=== PATIENT | male | born 1950 | race Caucasian/White ===

== ENCOUNTER → 2016-04-24 | Outpatient (CLI) | payer BC ==
[2016-04-24 19:16] LABS: MEAN CORPUSCULAR HEMOGLOBIN 30.6 pg (27.0-33.0); MEAN CORPUSCULAR HGB CONC 33.2 g/dl (32.0-36.5); MEAN CORPUSCULAR VOLUME 92.2 fl (80.0-96.0); RED CELL DISTRIBUTION WIDTH 11.7 % (11.5-14.5); WHITE BLOOD COUNT 5.9 K/mm3 (4.0-10.0)
[2016-04-27 00:06] LABS: Lyme Disease IgG/IgM Antibodie <0.91 ISR (0.00-0.90); Lyme Disease IgM Ab Quantitati <0.80 index (0.00-0.79)
== END ==
LOC: M LAB 17:29
PROVIDERS: ATTEND Orthopaedic Surgery
DX: M25.562 Pain in left knee (principal)

== ENCOUNTER → 2016-11-28 | Outpatient (REF) | payer BC | LOC: M LAB REF 13:22 | PROVIDERS: ATTEND Internal Medicine | DX: Z01.89 Encounter for other specified special examinations (principal) ==

== ENCOUNTER → 2017-08-09 | Outpatient (REF) | payer MEDICARE ==
[2017-08-09 19:50] LABS: IRON (FE) 58 UG/DL (65-175); PERCENT SATURATION 20.9 % (19.7-50.0); TOTAL IRON BINDING CAPACITY 277 UG/DL (250-450)
== END ==
LOC: M LAB REF 17:44
DX: D50.9 Iron deficiency anemia, unspecified (principal)
CPT/HCPCS: 83550

== ENCOUNTER → 2017-12-03 | Outpatient (REF) | payer MEDICARE ==
[2017-12-03 14:08] LABS: HEPATITIS C VIRUS ABY INDEX 0.2 INDEX (<0.8)
== END ==
LOC: M LAB REF 12:06
DX: Z01.89 Encounter for other specified special examinations (principal)
CPT/HCPCS: 86803

== ENCOUNTER → 2018-02-11 | Outpatient (CLI) | payer MEDICARE | LOC: M RAD 06:12 | DX: I73.9 Peripheral vascular disease, unspecified (principal) | CPT/HCPCS: 93925 ==

== ENCOUNTER → 2018-06-05 | Outpatient (REF) | payer MEDICARE | LOC: M LAB REF 12:19 | PROVIDERS: ATTEND Internal Medicine | DX: M10.9 Gout, unspecified (principal) ==

== ENCOUNTER → 2018-07-23 | Outpatient (REF) | payer MEDICARE ==
[2018-07-23 18:48] LABS: FREE T4 1.08 NG/DL (0.76-1.46); RHEUMATOID FACTOR QUANT < 10.0 IU/ML (<15.0); THYROID STIMULATING HORMONE 0.713 uIU/ML (0.358-3.740)
[2018-07-23 18:50] LABS: FOLATE 22.5 NG/ML; VITAMIN B12 LEVEL 844 PG/ML
[2018-07-23 19:03] LABS: HEMOGLOBIN A1c 5.7 %
[2018-07-28 00:07] LABS: ANTINUCLEAR ANTIBODIES DIRECT Negative (Negative); VITAMIN B1 LEVEL WHOLE BLOOD 144.2 nmol/L (66.5-200.0); VITAMIN B6,PYRIDOXAL PHOSPHATE 35.7 ug/L (5.3-46.7); VITAMIN E(ALPHA TOCOPHEROL) 14.9 mg/L (9.0-29.0); VITAMIN E(GAMMA TOCOPHEROL) 0.4 mg/L (0.5-4.9)
[2018-07-30 13:10] LABS: DRVV SCREEN 57.2 SEC
[2018-07-30 13:59] LABS: PTT LUPUS TYPE ANTICOAG SCREEN 1.4 (0-1.2)
[2018-07-30 14:12] LABS: DRVV CONFIRM 58.2 SEC; LUPUS CONFIRM RATIO 1.5
[2018-07-30 14:31] LABS: NORMALIZED RATIO 0.93 (0.00-1.20)
== END ==
LOC: M LABNEURO 13:51
PROVIDERS: ATTEND Psychiatry & Neurology Neurology
DX: G62.9 Polyneuropathy, unspecified (principal); Z79.899 Other long term (current) drug therapy

== ENCOUNTER → 2018-08-06 | Outpatient (CLI) | payer MEDICARE ==
--- NOTE | 2018-08-06 11:56 | REP ---
PARTIAL LUMBAR SPINE, THREE VIEWS: HISTORY: Back pain. The patient is status post L4 to S1 anterior and T10 to sacroiliac posterior spinal fusion and L2 to L5 laminectomy. Metal hardware is present. There is no acute fracture or subluxation. The intervertebral discs are decreased in height consistent with disc degeneration. There is minimal scoliosis convex to the right. IMPRESSION: The patient is status post L4 to S1 anterior and T10 to sacroiliac posterior spinal fusion and L2-5 laminectomy. There is anatomic alignment. Electronically Signed by Royer Abdalla MD 08/06/2018 12:24 P
--- NOTE | 2018-08-06 12:14 | REP ---
AP AND LATERAL THORACIC SPINE, THREE VIEWS: HISTORY: Back pain. The patient is status post L4 to S1 anterior and T10 to sacroiliac posterior spinal fusion and L2 to 5 laminectomy. Metal hardware is present. There are old compression fractures of the T7 and T8 vertebral bodies with minimal height loss. There is no acute fracture or subluxation. There is loss of height of several mid and lower thoracic intervertebral discs. Anterior osteophytes are present in the lower thoracic spine. IMPRESSION: 1. The patient is status post L4 to S1 anterior and T10 to sacroiliac posterior spinal fusion and L2 to 5 laminectomy. There is anatomic alignment. 2. Degenerative change as described above. Electronically Signed by Royer Abdalla MD 08/06/2018 12:24 P
== END ==
LOC: M RAD 11:15
PROVIDERS: ATTEND Psychiatry & Neurology Neurology
DX: Z98.1 Arthrodesis status (principal); M51.34 Other intervertebral disc degeneration, thoracic region

== ENCOUNTER → 2018-12-30 | Outpatient (REF) | payer MEDICARE ==
[2019-01-01 08:19] LABS: Lyme Disease IgG/IgM Antibodie <0.91 ISR (0.00-0.90); Lyme Disease IgM Ab Quantitati <0.80 index (0.00-0.79)
== END ==
LOC: M LAB REF 13:14
PROVIDERS: ATTEND Internal Medicine
DX: M15.9 Polyosteoarthritis, unspecified (principal)

== ENCOUNTER → 2019-11-21 | Outpatient (CLI) | payer MEDICARE ==
[~2019-11-21] MED LIST: BACL10TA2 PO; CALC600C3 PO; CIDA500T2 PO; DOCU-129 PO; FISH1000 PO; GABA-843 PO; GNP650TA8 PO; METH750T2 PO; MULTCAP PO; NAPR-885 PO; OMEP-218 PO; PROBCAP17 PO; SENN8.6T58 PO; TARTCAP PO; [UNRECOGNIZED DRUG - REMARK]
== END ==
LOC: M LABSMTC 10:33
PROVIDERS: ATTEND Anesthesiology
DX: Z01.812 Encounter for preprocedural laboratory examination (principal)
CPT/HCPCS: C9803; U0003

== ENCOUNTER → 2019-11-24 | Outpatient (CLI) | payer MEDICARE ==
--- NOTE | 2019-12-04 12:25 | PFTRPT ---
Height: 68.00 Inches Weight: 163.00 Lbs BSA: 1.87 Diagnosis: R06.00 DATE OF STUDY: 11/24/2019 ORDERING PHYSICIAN: Dr. Weller Pre and post bronchodilator study of excellent technical quality. Forced vital capacity is normal. FEV1 generally proportionate with adequate exchange noted. Flow volume loop was normal. No significant bronchodilator response identified. Total lung capacity normal. Residual volume proportionate. Diffusion capacity although minimally reduced is appropriate for alveolar volume but no hemoglobin available for correction. Airway resistance and conductance are normal. IMPRESSION: Minimal reduction in the absolute diffusion capacity, requires further clinical correlation. MTDD
== END ==
LOC: M CARPUL 07:28
PROVIDERS: ATTEND Internal Medicine
DX: R06.00 Dyspnea, unspecified (principal)

== ENCOUNTER 2019-11-26 07:57 | Day surgery (SDC) | payer MEDICARE ==
[~2019-11-26] VITALS: Ht 172.7 cm; Wt 73.5 kg
[~2019-11-26 07:57] MED LIST changes: +NS 1,000 ML IV ONE
[2019-11-26] MEDS ORDERED: LIDOCAINE 2% 100MG/5ML SDV (FOR ANES.) As Ordered ONE (09:37)
[2019-11-26] MEDS ORDERED: propofoL 200 MG/20 ML VIAL As Ordered ONE ×2 (09:37→09:43)
[2019-11-26] MEDS ORDERED: ePHEDrine SULFATE 25 MG/5 ML(5MG/ML) SYRINGE As Ordered ONE (09:48)
[2019-11-26 10:22] VITALS: BP 110/64
--- NOTE | 2019-12-03 11:31 | ROOR ---
Patient Name: Aashish Barcenas Procedure Date: 11/26/2019 9:27 AM Date of : 1950 Age: 69 Room: [facility] Gender: Male Note Status: Finalized Procedure: Total Colonoscopy to Cecum Indications: Screening for colorectal malignant neoplasm Providers: Maurisio Sarmiento MD Referring MD: CALISTA PATTERSON JR, MD Requesting Provider: Medicines: Monitored Anesthesia Care Complications: No immediate complications. Procedure: Pre-Anesthesia Assessment: - The heart rate, respiratory rate, oxygen saturations, blood pressure, adequacy of pulmonary ventilation, and response to care were monitored throughout the procedure. The Colonoscope was introduced through the anus and advanced to the cecum, identified by appendiceal orifice and ileocecal valve. The colonoscopy was performed without difficulty. The patient tolerated the procedure well. The quality of the bowel preparation was good. Findings: The perianal and digital rectal examinations were normal. Non-bleeding internal hemorrhoids were found during retroflexion. The hemorrhoids were small and Grade I (internal hemorrhoids that do not prolapse). No other significant abnormalities were identified in a careful examination of the remainder of the colon. The exam was otherwise without abnormality on direct and retroflexion views. Impression: - Non-bleeding internal hemorrhoids. - The examination was otherwise normal on direct and retroflexion views. - No specimens collected. - The exam was otherwise normal to the cecum. Recommendation: - Patient has a contact number available for emergencies. The signs and symptoms of potential delayed complications were discussed with the patient. Return to normal activities tomorrow. Written discharge instructions were provided to the patient. - High fiber diet. - Discharge patient to home. - Continue present medications. - Repeat colonoscopy is not recommended due to current age (66 years or older) for screening purposes. - Return to referring physician. - The findings and recommendations were discussed with the patient. Maurisio Sarmiento MD Maurisio Sarmiento MD 11/26/2019 9:51:20 AM Electronically signed by Maurisio Sarmiento MD Number of Addenda: 0 Note Initiated On: 11/26/2019 9:27 AM Estimated Blood Loss: Estimated blood loss: none.
== END 2019-11-26 10:24 | disposition home or self-care (01) ==
LOC: M OPP 07:57
PROVIDERS: ATTEND Internal Medicine Gastroenterology
DX: Z12.11 Encounter for screening for malignant neoplasm of colon (principal); Z86.010 Personal history of colon polyps; K64.0 First degree hemorrhoids; Z79.891 Long term (current) use of opiate analgesic; Z79.899 Other long term (current) drug therapy

== ENCOUNTER → 2019-12-15 | Outpatient (CLI) | payer MEDICARE ==
[~2019-12-15] MED LIST changes: +METHACHOLINE KIT (J7674) INH ONE; -NS 1,000 ML IV ONE
--- NOTE | 2019-12-15 08:39 | PFTRPT ---
Visit Date: 12/15/2019 Second ID: [id number] Referring Doctor: MD Weller Collins Height: 68.00 Inches Weight: 163.00 Lbs BSA: 1.87 Diagnosis: R06.00 QUALITY: Study of excellent technical quality. PROCEDURE: Under protocol, methacholine was administered. At a dose of 10 mg or 63.75 CDUs, a 32% decline of the FEV1 was noted. PC of 3.96 is significant. Flow rates did return to baseline post-bronchodilator administration. IMPRESSION: Positive methacholine challenge study. MTDD
== END ==
LOC: M CARPUL 12-10 08:00
PROVIDERS: ATTEND Internal Medicine
DX: R06.00 Dyspnea, unspecified (principal)
CPT/HCPCS: 94070; 95070; J7674

== ENCOUNTER → 2020-04-12 | Outpatient (REF) | payer MEDICARE ==
[~2020-04-12] MED LIST changes: +GABA-282 PO; -GABA-843 PO; +METH-1165 PO; -METH750T2 PO; -METHACHOLINE KIT (J7674) INH ONE
[2020-04-12 18:30] LABS: PROTHROMBIN TIME 13.4 SECONDS (12.5-14.3)
[2020-04-12 18:31] LABS: PARTIAL THROMBOPLASTIN TIME 34.9 SECONDS (24.2-38.5)
[2020-04-12 18:42] LABS: APPEARANCE, URINE CLEAR (CLEAR); BACTERIA, URINE AUTO NEGATIVE (NEGATIVE); BILIRUBIN, URINE AUTO NEGATIVE (NEGATIVE); BLOOD, URINE BLOOD NEGATIVE (NEGATIVE); COLOR, URINE YELLOW (YELLOW); GLUCOSE, URINE (UA) AUTO NEGATIVE (NEGATIVE); KETONE, URINE AUTO NEGATIVE (NEGATIVE); LEUKOCYTE ESTERASE, URINE AUTO NEGATIVE (NEGATIVE); NITRITE, URINE AUTO NEGATIVE (NEGATIVE); PROTEIN, URINE AUTO NEGATIVE (NEGATIVE); RBC, URINE AUTO 0 /HPF (0-3); SPECIFIC GRAVITY URINE AUTO 1.009 (1.002-1.035); SQUAMOUS EPITHELIAL CELL UR AU 0 /HPF (0-6); UROBILINOGEN, URINE AUTO 0.2 mg/dL (0.0-2.0); WBC, URINE AUTO 0 /HPF (0-3)
== END ==
LOC: M LAB REF 16:43
PROVIDERS: ATTEND Internal Medicine
DX: Z01.818 Encounter for other preprocedural examination (principal); M17.12 Unilateral primary osteoarthritis, left knee; Z79.01 Long term (current) use of anticoagulants

== ENCOUNTER → 2021-01-18 | Outpatient (REF) | payer MEDICARE ==
[~2021-01-18] MED LIST changes: -DOCU-129 PO; +DOCU-153 PO
[2021-01-18 13:50] LABS: FERRITIN 113 NG/ML (26-388); IRON (FE) 115 UG/DL (65-175); PERCENT SATURATION 39.8 % (19.7-50.0); TOTAL IRON BINDING CAPACITY 289 UG/DL (250-450); TOTAL PROTEIN 7.5 GM/DL (6.4-8.2)
[2021-01-18 13:57] LABS: VITAMIN B12 LEVEL 692 PG/ML
[2021-01-18 13:58] LABS: FOLATE 18.5 NG/ML
[2021-01-19 10:33] LABS: ALBUMIN 4.54 GM/DL (3.29-5.55); ALBUMIN % 60.5 % (55.8-66.1); ALPHA-1-GLOBULIN % 3.5 % (2.9-4.9); ALPHA-1-GLOBULINS 0.26 GM/DL (0.17-0.41); ALPHA-2-GLOBULINS 0.65 GM/DL (0.42-0.99)
[2021-01-19 10:34] LABS: ALPHA-2-GLOBULINS % 8.7 % (7.1-11.8); BETA-1-GLOBULINS 0.37 GM/DL (0.28-0.60); BETA-1-GLOBULINS % 4.9 % (4.7-7.2); BETA-2-GLOBULINS 0.33 GM/DL (0.19-0.55); BETA-2-GLOBULINS % 4.4 % (3.2-6.5); GAMMA GLOBULINS 1.35 GM/DL (0.65-1.58)
== END ==
LOC: M LAB REF 12:20
PROVIDERS: ATTEND Internal Medicine
DX: Z01.818 Encounter for other preprocedural examination (principal); G60.9 Hereditary and idiopathic neuropathy, unspecified; M17.12 Unilateral primary osteoarthritis, left knee; M25.562 Pain in left knee

== ENCOUNTER → 2021-02-24 | Outpatient (REF) | payer MEDICARE, BC ==
[2021-02-24 13:15] LABS: APPEARANCE, URINE HAZY (CLEAR); BACTERIA, URINE AUTO NEGATIVE (NEGATIVE); BILIRUBIN, URINE AUTO NEGATIVE (NEGATIVE); BLOOD, URINE BLOOD NEGATIVE (NEGATIVE); COLOR, URINE AMBER (YELLOW); GLUCOSE, URINE (UA) AUTO NEGATIVE (NEGATIVE); KETONE, URINE AUTO NEGATIVE (NEGATIVE); LEUKOCYTE ESTERASE, URINE AUTO NEGATIVE (NEGATIVE); NITRITE, URINE AUTO NEGATIVE (NEGATIVE); PROTEIN, URINE AUTO NEGATIVE (NEGATIVE); RBC, URINE AUTO 0 /HPF (0-3); SPECIFIC GRAVITY URINE AUTO 1.018 (1.002-1.035); SQUAMOUS EPITHELIAL CELL UR AU 0 /HPF (0-6); UROBILINOGEN, URINE AUTO 0.2 mg/dL (0.0-2.0); WBC, URINE AUTO 0 /HPF (0-3)
[2021-02-24 13:32] LABS: INR 0.98; PROTHROMBIN TIME 13.4 SECONDS (12.7-14.5)
== END ==
LOC: M LAB REF 12:28
PROVIDERS: ATTEND Internal Medicine
DX: Z01.810 Encounter for preprocedural cardiovascular examination (principal); M17.12 Unilateral primary osteoarthritis, left knee

== ENCOUNTER 2021-03-06 17:05 | Inpatient (IN) | payer MEDICARE, BC ==
[~2021-03-06] VITALS: Ht 175.3 cm; Wt 75.6 kg
[2021-03-06 18:10] LABS: BASO % 0.4 % (0.0-1.0); EOS # 0.2 10^3/uL (0.0-0.5); EOS % 2.4 % (0.0-3.0); HEMATOCRIT 30.6 % (42.0-52.0); HEMOGLOBIN 10.3 g/dl (13.5-17.5); LYMPH # 0.8 10^3/uL (1.5-5.0); LYMPH % 10.7 % (24.0-44.0); MEAN CORPUSCULAR HEMOGLOBIN 31.2 pg (27.0-33.0); MEAN CORPUSCULAR HGB CONC 33.7 g/dl (32.0-36.5); MEAN CORPUSCULAR VOLUME 92.7 fl (80.0-96.0); MONO # 0.5 10^3/uL (0.0-0.8); MONO % 6.4 % (2.0-8.0); NEUTROPHILS # 5.6 10^3/uL (1.5-8.5); NEUTROPHILS % 79.5 % (36.0-66.0); PLATELET COUNT, AUTOMATED 166 10^3/uL (150-450)
[2021-03-06 18:20] LABS: INR 1.17; PROTHROMBIN TIME 15.3 SECONDS (12.7-14.5)
[2021-03-06 18:21] LABS: PARTIAL THROMBOPLASTIN TIME 33.6 SECONDS (25.9-37.0)
[2021-03-06 18:25] LABS: RSV AMPLIFICATION NEGATIVE (NEGATIVE)
--- NOTE | 2021-03-06 18:42 | REPVR ---
PROCEDURE INFORMATION: Exam: CT Head Without Contrast Exam date and time: 03/06/2021 5:58 PM Age: 70 years old Clinical indication: Syncope and collapse; Additional info: Syncope, no head injury TECHNIQUE: Imaging protocol: Computed tomography of the head without contrast. Radiation optimization: All CT scans at this facility use at least one of these dose optimization techniques: automated exposure control; mA and/or kV adjustment per patient size (includes targeted exams where dose is matched to clinical indication); or iterative reconstruction. COMPARISON: No relevant prior studies available. FINDINGS: Brain: No intracranial mass, mass effect or midline shift. No acute intracranial hemorrhage. No CT evidence of acute cortical infarct. Ventricles, cisterns, and sulci are normal in size for age. Paranasal sinuses: Frontal and ethmoid sinus mucosal thickening is present. Mastoid air cells: Mastoid air cells and middle ear structures are normally aerated. Orbital cavity: Imaged orbits are unremarkable. Bones/joints: No calvarial fracture or destructive process. Soft tissues: No focal extracranial soft tissue swelling. IMPRESSION: No acute or concerning focal intracranial abnormality. Electronically signed by: Kristopher Pierce On 03/06/2021 18:41:25 PM
[2021-03-06 18:43] LABS: BLOOD UREA NITROGEN 13 MG/DL (7-18); CARBON DIOXIDE LEVEL 28 MEQ/L (21-32); CHLORIDE LEVEL 99 MEQ/L (98-107); CREATININE FOR GFR 0.92 MG/DL (0.70-1.30); ETHYL ALCOHOL (ETHANOL) < 0.003 % (0.000-0.010); GLOMERULAR FILTRATION RATE > 60.0 (>42); GLUCOSE, FASTING 128 MG/DL (70-100); POTASSIUM SERUM 4.2 MEQ/L (3.5-5.1); SODIUM LEVEL 133 MEQ/L (136-145); THYROID STIMULATING HORMONE 0.572 uIU/ML (0.358-3.740)
--- NOTE | 2021-03-06 18:48 | REP ---
INDICATION: Syncope/near-syncope/constipation. COMPARISON: None. TECHNIQUE: KUB. Two views. FINDINGS: Patient is status post thoracolumbar spine fusion with dorsally position fusion rods and transpedicle screws. Laminectomy defects are visible at L5-L4 and L3. There are surgical clips in the right lower quadrant. Air and stool are seen in a nondistended colon. No small bowel dilation is observed. No evidence to suggest fecal impaction or obstipation. IMPRESSION: Fusion hardware throughout the thoracolumbar spine. Unremarkable bowel gas pattern. No evidence of obstipation. <Electronically signed by Cole Marcial > 03/06/21 [id number]
--- NOTE | 2021-03-06 18:49 | REP ---
INDICATION: Syncope/near-syncope. COMPARISON: December 15, 2007. TECHNIQUE: Portable upright AP chest radiograph. FINDINGS: The lungs are well inflated and clear. Pleural angles are sharp. Heart is mildly enlarged. Pulmonary vasculature is slightly cephalized. There is no evidence of pulmonary edema. There is a faint linear opacity in the left base consistent with platelike atelectasis or scarring. IMPRESSION: Mildly enlarged heart platelike atelectasis versus linear scarring left base.. Cephalization of the pulmonary vasculature. Fusion hardware in the lower thoracic spine. <Electronically signed by Cole Marcial > 03/06/21 [id number]
[2021-03-06] MEDS ORDERED: NS 500 ML IV ONE (18:50)
[2021-03-06 19:08] LABS: ALBUMIN 3.2 GM/DL (3.2-5.2); ALT/SGPT 36 U/L (12-78); BILIRUBIN,DIRECT 0.3 MG/DL (0.0-0.2); BILIRUBIN,TOTAL 0.8 MG/DL (0.2-1.0); TOTAL PROTEIN 6.3 GM/DL (6.4-8.2)
[2021-03-06] MEDS ORDERED: HYDR-3713 PO (19:40)
[2021-03-06] MEDS ORDERED: FLOM0.4C39 PO (19:40)
[2021-03-06] MEDS ORDERED: KETO10TAB PO (19:40)
[2021-03-06] MEDS ORDERED: ISOVUE-370 76% 100ML VIAL As Ordered ONE (19:43)
--- OUTSIDE RECORDS SUMMARY | 2021-03-06 19:43 | CCD | Continuity of Care Document ---
Author Author Aashish Weller MD Organization Unknown Address [facility] [address] [place] [address] Phone [phone] Care Team Providers Care Head Char Filter Tank Tender Name Role Phone Jaime Weller JR, MD AUTM Unavailable Darrell Peters MD AUTM Unavailable Giorgio Plunkett MD AUTM [phone] Aurelio Adams MD AUTM [phone] Jeyson Cornell AUTM [phone] Lyla Ruano MD AUTM [phone] Problems Active Problems Provider Date Osteoarthritis Jaime Weller MD Onset: 11/12/2010 Hemorrhoids without complication Jaime Weller MD Onset : 11/12/2010 Pure hypercholesterolemia Jaime Weller MD Onset: 11/12 Social History Type Date Description Comments Sex Unknown ETOH Use Currently consumes alcohol 2-4 a lcoholic beverages on an average week Tobacco Use Start: Unknown Patient has never smoked Allergies and adverse reactions Description No Known Drug Allergies Medications Active Medications SIG Qnty Indications Ordering Provide r Date QC Tumeric Complex 500mg Capsules 2 daiky Jaime Weller MD 02/24/2021 Anusol-HC 2.5% Cream apply to rectal 4 times daily as needed for pain 60gm Jaime coyne MD 01/18/2021 Neurontin 300mg Capsules 1 tab by mouth bid 60caps Will Acevedo M.D. 11/26/2020 Methocarbamol 750mg Tablets one tablet b.i.d prn 60tabs Jaime Weller MD 11/10/2020 Calcium 600 + D [id number] Tab lets 1 by mouth every day Jaime Weller MD 021 Ketoconazole 2% Cream twice a day to rash for 14 days 60gm Jaime Weller MD 07/06/2020 Naproxen 500mg Tablets take one tablet by mouth twice a day with food 180tabs Will Acevedo M.D. 11/08/2017 Vitamin C 500mg Tablets 1 by mouth every day Jaime Weller MD 07/27/2017 Senna Plus 8.6-50mg Tablets 2 by mouth at bedtime 60tabs Jaime Weller MD 07/27/[address] take one capsule by mouth every day 90caps Will Acevedo M.D. 07/13/2016 Multivitamins Tablets 1 po q d Jaime Weller MD 06/16/2010 Tylenol 325mg Tablets 2 tabs q4h prn pain or fever Jaime Weller MD 06/16/2010 Glucosamine Chondroitin &MSM [id number] Tablets 1 po bid Jaime Weller MD 2010 Baclofen 20mg Tablets take one tablet by mouth twice a day 60tabs Jaime Weller MD 00 Docusate Sodium 100mg Capsules take one capsule by mouth twice a day as needed hold for diarrhea Unknown Medications Administered in Office Medication SIG Qnty Indications Ordering Provider Date Administration Of Flu Vaccine Inj jon Weller MD 12/31/2019 Administration Of Flu Vaccine Inj yohannesion Jaime Weller MD 01/11/2016 Administration Of Flu Vaccine Inj ection [place]IN[place] 12/31/2014 Immunizations CPT Code Status Date Vaccine Lot # U-Flu Given 02/21/2021 Influenza,Unspecified [id number] Given 12/31/2019 Adacel- Tetanus Diphtheria P ertussis [id number] Given 12/31/2019 Influenza Vaccin e Quadrivalent Preser/Antibiotic Free Im Use [id number] 83983 Given 02/28/2018 Shingrix Zoster Vaccine (HZV), Recombinant, Subunit, Adjuvanted 97206 Given 12/06/2017 Shingrix Zoster Vaccine (HZV), Recombinant, Subunit, Adjuvanted 38077 Given 11/28/2016 Pneumovax 23 [id number] Given 01/11/2016 Fluvirin Virus Vaccine [id number] 01 Q2037 Given 12/31/2014 Fluvirin Virus Vaccine 90984 01 26526 Given 07/18/2011 Zoster Vaccine 02589 Given 12/21/2009 Influenza Virus Vaccine Vital Signs Date Vital Result Comment 02/24/2021 9:42am BP Systolic 110 mmHg BP Diastolic 72 mmHg Heart Rate 64 /min Height 68 inches 5'8" Weight 168.00 lb BMI (Body Mass Index) 25.5 kg/m2 01/18/2021 8:51am BP Systolic 114 mmHg BP Diastolic 76 mmHg Heart Rate 68 /min Height 68 inches 5'8" Weight 167.44 lb O2 % BldC Oximetry 96 % RM Air BMI (Body Mass Index) 25.5 kg/m2 Results Test Acquired Date Facility Test Result H/L Range Note PT & Aptt 02/24/[address] [address] [phone] Prothrombin Time 13.4 seconds Normal 12.7-14.5 Inr 0.98 Normal 1 Partial Thromboplastin Time 32.0 seconds Normal 25.9-37.0 Ua Routine 02/24/[address] [id number] [phone] Appearance, Urine HAZY Normal Clear Color, Urine RODGER Normal Yellow PH,Urine 5.0 units Normal 5.0-9.0 Specific [place] Urine Auto 1.018 Normal 1.002-1.035 Protein, Urine Auto NEGATIVE mg/dL Normal Negative Glucose, Urine (Ua) Auto NEGATIVE mg/dL Normal Negative Ketone, Urine Auto NEGATIVE mg/dL Normal Negative Urobilinogen, Urine Auto 0.2 mg/dL Normal 0.0-2.0 Bilirubin, Urine Auto NEGATIVE Normal Negative Nitrite, Urine Auto NEGATIVE Normal Negative Leukocyte Esterase, Urine Auto NEGATIVE Normal Negative Blood, Urine Blood NEGATIVE Normal Negative WBC, Urine Auto 0 /HPF Normal 0-3 RBC, Urine Auto 0 /HPF Normal 0-3 Bacteria, Urine Auto NEGATIVE Normal Negative Squamous Epithelial Cell Ur AU 0 /HPF Normal 0-6 Hyaline Cast, Urine Auto 0 /LPF Normal 0-1 Laboratory test finding 02/24/[address] [place], [place] [id number] [phone] Urine Culture FULL REPORT IN L <SEE NOTE> Normal 2 Complete Blood Count 02/24/2021 [place] [employer] Case jaron ornelas [employer] Operator: Dr Jaime Weller [place], [place] [id number] [phone] WBC 3.6 x10*3/UL Low 4.1 - 10.9 3 RBC 4.31 x10*6/UL 4.20 - 6.30 Hemoglobin 13.5 g/dL 12.0 - 18.0 Hematocrit 37.9 % 37.0 - 51.0 MCV 87.9 fL 80.0 - 97.0 MCH 31.4 pg 26.0 - 32.0 MCHC 35.7 g/dL 31.0 - 38.0 RDW 12.4 % 11.6 - 13.7 PLT 222 x10*3/UL 140 - 440 MPV 7.1 FL Low 7.8 - 11.0 Lymph % 27.4 % 10.0 - 58.5 Mid % 7.4 % 1.7 - 9.3 Neut % 65.2 % 37.0 - 92.0 Lymph # 1.0 x10*3/UL 0.6 - 4.1 Mid # 0.3 x10*3/UL 0.1 - 0.6 Neut # 2.3 x10*3/UL 2.0 - 7.8 Comprehensive Chem Profile 02/24/2021 [place] jaron Seth [employer] Operator: [place] [address] [phone] Glucose 89 mg/dL 74 - 99 4 BUN 21 mg/dL High 7 - 18 Creatinine 1.1 mg/dL 0.6 - 1.3 Sodium 140 mEq/L 136 - 145 Potassium 4.4 mEq/L 3.5 - 5.1 Chloride 102 mEq/L 98 - 107 Carbon Dioxide 34 mEq/L High 21 - 32 Calcium 8.8 mg/dL 8.5 - 10.1 Alk. Phosphatase 51 mg/dL 46 - 116 Total Bilirubin 0.6 mg/dL 0.2 - 1.0 Ast (Sgot) 21 U/L 15 - 37 Alt (SGPT) 26 U/L 12 - 78 Albumin 4.0 g/dL 3.4 - 5.0 Total Protein 7.3 g/dL 6.4 - 8.2 A/G Ratio 1.21 CALC 1.00 - 1.90 GFR >= 60 mL/min >60 GFR >= 60 mL/min >60 5 Vitamin B12 & Folate 01/18/2021 [facility] [address] [place] [address] [phone] Vitamin B12 Level 692 pg/mL Normal 6 Folate 18.5 NG/ML Normal 7 Serum Protein Elect W/RFX 01/18/2021 [facility] [address] [place] [address] [phone] Albumin % 60.5 % Normal 55.8-66.1 Bygqn-3-Kacvrxnd % 3.5 % Normal 2.9-4.9 Qojic-5-Dnehcyqfj % 8.7 % Normal 7.1-11.8 Qcmg-6-Adibpemrk % 4.9 % Normal 4.7-7.2 Davs-7-Mlgrgbdxd % 4.4 % Normal 3.2-6.5 Gamma Globulin % 18.0 % Normal 11.1-18.8 Albumin 4.54 GM/DL Normal 3.29-5.55 Vwzgn-9-Rixxhbgfl 0.26 GM/DL Normal 0.17-0.41 Xmuez-8-Umeeombel 0.65 GM/DL Normal 0.42-0.99 Fxld-4-Jwvxhvpwh 0.37 GM/DL Normal 0.28-0.60 Yqnc-8-Xygpjemit 0.33 GM/DL Normal 0.19-0.55 Gamma Globulins 1.35 GM/DL Normal 0.65-1.58 Total Protein 7.5 GM/DL Normal 6.4-8.2 Spep Interpretation For RFX SEE COMMENT Normal 8 Spep Pathologist Review REV'D BY Loli GUY <SEE NOTE> Normal 9 Total Iron Binding Capacit 01/18/2021 [facility] [address] [place] [address] [phone] Iron (Fe) 115 g/dL Normal 65-175 Total Iron Binding Capacity 289 g/dL Normal 250-450 Percent Saturation 39.8 % Normal 19.7-50.0 Laboratory test finding 01/18/2021 [facility] [address] [place] [id number] [phone] Ferritin 113 NG/ML Normal 26-388 Laboratory test finding 01/18/2021 [place] [employer] Manager jaron beckwith [employer] Operator: [place] [address] [phone] PSA 1.84 ng/mL <4.00 10 Complete Blood Count 01/18/2021 [place] [facility] s, pc [employer] Operator: [place] [address] [phone] WBC 3.8 x10*3/UL Low 4.1 - 10.9 RBC 4.60 x10*6/UL 4.20 - 6.30 Hemoglobin 14.3 g/dL 12.0 - 18.0 Hematocrit 40.7 % 37.0 - 51.0 MCV 88.5 fL 80.0 - 97.0 MCH 31.2 pg 26.0 - 32.0 MCHC 35.2 g/dL 31.0 - 38.0 RDW 12.6 % 11.6 - 13.7 PLT 211 x10*3/UL 140 - 440 MPV 7.4 FL Low 7.8 - 11.0 Lymph % 24.0 % 10.0 - 58.5 Mid % 7.0 % 1.7 - 9.3 Neut % 69.0 % 37.0 - 92.0 Lymph # 0.9 x10*3/UL 0.6 - 4.1 Mid # 0.3 x10*3/UL 0.1 - 0.6 Neut # 2.6 x10*3/UL 2.0 - 7.8 Comprehensive Chem Profile 01/18/2021 [place] jaron Seth [employer] Operator: [place] [address] [phone] Glucose 97 mg/dL 74 - 99 11 BUN 21 mg/dL High 7 - 18 Creatinine 1.1 mg/dL 0.6 - 1.3 Sodium 135 mEq/L Low 136 - 145 Potassium 4.9 mEq/L 3.5 - 5.1 Chloride 100 mEq/L 98 - 107 Carbon Dioxide 29 mEq/L 21 - 32 Calcium 9.7 mg/dL 8.5 - 10.1 Alk. Phosphatase 50 mg/dL 46 - 116 Total Bilirubin 0.9 mg/dL 0.2 - 1.0 Ast (Sgot) 27 U/L 15 - 37 Alt (SGPT) 27 U/L 12 - 78 Albumin 4.1 g/dL 3.4 - 5.0 Total Protein 7.6 g/dL 6.4 - 8.2 A/G Ratio 1.17 CALC 1.00 - 1.90 GFR >= 60 mL/min >60 GFR >= 60 mL/min >60 12 Lipid Profile 01/18/2021 [facility] [employer] Operator: [place] [address] [phone] Cholesterol 222 mg/dL High 131 - 200 Triglycerides 55 mg/dL 30 - 150 HDL Cholesterol 67 mg/dL High 35 - 60 LDL (Calculated) 144 CALC 50 - 159 Laboratory test finding 01/18/2021 [place] [employer] Manager is[facility], [facility] [employer] Operator: [place] [address] [phone] Thyroid Stimulating Hormone 0.96 uIU/mL 0.3 6 - 3.74 1 THERAPUTIC HUMAN INR VALUES INDICATIONS NORMAL RANGES PROPHYLAXIS/TREATMENT OF: VENOUS THROMBOSIS 2.0-3.0 PULMONARY EMBOLISM 2.0-3.0 PREVENTION OF SYSTEMIC EMBOLISM FROM: TISSUE HEART VALVES 2.0-3.0 ACUTE MYOCARDIAL INFARCTION 2.0-3.0 VALVULAR HEART DISEASE 2.0-3.0 ATRIAL FIBRILLATION 2.0-3.0 MECHANICAL VALVES(HIGH RISK) 2.5-3.5 RECURRENT MYOCARDIAL INFARCTION 2.5-3.5 2 FULL REPORT IN LAB NOTES (eC W and Medent). NO GROWTH 3 NOTE: RESULT VERIFIED. 4 100-125 mg/dL PRE-DIABET ES/FASTING >126 mg/dL DIABETES/FASTING 5 CHRONIC KIDNEY DISEASE STAGI NG PER NKF STAGE I & II GFR >= 60 NORMAL TO MILDLY DECREASED STAGE III GFR 30-59 MODERATELY DECREASED STAGE IV GFR 15-29 SEVERELY DECREASED STAGE V GFR <15 VERY LITTLE GFR LEFT ESRD GFR <15 ON VISUAL MERCHANDISING ASSISTANT 6 VITAMIN B12 NORMAL RANGE NORMAL 247 - 911 PG/ML INDETERMINATE 211 - 246 PG/ML DEFICIENT LESS THAN 211 PG/ML 7 FOLATE NORMAL RANGE NORMAL GREATER THAN 5.4 NG/ML INDETERMINATE 3.4-5.4 NG/ML DEFICIENT LESS THAN 3.4 NG/ML 8 NO M-SPIKE(S)NOTED. 9 REV'D BY Loli DING 10 This assay was performed on the Siemens Dimension EXL using the B- Galactosidase/CPRG methodology and should not be compared interchangeably with other methods. The PSA should not be used alone as a screening test for the presence or absence of malignant disease. 11 100-125 mg/dL PRE-DIABET ES/FASTING >126 mg/dL DIABETES/FASTING 12 CHRONIC KIDNEY DISEASE STAGI NG PER NKF STAGE I & II GFR >= 60 NORMAL TO MILDLY DECREASED STAGE III GFR 30-59 MODERATELY DECREASED STAGE IV GFR 15-29 SEVERELY DECREASED STAGE V GFR <15 VERY LITTLE GFR LEFT ESRD GFR <15 ON VISUAL MERCHANDISING ASSISTANT Procedures Date Code Description Status 01/18/2021 41185 Office/Outpatient Established Mo d MDM 30-39 Min Completed 11/26/2020 34987 Chronic Care MGMT 20 Mins Clinical Staff Time Per Calendar Month Completed 11/10/2020 72588 Complex Chronic Care MGMT Servic e Ea Addl 30 Min Completed 11/10/2020 78713 Complex Chronic Care Management SVC 1St 60 Min Completed 10/07/2020 98816 Chronic Care MGMT 20 Mins Clinical Staff Time Per Calendar Month Completed 09/03/2020 47544 Chronic Care MGMT 20 Mins Clinical Staff Time Per Calendar Month Completed 11/26/2019 26352220 Colonoscopy Completed 08/13/2018 777346081 Diabetic Retinal Eye Exam Comple nathaly 03/02/2015 328435134 Diabetic Retinal Eye Exam Comple nathaly 02/02/2015 090006236 Diabetic Retinal Eye Exam Comple nathaly 01/12/2015 028590379 Diabetic Retinal Eye Exam Comple nathaly 08/01/2010 65106684 Colonoscopy Completed 11/02/2003 69777707 Colonoscopy Completed Medical Devices Description No Information Available Encounters Type Date Location Provider Dx Diagnosis Office Visit 01/18[facility]2021 9[facility] G47.33 Obstructive sleep apnea (adult) (pediatr ic) G25.81 Restless legs syndrome E78.00 Pure hypercholesterolemia, u nspecified G60.9 Hereditary and idiopathic ne uropathy, unspecified M17.12 Unilateral primary osteoarth ritis, left knee K21.9 Gastro-esophageal reflux dis ease without esophagitis M15.9 Polyosteoarthritis, unspecif ied Z12.5 Encounter for screening for malignant neoplasm of prostate Z13.89 Encounter for screening for other disorder Assessments Date Code Description Provider 02/24/2021 Z01.810 Encounter for preprocedural card iovascular examination Jaime Weller MD 02/24/2021 M17.12 Unilateral primary osteoarthriti s, left knee Jaime Weller MD 02/24/2021 G47.33 Obstructive sleep apnea (adult) (pediatric) Jaime Weller MD 02/24/2021 G60.9 Hereditary and idiopathic neurop athy, unspecified Jaime Weller MD 02/24/2021 E78.00 Pure hypercholesterolemia, unspe cified Jaime Weller MD 02/24/2021 K21.9 Gastro-esophageal reflux disease without esophagitis Jaime Weller MD 01/18/2021 G47.33 Obstructive sleep apnea (adult) (pediatric) Jaime Weller MD 01/18/2021 G25.81 Restless legs syndrome Jaime Weller MD 01/18/2021 E78.00 Pure hypercholesterolemia, unspe cified Jaime Weller MD 01/18/2021 G60.9 Hereditary and idiopathic neurop athy, unspecified Jaime Weller MD 01/18/2021 M17.12 Unilateral primary osteoarthriti s, left knee Jaime Weller MD 01/18/2021 K21.9 Gastro-esophageal reflux disease without esophagitis Jaime Weller MD 01/18/2021 M15.9 Polyosteoarthritis, unspecified Jaime Weller MD 01/18/2021 Z12.5 Encounter for screening for hai gnant neoplasm of prostate Jaime Weller MD 01/18/2021 Z13.89 Encounter for screening for othe r disorder Jaime Weller MD 11/26/2020 K21.9 Gastro-esophageal reflux disease without esophagitis Jaime Weller MD 11/26/2020 G47.33 Obstructive sleep apnea (adult) (pediatric) Jaime Weller MD 11/26/2020 G25.81 Restless legs syndrome Jaime Weller MD 11/10/2020 K21.9 Gastro-esophageal reflux disease without esophagitis Jaime Weller MD 11/10/2020 G47.33 Obstructive sleep apnea (adult) (pediatric) Jaime Weller MD 11/10/2020 G25.81 Restless legs syndrome Jaime Weller MD 10/07/2020 K21.9 Gastro-esophageal reflux disease without esophagitis Jaime Weller MD 10/07/2020 E78.00 Pure hypercholesterolemia, unspe cified Jaime Weller MD 10/07/2020 G47.33 Obstructive sleep apnea (adult) (pediatric) Jaime Weller MD 09/03/2020 K21.9 Gastro-esophageal reflux disease without esophagitis Jaime Weller MD 09/03/2020 E78.00 Pure hypercholesterolemia, unspe cified Jaime Weller MD 09/03/2020 G47.33 Obstructive sleep apnea (adult) (pediatric) Jaime Weller MD Plan of Treatment Future Appointment(s):* 07/19/2021 11:20 am - Jaime Weller MD at [facility] 02/24/2021 - Jaime Weller MD* Z01.810 Encounter for preprocedural cardiovascular examination * M17.12 Unilateral primary osteoarthritis, left knee * G47.33 Obstructive sleep apnea (adult) (pediatric) * G60.9 Hereditary and idiopathic neuropathy, unspecified * E78.00 Pure hypercholesterolemia, unspecified * K21.9 Gastro-esophageal reflux disease without esophagitis * All * New Medication:* QC Tumeric Complex 500 mg - 2 daiky Functional Status Description No Information Available Mental Status Description No Information Available Referrals Description No Information Available
--- OUTSIDE RECORDS SUMMARY | 2021-03-06 19:43 | CCD | Continuity of Care Document ---
Author Author Aashish Weller MD Organization Unknown Address [facility] [address] [place] [address] Phone [phone] Care Team Providers Care Research Program Manager Name Role Phone Jaime Weller JR, MD AUTM Unavailable Darrell Peters MD AUTM Unavailable Giorgio Plunkett MD AUTM [phone] Aurelio Adams MD AUTM [phone] Jeyson Cornell AUTM [phone] Lyla Runao MD AUTM [phone] Problems Active Problems Provider Date Osteoarthritis Jaime [...] SIG Qnty Indications Ordering Provide r Date Neurontin 300mg Capsules 1 tab by mouth bid 60caps Will Acevedo M.D. 11/26/2020 Methocarbamol 750mg Tablets one tablet b.i.d prn 60tabs Will Acevedo M.D. 11/10/2020 Calcium 600 + D [id number] Tab lets 1 by mouth every day [...] Jaime Weller MD 06/16/2010 Glucosamine Chondroitin &MSM [phone] Tablets 1 po bid Jaime Weller MD 2010 Baclofen 20mg Tablets take one tablet by mouth twice a day 60tabs Jaime Weller MD 00 Docusate Sodium 100mg Capsules take one capsule by mouth twice a day as needed hold for diarrhea Unknown Medications Administered in Office Medication SIG Qnty Indications Ordering Provider Date Administration Of Flu Vaccine Inj ection Jaime Weller MD 12/31/2019 Administration Of Flu Vaccine Inj ection Jaime Weller MD 01/11/2016 Administration Of Flu Vaccine Inj ection [place] 12/31/2014 Immunizations CPT Code Status Date Vaccine Lot # [id number] Given 12/31/2019 Adacel- Tetanus Diphtheria P ertussis [id number] Given 12/31/2019 Influenza Vaccin e Quadrivalent Preser/Antibiotic Free Im Use [id number] 44957 Given 02/28/2018 Shingrix Zoster Vaccine (HZV), Recombinant, Subunit, Adjuvanted 64132 Given 12/06/2017 Shingrix Zoster Vaccine (HZV), Recombinant, Subunit, Adjuvanted 61610 Given 11/28/2016 Pneumovax 23 [id number] Given 01/11/2016 Fluvirin Virus Vaccine 19749 01 Q2037 Given 12/31/2014 Fluvirin Virus Vaccine 87919 01 01934 Given 07/18/2011 Zoster Vaccine 91936 Given 12/21/2009 Influenza Virus Vaccine Vital Signs Date Vital Result Comment 01/18/2021 8:51am BP Systolic 114 mmHg BP Diastolic 76 mmHg Heart Rate 68 /min Height 68 inches 5'8" Weight 167.44 lb O2 % BldC Oximetry 96 % RM Air BMI (Body Mass Index) 25.5 kg/m2 07/06/2020 8:36am BP Systolic 112 mmHg BP Diastolic 72 mmHg Heart Rate 72 /min Height 68 inches 5'8" Weight 171.00 lb BMI (Body Mass Index) 26.0 kg/m2 Results Description No Information Available Procedures Date Code Description Status 11/26/2020 76434 Chronic Care MGMT 20 Mins Clinical Staff Time Per Calendar Month Completed 11/10/2020 82601 Complex Chronic Care MGMT Servic e Ea Addl 30 Min Completed 11/10/2020 10112 Complex Chronic Care Management SVC 1St 60 Min Completed 10/07/2020 40571 Chronic Care MGMT 20 Mins Clinical Staff Time Per Calendar Month Completed 09/03/2020 89736 Chronic Care MGMT 20 Mins Clinical Staff Time Per Calendar Month Completed 08/19/2020 59598 Chronic Care MGMT 20 Mins Clinical Staff Time Per Calendar Month Completed 08/19/2020 17168 Chronic Care Management Services Ea Addl 20 Min Completed 11/26/2019 94855207 Colonoscopy Completed 08/13/2018 [id number] Diabetic Retinal Eye Exam [facility] 03/02/2015 [id number] Diabetic Retinal Eye Exam [facility] 02/02/2015 [id number] Diabetic Retinal Eye Exam [facility] 01/12/2015 332790255 Diabetic Retinal Eye Exam Comple [facility] 08/01/2010 [id number] Colonoscopy Completed 11/02/2003 75222948 Colonoscopy Completed Medical Devices Description No Information Available Encounters Description No Information Available Assessments Date Code Description Provider 11/26/2020 K21.9 Gastro-esophageal reflux disease without esophagitis [...] sleep apnea (adult) (pediatric) Jaime Weller MD 08/19/2020 K21.9 Gastro-esophageal reflux disease without esophagitis Jaime Weller MD 08/19/2020 E78.00 Pure hypercholesterolemia, unspe cified Jaime Weller MD 08/19/2020 G25.81 Restless legs syndrome Jaime Weller MD Plan of Treatment No Information Available Functional Status Description No Information Available Mental Status Description No Information Available Referrals Description No Information Available
--- OUTSIDE RECORDS SUMMARY | 2021-03-06 19:43 | CCD | Continuity of Care Document ---
Author Author Aashish Weller MD Organization Unknown Address [facility] [address] [place] [address] Phone [phone] Care Team Providers Care Biztalk Architect Name Role Phone Jaime Weller JR, MD AUTM Unavailable Darrell Peters MD AUTM Unavailable Giorgio Plunkett MD AUTM [phone] Aurelio Adams MD AUTM [phone] Jeyson Cornell AUTM [phone] Lyla Ruano MD AUTM [phone] Problems Active Problems Provider Date Osteoarthritis Jaime [...] Weller MD 11/10/2020 Calcium 600 + D [id number] Tab lets 1 by mouth every day [...] Jaime Weller MD 06/16/2010 Glucosamine Chondroitin &MSM [phone] Tablets 1 po bid Jaime Weller MD [...] Vaccine Lot # [id number] Given 02/21/2021 Influenza,Unspecified 96544 Given 12/31/2019 Adacel- Tetanus Diphtheria P ertussis [id number] 49115 Given 12/31/2019 Influenza Vaccin e Quadrivalent Preser/Antibiotic Free Im Use [id number] 35045 Given 02/28/2018 Shingrix Zoster Vaccine (HZV), Recombinant, Subunit, Adjuvanted 20539 Given 12/06/2017 Shingrix Zoster Vaccine (HZV), Recombinant, Subunit, Adjuvanted 11314 Given 11/28/2016 Pneumovax 23 [id number] Q2037 Given 01/11/2016 Fluvirin Virus Vaccine 15169 01 Q2037 Given 12/31/2014 Fluvirin Virus Vaccine 98392 01 56991 Given 07/18/2011 Zoster Vaccine 90777 Given 12/21/2009 Influenza Virus Vaccine Vital Signs [...] H/L Range Note PT & Aptt 02/24/[address] [address] [phone] Prothrombin Time 13.4 seconds Normal 12.7-14.5 Inr 0.98 Normal 1 Partial Thromboplastin Time 32.0 seconds Normal 25.9-37.0 Ua Routine 02/24/[address] [id number] [phone] Appearance, Urine HAZY Normal Clear Color, Urine RODGER Normal Yellow PH,Urine 5.0 units Normal 5.0-9.0 Specific [place]ack[place] Urine Auto 1.018 Normal 1.002-1.035 Protein, Urine [...] /LPF Normal 0-1 Laboratory test finding 02/24/[address] [place], [place] [address] [phone] Urine Culture FULL REPORT IN L <SEE NOTE> Normal 2 Complete Blood Count 02/24/2021 [place] [facility] jaron ornelas Senior Communications Specialist: Dr Jaime Weller [place], [place] [address] [phone] WBC 3.6 x10*3/UL Low 4.1 - 10.9 [...] 2.0 - 7.8 Comprehensive Chem Profile 02/24/2021 [place] jaron Seth Senior Communications Specialist: [place] [address] [phone] Glucose 89 mg/dL 74 - 99 4 [...] >60 5 Vitamin B12 & Folate 01/18/2021 [facility] [address] [place] [address] [phone] Vitamin B12 Level 692 pg/mL Normal 6 Folate 18.5 NG/ML Normal 7 Serum Protein Elect W/RFX 01/18/2021 [facility] [address] [place] [address] [phone] Albumin % 60.5 % Normal 55.8-66.1 Vuzwp-6-Jqpanujx % 3.5 % Normal 2.9-4.9 Ymftq-4-Cyijupnfj % 8.7 % Normal 7.1-11.8 Chns-9-Mkwaoplux % 4.9 % Normal 4.7-7.2 Roce-2-Cfyvgapkj % 4.4 % Normal 3.2-6.5 Gamma Globulin % 18.0 % Normal 11.1-18.8 Albumin 4.54 GM/DL Normal 3.29-5.55 Osagm-4-Srtrzblmb 0.26 GM/DL Normal 0.17-0.41 Cxola-6-Lfekvaxso 0.65 GM/DL Normal 0.42-0.99 Onzj-8-Pcdtxctcd 0.37 GM/DL Normal 0.28-0.60 Dzrs-3-Rxatswmow 0.33 GM/DL Normal 0.19-0.55 Gamma Globulins 1.35 GM/DL Normal 0.65-1.58 Total Protein 7.5 GM/DL Normal 6.4-8.2 Spep Interpretation For RFX SEE COMMENT Normal 8 Spep Pathologist Review REV'D BY Loli GUY <SEE NOTE> Normal 9 Total Iron Binding Capacit 01/18/2021 [facility] [address] [place] [address] [phone] Iron (Fe) 115 g/dL Normal 65-175 Total Iron Binding Capacity 289 g/dL Normal 250-450 Percent Saturation 39.8 % Normal 19.7-50.0 Laboratory test finding 01/18/2021 [facility] [address] [place] [id number] [phone] Ferritin 113 NG/ML Normal 26-388 Laboratory test finding 01/18/2021 [place] [facility] jaron beckwith Senior Communications Specialist: [place] [address] [phone] PSA 1.84 ng/mL <4.00 10 Complete Blood Count 01/18/2021 [facility] Senior Communications Specialist: [place] [address] [phone] WBC 3.8 x10*3/UL Low 4.1 - 10.9 [...] 2.0 - 7.8 Comprehensive Chem Profile 01/18/2021 [place] jaron Seth Senior Communications Specialist: [place] [address] [phone] Glucose 97 mg/dL 74 - 99 11 [...] 60 mL/min >60 12 Lipid Profile 01/18/2021 [facility] Senior Communications Specialist: [place] [address] [phone] Cholesterol 222 mg/dL High 131 - 200 Triglycerides 55 mg/dL 30 - 150 HDL Cholesterol 67 mg/dL High 35 - 60 LDL (Calculated) 144 CALC 50 - 159 Laboratory test finding 01/18/2021 [place] [facility] Senior Communications Specialist: [place] [address] [phone] Thyroid Stimulating Hormone 0.96 uIU/mL 0.3 6 [...] LITTLE GFR LEFT ESRD GFR <15 ON WET MACHINE CUTTER 6 VITAMIN B12 NORMAL RANGE NORMAL 247 [...] LITTLE GFR LEFT ESRD GFR <15 ON WET MACHINE CUTTER Procedures Date Code Description Status 01/18/2021 04834 Office/Outpatient Established Mo d MDM 30-39 Min Completed 11/26/2020 71696 Chronic Care MGMT 20 Mins Clinical Staff Time Per Calendar Month Completed 11/10/2020 37965 Complex Chronic Care MGMT Servic e Ea Addl 30 Min Completed 11/10/2020 44183 Complex Chronic Care Management SVC 1St 60 Min Completed 10/07/2020 77612 Chronic Care MGMT 20 Mins Clinical Staff Time Per Calendar Month Completed 09/03/2020 87511 Chronic Care MGMT 20 Mins Clinical Staff Time Per Calendar Month Completed 11/26/2019 40977520 Colonoscopy Completed 08/13/2018 [id number] Diabetic Retinal Eye Exam Comple [facility] 03/02/2015 143986775 Diabetic Retinal Eye Exam Comple [facility] 02/02/2015 453625301 Diabetic Retinal Eye Exam Comple [facility] 01/12/2015 063686772 Diabetic Retinal Eye Exam Comple [facility] 08/01/2010 38827279 Colonoscopy Completed 11/02/2003 93441778 Colonoscopy Completed Medical Devices Description No Information Available Encounters Type Date Location Provider Dx Diagnosis Office Visit 01/18/2021 [facility] G47.33 Obstructive sleep [...] 11:20 am - Jaime Weller MD at [facility] 01/18/2021 - Jaime Weller MD* G47.33 Obstructive sleep apnea (adult) (pediatric) * G25.81 Restless legs syndrome * E78.00 Pure hypercholesterolemia, unspecified * G60.9 Hereditary and idiopathic neuropathy, unspecified * M17.12 Unilateral primary osteoarthritis, left knee * K21.9 Gastro-esophageal reflux disease without esophagitis * M15.9 Polyosteoarthritis, unspecified * Z12.5 Encounter for screening for malignant neoplasm of prostate * Z13.89 Encounter for screening for other disorder * All * New Medication:* Anusol-HC 2.5 % - apply to rectal 4 times daily as needed for pain Functional Status Description No Information Available Mental Status Description No Information Available Referrals Description No Information Available
--- OUTSIDE RECORDS SUMMARY | 2021-03-06 19:43 | CCD | Continuity of Care Document ---
Author Author Aashish Weller MD Organization Unknown Address [facility] [address] [place] [address] Phone [phone] Care Team Providers Care Food Service Worker Name Role Phone Jaime Weller JR, MD AUTM Unavailable Darrell Peters MD AUTM Unavailable Giorgio Plunkett MD AUTM [phone] Aurelio Adams MD AUTM [phone] Jeyson Cornell AUTM [phone] Lyla Ruano MD AUTM [phone] Problems Active Problems Provider Date Osteoarthritis Jaime [...] SIG Qnty Indications Ordering Provide r Date Anusol-HC 2.5% Cream apply to rectal 4 times daily as needed for pain 60gm Jaime coyne MD 01/18/2021 Neurontin 300mg Capsules 1 tab by mouth bid 60caps Will Acevedo M.D. 11/26/2020 Methocarbamol 750mg Tablets one tablet b.i.d prn 60tabs Jaime Weller MD 11/10/2020 Calcium 600 + D [id number] Tab lets 1 by mouth every day Jaime Weller MD 04/13/2 021 Ketoconazole 2% Cream twice a day [...] Jaime Weller MD 06/16/2010 Glucosamine Chondroitin &MSM 330-562-769-83mg Tablets 1 po bid Jaime Weller MD [...] Vaccine Lot # [id number] Given 02/21/2021 Influenza,Unspecified 08969 Given 12/31/2019 Adacel- Tetanus Diphtheria P ertussis [id number] 41495 Given 12/31/2019 Influenza Vaccin e Quadrivalent Preser/Antibiotic Free Im Use 197223 73204 Given 02/28/2018 Shingrix Zoster Vaccine (HZV), Recombinant, Subunit, Adjuvanted 60976 Given 12/06/2017 Shingrix Zoster Vaccine (HZV), Recombinant, Subunit, Adjuvanted 41487 Given 11/28/2016 Pneumovax 23 [id number] Q2037 Given 01/11/2016 Fluvirin Virus Vaccine 70055 01 Q2037 Given 12/31/2014 Fluvirin Virus Vaccine 59189 01 45815 Given 07/18/2011 Zoster Vaccine 21348 Given 12/21/2009 Influenza Virus Vaccine Vital Signs [...] Date Facility Test Result H/L Range Note Vitamin B12 & Folate 01/18/2021 [facility] [address] [place], [place] [id number] [phone] Vitamin B12 Level 692 pg/mL Normal 1 Folate 18.5 NG/ML Normal 2 Serum Protein Elect W/RFX 01/18/2021 [facility] [address] [place], [place] [address] [phone] Albumin % 60.5 % Normal 55.8-66.1 Oeslx-2-Dneshuft % 3.5 % Normal 2.9-4.9 Pmrus-7-Nlbheouyv % 8.7 % Normal 7.1-11.8 Aomb-4-Vfmabepmp % 4.9 % Normal 4.7-7.2 Mnkz-1-Dcjkentut % 4.4 % Normal 3.2-6.5 Gamma Globulin % 18.0 % Normal 11.1-18.8 Albumin 4.54 GM/DL Normal 3.29-5.55 Rjzhy-8-Asrinycaj 0.26 GM/DL Normal 0.17-0.41 Hvzyq-6-Vhecpfubv 0.65 GM/DL Normal 0.42-0.99 Rvmh-3-Krsxaxkpt 0.37 GM/DL Normal 0.28-0.60 Kkzs-4-Zrsxmoxmv 0.33 GM/DL Normal 0.19-0.55 Gamma Globulins 1.35 GM/DL Normal 0.65-1.58 Total Protein 7.5 GM/DL Normal 6.4-8.2 Spep Interpretation For RFX SEE COMMENT Normal 3 Spep Pathologist Review REV'D BY Loli GUY <SEE NOTE> Normal 4 Total Iron Binding Capacit 01/18/2021 [facility] [address] [place], [place] [address] [phone] Iron (Fe) 115 g/dL Normal 65-175 Total Iron Binding Capacity 289 g/dL Normal 250-450 Percent Saturation 39.8 % Normal 19.7-50.0 Laboratory test finding 01/18/2021 [facility] [address] [place] [address] [phone] Ferritin 113 NG/ML Normal 26-388 Laboratory test finding 01/18/2021 [facility] jaron beckwith Community Administrator: Dr Jaime Weller [place] [address]37 [phone] PSA 1.84 ng/mL <4.00 5 Complete Blood Count 01/18/2021 [facility] Community Administrator: [place] [address] [phone] WBC 3.8 x10*3/UL Low 4.1 - 10.9 [...] 2.0 - 7.8 Comprehensive Chem Profile 01/18/2021 [facility] jaron pace Community Administrator: Dr Jaime Weller [place], [place] [id number] [phone] Glucose 97 mg/dL 74 - 99 6 BUN 21 mg/dL High 7 - 18 [...] mL/min >60 GFR >= 60 mL/min >60 7 Lipid Profile 01/18/2021 [facility] Community Administrator: Dr Jaime Weller [place], [place] [id number] [phone] Cholesterol 222 mg/dL High 131 - 200 Triglycerides 55 mg/dL 30 - 150 HDL Cholesterol 67 mg/dL High 35 - 60 LDL (Calculated) 144 CALC 50 - 159 Laboratory test finding 01/18/2021 [facility] Community Administrator: Dr Jaime Weller [place], [place] [address] [phone] Thyroid Stimulating Hormone 0.96 uIU/mL 0.3 6 - 3.74 1 VITAMIN B12 NORMAL RANGE NORMAL 247 - 911 PG/ML INDETERMINATE 211 - 246 PG/ML DEFICIENT LESS THAN 211 PG/ML 2 FOLATE NORMAL RANGE NORMAL GREATER THAN 5.4 NG/ML INDETERMINATE 3.4-5.4 NG/ML DEFICIENT LESS THAN 3.4 NG/ML 3 NO M-SPIKE(S)NOTED. 4 REV'D BY Loli DING 5 This assay was performed on the [employer] EXL using the B- Galactosidase/CPRG methodology and should not be compared interchangeably with other methods. The PSA should not be used alone as a screening test for the presence or absence of malignant disease. 6 100-125 mg/dL PRE-DIABET ES/FASTING >126 mg/dL DIABETES/FASTING 7 CHRONIC KIDNEY DISEASE STAGI NG PER NKF STAGE I & II GFR >= 60 NORMAL TO MILDLY DECREASED STAGE III GFR 30-59 MODERATELY DECREASED STAGE IV GFR 15-29 SEVERELY DECREASED STAGE V GFR <15 VERY LITTLE GFR LEFT ESRD GFR <15 ON SENIOR POLICY ASSOCIATE Procedures Date Code Description Status 01/18/2021 26424 Office/Outpatient Established Mo d MDM 30-39 Min Completed 11/26/2020 70586 Chronic Care MGMT 20 Mins Clinical Staff Time Per Calendar Month Completed 11/10/2020 59212 Complex Chronic Care MGMT Servic e Ea Addl 30 Min Completed 11/10/2020 97590 Complex Chronic Care Management SVC 1St 60 Min Completed 10/07/2020 03665 Chronic Care MGMT 20 Mins Clinical Staff Time Per Calendar Month Completed 09/03/2020 06466 Chronic Care MGMT 20 Mins Clinical Staff Time Per Calendar Month Completed 11/26/2019 65400725 Colonoscopy Completed 08/13/2018 [id number] Diabetic Retinal Eye Exam Comple [facility] 03/02/2015 540609910 Diabetic Retinal Eye Exam Comple nathaly 02/02/2015 032314063 Diabetic Retinal Eye Exam Comple nathaly 01/12/2015 580126379 Diabetic Retinal Eye Exam Comple nathaly 08/01/2010 48007773 Colonoscopy Completed 11/02/2003 47000991 Colonoscopy Completed Medical Devices Description No Information Available Encounters Type Date Location Provider Dx Diagnosis Office Visit 01/18/2021 9:00a [facility] Jaime Weller MD G47.33 Obstructive sleep apnea (adult) [...] other disorder Assessments Date Code Description Provider 01/18/2021 G47.33 Obstructive sleep apnea (adult) (pediatric) [...] 11:20 am - [facility] Functional Status Description No Information Available Mental Status Description No Information Available Referrals Description No Information Available
--- OUTSIDE RECORDS SUMMARY | 2021-03-06 19:43 | CCD ---
Author Author Alec Blackburn MD [facility] Organization Alec Blackburn MD [facility] Address [address] [address] Phone Care Team Providers Care Benefits Consultant Name Role Phone Bere DUGAN, KELLY, Alec Wilkins Unavailable [phone] Janee BYNUM MD, Jaime Borges PP [phone] Radha CERAMIC TILE INSTALLER, Magalie Unavailable [phone] Reason for Referral No Reason for Referral Recorded Problems Includes: Active, inactive, and resolved Problems All Visits Onset Date - Time Resolved Date - Time Provider Co ndition Status Cataract Senile Nuclear 08/24/2016 - 12:00AM Alec Blackburn MD, FACS Active Squamous blepharitis left lower eyelid 08/24/2016 - 12:00AM Alec Joseph MD, FACS Active Blepharitis Squamous 08/24/2016 - 12:00AM Alec Parham MD, FACS Active Squamous blepharitis right lower eyelid 08/24/2016 - 12:00AM Alec Joseph MD, FACS Active Squamous blepharitis left upper eyelid 08/24/2016 - 12:00AM Alec Joseph MD, FACS Active Conjunctivitis Chronic Allergic 08/18/2015 - 12:00AM Alec Blackburn MD, FACS Active Eyelid Basal Cell Carcinoma 04/09/2015 - 12:00AM Unknown - Unkno wn Alec Blackburn MD, FACS Resolved Skin Neoplasm Eyelid Malignant 04/09/2015 - 12:00AM Alec Blackburn MD, FACS Inactive Dry Eye Syndrome 04/09/2015 - 12:00AM Alec reyes MD, FACS Active Vitreous Disorders Degeneration 04/09/2015 - 12:00AM Alec Blackburn MD, FACS Active Skin Neoplasm Eyelid Right Lower 02/02/2015 - 12:00AM Alec Blackburn MD, FACS Inactive Plan of Treatment Future Appointments Date Time Location Provider 1 Year Follow-Up 10/12/2021 7:45AM Alec Blackburn MD [facility] Alec Blackburn MD, FACS Assessments Includes: Assessments for all patient encounters Findings Encounter Date Chronic allergic conjunctivitis 1 Year Follow-Up with Alec Blackburn MD, FACS 10/12/2020 Dry eye syndrome 1 Year Follow-Up with Alec levine MD, FACS 10/12/2020 Nuclear senile cataract 1 Year Follow-Up with Alec Song MD, FACS 10/12/2020 Squamous blepharitis right upper eyelid , right lower eyelid, left upper eyelid, left lower eyelid 1 Year Follow-Up with Alec Blackburn MD, FACS Vitreous degeneration 1 Year Follow-Up with Alec reyes MD, FACS 10/12/2020 Chronic allergic conjunctivitis 1 Year Follow-Up with Alec Blackburn MD, FACS 10/16/2019 Dry eye syndrome 1 Year Follow-Up with Alec levine MD, FACS 10/16/2019 Nuclear senile cataract 1 Year Follow-Up with Alec Song MD, FACS 10/16/2019 Squamous blepharitis right upper eyelid , right lower eyelid, left upper eyelid, left lower eyelid 1 Year Follow-Up with Alec Blackburn MD, FACS Vitreous degeneration 1 Year Follow-Up with Alec reyes MD, FACS 10/16/2019 Dry eye syndrome 1 Year Follow-Up with Alec levine MD, FACS 09/05/2018 Nuclear senile cataract 1 Year Follow-Up with Alec Song MD, FACS 09/05/2018 Squamous blepharitis 1 Year Follow-Up with Alec tariq MD, FACS 09/05/2018 Vitreous degeneration 1 Year Follow-Up with Alec reyes MD, FACS 09/05/2018 Chronic allergic conjunctivitis 1 Year Follow-Up with Alec Blackburn MD, FACS 08/31/2017 Dry eye syndrome of both eyes 1 Year Follow-Up with Daniel Blackburn MD, FACS 08/31/2017 Nuclear senile cataract 1 Year Follow-Up with Alec Song MD, FACS 08/31/2017 Vitreous degeneration 1 Year Follow-Up with Alec reyes MD, FACS 08/31/2017 Chronic allergic conjunctivitis 1 Year Follow-Up with Alec Blackburn MD, FACS 08/24/2016 Dry eye syndrome of both eyes 1 Year Follow-Up with Daniel Blackbrun MD, FACS 08/24/2016 Nuclear senile cataract 1 Year Follow-Up with Alec Song MD, FACS 08/24/2016 Squamous blepharitis right upper eyelid , right lower eyelid, left upper eyelid, left lower eyelid 1 Year Follow-Up with Alec Blackburn MD, FACS 03/2016 Vitreous degeneration 1 Year Follow-Up with Alec reyes MD, FACS 08/24/2016 Dry eye syndrome of both eyes 4 Month Follow-Up with Alia Blackburn MD, FACS 08/18/2015 Other chronic allergic conjunctivitis of both eyes 4 Month Follow-Up with Alec Blackburn MD, FACS 08/18/2015 Basal cell carcinoma of the eyelid 1 WK PREOP FOR SURG BENNIE with Alec Joseph MD, FACS 04/06/2015 Basal cell carcinoma of the eyelid EXCISION OF LESION IN OFFICE with Alec Blackburn MD, FACS 02/23/2015 Dry eye syndrome NEW PATIENT WITH REFERRAL with Alec Blackburn MD, FACS 02/02/2015 Malignant neoplasm of skin of eyelid NEW PATIENT WITH REFERRAL with Alec Blackburn MD, FACS 02/02/2015 Vitreous degeneration NEW PATIENT WITH REFERRAL [facility] Alec Blackburn MD, FACS 02/02/2015 Instructions Instructions not supported for this document typeNo Instructions Recorded Medical Equipment - Implanted Devices Includes: Current and historical DevicesNo Medical Equipment Recorded Medications Includes: Current and historical Medications Current Medications (continue as prescribed) Baclofen 10 MG Oral Tablet 10/12/2020 Provider: Diagnosis: Gabapentin 300 MG Oral Capsule 10/12/2020 Provider: Diagnosis: Omeprazole 20 MG Oral Tablet Delayed Release Disintegrating 10/12/2020 Provider: Diagnosis: Methocarbamol 750 MG Oral Tablet 10/17/2019 Provide r: Diagnosis: Naproxen 500 MG Tablet 02/02/2015 Provider: Diagnosis: Fluticasone Propionate 50 MCG/ACT Suspension 02/02/2015 Provider: Diagnosis: Tylenol 650 MG Tablet 02/02/2015 Provider: Diagnosis: Past Medications on file Gabapentin 300 MG Oral Capsule 10/17/2019 - 10/12/2020 Provi allison: Diagnosis: Baclofen 10 MG Oral Tablet 10/17/2019 - 10/12/2020 Provider: Diagnosis: Ciloxan 0.3 % Ointment 04/06/2015 - 11/04/2015 Provider: Alec Blackburn MD, [facility] Diagnosis: Basal cell carcinoma skin/ right eyelid, including canthus apply to incision and sutures four times a day for 1 week Omeprazole 40 MG Capsule, delayed-release 02/02/2015 - 10/12 Provider: Diagnosis: Medications Administered Includes: Administered Medications in patient's chartNo Administered Medications Recorded Vital Signs Includes: Vital Signs from 01/23/2020 through 01/22/2021No Vital Signs Recorded For Specified Dates Results Includes: Results from 01/23/2020 through 01/22/2021No Results Recorded For Specified Dates History of Present Illness History of Present Illness not supported for this document typeNo History of Present Illness Recorded Social History Description Last Updated Tobacco non-user 10/12/2020 Never smoked 10/16/2019 No tobacco use 10/16/2019 Not using drugs 10/16/2019 Smoking status : Never smoker 10/16/2019 Alcohol use 2 or 3 drinks on weekend 11/04/2015 Not a current smoker 08/18/2015 A social drinker 04/06/2015 Procedures and Surgical History Surgical History Last Updated Surgical / procedural history : Tonsille ctomy, Hemorrhoidectomy, Appendectomy, Bowel obstruction, Left Shoulder Rotator Cuff, Excision of Basal Cell Carcinoma of the lateral canthus of the right eye by DEC, Left Ring Trigger Finger released 03/202010/12/2020 Medical History Includes: Medical History in patient's chart Description Last Updated Reported medical history : GERD, Actinic Keratosis, Bl ood Infection 03/202010/12/2020 No recent change in medical history 10/16/2019 Currently wearing eyeglasses 04/06/2015 History of arthritis 04/06/2015 Family History Includes: Family History in patient's chart Description Last Updated Fraternal history of arthritis 10/16/2019 Paternal history of heart disease 10/16/2019 Fraternal history of cataract 04/06/2015 Maternal history of family history of cancer 6 Son's history of diabetes mellitus 04/06/2015 Sororal history of family history of cancer 04/06/2015 Review of Systems Review of Systems not supported for this document typeNo Review of Systems Recorded Mental Status Mental Status not supported for this document type Description Oriented to time, place, and person Functional Status Functional Status not supported for this document typeNo Functional Status Recorded Physical Exam Physical Exam not supported for this document typeNo Physical Exam Recorded Immunizations Includes: Immunizations in patient's chartNo Immunizations Recorded Allergies Includes: Active, inactive, and resolved AllergiesNo Known Allergies Encounters Includes: Encounters from 01/23/2020 through 01/22/2021 Encounter Provider Location Date Check-In Time Check-Out Time D iagnosis 1 Year Follow-Up Alec Blackburn MD, FACS Alec Rojo [facility] 10/12/2020 8:32AM 9:59AM Cataract Senile Nucl ear, Conjunctivitis Chronic Allergic, Blepharitis Squamous, Dry Eye Syndrome, Vitreous Disorders Degeneration Insurance Includes: Active Insurance Policies Plan Name Member ID Group # Subscriber Relationship Effective Da ita 1 - Medicare Part B [facility] ([facility]) [id number] Aashish [facility] Self 2 - MEDICARE BLUE [id number] Aashish Barcenas Self Advance Directives Includes: Current Advance DirectivesNo Advance Directives Recorded Health Concerns Includes: Active Health ConcernsNo Active Health Concerns Recorded Goals Includes: Active GoalsNo Active Goals Recorded Interventions Includes: Interventions for active GoalsNo Interventions Recorded Evaluations & Outcomes Includes: Evaluations & Outcomes for active GoalsNo Outcomes Recorded
--- OUTSIDE RECORDS SUMMARY | 2021-03-06 19:43 | CCD | Continuity of Care Document ---
Author Author Aashish Weller MD Organization Unknown Address [facility] [address] [place] [address] Phone [phone] Care Team Providers Care Drill Operator Pneumatic Name Role Phone Jaime Weller JR, MD [facility] Unavailable Darrell Peters MD [facility] Unavailable Giorgio Plunkett MD [facility] [phone] Aurelio Adams MD [facility] [phone] Jeyson Cornell [facility] [phone] Lyla Ruano MD [facility] [phone] Problems Active Problems Provider Date Osteoarthritis Jaime [...] Weller MD 11/10/2020 Calcium 600 + D [id number] Tab lets 1 by mouth every day [...] Jaime Weller MD 06/16/2010 Glucosamine Chondroitin &MSM [phone] Tablets 1 po bid Jaime Weller MD [...] Vaccine Lot # [id number] Given 02/21/2021 Influenza,Unspecified 48970 Given 12/31/2019 Adacel- Tetanus Diphtheria P ertussis [id number] Given 12/31/2019 Influenza Vaccin e Quadrivalent Preser/Antibiotic Free Im Use [id number] 53268 Given 02/28/2018 Shingrix Zoster Vaccine (HZV), Recombinant, Subunit, Adjuvanted 34217 Given 12/06/2017 Shingrix Zoster Vaccine (HZV), Recombinant, Subunit, Adjuvanted 01730 Given 11/28/2016 Pneumovax 23 [id number] Given 01/11/2016 Fluvirin Virus Vaccine 11599 01 Q2037 Given 12/31/2014 Fluvirin Virus Vaccine [id number] 01 99873 Given 07/18/2011 Zoster Vaccine 60778 Given 12/21/2009 Influenza Virus Vaccine Vital Signs [...] Range Note Vitamin B12 & Folate 01/18/2021 [facility] [address] [place], [place] [id number] [phone] Vitamin B12 Level 692 pg/mL Normal 1 Folate 18.5 NG/ML Normal 2 Serum Protein Elect W/RFX 01/18/2021 [facility] [address] [place], [place] [id number] [phone] Albumin % 60.5 % Normal 55.8-66.1 Nanol-2-Wafheugn % 3.5 % Normal 2.9-4.9 Ggzfw-0-Tzgvcczqx % 8.7 % Normal 7.1-11.8 Cpes-9-Ootpvjqbr % 4.9 % Normal 4.7-7.2 Nfzq-2-Gzypubavj % 4.4 % Normal 3.2-6.5 Gamma Globulin % 18.0 % Normal 11.1-18.8 Albumin 4.54 GM/DL Normal 3.29-5.55 Ozfal-8-Mnemerrmz 0.26 GM/DL Normal 0.17-0.41 Brvnr-9-Nnilesgmh 0.65 GM/DL Normal 0.42-0.99 Fktr-8-Ffhdpswxs 0.37 GM/DL Normal 0.28-0.60 Bren-2-Czfivisrs 0.33 GM/DL Normal 0.19-0.55 Gamma Globulins 1.35 GM/DL Normal 0.65-1.58 Total Protein 7.5 GM/DL Normal 6.4-8.2 Spep Interpretation For RFX SEE COMMENT Normal 3 Spep Pathologist Review REV'D BY Loli GUY <SEE NOTE> Normal 4 Total Iron Binding Capacit 01/18/2021 [facility] [address] [place], [place] [id number] [phone] Iron (Fe) 115 g/dL Normal 65-175 Total Iron Binding Capacity 289 g/dL Normal 250-450 Percent Saturation 39.8 % Normal 19.7-50.0 Laboratory test finding 01/18/2021 [facility] [address] [place] [address] [phone] Ferritin 113 NG/ML Normal 26-388 Laboratory test finding 01/18/2021 [facility] Bias Machine Operator: Dr Jaime Weller [place] [id number] [phone] PSA 1.84 ng/mL <4.00 5 Complete Blood Count 01/18/2021 [facility] Bias Machine Operator: [place] [address] [phone] WBC 3.8 x10*3/UL Low 4.1 - 10.9 [...] 2.0 - 7.8 Comprehensive Chem Profile 01/18/2021 [facility] Bias Machine Operator: Dr Jaime Weller [place], [place] [id number] [phone] Glucose 97 mg/dL 74 - 99 6 [...] 60 mL/min >60 7 Lipid Profile 01/18/2021 [facility] , Bias Machine Operator: Dr Jaime Weller [place], [place] [id number] [phone] Cholesterol 222 mg/dL High 131 - 200 Triglycerides 55 mg/dL 30 - 150 HDL Cholesterol 67 mg/dL High 35 - 60 LDL (Calculated) 144 CALC 50 - 159 Laboratory test finding 01/18/2021 [facility] Bias Machine Operator: Dr Jaime Weller [place], [place] [id number] [phone] Thyroid Stimulating Hormone 0.96 uIU/mL 0.3 6 - 3.74 1 VITAMIN B12 NORMAL RANGE NORMAL 247 - 911 PG/ML INDETERMINATE 211 - 246 PG/ML DEFICIENT LESS THAN 211 PG/ML 2 FOLATE NORMAL RANGE NORMAL GREATER THAN 5.4 NG/ML INDETERMINATE 3.4-5.4 NG/ML DEFICIENT LESS THAN 3.4 NG/ML 3 NO M-SPIKE(S)NOTED. 4 REV'D BY Loli DING 5 This assay was performed on the [employer] EXL using the B- Galactosidase/CPRG methodology and [...] LITTLE GFR LEFT ESRD GFR <15 ON LENS INSERTER Procedures Date Code Description Status 01/18/2021 98898 Office/Outpatient Established Mo d MDM 30-39 Min Completed 11/26/2020 19489 Chronic Care MGMT 20 Mins Clinical Staff Time Per Calendar Month Completed 11/10/2020 94032 Complex Chronic Care MGMT Servic e Ea Addl 30 Min Completed 11/10/2020 77933 Complex Chronic Care Management SVC 1St 60 Min Completed 10/07/2020 74525 Chronic Care MGMT 20 Mins Clinical Staff Time Per Calendar Month Completed 09/03/2020 61965 Chronic Care MGMT 20 Mins Clinical Staff Time Per Calendar Month Completed 11/26/2019 49016149 Colonoscopy Completed 08/13/2018 549344231 Diabetic Retinal Eye Exam Comple nathaly 03/02/2015 292427874 Diabetic Retinal Eye Exam Comple nathaly 02/02/2015 866500562 Diabetic Retinal Eye Exam Comple nathaly 01/12/2015 838535434 Diabetic Retinal Eye Exam Comple nathaly 08/01/2010 13782031 Colonoscopy Completed 11/02/2003 45974842 Colonoscopy Completed Medical Devices Description No Information Available Encounters Type Date Location Provider Dx Diagnosis Office Visit 01/18/2021 9:00a [facility] Jaime Weller MD G47.33 Obstructive [...] 01/18/2021 K21.9 Gastro-esophageal reflux disease without esophagitis Jamie Weller MD 01/18/2021 M15.9 Polyosteoarthritis, unspecified Jaime [...] 11:20 am - [facility] Functional Status Description No Information Available Mental Status Description No Information Available Referrals Description No Information Available
--- OUTSIDE RECORDS SUMMARY | 2021-03-06 19:45 | CCD ---
Author Author [facility] Organization [facility] Address Unknown Phone Unavailable Care Team Providers Care Ic Design Engineer Name Role Phone Katerina Weller MD Unavailable Unavailable Katerina Weller MD Unavailable Unavailable Katerina Weller MD Unavailable Unavailable Katerina Weller MD Unavailable Unavailable Katerina Weller MD Unavailable Unavailable Katerina Weller MD Unavailable Unavailable Katerina Weller MD Unavailable Unavailable Katerina Weller MD Unavailable Unavailable Katerina Weller MD Unavailable Unavailable Katerina Weller MD Unavailable Unavailable Katerina Weller MD Unavailable Unavailable JaneeKaterina coyne MD Unavailable Unavailable Katerina Weller MD Unavailable Unavailable Katerina Weller MD Unavailable Unavailable Katerina Weller MD Unavailable Unavailable Katerina Weller MD Unavailable Unavailable Katerina Weller MD Unavailable Unavailable Katerina Weller MD Unavailable Unavailable Katerina Weller MD Unavailable Unavailable Katerina Weller MD Unavailable Unavailable Katerina Weller MD Unavailable Unavailable Katernia Weller MD Unavailable Unavailable Katerina Weller MD Unavailable Unavailable Katerina Weller MD Unavailable Unavailable JaneeKaterina coyne MD Unavailable Unavailable Katerina Weller MD Unavailable Unavailable Katerina Weller MD Unavailable Unavailable DoverKaterina coyne MD Unavailable Unavailable DoverKaterina MD Unavailable Unavailable JaneeKaterina MD Unavailable Unavailable DoverKaterina MD Unavailable Unavailable DoverKaterina MD Unavailable Unavailable JaneeKaterina MD Unavailable Unavailable JaneeKaterina MD Unavailable Unavailable DoverKaterina MD Unavailable Unavailable JaneeKaterina MD Unavailable Unavailable JaneeKaterina MD Unavailable Unavailable DoverKaterina MD Unavailable Unavailable DoverKaterina MD Unavailable Unavailable DoverKaterina MD Unavailable Unavailable JaneeKaterina MD Unavailable Unavailable DoverKaterina MD Unavailable Unavailable DoverKaterina MD Unavailable Unavailable DoverKaterina MD Unavailable Unavailable DoverKaterina MD Unavailable Unavailable DoverKaterina MD Unavailable Unavailable JaneeKaterina MD Unavailable Unavailable JaneeKaterina MD Unavailable Unavailable DoverKaterina MD Unavailable Unavailable DoverKaterina MD Unavailable Unavailable DoverKaterina MD Unavailable Unavailable DoverKaterina MD Unavailable Unavailable JaneeKaterina MD Unavailable Unavailable JaneeKaterina MD Unavailable Unavailable DoverKaterina MD Unavailable Unavailable DoverKaterina MD Unavailable Unavailable DoverKaterina coyne MD Unavailable Unavailable DoverKaterina MD Unavailable Unavailable DoverKaterina MD Unavailable Unavailable DoverKaterina MD Unavailable Unavailable JaneeKaterina MD Unavailable Unavailable JaneeKaterina MD Unavailable Unavailable DoverKaterina coyne MD Unavailable Unavailable DoverKaterina coyne MD Unavailable Unavailable DoverKaterina coyne MD Unavailable Unavailable JaneeKaterina MD Unavailable Unavailable JaneeKaterina coyne MD Unavailable Unavailable DoverKaterina MD Unavailable Unavailable JaneeKaterina MD Unavailable Unavailable JaneeKaterina coyne MD Unavailable Unavailable DoverKaterina coyne MD Unavailable Unavailable JaneeKaterina coyne MD Unavailable Unavailable DoverKaterina MD Unavailable Unavailable DoverKaterina MD Unavailable Unavailable JaneeKaterina MD Unavailable Unavailable DoverKaterina MD Unavailable Unavailable DoverKaterina MD Unavailable Unavailable JaneeKaterina MD Unavailable Unavailable DoverKaterina MD Unavailable Unavailable JaneeKaterina MD Unavailable Unavailable DoverKaterina MD Unavailable Unavailable DoverKaterina MD Unavailable Unavailable DoverKaterina MD Unavailable Unavailable JaneeKaterina MD Unavailable Unavailable JaneeKaterina MD Unavailable Unavailable DoverKaterina MD Unavailable Unavailable DoverKaterina MD Unavailable Unavailable Fan, Yandel Waller MD Unavailable Unavailable Fan, Yandel Waller MD Unavailable Unavailable Fan, Yandel Waller MD Unavailable Unavailable Fan, Yandel Waller MD Unavailable Unavailable Fan, Yandel Waller MD Unavailable Unavailable Afn, Yandel Waller MD Unavailable Unavailable Fan, Yandel Waller MD Unavailable Unavailable Fan, Yandel Waller MD Unavailable Unavailable Fan, Yandel Waller MD Unavailable Unavailable Fan, L Sridhar DUGAN Unavailable Unavailable Fan, L Sridhar DUGAN Unavailable Unavailable Fan, L Sridhar DUGAN Unavailable Unavailable Fan, L Sridhar DUGAN Unavailable Unavailable Fan, L Sridhar DUGAN Unavailable Unavailable Fan, L Sridhar DUGAN Unavailable Unavailable Fan, L Sridhar DUGAN Unavailable Unavailable Fan, L Sridhar DUGAN Unavailable Unavailable Fan, L Sridhar DUGAN Unavailable Unavailable Fan, Yandel Waller MD Unavailable Unavailable Fan, Yandel Waller MD Unavailable Unavailable Fan, Yandel Waller MD Unavailable Unavailable Fan, Yandel Waller MD Unavailable Unavailable Fan, Yandel Waller MD Unavailable Unavailable Fan, Yandel Waller MD Unavailable Unavailable Fan, Yandel Waller MD Unavailable Unavailable Fan, Yandel Waller MD Unavailable Unavailable Fan, Yandel Waller MD Unavailable Unavailable Fan, Yandel Waller MD Unavailable Unavailable Fan, Yandel Waller MD Unavailable Unavailable Fan, Yandel Waller MD Unavailable Unavailable Fan, Yandel Waller MD Unavailable Unavailable Fan, Yandel Waller MD Unavailable Unavailable Fan, L Sridhar DUGAN Unavailable Unavailable Fan, Yandel Waller MD Unavailable Unavailable Fan, Yandel Waller MD Unavailable Unavailable Fan, Yandel Waller MD Unavailable Unavailable Fan, Yandel Waller MD Unavailable Unavailable Fan, Yandel Waller MD Unavailable Unavailable Fan, Yandel Waller MD Unavailable Unavailable Fan, Yandel Waller MD Unavailable Unavailable Fan, L Sridhar DUGAN Unavailable Unavailable Fan, Yandel Waller MD Unavailable Unavailable Fan, Yandel Waller MD Unavailable Unavailable Fan, Yandel Waller MD Unavailable Unavailable Fan, Yandel Waller MD Unavailable Unavailable Fan, Yandel Waller MD Unavailable Unavailable Fan, Yandel Waller MD Unavailable Unavailable Fan, Yandel Waller MD Unavailable Unavailable Fan, Yandel Waller MD Unavailable Unavailable Fan, L Sridhar DUGAN Unavailable Unavailable Fan, Yandel Waller MD Unavailable Unavailable Flor, D Davian SUBSTATION SUPERINTENDENT Unavailable Unavailable Flor, D Davian SUBSTATION SUPERINTENDENT Unavailable Unavailable Flor, D Davian SUBSTATION SUPERINTENDENT Unavailable Unavailable Flor, D Davian SUBSTATION SUPERINTENDENT Unavailable Unavailable Flor, D Davian SUBSTATION SUPERINTENDENT Unavailable Unavailable Flor, D Davian SUBSTATION SUPERINTENDENT Unavailable Unavailable Flor, D Davian SUBSTATION SUPERINTENDENT Unavailable Unavailable Flor, D Davian SUBSTATION SUPERINTENDENT Unavailable Unavailable Flor, D Davian SUBSTATION SUPERINTENDENT Unavailable Unavailable Flor, D Davian SUBSTATION SUPERINTENDENT Unavailable Unavailable Flor, D Davian SUBSTATION SUPERINTENDENT Unavailable Unavailable Flor, D Davian SUBSTATION SUPERINTENDENT Unavailable Unavailable Flor, D Davian SUBSTATION SUPERINTENDENT Unavailable Unavailable Flor, D Davian SUBSTATION SUPERINTENDENT Unavailable Unavailable Flor, D Davian SUBSTATION SUPERINTENDENT Unavailable Unavailable Flor, D Davian SUBSTATION SUPERINTENDENT Unavailable Unavailable Flor, D Davian SUBSTATION SUPERINTENDENT Unavailable Unavailable Flor, D Davian SUBSTATION SUPERINTENDENT Unavailable Unavailable Flor, D Davian SUBSTATION SUPERINTENDENT Unavailable Unavailable Flor, D Davian SUBSTATION SUPERINTENDENT Unavailable Unavailable Flor, D Davian SUBSTATION SUPERINTENDENT Unavailable Unavailable Flor, D Davian SUBSTATION SUPERINTENDENT Unavailable Unavailable Flor, D Davian SUBSTATION SUPERINTENDENT Unavailable Unavailable Flor, D Davian SUBSTATION SUPERINTENDENT Unavailable Unavailable Flor, D Davian SUBSTATION SUPERINTENDENT Unavailable Unavailable Flor, D Davian SUBSTATION SUPERINTENDENT Unavailable Unavailable Flor, D Davian SUBSTATION SUPERINTENDENT Unavailable Unavailable Flor, D Davian SUBSTATION SUPERINTENDENT Unavailable Unavailable Flor, D Davian SUBSTATION SUPERINTENDENT Unavailable Unavailable Flor, D Davian SUBSTATION SUPERINTENDENT Unavailable Unavailable Flor, D Davian SUBSTATION SUPERINTENDENT Unavailable Unavailable Flor, D Davian SUBSTATION SUPERINTENDENT Unavailable Unavailable Flor, D Davian SUBSTATION SUPERINTENDENT Unavailable Unavailable Flor, D Davian SUBSTATION SUPERINTENDENT Unavailable Unavailable Flor, D Davian SUBSTATION SUPERINTENDENT Unavailable Unavailable Flor, D Davian SUBSTATION SUPERINTENDENT Unavailable Unavailable Corado Joseph, Karan Michael MD, FACS Unavailable Unavailable Corado Joseph, Karan Michael MD, FACS Unavailable Unavailable Corado Joseph, Karan Michael MD, FACS Unavailable Unavailable Corado Joseph, Karan Michael MD, FACS Unavailable Unavailable Corado Joseph, Karan Michael MD, FACS Unavailable Unavailable Corado Joseph, Karan Michael MD, FACS Unavailable Unavailable Corado Joseph, Karan Michael MD, FACS Unavailable Unavailable Corado Joseph, Karan Michael MD, FACS Unavailable Unavailable Corado Joseph, Karan Michael MD, FACS Unavailable Unavailable Corado Joseph, Karan Michael MD, FACS Unavailable Unavailable Corado Joseph, Karan Michael MD, FACS Unavailable Unavailable Corado Joseph, Karan Michael MD, FACS Unavailable Unavailable Corado Joseph, Karan Michael MD, FACS Unavailable Unavailable Corado Joseph, Karan Michael MD, FACS Unavailable Unavailable Corado Joseph, Karan Michael MD, FACS Unavailable Unavailable Corado Joseph, Karan Michael MD, FACS Unavailable Unavailable Corado Joseph, Karan Michael MD, FACS Unavailable Unavailable Corado Joseph, Karan Michael MD, FACS Unavailable Unavailable Corado Joseph, Karan Michael MD, FACS Unavailable Unavailable Corado Joseph, Karan Michael MD, FACS Unavailable Unavailable Corado Joseph, Karan Michael MD, FACS Unavailable Unavailable Corado Joseph, Karan Michael MD, FACS Unavailable Unavailable Corado Joseph, Karan Michael MD, FACS Unavailable Unavailable Corado Joseph, Karan Michael MD, FACS Unavailable Unavailable Corado Joseph, Karan Michael MD, FACS Unavailable Unavailable Corado Joseph, Karan Michael MD, FACS Unavailable Unavailable Corado Joseph, Karan Michael MD, FACS Unavailable Unavailable Corado Joseph, Karan Michael MD, FACS Unavailable Unavailable Corado Joseph, Karan Michael MD, FACS Unavailable Unavailable Corado Joseph, Karan Michael MD, FACS Unavailable Unavailable Corado Joseph, Karan Michael MD, FACS Unavailable Unavailable Ocrado Joseph, Karan Michael MD, FACS Unavailable Unavailable Corado Joseph, Karan Michael MD, FACS Unavailable Unavailable Corado Joseph, Karan Michael MD, FACS Unavailable Unavailable Corado Joseph, Karan Michael MD, FACS Unavailable Unavailable Corado Joseph, Karan Michael MD, FACS Unavailable Unavailable Corado Joseph, Karan Michael MD, FACS Unavailable Unavailable Corado Joseph, Karan Michael MD, FACS Unavailable Unavailable Corado Joseph, Karan Michael MD, FACS Unavailable Unavailable Flor, D Davian SUBSTATION SUPERINTENDENT Unavailable Unavailable Flor, D Davian SUBSTATION SUPERINTENDENT Unavailable Unavailable Flor, D Davian SUBSTATION SUPERINTENDENT Unavailable Unavailable Flor, D Davian SUBSTATION SUPERINTENDENT Unavailable Unavailable Flor, D Davian SUBSTATION SUPERINTENDENT Unavailable Unavailable Flor, D Davian SUBSTATION SUPERINTENDENT Unavailable Unavailable Folr, D Davian SUBSTATION SUPERINTENDENT Unavailable Unavailable Flor, D Davian SUBSTATION SUPERINTENDENT Unavailable Unavailable Flor, D Davian SUBSTATION SUPERINTENDENT Unavailable Unavailable Flor, D Davian SUBSTATION SUPERINTENDENT Unavailable Unavailable Flor, D Davian SUBSTATION SUPERINTENDENT Unavailable Unavailable Flor, D Davian SUBSTATION SUPERINTENDENT Unavailable Unavailable Flor, D Davian SUBSTATION SUPERINTENDENT Unavailable Unavailable Flor, D Davian SUBSTATION SUPERINTENDENT Unavailable Unavailable Flor, D Davian SUBSTATION SUPERINTENDENT Unavailable Unavailable Flor, D Davian SUBSTATION SUPERINTENDENT Unavailable Unavailable Flor, D Davian SUBSTATION SUPERINTENDENT Unavailable Unavailable Flor, D Davian SUBSTATION SUPERINTENDENT Unavailable Unavailable Flor, D Davian SUBSTATION SUPERINTENDENT Unavailable Unavailable Flor, D Davian SUBSTATION SUPERINTENDENT Unavailable Unavailable Flor, D Davian SUBSTATION SUPERINTENDENT Unavailable Unavailable Flor, D Davian SUBSTATION SUPERINTENDENT Unavailable Unavailable Flor, D Davian SUBSTATION SUPERINTENDENT Unavailable Unavailable Flor, D Davian SUBSTATION SUPERINTENDENT Unavailable Unavailable Flor, D Davian SUBSTATION SUPERINTENDENT Unavailable Unavailable Flor, D Davian SUBSTATION SUPERINTENDENT Unavailable Unavailable Flor, D Davian SUBSTATION SUPERINTENDENT Unavailable Unavailable Flor, D Davian SUBSTATION SUPERINTENDENT Unavailable Unavailable Flor, D Davian SUBSTATION SUPERINTENDENT Unavailable Unavailable Flor, D Davian SUBSTATION SUPERINTENDENT Unavailable Unavailable Flor, D Davian SUBSTATION SUPERINTENDENT Unavailable Unavailable Flor, D Davian SUBSTATION SUPERINTENDENT Unavailable Unavailable Flor, D Davian SUBSTATION SUPERINTENDENT Unavailable Unavailable Flor, D Davian SUBSTATION SUPERINTENDENT Unavailable Unavailable Flor, D Davian SUBSTATION SUPERINTENDENT Unavailable Unavailable Flor, D Davian SUBSTATION SUPERINTENDENT Unavailable Unavailable Katerina Weller MD Unavailable Unavailable Katerina Weller MD Unavailable Unavailable JaneeKaterina coyne MD Unavailable Unavailable JaneeKaterina coyne MD Unavailable Unavailable DoverKaterina coyne MD Unavailable Unavailable JaneeKaterina coyne MD Unavailable Unavailable DoverKaterina coyne MD Unavailable Unavailable JaneeKaterina coyne MD Unavailable Unavailable JaneeKaterina coyne MD Unavailable Unavailable JaneeKaterina coyne MD Unavailable Unavailable DoverKaterina conye MD Unavailable Unavailable JaneeKaterina MD Unavailable Unavailable DoverKaterina MD Unavailable Unavailable JaneeKaterina MD Unavailable Unavailable JaneeKaterina MD Unavailable Unavailable DoverKaterina MD Unavailable Unavailable JaneeKaterina MD Unavailable Unavailable JaneeKaterina MD Unavailable Unavailable JaneeKaterina MD Unavailable Unavailable JaneeKaterina MD Unavailable Unavailable DoverKaterina MD Unavailable Unavailable DoverKaterina MD Unavailable Unavailable JaneeKaterina MD Unavailable Unavailable DoverKaterina MD Unavailable Unavailable JaneeKaterina MD Unavailable Unavailable JaneeKaterina MD Unavailable Unavailable JaneeKaterina MD Unavailable Unavailable JaneeKaterina MD Unavailable Unavailable JaneeKaterina MD Unavailable Unavailable JaneeKaterina MD Unavailable Unavailable JaneeKaterina MD Unavailable Unavailable DoverKaterina MD Unavailable Unavailable JaneeKaterina MD Unavailable Unavailable JaneeKaterina MD Unavailable Unavailable DoverKaterina MD Unavailable Unavailable DoverKaterina MD Unavailable Unavailable JaneeKaterina MD Unavailable Unavailable JaneeKaterina MD Unavailable Unavailable DoverKaterina MD Unavailable Unavailable JaneeKaterina MD Unavailable Unavailable JaneeKaterina MD Unavailable Unavailable JaneeKaterina MD Unavailable Unavailable DoverKaterina MD Unavailable Unavailable DoverKaterina MD Unavailable Unavailable DoverKaterina MD Unavailable Unavailable DoverKaterina MD Unavailable Unavailable JaneeKaterina coyne MD Unavailable Unavailable DoverKaterina MD Unavailable Unavailable JaneeKaterina MD Unavailable Unavailable DoverKaterina MD Unavailable Unavailable JaneeKaterina MD Unavailable Unavailable JaneeKaterina MD Unavailable Unavailable JaneeKaterina MD Unavailable Unavailable DoverKaterina coyne MD Unavailable Unavailable DoverKaterina MD Unavailable Unavailable DoverKaterina MD Unavailable Unavailable DoverKaterina MD Unavailable Unavailable JaneeKaterina MD Unavailable Unavailable DoverKaterina MD Unavailable Unavailable DoverKaterina MD Unavailable Unavailable JaneeKaterina MD Unavailable Unavailable JaneeKaterina MD Unavailable Unavailable JaneeKaterina MD Unavailable Unavailable JaneeKaterina MD Unavailable Unavailable DoverKaterina MD Unavailable Unavailable JaneeKaterina MD Unavailable Unavailable DoverKaterina coyne MD Unavailable Unavailable Katerina Weller MD Unavailable Unavailable JaneeKaterina coyne MD Unavailable Unavailable DoverKaterina coyne MD Unavailable Unavailable DoverKaterina coyne MD Unavailable Unavailable DoverKaterina coyne MD Unavailable Unavailable DoverKaterina coyne MD Unavailable Unavailable DoverKaterina coyne MD Unavailable Unavailable DoverKaterina coyne MD Unavailable Unavailable DoverKaterina coyne MD Unavailable Unavailable JaneeKaterina coyne MD Unavailable Unavailable JaneeKaterina coyne MD Unavailable Unavailable DoverKaterina coyne MD Unavailable Unavailable JaneeKaterina coyne MD Unavailable Unavailable DoverKaterina coyne MD Unavailable Unavailable DoverKaterina coyne MD Unavailable Unavailable DoverKaterina coyne MD Unavailable Unavailable DoverKaterina coyne MD Unavailable Unavailable DoverKaterina coyne MD Unavailable Unavailable Katerina Weller MD Unavailable Unavailable Katerina Weller MD Unavailable Unavailable Yandel KOWALSKI MD Unavailable Unavailable Yandel KOWALSKI MD Unavailable Unavailable Yandel KOWALSKI MD Unavailable Unavailable Yandel KOWASLKI MD Unavailable Unavailable Yandel KOWALSKI MD Unavailable Unavailable Yandel KOWALSKI MD Unavailable Unavailable Yandel KOWALSKI MD Unavailable Unavailable Yandel KOWALSKI MD Unavailable Unavailable Yandel KOWALSKI MD Unavailable Unavailable Yandel KOWALSKI MD Unavailable Unavailable Yandel KOWALSKI MD Unavailable Unavailable Yandel KOWALSKI MD Unavailable Unavailable Yandel KOWALSKI MD Unavailable Unavailable Yandel KOWALSKI MD Unavailable Unavailable Yandel KOWALSKI MD Unavailable Unavailable Yandel KOWALSKI MD Unavailable Unavailable Yandel KOWALSKI MD Unavailable Unavailable Yandel KOWALSKI MD Unavailable Unavailable Yandel KOWALSKI MD Unavailable Unavailable Yandel KOWALSKI MD Unavailable Unavailable Everton, Quiana PA Unavailable Unavailable Dave, Quiana PA Unavailable Unavailable Dave, Quiana PA Unavailable Unavailable Everton, Quiana PA Unavailable Unavailable Everton, Quiana PA Unavailable Unavailable Everton, Quiana PA Unavailable Unavailable Everton, Quiana PA Unavailable Unavailable Everton, Quiana PA Unavailable Unavailable Everton, Quiana PA Unavailable Unavailable Dave, Quiana PA Unavailable Unavailable Everton, Quiana PA Unavailable Unavailable Dave, Quiana PA Unavailable Unavailable Dave, Quiana PA Unavailable Unavailable [facility] Unavailable Unavailable Feola, T Elma PA Unavailable Unavailable Feola, T Elma PA Unavailable Unavailable Feola, T Elma PA Unavailable Unavailable Feola, T Elma PA Unavailable Unavailable Feola, T Elma PA Unavailable Unavailable Feola, T Elma PA Unavailable Unavailable Feola, T Elma PA Unavailable Unavailable Feola, T Elma PA Unavailable Unavailable Feola, T Elma PA Unavailable Unavailable Feola, T Elma PA Unavailable Unavailable Feola, T Elma PA Unavailable Unavailable Feola, T Elma PA Unavailable Unavailable Feola, T Elma PA Unavailable Unavailable Feola, T Elma PA Unavailable Unavailable Feola, T Elma PA Unavailable Unavailable Feola, T Elma PA Unavailable Unavailable Feola, T Elma PA Unavailable Unavailable Feola, T Elma PA Unavailable Unavailable Feola, T Elma PA Unavailable Unavailable Feola, T Elma PA Unavailable Unavailable Feola, T Elma PA Unavailable Unavailable Feola, T Elma PA Unavailable Unavailable Feola, T Elma PA Unavailable Unavailable Feola, T Elma PA Unavailable Unavailable Feola, T Elma PA Unavailable Unavailable Feola, T Elma PA Unavailable Unavailable Feola, T Elma PA Unavailable Unavailable Feola, T Elma PA Unavailable Unavailable Feola, T Elma PA Unavailable Unavailable Feola, T Elma PA Unavailable Unavailable Feola, T Elma PA Unavailable Unavailable Feola, T Elma PA Unavailable Unavailable Feola, T Elma PA Unavailable Unavailable Feola, T Elma PA Unavailable Unavailable Feola, T Elma PA Unavailable Unavailable Feola, T Elma PA Unavailable Unavailable Feola, T Elma PA Unavailable Unavailable Feola, T Elma PA Unavailable Unavailable Feola, T Elma PA Unavailable Unavailable Feola, T Elma PA Unavailable Unavailable Feola, T Elma PA Unavailable Unavailable Raffi ADAMS MD Unavailable Unavailable Raffi ADAMS MD Unavailable Unavailable Raffi ADAMS MD Unavailable Unavailable Raffi ADAMS MD Unavailable Unavailable Raffi ADAMS MD Unavailable Unavailable Raffi ADAMS MD Unavailable Unavailable Raffi ADAMS MD Unavailable Unavailable Raffi ADAMS MD Unavailable Unavailable Raffi ADAMS MD Unavailable Unavailable Raffi ADAMS MD Unavailable Unavailable Raffi ADAMS MD Unavailable Unavailable Raffi ADAMS MD Unavailable Unavailable Raffi ADAMS MD Unavailable Unavailable GREENKY, B ABEL MD Unavailable Unavailable GREENKY, B ABEL MD Unavailable Unavailable GREENKY, B ABEL MD Unavailable Unavailable GREENKY, B ABEL MD Unavailable Unavailable GREENKY, B ABEL MD Unavailable Unavailable GREENKY, B ABEL MD Unavailable Unavailable GREENKY, B ABEL MD Unavailable Unavailable GREENKY, B ABEL MD Unavailable Unavailable GREENKY, B ABEL MD Unavailable Unavailable GREENKY, B ABEL MD Unavailable Unavailable GREENKY, B ABEL MD Unavailable Unavailable GREENKY, B ABEL MD Unavailable Unavailable GREENKY, B ABEL MD Unavailable Unavailable GREENKY, B ABEL MD Unavailable Unavailable GREENKY, B ABEL MD Unavailable Unavailable GREENKY, B ABEL MD Unavailable Unavailable GREENKY, B ABEL MD Unavailable Unavailable GREENKY, B ABEL MD Unavailable Unavailable GREENKY, B ABEL MD Unavailable Unavailable GREENKY, B ABEL MD Unavailable Unavailable GREENKY, B ABEL MD Unavailable Unavailable GREENKY, B BAEL MD Unavailable Unavailable GREENKY, B ABEL MD Unavailable Unavailable GREENKY, B ABEL MD Unavailable Unavailable GREENKY, B ABEL MD Unavailable Unavailable GREENKY, B ABEL MD Unavailable Unavailable GREENKY, B ABEL MD Unavailable Unavailable GREENKY, B ABEL MD Unavailable Unavailable GREENKY, B ABEL MD Unavailable Unavailable GREENKY, B ABEL MD Unavailable Unavailable GREENKY, B ABEL MD Unavailable Unavailable GREENKY, B ABEL MD Unavailable Unavailable GREENKY, B ABEL MD Unavailable Unavailable GREENKY, B ABEL MD Unavailable Unavailable GREENKY, B ABEL MD Unavailable Unavailable GREENKY, B ABEL MD Unavailable Unavailable GREENKY, B ABEL MD Unavailable Unavailable GREENKY, B ABEL MD Unavailable Unavailable GREENKY, B ABEL MD Unavailable Unavailable GREENKY, B ABEL MD Unavailable Unavailable GREENKY, B ABEL MD Unavailable Unavailable GREENKY, B ABEL MD Unavailable Unavailable GREENKY, B ABEL MD Unavailable Unavailable GREENKY, B ABEL MD Unavailable Unavailable GREENKY, B ABEL MD Unavailable Unavailable GREENKY, B ABEL MD Unavailable Unavailable GREENKY, B ABEL MD Unavailable Unavailable GREENKY, B ABEL MD Unavailable Unavailable GREENKY, B ABEL MD Unavailable Unavailable GREENKY, B ABEL MD Unavailable Unavailable GREENKY, B ABEL MD Unavailable Unavailable GREENKY, B ABEL MD Unavailable Unavailable GREENKY, B ABEL MD Unavailable Unavailable GREENKY, B ABEL MD Unavailable Unavailable GREENKY, B ABEL MD Unavailable Unavailable GREENKY, B ABEL MD Unavailable Unavailable GREENKY, B ABEL MD Unavailable Unavailable GREENKY, B ABEL MD Unavailable Unavailable GREENKY, B ABEL MD Unavailable Unavailable GREENKY, B ABEL MD Unavailable Unavailable GREENKY, B ABEL MD Unavailable Unavailable GREENKY, B ABEL MD Unavailable Unavailable GREENKY, B ABEL MD Unavailable Unavailable GREENKY, B ABEL MD Unavailable Unavailable GREENKY, B ABEL MD Unavailable Unavailable GREENKY, B ABEL MD Unavailable Unavailable GREENKY, B ABEL MD Unavailable Unavailable GREENKY, B ABEL MD Unavailable Unavailable GREENKY, B ABEL MD Unavailable Unavailable GREENKY, B ABEL MD Unavailable Unavailable GREENKY, B ABEL MD Unavailable Unavailable GREENKY, B ABEL MD Unavailable Unavailable GREENKY, B ABEL MD Unavailable Unavailable GREENKY, B ABEL MD Unavailable Unavailable GREENKY, B ABEL MD Unavailable Unavailable GREENKY, B ABEL MD Unavailable Unavailable GREENKY, B ABEL MD Unavailable Unavailable GREENKY, B ABEL MD Unavailable Unavailable GREENKY, B ABEL MD Unavailable Unavailable PARNES, Z SHERLEY MD Unavailable Unavailable PARNES, Z SHERLEY MD Unavailable Unavailable PARNES, Z SHERLEY MD Unavailable Unavailable PARNES, Z SHERLEY MD Unavailable Unavailable PARNES, Z SHERLEY MD Unavailable Unavailable PARNES, Z SHERLEY MD Unavailable Unavailable PARNES, Z SHERLEY MD Unavailable Unavailable PARNES, Z SHERLEY MD Unavailable Unavailable PARNES, Z SHERLEY MD Unavailable Unavailable PARNES, Z SHERLEY MD Unavailable Unavailable PARNES, Z SHERLEY MD Unavailable Unavailable PARNES, Z SHERLEY MD Unavailable Unavailable PARNES, Z SHERLEY MD Unavailable Unavailable PARNES, Z SHERLEY MD Unavailable Unavailable PARNES, Z SHERLEY MD Unavailable Unavailable PARNES, Z SHERLEY MD Unavailable Unavailable PARNES, Z SHERLEY MD Unavailable Unavailable PARNES, Z SHERLEY MD Unavailable Unavailable PARNES, Z SHERLEY MD Unavailable Unavailable PARNES, Z SHERLEY MD Unavailable Unavailable PARNES, Z SHERLEY MD Unavailable Unavailable PARNES, Z SHERLEY MD Unavailable Unavailable PARNES, Z SHERLEY MD Unavailable Unavailable PARNES, Z SHERLEY MD Unavailable Unavailable PARNES, Z SHERLEY MD Unavailable Unavailable PARNES, Z SHERLEY MD Unavailable Unavailable PARNES, Z SHERLEY MD Unavailable Unavailable PARNES, Z SHERLEY MD Unavailable Unavailable PARNES, Z SHERLEY MD Unavailable Unavailable PARNES, Z SHERLEY MD Unavailable Unavailable PARNES, Z SHERLEY MD Unavailable Unavailable PARNES, Z SHERLEY MD Unavailable Unavailable PARNES, Chapo LEPE MD Unavailable Unavailable Chapo WILKINS MD Unavailable Unavailable Chapo WILKINS MD Unavailable Unavailable Chapo WILKINS MD Unavailable Unavailable Chapo WILKINS MD Unavailable Unavailable Chapo WILKINS MD Unavailable Unavailable Chapo WILKINS MD Unavailable Unavailable Chapo WILKINS MD Unavailable Unavailable Chapo WILKINS MD Unavailable Unavailable Chapo WILKINS MD Unavailable Unavailable JaneeKaterina MD Unavailable Unavailable JaneeKaterina MD Unavailable Unavailable DoverKaterina MD Unavailable Unavailable DoverKaterina MD Unavailable Unavailable DoverKaterina MD Unavailable Unavailable DoverKaterina MD Unavailable Unavailable DoverKaterina MD Unavailable Unavailable DoverKaterina MD Unavailable Unavailable DoverKaterina MD Unavailable Unavailable DoverKaterina MD Unavailable Unavailable JaneeKaterina MD Unavailable Unavailable JaneeKaterina MD Unavailable Unavailable DoverKaterina coyne MD Unavailable Unavailable JaneeKaterina MD Unavailable Unavailable JaneeKaterina MD Unavailable Unavailable JaneeKaterina coyne MD Unavailable Unavailable JaneeKaterina MD Unavailable Unavailable JaneeKaterina coyne MD Unavailable Unavailable JaneeKaterina coyne MD Unavailable Unavailable DoverKaterina coyne MD Unavailable Unavailable JaneeKaterina MD Unavailable Unavailable DoverKaterina coyne MD Unavailable Unavailable DoverKaterina coyne MD Unavailable Unavailable DoverKaterina coyne MD Unavailable Unavailable DoverKaterina coyne MD Unavailable Unavailable DoverKaterina coyne MD Unavailable Unavailable DoverKaterina coyne MD Unavailable Unavailable DoverKaterina coyne MD Unavailable Unavailable DoverKaterina coyne MD Unavailable Unavailable DoverKaterina coyne MD Unavailable Unavailable JaneeKaterina coyne MD Unavailable Unavailable JaneeKaterina coyne MD Unavailable Unavailable DoverKaterina coyne MD Unavailable Unavailable DoverKaterina coyne MD Unavailable Unavailable JaneeKaterina coyne MD Unavailable Unavailable JaneeKaterina MD Unavailable Unavailable JaneeKaterina MD Unavailable Unavailable JaneeKaterina MD Unavailable Unavailable DoverKaterina MD Unavailable Unavailable DoverKaterina MD Unavailable Unavailable DoverKaterina MD Unavailable Unavailable DoverKaterina coyne MD Unavailable Unavailable DoverKaterina MD Unavailable Unavailable JaneeKaterina MD Unavailable Unavailable JaneeKaterina MD Unavailable Unavailable JaneeKaterina MD Unavailable Unavailable JaneeKaterina MD Unavailable Unavailable Dover, Katerina Jaime DUGAN Unavailable Unavailable Janee, Katerina Sandoval MD Unavailable Unavailable Dover, F Sandoval MD Unavailable Unavailable Dover, F Sandoval MD Unavailable Unavailable Janee, F Sandoval MD Unavailable Unavailable Janee, F Sandoval MD Unavailable Unavailable Dover, F Sandoval MD Unavailable Unavailable Dover, F Sandoval MD Unavailable Unavailable Dover, F Sandoval MD Unavailable Unavailable Janee, F Sandoval MD Unavailable Unavailable Janee, F Sandoval MD Unavailable Unavailable Dover, F Sandoval MD Unavailable Unavailable Janee, Katerina Sandoval MD Unavailable Unavailable Janee, F Sandoval MD Unavailable Unavailable Janee, F Sandoval MD Unavailable Unavailable Janee, F Sandoval MD Unavailable Unavailable Janee, F Sandoval MD Unavailable Unavailable Dover, F Sandoval MD Unavailable Unavailable Janee, F Sandoval MD Unavailable Unavailable Janee, F Sandoval MD Unavailable Unavailable Janee, F Sandoval MD Unavailable Unavailable Janee, Katerina Sandoval MD Unavailable Unavailable Dover, F Sandoval MD Unavailable Unavailable Dover, Katerina Jaime MD Unavailable Unavailable Dover, Katerina Jaime MD Unavailable Unavailable Janee, Katerina Sandoval MD Unavailable Unavailable Janee, Katerina Sandoval MD Unavailable Unavailable Janee, Katerina Sandoval MD Unavailable Unavailable Dover, Katerina Sandoval MD Unavailable Unavailable Dover, F Sandoval MD Unavailable Unavailable Dover, Katerina Sandoval MD Unavailable Unavailable Janee, F Sandoval MD Unavailable Unavailable Janee, Katerina Sandoval MD Unavailable Unavailable Janee, F Sandoval MD Unavailable Unavailable Dover, Katerina Sandoval MD Unavailable Unavailable Janee, Katerina Sandoval MD Unavailable Unavailable Dover, Katerina Sandoval MD Unavailable Unavailable Dover, Katerina Jaime MD Unavailable Unavailable Janee, Katerina Jaime MD Unavailable Unavailable Dover, Katerina Jaime DUGAN Unavailable Unavailable Re-disclosure Warning The records that you are about to access may contain information from federally-assisted alcohol or drug abuse programs. If such information is present, then the following federally mandated warning applies: This information has been disclosed to you from records protected by federal confidentiality rules (42 CFR part 2). The federal rules prohibit you from making any further disclosure of this information unless further disclosure is expressly permitted by the written consent of the person to whom it pertains or as otherwise permitted by 42 CFR part 2. A general authorization for the release of medical or other information is NOT sufficient for this purpose. The Federal rules restrict any use of the information to criminally investigate or prosecute any alcohol or drug abuse patient.The records that you are about to access may contain highly sensitive health information, the redisclosure of which is protected by Article 27-F of the [facility] Public Health law. If you continue you may have access to information: Regarding HIV / AIDS; Provided by facilities licensed or operated by the [facility] Office of Mental Health; or Provided by the [facility] Office for People With Developmental Disabilities. If such information is present, then the following [facility] mandated warning applies: This information has been disclosed to you from confidential records which are protected by state law. State law prohibits you from making any further disclosure of this information without the specific written consent of the person to whom it pertains, or as otherwise permitted by law. Any unauthorized further disclosure in violation of state law may result in a fine or nursing home sentence or both. A general authorization for the release of medical or other information is NOT sufficient authorization for further disc losure. Allergies and Adverse Reactions Type Description Substance Reaction Status Data Source(s ) Allergy to substance No Known Allergies No known allergies (situation ) REDBY (Alec Joseph MD [facility]) Allergy to substance No Known Allergies No known allergies (situation ) REDBY (Alec Joseph MD [facility]) No Known Drug Allergies No Known Drug Allergies [facility] No Known Environmental Allergies No Known Environmental Al lergies [facility] No Known Food Allergies No Known Food Allergies [facility] Family History Family Member Name Family Member Gender Family Member Status Date o f Status Description Data Source(s) Unknown Unknown Problem MEDENT ([facility]) Unknown Female Problem MEDENT ([facility]) Encounters Encounter Providers Location Date Indications Data Source(s ) Outpatient Attender: ABEL Covarrubiaserrer: Jaime centeno MD 02/23/2021 03:20:08 PM EST [facility] Outpatient Attender: ABEL Farmer: Jaime centeno MD 01/19/2021 09:33:35 AM EDT [facility] Outpatient Attender: Jaime Klein 09:00:00 AM EDT MEDENT ([facility] ) Recurring Patient Attender: ABEL Farmer: Jaime modi MD 01/13/2021 01:23:47 PM EDT [facility] Recurring Patient Attender: ABEL RODRIGUEZeferrer: Jaime modi MD 01/12/2021 01:20:59 PM EDT [facility] <td ID="encounterTypeDescriptionID0">1 Y ear Follow-Up</td><td>Alec Joseph MD, FACS</td><td>Alec Blackburn MD [facility]</td><td>10/12/2020</td><td>8:32AM</td><td>9:59AM</td><td><content ID="encounterDiagnosisID0-0">Cataract Senile Nuclear</content>, <content ID="encounterDiagnosisID0-1">Conjunctivitis Chronic Allergic</content>, <content ID="encounterDiagnosisID0-2">Blepharitis Squamous</content>, <content ID="encounterDiagnosisID0-3">Dry Eye Syndrome</content>, <content ID="encounterDiagnosisID0-4">Vitreous Disorders Degeneration</content></td>Outpatient Attender: Alec Joseph MD, FACS Alec Blackburn MD [facility] 10/12/2020 08:32:00 AM EDT - 10/12/2020 09:59:00 AM ED T Blepharitis SquamousCataract Senile NuclearBlepharitis SquamousCataract Senile NuclearConjunctivitis Chronic AllergicConjunctivitis Chronic AllergicVitreous Disorders DegenerationDry Eye SyndromeVitreous Disorders DegenerationDry Eye Syndrome REDBY (Alec Joseph MD [facility]) 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 Conjunctivitis Chronic Allergic Conjunctivitis Chronic Allergic Vitreous Disorders Degeneration Dry Eye Syndrome Vitreous Disorders Degeneration Dry Eye Syndrome Outpatient Attender: Elma WAITE 021 10:37:13 AM EDT - 09/09/2020 10:53:55 AM EDT [facility] ([facility] ) OFFICE OUTPATIENT VISIT 15 MINUTES Attender: Sridhar Fan MD Phys ical Therapy 09/01/2020 09:00:00 AM EDT MEDENT ([facility]) Outpatient Attender: SHERLEY WILKINS MDConsultant: Jaime centeno MD 08/27/2020 08:18:00 AM EDT - 08/27/2020 08:18:00 AM EDT [facility] Recurring Patient Attender: ABEL ADAMS MDReferrer: Jaime modi MD 07/21/2020 01:18:35 PM EDT [facility] Recurring Patient Attender: ABEL DEMARCO MDReferrer: Jaime modi MD 07/21/2020 01:18:15 PM EDT [facility] Outpatient Attender: SHERLEY WILKINS MDConsultant: Jaime centeno MD 07/12/2020 11:15:00 AM EDT - 07/12/2020 11:15:00 AM EDT [facility] Outpatient Attender: SHERLEY WILKINS MDConsultant: Jaime centeno MD 06/28/2020 10:14:00 AM EDT - 06/28/2020 10:14:00 AM EDT [facility] Outpatient Attender: SHERLEY WILKINS MDConsultant: Jaime centeno MD 06/25/2020 10:09:00 AM EDT - 06/25/2020 11:09:00 AM EDT [facility] Outpatient Attender: SHERLEY WILKINS MDConsultant: Jaime centeno MD 06/16/2020 10:35:00 AM EDT - 06/16/2020 10:35:00 AM EDT [facility] Outpatient Attender: Davian Ray NPConsultant: Jaime kelly MD 06/15/2020 09:14:00 AM EDT - 06/15/2020 10:14:00 AM EDT [facility] Outpatient Attender: SHERLEY WILKINS MDConsultant: Jaime centeno MD 06/09/2020 09:34:00 AM EDT - 06/09/2020 09:34:00 AM EDT [facility] [place] [address] [facility] [address] 06/09/2020 12:00:00 AM EDT eCW1 ([facility]) Outpatient Attender: SHERLEY WILKINS MDConsultant: Jaime centeno MD 06/08/2020 09:35:00 AM EDT - 06/08/2020 10:35:00 AM EDT [facility] Unknown [address] [facility] [address] 06/08/2020 12:00:00 AM EDT eCW1 ([facility]) Outpatient Attender: SHERLEY WILKINS MDConsultant: Jaime centeno MD 06/02/2020 09:33:00 AM EST - 06/02/2020 09:33:00 AM [facility] Outpatient Attender: Davian Ray NPConsultant: Jaime kelly MD 06/01/2020 10:33:00 AM EST - 06/01/2020 11:33:00 AM [facility] Outpatient Attender: SHERLEY WILKINS MDConsultant: Jaime centeno MD 05/26/2020 09:39:00 AM EST - 05/26/2020 09:39:00 AM [facility] Outpatient Attender: Davian Ray NPConsultant: Jaime kelly MD 05/25/2020 11:32:00 AM EST - 05/25/2020 12:32:00 PM [facility] [place] [address] [facility] [address] 05/24/2020 12:00:00 AM EST eCW1 ([facility]) [place] [address] [facility] [facility] [facility] [address] 05/18/2020 12:00:00 AM EST eCW1 ([facility]) Inpatient Attender: SHERLEY Fritze nder: REGINE KOWALSKI MDConsultant: Jaime Weller MD 05/17/2020 02:33:00 PM EST - 05/20/2020 02:45:00 PM [facility] Patient discharged. Outpatient Attender: [facility] 05/15/2020 09:5 0:00 AM [facility] Outpatient Attender: SHERLEY WILKINS MD 02/20/2 021 09:00:00 AM EST - 05/17/2020 02:59:00 PM EST [facility] ([id number]) For Template [place] [address] [place] [address] 05/14/2020 12:00:00 AM EST eCW1 ([facility]) Outpatient Attender: SHERLEY WILKINS MDConsultant: Jaime centeno MD 05/12/2020 10:02:00 AM EST - 05/12/2020 10:02:00 AM [facility] Office Visit Attender: Davian Ray NP Family Practice 2020 09:20:00 AM EST MEDENT ([facility]) Outpatient Attender: Quiana Acosta PAConsultant: Tevin Weller MD 05/12/2020 08:33:00 AM EST - 05/12/2020 09:33:00 AM [facility] Outpatient Attender: [facility] 05/12/2020 07:2 5:00 AM EST [facility] Outpatient Attender: Davian Ray NPConsultant: Jaime kelly MD 05/12/2020 07:16:00 AM EST - 05/12/2020 08:16:00 AM [facility] (WND [id number]) New Patient 120 Min [address] [place] [address] 05/07/2020 12:00:00 AM EST eCW1 ([facility]) Outpatient Attender: SHERLEY WILKINS MDConsultant: Jaime centeno MD 05/03/2020 10:38:00 AM EST - 05/03/2020 10:38:00 AM [facility] Office Visit Attender: Davian Ray NP Family Practice 2020 09:40:00 AM EST [facility] ([facility]) Outpatient Attender: SHERLEY WILKINS MDConsultant: Jaime centeno MD 04/30/2020 09:57:00 AM EST - 04/30/2020 09:57:00 AM [facility] Inpatient Attender: SHERLEY WILKINS MDConsultant: Jaime centeno MD 04/23/2020 12:40:00 PM EST - 04/28/2020 02:35:00 PM [facility] Patient discharged. Outpatient Attender: SHERLEY WILKINS MDConsultant: Jaime centeno MD 04/23/2020 09:34:58 AM EST - 06/01/2020 03:49:00 PM [facility] Patient discharged. Outpatient Attender: SHERLEY WILKINS MD 021 02:46:00 PM [facility] - 04/23/2020 12:39:00 PM [facility] Outpatient Attender: [facility] 04/21/2020 12:2 3:00 PM [facility] Outpatient Attender: SHERLEY WILKINS MDConsultant: Jaime centeno MD 04/21/2020 10:37:00 AM [facility] 04/21/2020 10:37:00 AM [facility] Outpatient Attender: SHERLEY WILKINS MDConsultant: Jaime centeno MD 04/19/2020 11:06:00 AM [facility] - 04/19/2020 11:06:00 AM [facility] Outpatient Attender: SHERLEY WILKINS MDConsultant: Jaime centeno MD 04/12/2020 02:30:00 PM [facility] - 04/12/2020 02:30:00 PM [facility] Office Visit Attender: SHERLEY WILKINS MD [facility] 021 01:40:00 PM EST [facility] ([facility]) Outpatient Attender: Jaime Regalado 04/12/2020 12:30:00 PM EST MEDENT ([facility] ) Outpatient Attender: ABEL ADAMS MDReferrer: Jaime centeno MD 04/08/2020 02:14:05 PM EST [facility] Outpatient Attender: SHERLEY WILKINS MDConsultant: Jaime centeno MD 04/07/2020 08:39:00 AM EST - 04/07/2020 08:39:00 AM [facility] Office Visit Attender: Davian Ray NP Family Practice 2020 07:40:00 AM EST [facility] ([facility]) Outpatient Attender: SHERLEY WILKINS MDConsultant: Jaime centeno MD 04/01/2020 08:30:00 AM EST - 04/01/2020 12:51:00 PM [facility] Patient discharged. Outpatient Attender: SHERLEY Brown nder: Davian Flor NPConsultant: Jaime Weller MD 03/27/2020 08:22:00 AM EST - 03/27/2020 09:22:00 AM EST [facility] Patient discharged. Outpatient Attender: SHERLEY WILKINS MDConsultant: Jaime centeno MD 03/11/2020 08:31:08 AM EST - 03/12/2020 02:00:00 PM [facility] Patient discharged. Outpatient Attender: Jaime Regalado 05/12/2019 08:20:00 AM EST MEDENT ([facility] ) Outpatient Attender: SHERLEY WILKINS MDConsultant: Jaime centeno MD 03/05/2020 08:20:00 AM EST - 03/05/2020 08:20:00 AM [facility] Outpatient Attender: SHERLEY WILKINS MD Family Practice 03/05/2020 07 :20:00 AM EST MEDENT ([facility]) Outpatient Attender: SHERLEY WILKINS MDConsultant: Jaime centeno MD 02/27/2020 09:10:00 AM EST - 02/27/2020 09:10:00 AM [facility] Immunizations Vaccine Date Status Description Data Source(s) This CVX code allows reporting of a vacc ination when formulation is unknown (for example, when recording a Influenza vaccination when noted on a vaccination card) 02/21/2021 10:20:00 AM EST completed MEDEN T ([facility]) Medications Medication Brand Name Start Date Product Form Dose Route Admi nistrative Instructions Pharmacy Instructions Status Indications Reaction Description Data Source(s) 0.4 mg 03/01/2021 12:00:00 AM EST capsule 14 TAKE ONE CAPSULE BY MOUTH ONCE DAILY FOR 7 DAYS PRIOR TO SURGERY AND 7 DAYS POST SURGERY TAKE ONE CAPSULE BY MOUTH ONCE DAILY FOR 7 DAYS PRIOR TO SURGERY AND 7 DAYS POST SURGERY SOLD: 03/02/2021 [facility] 500 mg 03/01/2021 12:00:00 AM EST tablet 4 TAKE FOUR TABLETS 1 HOUR BEFORE DENTAL APPOINTMENT TAKE FOUR TABLETS 1 HOUR BEFORE DENTAL APPOINTMENT GHISLAINE [facility] Acetaminophen 325 MG / Hydrocodone Bitartrate 5 MG Ora l Tablet 5-325 mg HYDROCODONE/ACETAMINOPHEN 03/01/2021 12:00:00 AM EST tablet 40 TAKE 1-2 TABLETS BY MOUTH EVERY 4-6 HOURS NEEDED FOR PAIN MAXIMUM DAILY DOSE = 6 TABLETS TAKE 1-2 TABLETS BY MOUTH EVERY 4-6 HOUR S NEEDED FOR PAIN MAXIMUM DAILY DOSE = 6 TABLETS SOLD: 03/02/2021 [facility] 200 mg 03/01/2021 12:00:00 AM EST capsule 28 TAKE ONE CAPSULE BY MOUTH TWICE A DAY TO BEGIN MORNING OF POD #4 FOR 2 WEEKS, TAKE WITH FOOD TAKE ONE CAPSULE BY MOUTH TWICE A DAY TO BEGIN MORNING OF POD #4 FOR 2 WEEKS, TAKE WITH FOOD SOLD: 03/02/2021 [facility] 10 mg 03/01/2021 12:00:00 AM EST tablet 10 TAKE ONE TABLET BY MOUTH THREE TIMES A DAY TO BEGIN EVENING OF SURGERY DAY AND DISCONTINUE AFTER LAST DOSE TAKE ONE TABLET BY MOUTH THREE TIMES A DAY TO BEGIN EVENING OF SURGERY DAY AND DISCONTINUE AFTER LAST DOSE SOLD: 03/02/2021 [facility] QC Tumeric Complex 02/24/2021 12:00:00 AM EST active MEDENT ([facility]) 20 mg 02/23/2021 12:00:00 AM EST tablet 60 TAKE ONE TABLET BY MOUTH TWO TIMES A DAY TAKE ONE TABLET BY MOUTH TWO TIMES A DAY SOLD: 02/26/2021 [facility] 750 mg 02/23/2021 12:00:00 AM EST tablet 60 TAKE ONE TABLET BY MOUTH TWICE A DAY NEEDED TAKE ONE TABLET BY MOUTH TWICE A DAY NEEDED SOLD: 02/26/2021 [facility] 240 mcg/0.7 mL 02/21/2021 12:00:00 AM EST syringe 0 INJECT DIRECTED INJECT DIRECTED SOLD: 02/21/2021 [facility] 20 mg 01/25/2021 12:00:00 AM EDT tablet 60 TAKE ONE TABLET BY MOUTH TWICE A DAY TAKE ONE TABLET BY MOUTH TWICE A DAY SOLD: 01/26/2021 [facility] 2.5 % 01/18/2021 12:00:00 AM EDT cream with perineal jerel licator 56 APPLY TO RECTAL AREA FOUR TIMES A DAY NEEDED FOR PAIN APPLY TO RECTAL AREA FOUR TIMES A DAY NEEDED FOR PAIN SOLD: 01/19/2021 [facility] Hydrocortisone 25 MG/ML Topical Cream [Anusol HC] Anusol-HC 01/18/2021 12:00:00 AM EDT active MEDENT ([facility]) 20 mg 12/28/2020 12:00:00 AM EDT tablet 60 TAKE ONE TABLET BY MOUTH TWICE A DAY TAKE ONE TABLET BY MOUTH TWICE A DAY SOLD: 12/29/2020 [facility] 750 mg 12/02/2020 12:00:00 AM EDT tablet 60 TAKE ONE TABLET BY MOUTH TWICE A DAY NEEDED TAKE ONE TABLET BY MOUTH TWICE A DAY NEEDED SOLD: 01/27/2021 [facility] 750 mg 12/02/2020 12:00:00 AM EDT tablet 60 TAKE ONE TABLET BY MOUTH TWICE A DAY NEEDED TAKE ONE TABLET BY MOUTH TWICE A DAY NEEDED SOLD: 12/04/2020 [facility] 300 mg 11/27/2020 12:00:00 AM EDT capsule 60 TAKE ONE CAPSULE BY MOUTH TWICE A DAY TAKE ONE CAPSULE BY MOUTH TWICE A DAY SOLD: 11/28/2020 [facility] 300 mg 11/27/2020 12:00:00 AM EDT capsule 60 TAKE ONE CAPSULE BY MOUTH TWICE A DAY TAKE ONE CAPSULE BY MOUTH TWICE A DAY SOLD: 12/27/2020 [facility] 300 mg 11/27/2020 12:00:00 AM EDT capsule 60 TAKE ONE CAPSULE BY MOUTH TWICE A DAY TAKE ONE CAPSULE BY MOUTH TWICE A DAY SOLD: 02/26/2021 [facility] 500 mg 11/27/2020 12:00:00 AM EDT tablet 180 TAKE ONE TABLET BY MOUTH TWICE A DAY WITH FOOD TAKE ONE TABLET BY MOUTH TWICE A DAY WITH FOOD SOLD: [facility] 300 mg 11/27/2020 12:00:00 AM EDT capsule 60 TAKE ONE CAPSULE BY MOUTH TWICE A DAY TAKE ONE CAPSULE BY MOUTH TWICE A DAY SOLD: 01/27/2021 [facility] 20 mg 11/27/2020 12:00:00 AM EDT capsule,delayed release (DR/EC) 90 TAKE ONE CAPSULE BY MOUTH EVERY DAY TAKE ONE CAPSULE BY MOUTH EVERY DAY SOLD: 11/28/2020 [facility] 500 mg 11/27/2020 12:00:00 AM EDT tablet 180 TAKE ONE TABLET BY MOUTH TWICE A DAY WITH FOOD TAKE ONE TABLET BY MOUTH TWICE A DAY WITH FOOD SOLD: [facility] 20 mg 11/27/2020 12:00:00 AM EDT tablet 60 TAKE ONE TABLET BY MOUTH TWICE A DAY TAKE ONE TABLET BY MOUTH TWICE A DAY SOLD: 11/28/2020 [facility] gabapentin 300 MG Oral Capsule [Neurontin] Neurontin 11/26 12:00:00 AM EDT ORAL active MEDENT ( [facility]) 750 mg 11/10/2020 12:00:00 AM EDT tablet 60 TAKE ONE TABLET BY MOUTH TWICE A DAY NEEDED TAKE ONE TABLET BY MOUTH TWICE A DAY NEEDED SOLD: [facility] Methocarbamol 750 MG Oral Tablet Methocarbamol 11/10/2020 12:00:00 AM EDT active MEDENT ([facility]) 30 mg 11/10/2020 12:00:00 AM EDT capsule,delayed release (DR/EC) 30 TAKE ONE CAPSULE BY MOUTH ONCE DAILY TAKE ONE CAPSULE BY MOUTH ONCE DAILY SOLD: 11/11/2020 [facility] 20 mg 10/14/2020 12:00:00 AM EDT tablet 60 TAKE ONE TABLET BY MOUTH TWICE A DAY TAKE ONE TABLET BY MOUTH TWICE A DAY SOLD: 10/18/2020 [facility] Baclofen 10 MG Oral Tablet Baclofen 10 MG Oral Tablet 2020 12:00:00 AM EDT 1 active baclofen 10 MG Or al Tablet GISEL (Alec Joseph MD [facility]) gabapentin 300 MG Oral Capsule Gabapentin 300 MG Oral Capsule Gabapentin 300 MG Oral Capsule 10/12/2020 12:00:00 AM EDT 1 activ e gabapentin 300 MG Oral Capsule [facility] Omeprazole 20 MG Oral Tablet Delayed Release Disintegr ating Omeprazole 20 MG Oral Tablet Delayed Release Disintegrating 10/12/2020 12:00:00 AM EDT 1 active omeprazole 20 MG Disintegrating Oral Tablet GISEL (Alec [facility]) 20 mg 09/06/2020 12:00:00 AM EDT capsule,delayed release (DR/EC) 90 TAKE ONE CAPSULE BY MOUTH EVERY DAY TAKE ONE CAPSULE BY MOUTH EVERY DAY SOLD: 09/06/2020 [facility] 20 mg 09/02/2020 12:00:00 AM EDT tablet 60 TAKE ONE TABLET BY MOUTH TWICE A DAY TAKE ONE TABLET BY MOUTH TWICE A DAY SOLD: 09/06/2020 [facility] 2 % 07/06/2020 12:00:00 AM EDT cream 60 APPLY TWO TIMES A DAY TO RASH FOR 14 DAYS APPLY TWO TIMES A DAY TO RASH FOR 14 DAYS SOLD: 07/07/2020 [facility] 20 mg 07/06/2020 12:00:00 AM EDT tablet 60 TAKE ONE TABLET BY MOUTH TWICE A DAY TAKE ONE TABLET BY MOUTH TWICE A DAY SOLD: 07/07/2020 [facility] 30 mg 07/06/2020 12:00:00 AM EDT capsule,delayed release (DR/EC) 30 TAKE ONE CAPSULE BY MOUTH EVERY DAY TAKE ONE CAPSULE BY MOUTH EVERY DAY SOLD: 07/07/2020 [facility] 30 mg 07/06/2020 12:00:00 AM EDT capsule,delayed release (DR/EC) 30 TAKE ONE CAPSULE BY MOUTH EVERY DAY TAKE ONE CAPSULE BY MOUTH EVERY DAY SOLD: 09/06/2020 [facility] Ketoconazole 20 MG/ML Topical Cream Ketoconazole 07/06/2020 12:00:00 AM EDT active [facility] ([facility]) Calcium Carbonate 1500 MG / Cholecalciferol 200 UNT Oral Tab let Calcium 600 + D 07/06/2020 12:00:00 AM EDT ORAL active [facility] ([facility]) 30 mg 07/06/2020 12:00:00 AM EDT capsule,delayed release (DR/EC) 30 TAKE ONE CAPSULE BY MOUTH EVERY DAY TAKE ONE CAPSULE BY MOUTH EVERY DAY SOLD: 08/06/2020 [facility] 600 mg 06/02/2020 12:00:00 AM EST tablet 14 TAKE ONE TABLET BY MOUTH TWICE A DAY TAKE ONE TABLET BY MOUTH TWICE A DAY SOLD: 06/04/2020 [facility] 600 mg 05/20/2020 12:00:00 AM EST tablet 28 TAKE ONE TABLET BY MOUTH TWICE A DAY TAKE ONE TABLET BY MOUTH TWICE A DAY SOLD: 05/20/2020 [facility] 10 mg 04/09/2020 12:00:00 AM EST tablet 10 TAKE ONE TABLET BY MOUTH THREE TIMES A DAY BEGIN WITH 1 DOSE EVENING OF SURGERY DAY TAKE ONE TABLET BY MOUTH THREE TIMES A DAY BEGIN WITH 1 DOSE EVENING OF SURGERY DAY SOLD: 04/12/2020 [facility] 0.4 mg 04/09/2020 12:00:00 AM EST capsule 14 TAKE ONE CAPSULE BY MOUTH ONCE DAILY FOR 1 WEEK PRIOR TO SURGERY AND 1 WEEK POST OPERATIVE TAKE ONE CAPSULE BY MOUTH ONCE DAILY FOR 1 WEEK PRIOR TO SURGERY AND 1 WEEK POST OPERATIVE SOLD: 04/12/2020 [facility] 200 mg 04/09/2020 12:00:00 AM EST capsule 28 TAKE ONE CAPSULE BY MOUTH TWO TIMES A DAY BEGINNING IN IN THE MORNING POST OP DAY 4 TAKE ONE CAPSULE BY MOUTH TWO TIMES A DAY BEGINNING IN IN THE MORNING POST OP DAY 4 SOLD: 04/12/2020 [facility] 5-325 mg 04/09/2020 12:00:00 AM EST tablet 40 TAKE ONE TABLET BY MOUTH EVERY 4-6 HOURS NEEDED MAXIMUM DAILY DOSE = 6 TABLETS TAKE ONE TABLET BY MOUTH EVERY 4-6 HOURS NEEDED MAXIMUM DAILY DOSE = 6 TABLETS SOLD: 04/12/2020 [facility] 5-325 mg 04/01/2020 12:00:00 AM EST tablet 3 TAKE ONE TABLET BY MOUTH EVERY 8 HOURS NEEDED FOR PAIN , MAXIMUM DAILY DOSE = 3 TABLETS TAKE ONE TABLET BY MOUTH EVERY 8 HOURS NEEDED FOR PAIN , MAXIMUM DAILY DOSE = 3 TABLETS SOLD: 04/01/2020 [facility] 500 mg 02/25/2020 12:00:00 AM EST tablet 180 TAKE ONE TABLET BY MOUTH TWICE A DAY WITH FOOD TAKE ONE TABLET BY MOUTH TWICE A DAY WITH FOOD SOLD: 021 [facility] 500 mg 02/25/2020 12:00:00 AM EST tablet 180 TAKE ONE TABLET BY MOUTH TWICE A DAY WITH FOOD TAKE ONE TABLET BY MOUTH TWICE A DAY WITH FOOD SOLD: 021 [facility] 500 mg 02/25/2020 12:00:00 AM EST tablet 180 TAKE ONE TABLET BY MOUTH TWICE A DAY WITH FOOD TAKE ONE TABLET BY MOUTH TWICE A DAY WITH FOOD SOLD: 020 [facility] 300 mg 12/16/2019 12:00:00 AM EDT capsule 90 TAKE ONE CAPSULE BY MOUTH THREE TIMES A DAY TAKE ONE CAPSULE BY MOUTH THREE TIMES A DAY SOLD: 03/18/2020 [facility] 300 mg 12/16/2019 12:00:00 AM EDT capsule 90 TAKE ONE CAPSULE BY MOUTH THREE TIMES A DAY TAKE ONE CAPSULE BY MOUTH THREE TIMES A DAY SOLD: 01/17/2020 [facility] 300 mg 12/16/2019 12:00:00 AM EDT capsule 90 TAKE ONE CAPSULE BY MOUTH THREE TIMES A DAY TAKE ONE CAPSULE BY MOUTH THREE TIMES A DAY SOLD: 09/06/2020 [facility] 300 mg 12/16/2019 12:00:00 AM EDT capsule 90 TAKE ONE CAPSULE BY MOUTH THREE TIMES A DAY TAKE ONE CAPSULE BY MOUTH THREE TIMES A DAY SOLD: 05/10/2020 [facility] 300 mg 12/16/2019 12:00:00 AM EDT capsule 90 TAKE ONE CAPSULE BY MOUTH THREE TIMES A DAY TAKE ONE CAPSULE BY MOUTH THREE TIMES A DAY SOLD: 07/26/2020 [facility] 500 mg 10/24/2019 12:00:00 AM EDT tablet 60 TAKE ONE TABLET BY MOUTH TWICE A DAY WITH FOOD TAKE ONE TABLET BY MOUTH TWICE A DAY WITH FOOD SOLD: [facility] gabapentin 300 MG Oral Capsule Gabapentin 300 MG Oral Capsule Gabapentin 300 MG Oral Capsule 10/17/2019 12:00:00 AM EDT 1 abort ed gabapentin 300 MG Oral Capsule GISEL (Alec Joseph MD [facility]) Baclofen 10 MG Oral Tablet Baclofen 10 MG Oral Tablet 2019 12:00:00 AM EDT 1 aborted baclofen 10 MG O ral Tablet GISEL (Alec Joseph MD [facility]) 750 mg 09/11/2019 12:00:00 AM EDT tablet 60 TAKE ONE TABLET BY MOUTH TWICE A DAY NEEDED TAKE ONE TABLET BY MOUTH TWICE A DAY NEEDED SOLD: [facility] 10 mg 09/11/2019 12:00:00 AM EDT tablet 90 TAKE ONE TABLET BY MOUTH THREE TIMES A DAY TAKE ONE TABLET BY MOUTH THREE TIMES A DAY SOLD: 06/13/2020 [facility] 750 mg 09/11/2019 12:00:00 AM EDT tablet 60 TAKE ONE TABLET BY MOUTH TWICE A DAY NEEDED TAKE ONE TABLET BY MOUTH TWICE A DAY NEEDED SOLD: [facility] 10 mg 09/11/2019 12:00:00 AM EDT tablet 90 TAKE ONE TABLET BY MOUTH THREE TIMES A DAY TAKE ONE TABLET BY MOUTH THREE TIMES A DAY SOLD: 05/10/2020 [facility] 10 mg 09/11/2019 12:00:00 AM EDT tablet 90 TAKE ONE TABLET BY MOUTH THREE TIMES A DAY TAKE ONE TABLET BY MOUTH THREE TIMES A DAY SOLD: 03/18/2020 [facility] 10 mg 09/11/2019 12:00:00 AM EDT tablet 90 TAKE ONE TABLET BY MOUTH THREE TIMES A DAY TAKE ONE TABLET BY MOUTH THREE TIMES A DAY SOLD: 01/17/2020 [facility] 20 mg 06/25/2019 12:00:00 AM EDT capsule,delayed release (DR/EC) 90 TAKE ONE CAPSULE BY MOUTH EVERY DAY TAKE ONE CAPSULE BY MOUTH EVERY DAY SOLD: 05/10/2020 [facility] 20 mg 06/25/2019 12:00:00 AM EDT capsule,delayed release (DR/EC) 90 TAKE ONE CAPSULE BY MOUTH EVERY DAY TAKE ONE CAPSULE BY MOUTH EVERY DAY SOLD: 02/17/2020 [facility] Omeprazole 40 MG Delayed Release Oral Ca psule Omeprazole 40 MG Capsule, delayed-release Omeprazole 40 MG Capsule, delayed-release 02/02/2015 1 2:00:00 AM EST 1 aborted omeprazole 40 MG Delayed Release Oral Capsule GISEL (Alec Joseph MD [facility]) Insurance Providers Payer name Policy type / Coverage type Policy ID Covered republican ID Covered republican's relationship to patton Policy [place] Plan Information [place] P[place] 302/307 [id number] SP [id number] [place] P[place] 302/307 [id number] SP [id number] [place] PPO 302/307 [id number] SP [id number] [place] PPO 302/307 [id number] SP [id number] [employer] o Health Maintenance Organization ([facility] [id number] 2.16.840.1.484211.3.227.99.4595.6470.0 Self D [id number] [employer] Ppo Health Maintenance Organization (O) [id number] Self [id number] BS [place] Medigap Part B [id number] .16.840.1.799737.3.227.99.991.47414.0 Self D [id number] BS [place] Medigap Part B [id number] 2.16.840.1.913729.3.227.99.991.80967.0 Self D [id number] BS [place] Medigap Part B [id number] Self BS [place] Medigap Part B [id number] 2.16.840.1.977578.3.227.99.991.52052.0 Self D [id number] [facility] [place] [facility] [id number] 2.16840.1.040042.3.227.99.991.33693.0 Self D [id number] BS [place] [facility] [id number] 2.16840.1.603937.3.227.99.991.35768.0 Self D [id number] [facility] [place] [facility] [id number] 2.16840.1.897486.3.227.99.991.06683.0 Self D [id number] BS [place] Medigap Part B [id number] 2.16840.1.484647.3.227.99.991.75829.0 Self D [id number] BS [place] Medigap Part B [id number] 2.16840.1.482801.3.227.99.991.34858.0 Self D [id number] BS [place] Medigap Part B [id number] 2.16840.1.509159.3.227.99.991.33720.0 Self D [id number] BS [place] Medigap Part B [id number] 2.16840.1.270316.3.227.99.991.45153.0 Self D [id number] BS [place] Medigap Part B [id number] 2.16840.1.461977.3.227.99.991.49756.0 Self D [id number] BS [place] Medigap Part B [id number] 2.160.1.637630.3.227.99.991.50907.0 Self A [id number] BS [place] Medigap Part B [id number] 2.160.1.233153.3.227.99.991.54839.0 Self A [id number] BS [place] Medigap Part B [id number] 2.0.1.312075.3.227.99.991.84410.0 Self A [id number] BS [place] Trad/MX Commercial [id number] Self [id number] BS [place] Medigap Part B [id number] 2.0.1.572963.3.227.99.991.47073.0 Self A [id number] BCBS Ppo Commercial [id number] 2.160.1.428136.3.227.99.177.21138 .0 Self [id number] BS [place] Medigap Part B [id number] 2.0.1.752822.3.227.99.991.70301.0 Self A [id number] BS [place] Medigap Part B [id number] 2.160.1.120778.3.227.99.991.36873.0 Self A [id number] BS [place] Medigap Part B [id number] 2.160.1.223219.3.227.99.991.15725.0 Self A [id number] BS [place] Medigap Part B [id number] 2.16.840.1.999250.3.227.99.991.36092.0 Self A [id number] BS [place] Medigap Part B [id number] 2.0.1.260575.3.227.99.991.64759.0 Self A [id number] BS [place] Medigap Part B 302/802 172312 Self 302/802 BCBS Ppo Commercial [id number] 2.0.1.598076.3.227.99.177.48207 .0 Self [id number] BS [place] Medigap Part B [id number] 2.0.1.816598.3.227.99.991.42757.0 Self A [id number] BS [place] Trad/MX Medigap Part B [id number] 2.0.1.551640.3.227.99.4595.6470.0 Self A [id number] BS [place] Medigap Part B [id number] 2.0.1.991751.3.227.99.991.06280.0 Self A [id number] Medicare Natl Govt Servic Medicare Primary [id number] 2.0.1.727400.3.227.99.4595.6470.0 Self 0 [id number] MEDICARE [id number] Karen [id number] Medicare Natl Govt Servic Medicare Primary [id number] 2.0.1.056857.3.227.99.4595.6470.0 Self 7 [id number] Medicare Blue Ppo Commercial [id number] 2.160.1.113 883.3.227.99.4595.6470.0 Self [id number] Medicare Natl Govt Servic Medicare Primary [id number] 2.0.1.666251.3.227.99.4595.6470.0 Self 7 [id number] Medicare Natl Govt Servic Medicare Primary [id number] 2.16.840.1.637311.3.227.99.4595.6470.0 Self 7 [id number] [facility] Jurisdiction A [facility] C [id number] SELF [id number] Medicare Natl Govt Servic Medicare Primary [id number] 2.16.840.1.109304.3.227.99.4595.6470.0 Self 7 [id number] Medicare Natl Govt Servic Medicare Primary [id number] 2.16.840.1.093866.3.227.99.4595.6470.0 Self 0 [id number] Medicare C [id number] SELF [id number] A Medicare Natl Govt Servic Medicare Primary [id number] 2.16.840.1.399688.3.227.99.4595.6470.0 Self 0 [id number] MEDICARE [id number] Karen [id number] A Medicare Natl Govt Servic Medicare Primary [id number] 2.16.840.1.377801.3.227.99.4595.6470.0 Self 0 [id number] Medicare Natl Govt Servic Medicare Primary [id number] 2.16.840.1.182149.3.227.99.4595.6470.0 Self 0 [id number] Medicare Natl Govt Servic Medicare Primary [id number] 2.16.840.1.439024.3.227.99.4595.6470.0 Self 0 [id number] Medicare Blue Ppo Commercial [id number] 2.16.840.1.113 883.3.227.99.4595.6470.0 Self [id number] Medicare Blue Ppo Commercial [id number] Self 8 02 Blue Shield MCR Advantage Commercial 302/802 [id number] Self 302/802 Blue Shield MCR Advantage Commercial [id number] 2.16.840.1.644210.3.227.99.991.94870.0 Self V [id number] [facility] MEDICARE BLUE PPO G [id number] Self [id number] MEDICARE BLUE PPO 306 [id number] SP [id number] EXCELLUS BCBS MEDICARE [id number] Karen [id number] AARP HE[facility] CARE OPTIONS [id number] SP [id number] [facility] Medigap Part B [id number] 2.16.840.1.628408.3.227.99.4595.6470.0 Self 3 [id number] [facility] Medigap Part B [id number] 11 2.16.840.1.542538.3.227.99.4595.6470.0 Self 3 [id number] [facility] Medigap Part B [id number] 11 2.16.840.1.581160.3.227.99.4595.6470.0 Self 3 [id number] [facility] Medigap Part B [id number] 11 2.16.840.1.331686.3.227.99.4595.6470.0 Self 3 [id number] [facility] Medigap Part B [id number] 11 2.16.840.1.489103.3.227.99.4595.6470.0 Self 3 [id number] [facility] [id number] Karen [id number] [facility] Medigap Part B [id number] 11 2.16.840.1.064305.3.227.99.4595.6470.0 Self 3 [id number] [facility] Medigap Part B [id number] 11 2.16.840.1.294637.3.227.99.4595.6470.0 Self 3 [id number] [facility] AARP Supplemental F [id number] SELF [id number] [facility] Medigap Part B [id number] 11 2.16.840.1.805994.3.227.99.4595.6470.0 Self 3 [id number] [facility] OPTIONS [id number] SP [id number] [facility] Medigap Part B [id number] 11 2.16.840.1.169750.3.227.99.4595.6470.0 Self 3 [id number] [facility] Medigap Part B [id number] 11 ..840.1.602259.3.227.99.4595.6470.0 Self 3 [id number] Medicare C [id number] SELF [id number] N64 DME Jurisdiction A NHIC C [id number] SELF [id number] Blue Shield Medicare P [id number] SELF [id number] [facility] [employer] and Blue Shield [place] Blue Cross/B e Shield [id number] Self [id number] [employer] Blue Cross and Blue Shield - [facility] Blue Cross/ Blue Shield [id number] Self [id number] Blue Cross Blue Shield P [id number] SELF [id number] Medicare C [id number] SELF [id number] N64 DME A [place] C [id number] SELF [id number] BCBS [place] PPO 302/307 [id number] SP [id number] AARP HEALTH CARE OPTIONS -[place] [id number] 18 [id number] MEDICARE -[place] [id number] 18 [id number] [facility] Medigap Part B [id number] 2840.1.977682.3.227.99.510.30828.0 Self 3 [id number] Medicare Part A [place] Medicare Primary [id number] 2840.1.090200.3.227.99.510.71176.0 Self 0 [id number] [facility] Medigap Part B [id number] 2840.1.802161.3.227.99.510.62113.0 Self 3 [id number] Medicare Part A [place] Medicare Primary [id number] 2840.1.094370.3.227.99.510.54703.0 Self 0 [id number] AARP HEALTH CARE OPTIONS -PHYSICIAN [id number] 18 [id number] MEDICARE -[facility] BED [id number] 18 [id number] AARP O [id number] S [id number] MEDICARE C [id number] S [id number] A MEDICARE [id number] SP [id number] A MEDICARE BLUE PPO 306 [id number] SP [id number] AARP HEALTH CARE OPTIONS -O [id number] 18 [id number] Medicare Part B of [place] Other 0 [id number] Self 0 BCBS of [place] [facility] Other 0 [id number] Se lf 0 MEDICARE PI PI UHC PI PI MEDICARE [id number] SP [id number] UNAVAILABLE UNAVAILA BLE AARP HEA [id number] S [id number] MEDICARE MCA [id number] S [id number] 2A MEDICARE MCA [id number] S [id number] Medicare Blue Ppo Commercial [id number] 2.16.840.1.113 883.3.227.99.177.14837.0 Self [id number] Medicare - [place] Medicare Primary [id number] 2.16.840.1.803756.3.227.99.177.40667.0 Self 7 [id number] [facility] Medigap Part B [id number] 2.16840.1.482474.3.227.99.177.60401.0 Self 3 [id number] EXCELLUS BCBS MEDICARE Medicare [facility] EXCELLUS BCBS B [id number] S [id number] MEDICARE PART A -O/P [id number] 18 [id number] MEDICARE PART A [facility] [id number] 18 [id number] [place] MED[place] [id number] 18 [id number] MEDICARE BLUE PPO 306 [id number] SP [id number] BLUE CROSS BLUE SHIELD MCR -OP [id number] 18 [id number] AARP HEALTH CARE OPTIONS -O/P [id number] 18 [id number] BLUE CROSS BLUE SHIELD MCR -IP [id number] 18 [id number] BLUE CROSS BLUE SHIELD MCR - PROFEE [id number] 1 8 [id number] Medicare Blue Ppo Commercial [id number] 2.0.1.113 883.3.227.99.177.48745.0 Self [id number] BLUE CROSS BLUE SHIELD MCR - [place] [id number] [id number] DAIRY [id number] SP [id number] BLUE CROSS BLUE SHIELD MCR -OP [id number] 18 [id number] EXCELL[place] MEDICARE [id number] 18 [id number] Medicare Part B of [place] Other 0 [id number] Self 0 BCBS [place] Other 0 [id number] Se lf 0 BCBS OF [place] 306/8 B [id number] S [id number] AARP HEALTH CARE OPTIONS [id number] 18 [id number] [facility] Medigap Part B [id number] 2..1.610610.3.227.99.510.85704.0 Self 3 [id number] Medicare Part A [place] Medicare Primary [id number] 2..1.763858.3.227.99.510.54442.0 Self 0 [id number] [facility] Medigap Part B [id number] 2.1.409906.3.227.99.991.19382.0 Self 3 [id number] [place] Primary [id number] 2..1.869308.3.227.99.991.07232.0 Self 7 [id number] [facility] [id number] 2..1.187095.3.227.99.991.74458.0 Self 3 [id number] [place] Medicare Primary [id number] 2.0.1.879235.3.227.99.991.18183.0 Self 7 [id number] [place] Medicare Primary [id number] 2.16.840.1.158578.3.227.99.991.58895.0 Self 7 [id number] [facility] Medigap Part B [id number] 2.16840.1.163541.3.227.99.991.43845.0 Self 3 [id number] [facility] Medigap Part B [id number] 2.16840.1.432166.3.227.99.991.01819.0 Self 3 [id number] [place] Medicare Primary [id number] 2.16840.1.208856.3.227.99.991.99773.0 Self 7 [id number] [facility]ARP [facility] CARE OPTIONS [id number] [facility] Medigap Part B [id number] 2.840.1.567408.3.227.99.510.65485.0 Self 3 [id number] Medicare Part A [place] Medicare Primary [id number] 2.840.1.308064.3.227.99.510.42915.0 Self 0 [id number] 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 O [id number] S [id number] [facility] Medigap Part B [id number] 2.840.1.991495.3.227.99.510.36696.0 Self 3 [id number] Medicare Part A [place] Medicare Primary [id number] 2.16840.1.714512.3.227.99.510.31854.0 Self 0 [id number] [facility] Medigap Part B [id number] 2.16840.1.633931.3.227.99.510.62948.0 Self 3 [id number] Medicare Part [place] Medicare Primary [id number] 2.840.1.192494.3.227.99.510.22943.0 Self 0 [id number] [facility] Medigap Part B [id number] 2.16.840.1.929291.3.227.99.510.53178.0 Self 3 [id number] Medicare Part [place] Medicare Primary [id number] 2.16.840.1.228509.3.227.99.510.30905.0 Self 0 [id number] [facility] Medigap Part B [id number] 2.16.840.1.023650.3.227.99.510.98361.0 Self 3 [id number] Medicare Part [place] Medicare Primary [id number] 2.16.840.1.918875.3.227.99.510.75460.0 Self 0 [id number] [facility] Medigap Part B [id number] 2.16.840.1.060163.3.227.99.510.56064.0 Self 3 [id number] Medicare Part [place] Medicare Primary [id number] 2.16.840.1.695436.3.227.99.510.71821.0 Self 0 [id number] [facility] Medigap Part B [id number] 2.16.840.1.690693.3.227.99.510.59740.0 Self 3 [id number] Medicare Part [place] Medicare Primary [id number] 2.16.840.1.630983.3.227.99.510.53238.0 Self 0 [id number] [facility] Medigap Part B [id number] 2.16.840.1.855858.3.227.99.510.57148.0 Self 3 [id number] Medicare Part [place] Medicare Primary [id number] 2.16.840.1.185601.3.227.99.510.82432.0 Self 0 [id number] [facility] Medigap Part B [id number] 2.16.840.1.658102.3.227.99.510.28132.0 Self 3 [id number] Medicare Part A [place] Medicare Primary [id number] 2.16.840.1.536602.3.227.99.510.42476.0 Self 0 [id number] [facility] Care Options [facility] Part B [id number] 2.16.840.1.431114.3.227.99.510.64383.0 Self 3 [id number] Medicare Part A [place] Medicare Primary [id number] 2.16.840.1.512632.3.227.99.510.86400.0 Self 0 [id number] [facility] Care [facility] Part B [id number] 2.16.840.1.591321.3.227.99.510.42199.0 Self 3 [id number] Medicare Part A [place] Medicare Primary [id number] 2.16.840.1.712479.3.227.99.510.86337.0 Self 0 [id number] Problems, Conditions, and Diagnoses Code Display Name Description Problem Type Effective Dates Data Source(s) B51824 Cutaneous abscess of left hand Cutaneous abscess of le ft hand Diagnosis 06/28/2020 10:14:00 AM [facility] [id number] Trigger finger, left ring finger Trigger finger, left ring finger Diagnosis 06/16/2020 10:35:00 AM [facility] [id number] Infection following a procedure, other s urgical site, initial encounter Infection following a procedure, other surgical site, initial encounter Diagnosis 06/02/2020 09:33:00 AM [facility] Z1152 ENCOUNTER FOR SCREENING FOR COVID-19 ENCOUNTER F OR SCREENING FOR COVID-19 Diagnosis 05/15/2020 09:00:00 AM [facility] [id number] Disruption of external opera tion (surgical) wound, not elsewhere classified, initial encounter Disruption of external operation (surgic al) wound, not elsewhere classified, initial encounter Diagnosis 08:33:00 AM [facility] Z4802 Encounter for removal of sutures Encounter for r emoval of sutures Diagnosis 05/03/2020 10:38:00 AM [facility] Z4789 Encounter for other orthopedic aftercare Encounter for other orthopedic aftercare Diagnosis 04/30/2020 08:50:00 AM [facility] Y838 Other surgical procedures as the cause of abnormal reaction of the patient, or of later complication, without mention of misadventure at the time of the procedure Other surgical procedures as the cause o f abnormal reaction of the patient, or of later complication, without mention of misadventure at the time of the procedure Diagnosis 04/23/2020 12:40:00 PM [facility] [id number] Pain in left hand Pain in left hand Diagnosis 04/21/2020 10:37:00 AM [facility] [id number] Encounter for screening for other viral diseases Encounter for screening for other viral diseases Diagnosis 03/27/2020 08:22:00 AM 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) wound, not elsewhere classified, subsequent encounter Problem 05/13/2020 12:00: 00 AM EST [facility] [id number] Pure hypercholesterolemia Pure hypercholesterolemia Pr oblem 02/27/2020 12:00:00 AM EST [facility] ([facility]) [id number] Acquired trigger finger Acquired trigger finger Proble m 02/27/2020 12:00:00 AM EST [facility] ([facility]) Surgeries/Procedures Procedure Description Date Indications Data Source(s) OFFICE OUTPATIENT VISIT 25 MINUTES 01/18/2021 12:00:00 AM EDT [facility] ([facility]) Chronic Care MGMT 20 Mins Clinical Staff Time Per Calendar M [facility] 11/26/2020 12:00:00 AM EDT [facility] ([facility] ) Complex Chronic Care Management SVC 1St 60 Min 021 12:00:00 AM EDT [facility] ([facility]) Complex Chronic Care MGMT Service Ea Addl 30 Min 11/10 12:00:00 AM EDT [facility] ([facility]) Surgical / procedural history : Tonsille ctomy, Hemorrhoidectomy, Appendectomy, Bowel obstruction, Left Shoulder Rotator Cuff, Excision of Basal Cell Carcinoma of the lateral canthus of the right eye by DEC, Left Ring Trigger Finger released 03/2020 Surgical / procedural history : Tonsille ctomy, Hemorrhoidectomy, Appendectomy, Bowel obstruction, Left Shoulder Rotator Cuff, Excision of Basal Cell Carcinoma of the lateral canthus of the right eye by DEC, Left Ring Trigger Finger released 03/202010/12/2020 12:00:00 AM EDT [facility] (Alec Joseph MD [facility]) Chronic Care MGMT 20 Mins Clinical Staff Time Per Calendar M [facility] 10/07/2020 12:00:00 AM EDT [facility] ([facility] ) Chronic Care MGMT 20 Mins Clinical Staff Time Per Calendar M [facility] 09/03/2020 12:00:00 AM EDT [facility] ([facility] ) ARTHROCENTESIS ASPIR&/INJECTION MAJOR JT/BURSA 021 12:00:00 AM EDT [facility] ([facility] ) OFFICE OUTPATIENT VISIT 15 MINUTES 09/01/2020 12:00:00 [facility] ([facility] ) Chronic Care Management Services Ea Addl 20 Min 2020 12:00:00 AM EDT [facility] ([facility]) Chronic Care MGMT 20 Mins Clinical Staff Time Per Calendar M [facility] 08/19/2020 12:00:00 AM EDT [facility] ([facility] ) Introduction of Electrolytic and Water B alance Substance into Peripheral Vein, Percutaneous Approach Introduction of Electrolytic and Water B alance Substance into Peripheral Vein, Percutaneous Approach 05/17/2020 12:00:00 AM [facility] Introduction of Other Anti-infective int o Peripheral Vein, Percutaneous Approach Introduction of Other Anti-infective int o Peripheral Vein, Percutaneous Approach 05/17/2020 12:00:00 AM [facility] FINE NEEDLE ASPIRATION W/O IMAGING GUIDANCE 05/14/2020 12:00:00 AM EST [facility] ECG ROUTINE ECG W/LEAST 12 LDS W/I&R 03/11/2020 12:00: 00 AM EST [facility] ([facility]) Results ID Date Data Source [id number] 02/28/2021 10:45:00 AM EST [facility] Name Value Range Interpretation Code Description Data Candace rce(s) Supporting Document(s) SARS-CoV-2 RNA Resp Ql JESSICA+probe Negative [facility] This lab was ordered by [facility] and reported by [facility]. ID Date Data Source [id number] 02/24/2021 10:12:00 AM EST [facility] ([facility]) Name Value Range Interpretation Code Description Data Candace rce(s) Supporting Document(s) Bacteria identified in Urine by Culture Laboratory test result [facility] ([facility]) FULL REPORT IN LAB NOTES ([facility] and [facility] ). NO GROWTH ID Date Data Source [id number] 02/24/2021 10:12:00 AM EST [facility] ([facility]) Name Value Range Interpretation Code Description Data Candace rce(s) Supporting Document(s) Color, Urine Laboratory test result [facility] NT ([facility]) Appearance, Urine Laboratory test result [facility] ([facility]) PH,Urine 5.0 units 5.0-9.0 [facility]) Specific Cherry Log Urine Auto 1.018 1.002-1.035 [facility] ([facility]) Protein, Urine Auto Laboratory test result [facility] ([facility]) Ketone, Urine Auto Laboratory test result [facility] ([facility]) Glucose, Urine (Ua) Auto Laboratory test result [facility] ([facility]) Urobilinogen, Urine Auto 0.2 mg/dL 0.0-2.0 [facility] ([facility]) Bilirubin, Urine Auto Laboratory test result [facility] ([facility]) Leukocyte Esterase, Urine Auto Laboratory test result [facility] ([facility]) Nitrite, Urine Auto Laboratory test result [facility] ([facility]) WBC, Urine Auto 0 /HPF 0-3 [facility] ([facility]) Blood, Urine Blood Laboratory test result [facility] ([facility]) RBC, Urine Auto 0 /HPF 0-3 [facility] ([facility]) Squamous Epithelial Cell Ur AU 0 /HPF 0-6 [facility] ([facility]) Bacteria, Urine Auto Laboratory test result [facility] ([facility]) Hyaline Cast, Urine Auto 0 /LPF 0-1 [facility] ([facility]) ID Date Data Source [id number] 02/24/2021 10:12:00 AM EST [facility] ([facility]) Name Value Range Interpretation Code Description Data Candace rce(s) Supporting Document(s) Prothrombin Time 13.4 s 12.7-14.5 [facility] ([facility]) Inr 0.98 [facility] ([facility]) THERAPUTIC HUMAN INR VALUES INDICATIONS NORMAL RANGES PROPHYLAXIS/TREATMENT OF: VENOUS THROMBOSIS 2.0-3.0 PULMONARY EMBOLISM 2.0-3.0 PREVENTION OF SYSTEMIC EMBOLISM FROM: TISSUE HEART VALVES 2.0-3.0 ACUTE MYOCARDIAL INFARCTION 2.0-3.0 VALVULAR HEART DISEASE 2.0-3.0 ATRIAL FIBRILLATION 2.0-3.0 MECHANICAL VALVES(HIGH RISK) 2.5-3.5 RECURRENT MYOCARDIAL INFARCTION 2.5-3.5 Partial Thromboplastin Time 32.0 s 25.9-37.0 [facility] ([facility]) ID Date Data Source [id number] 02/24/2021 10:11:00 AM EST [facility] ([facility]) Name Value Range Interpretation Code Description Data Candace rce(s) Supporting Document(s) Glucose [Mass/volume] in Serum or Plasma 89 mg/dL 74-99 [facility] ([facility]) 100-125 mg/dL PRE-DIABETES/FASTING >126 mg/dL DIABETES/FASTING Urea nitrogen [Mass/volume] in Serum or Plasma 21 mg/dL 7-18 [facility] ([facility]) Creatinine 1.1 mg/dL 0.6-1.3 [facility] Potassium [Moles/volume] in Serum or Plasma 4.4 meq/L 3.5-5.1 [facility] ([facility]) Sodium [Moles/volume] in Serum or Plasma 140 meq/L 136-145 [facility] ([facility]) Calcium [Mass/volume] in Serum or Plasma 8.8 mg/dL 8.5-10.1 [facility] ([facility]) Chloride [Moles/volume] in Serum or Plasma 102 meq/L 98-107 [facility] ([facility]) Carbon dioxide, total [Moles/volume] in Serum or Plasma 34 meq/L 21 -32 [facility] ([facility]) Alkaline phosphatase isoenzyme [Units/volume] in Serum or Pl asma 51 mg/dL 46-116 [facility] ([facility]) Total Bilirubin 0.6 mg/dL 0.2-1.0 [facility] ([facility]) Aspartate aminotransferase [Enzymatic activity/volume] in Serum or Plasma 21 U/L 15-37 [facility] ([facility] ) Alanine aminotransferase [Enzymatic activity/volume] in Seru m or Plasma 26 U/L 12-78 [facility] ([facility]) Albumin [Mass/volume] in Serum or Plasma 4.0 g/dL 3.4-5.0 [facility] ([facility]) Proteinase 3 Ab [Units/volume] in Serum 7.3 g/dL 6.4-8.2 [facility] ([facility]) A/G Ratio 1.21 CALC 1.00-1.90 [facility]) Glomerular filtration rate/1.73 sq M pre dicted among non-blacks [Volume Rate/Area] in Serum or Plasma by Creatinine-based formula (MDRD) Laboratory test result [facility] ([facility] ) Glomerular filtration rate/1.73 sq M pre dicted among blacks [Volume Rate/Area] in Serum or Plasma by Creatinine-based formula (MDRD) Laboratory test result [facility] ([facility]) <content>CHRONIC KIDNEY DISEASE STAGING PER NKF</content>
<content></content>
<content>STAGE I & II GFR >= 60 NORMAL TO MILDLY DECREASED</content>
<content>STAGE III GFR 30-59 MODERATELY DECREASED</content>
<content>STAGE IV GFR 15-29 SEVERELY DECREASED</content>
<content>STAGE V GFR <15 VERY LITTLE GFR LEFT</content>
<content>ESRD GFR <15 ON UNDERWRITING TECHNICIAN</content>
<content></content> ID Date Data Source [id number] 02/24/2021 10:11:00 AM EST [facility] ([facility]) Name Value Range Interpretation Code Description Data Candace rce(s) Supporting Document(s) Leukocytes [#/volume] in Blood by Automated count 3.6 x10*3/UL 4.1-10 .9 [facility] ([facility]) NOTE: RESULT VERIFIED. Hemoglobin [Mass/volume] in Blood 13.5 g/dL 12.0-18.0 [facility] ([facility]) Erythrocytes [#/volume] in Blood by Automated count 4.31 x10*6/UL 4.2 0-6.30 [facility] ([facility]) Hematocrit [Volume Fraction] of Blood by Automated count 37.9 % 3 7.0-51.0 [facility] ([facility]) MCV 87.9 fL 80.0-97.0 [facility] MCH 31.4 pg 26.0-32.0 [facility]) Erythrocyte distribution width [Ratio] by Automated count 12.4 % 11.6-13.7 [facility] ([facility]) MCHC 35.7 g/dL 31.0-38.0 [facility] ([facility] [place] [facility]) Platelets [#/volume] in Blood by Automated count 222 x10*3/UL 140-440 [facility] ([facility]) MPV 7.1 FL 7.8-11.0 [facility] ([facility] [place] [facility]) Lymph % 27.4 % 10.0-58.5 [facility] ([facility] [place] [facility]) Mid % 7.4 % 1.7-9.3 [facility] ([facility] [place] [facility]) Neut % 65.2 % 37.0-92.0 [facility] [place] [facility]) Mid # 0.3 x10*3/UL 0.1-0.6 [facility] ([facility]) Lymph # 1.0 x10*3/UL 0.6-4.1 [facility] ([facility]) Neut # 2.3 x10*3/UL 2.0-7.8 [facility] ([facility]) ID Date Data Source [id number] 02/23/2021 03:20:08 PM EST [facility]: Joshua ArndtB: 1950Provider: Celi Adams: 02/23/2021 Assessment Osteoarthrosis, localized, primary, knee (715.16) (M17.10) The patient has chronic knee pain associated with increasing malalignment of the affected knee. Bony crepitation is present with ambulation. Patient has developed a flexion contracture and deformity of the knee. Activities of daily living are no longer possible without severe discomfort. Patient is unable to walk any significant distance, get dressed, get shoes and socks on. Stair climbing is quite painful. Conservative management such as anti-inflammatories, injections in the knee, and activity modification and I will no longer effective.PE: the upper extremities show no abnormalities. There is normal strength sensation reflexes muscle tone and coordination in both upper extremities.The patient is awake alert and oriented x3. The patient has appropriate mood and affect. Patient ambulates with antalgia and Trendelenburg g ait on the affected side. The lower extremities both show normal strength, sensation, reflexes, muscle tone and coordination. There are no skin lesions in either lower extremity. Good pulses are present in both feet. There are no skin lesions present. The affected extremity is 1 cm short compared to the unaffected side.The affected knee shows 5 of varus/ valgus deformity. There is a 5-8 flexion contracture. There is crepitation with range of motion of the knee and pain at the extremes of motion. Motion goes from 5 to about 115 of flexion. Is a 2+ effusion of the affected knee. No varus valgus or Tigre instability is noted. There are no skin lesions and a good pulse in the foot is present.Xrays: Standing AP lateral and merchants view of the affected left knee show tricompartmental osteoarthritis.Dx: end stage primary osteoarthritis of the affected left kneeRx: The patient wishes to go ahead with left total knee replacement. We discussed the operation, its risks and complications and expected outcomes. The patient was not guaranteed a perfect result. The possibility of complications was discussed in detail not limited to infection contracture continued pain long-term component loosening or wear. Non-orthopedic complications such as bleeding deep vein thrombosis or pulmonary embolism and infection were discussed. The patient wishes to go ahead with knee replacement surgery.I asked the patient, after reviewing the preoperative total joint replacement video, about any further questions or concerns. The patient verbalized full understanding of the potential risks, benefits, and alternatives to the proposed procedure. This includes doing nothing. The patient's additional questions were answered.We completed informed consent as a result.We discussed that typically I use two alternating operating room's to perform joint replacement surgery. Occasionally there may even be 3 operating rooms. In each operating room I have a team of Managed Services Consultant surgeons which helped me with the surgery. I do the entire operation including the skin incision and all the way through implantation of the implants and closure of the deep tissues. After this portion of the operation is completed, the credit control assistant surgeons will close the subcutaneous tissue and the skin. During this time, I will be completing a dictation and documentation or possibly even beginning another operation. I am always available to return to the operative room if the need arises. Plan X- Ray I Knee - 3 views (XRays were ordered, obtained and interpreted today in theoffice. Indication: pain/dysfunction.); Status:Complete; Done: [id number] P erform:SOS29; Due:[id number]; Last Updated By:Lesley Phipps; 02/23/2021 2:55:57 PM;Ordered; For:Left knee pain; Ordered By:Abel Adams;Weight Bearing Status : Weight bearingLaterality: : Left Physical Therapy (SOS) - General Treatment Treatment Status: Complete Done:23Feb2021 Ordered;For: Left knee pain; Ordered By: Abel Adams Performed: Due: [id number]; Last Updated By: Perla Calvin; 02/23/2021 2:08:05 PMPT Protocol : Evaluate and treat as indicated, per protocol or as previously written.Duration: : Four WeeksPT Frequency : Two or three times a weekLaterality and Body Part: : Left knee Signatures Electronically signed by : Abel Adams M.D.; Feb 23 2021 3:20PM EST (Author) Name Value Range Interpretation Code Description Data Candace rce(s) Supporting Document(s) ID Date Data Source [id number] 01/18/2021 10:04:00 AM EDT [facility] ([facility]) Name Value Range Interpretation Code Description Data Candace rce(s) Supporting Document(s) Ferritin [Mass/volume] in Serum or Plasma 113 ng/mL 26-388 [facility] ([facility]) ID Date Data Source [id number] 01/18/2021 10:04:00 AM EDT [facility] ([facility]) Name Value Range Interpretation Code Description Data Candace rce(s) Supporting Document(s) Total Iron Binding Capacity 289 ug/dL 250-450 [facility] ([facility]) Iron (Fe) 115 ug/dL 65-175 [facility] [facility] Percent Saturation 39.8 % 19.7-50.0 [facility] ([facility]) ID Date Data Source [id number] 01/18/2021 10:04:00 AM EDT [facility] ([facility]) Name Value Range Interpretation Code Description Data Candcae rce(s) Supporting Document(s) Albumin % 60.5 % 55.8-66.1 [facility] ([place] [facility]) Jlgua-1-Eqtptndy % 3.5 % 2.9-4.9 [facility] ([facility]) Ddvgf-7-Sbmpqycgu % 8.7 % 7.1-11.8 [facility] ([facility]) Zdct-4-Xwapbtkzq % 4.9 % 4.7-7.2 [facility] ([facility]) Gamma Globulin % 18.0 % 11.1-18.8 [facility] ([facility]) Twnz-6-Oudolhyhl % 4.4 % 3.2-6.5 [facility] ([facility]) Spthf-5-Wifpcbpri 0.26 GM/DL 0.17-0.41 [facility] ([facility]) Albumin 4.54 GM/DL 3.29-5.55 [facility] ([facility]) Pkrj-2-Exrssqvku 0.33 GM/DL 0.19-0.55 [facility] ([facility]) Kclvp-9-Cjmxtoomi 0.65 GM/DL 0.42-0.99 [facility] ([facility]) Qina-1-Mqdprxffp 0.37 GM/DL 0.28-0.60 [facility] ([facility]) Gamma Globulins 1.35 GM/DL 0.65-1.58 [facility] ([facility]) Total Protein 7.5 GM/DL 6.4-8.2 [facility] ([facility]) Laboratory test finding (navigational concept) Laboratory test result [facility] ([facility]) REV'D BY Loli Griffith Interpretation For RFX Laboratory test result [facility] ([facility]) NO M-SPIKE(S)NOTED. ID Date Data Source [id number] 01/18/2021 10:04:00 AM EDT [facility] ([facility]) Name Value Range Interpretation Code Description Data Candace rce(s) Supporting Document(s) Vitamin B12 Level 692 pg/mL [facility] ([facility]) VITAMIN B12 NORMAL RANGE NORMAL 247 - 911 PG/ML INDETERMINATE 211 - 246 PG/ML DEFICIENT LESS THAN 211 PG/ML Folate 18.5 ng/mL [facility] ([facility]) FOLATE NORMAL RANGE NORMAL GREATER THAN 5.4 NG/ML INDETERMINATE 3.4-5.4 NG/ML DEFICIENT LESS THAN 3.4 NG/ML ID Date Data Source [id number] 01/18/2021 10:01:00 AM EDT [facility] ([facility] Name Value Range Interpretation Code Description Data Candace rce(s) Supporting Document(s) Prostate specific Ag [Mass/volume] in Serum or Plasma 1.84 ng/mL [facility] ([facility]) This assay was performed on the Siemens Dimension EXL using the B- Galactosidase/CPRG methodology and should not be compared interchangeably with other methods. The PSA should not be used alone as a screening test for the presence or absence of malignant disease. ID Date Data Source [id number] 01/18/2021 10:00:00 AM EDT [facility]) Name Value Range Interpretation Code Description Data Candace rce(s) Supporting Document(s) Erythrocytes [#/volume] in Blood by Automated count 4.60 x10*6/UL 4.2 0-6.30 [facility] ([facility]) Leukocytes [#/volume] in Blood by Automated count 3.8 x10*3/UL 4.1-10 .9 [facility] ([facility]) Hemoglobin [Mass/volume] in Blood 14.3 g/dL 12.0-18.0 [facility] ([facility]) Hematocrit [Volume Fraction] of Blood by Automated count 40.7 % 3 7.0-51.0 [facility] ([facility]) MCH 31.2 pg 26.0-32.0 [facility] ([place] [facility]) MCV 88.5 fL 80.0-97.0 [facility] ([facility]) Erythrocyte distribution width [Ratio] by Automated count 12.6 % 11.6-13.7 [facility] ([facility]) MCHC 35.2 g/dL 31.0-38.0 [facility] ([facility]) Platelets [#/volume] in Blood by Automated count 211 x10*3/UL 140-440 [facility] ([facility]) MPV 7.4 FL 7.8-11.0 [facility] ([place] [facility]) Lymph % 24.0 % 10.0-58.5 [facility] ([place] [facility]) Mid % 7.0 % 1.7-9.3 [facility] ([place] [facility]) Neut % 69.0 % 37.0-92.0 [facility] ([facility]) Neut # 2.6 x10*3/UL 2.0-7.8 [facility] ([facility]) Mid # 0.3 x10*3/UL 0.1-0.6 [facility] ([facility]) Lymph # 0.9 x10*3/UL 0.6-4.1 [facility] ([facility]) ID Date Data Source [id number] 01/18/2021 10:00:00 AM EDT [facility] ([facility]) Name Value Range Interpretation Code Description Data Candace rce(s) Supporting Document(s) Thyrotropin [Units/volume] in Serum or Plasma by Detec tion limit <= 0.05 mIU/L 0.96 uIU/mL 0.36-3.74 [facility] ([facility] ) ID Date Data Source [id number] 01/18/2021 10:00:00 AM EDT [facility] ([facility]) Name Value Range Interpretation Code Description Data Candace rce(s) Supporting Document(s) Triglyceride [Mass/volume] in Serum or Plasma 55 mg/dL 30-150 [facility] ([facility]) Cholesterol [Mass/volume] in Serum or Plasma 222 mg/dL 131-200 [facility] ([facility]) Cholesterol in LDL [Mass/volume] in Serum or Plasma by calcu lation 144 CALC 50-159 [facility] ([facility]) Cholesterol in HDL [Mass/volume] in Serum or Plasma 67 mg/dL 35-60 [facility] ([facility]) ID Date Data Source [id number] 01/18/2021 10:00:00 AM EDT [facility] ([facility]) Name Value Range Interpretation Code Description Data Candace rce(s) Supporting Document(s) Glucose [Mass/volume] in Serum or Plasma 97 mg/dL 74-99 [facility] ([facility]) 100-125 mg/dL PRE-DIABETES/FASTING >126 mg/dL DIABETES/FASTING Urea nitrogen [Mass/volume] in Serum or Plasma 21 mg/dL 7-18 [facility] ([facility]) Sodium [Moles/volume] in Serum or Plasma 135 meq/L 136-145 [facility] ([facility]) Creatinine 1.1 mg/dL 0.6-1.3 [facility] ([facility]) Potassium [Moles/volume] in Serum or Plasma 4.9 meq/L 3.5-5.1 [facility] ([facility]) Chloride [Moles/volume] in Serum or Plasma 100 meq/L 98-107 [facility] ([facility]) Carbon dioxide, total [Moles/volume] in Serum or Plasma 29 meq/L 21 -32 [facility] ([facility]) Calcium [Mass/volume] in Serum or Plasma 9.7 mg/dL 8.5-10.1 [facility] ([facility]) Aspartate aminotransferase [Enzymatic activity/volume] in Serum or Plasma 27 U/L 15-37 [facility] ([facility] ) Total Bilirubin 0.9 mg/dL 0.2-1.0 [facility] ([facility]) Alkaline phosphatase isoenzyme [Units/volume] in Serum or Pl asma 50 mg/dL 46-116 [facility] ([facility]) Albumin [Mass/volume] in Serum or Plasma 4.1 g/dL 3.4-5.0 [facility] ([facility]) Alanine aminotransferase [Enzymatic activity/volume] in Seru m or Plasma 27 U/L 12-78 [facility] ([facility]) Proteinase 3 Ab [Units/volume] in Serum 7.6 g/dL 6.4-8.2 [facility] ([facility]) Glomerular filtration rate/1.73 sq M pre dicted among non-blacks [Volume Rate/Area] in Serum or Plasma by Creatinine-based formula (MDRD) Laboratory test result [facility] ([facility] A/G Ratio 1.17 CALC 1.00-1.90 [facility]) Glomerular filtration rate/1.73 sq M pre dicted among blacks [Volume Rate/Area] in Serum or Plasma by Creatinine-based formula (MDRD) Laboratory test result [facility] ([facility]) <content>CHRONIC KIDNEY DISEASE STAGING PER NKF</content>
<content></content>
<content>STAGE I & II GFR >= 60 NORMAL TO MILDLY DECREASED</content>
<content>STAGE III GFR 30-59 MODERATELY DECREASED</content>
<content>STAGE IV GFR 15-29 SEVERELY DECREASED</content>
<content>STAGE V GFR <15 VERY LITTLE GFR LEFT</content>
<content>ESRD GFR <15 ON UNDERWRITING TECHNICIAN</content>
<content></content> ID Date Data Source [id number] 01/19/2021 09:33:35 AM EDT [facility] PC[facility]: Joshua NarinderDOB: 1950Provider: Celi Adams: 01/13/2021 Reason For VisitJoshua Barcenas is here today for Fup Left Knee. Joshua has not had the Covid vaccine. Joshua Barcenas is an established patient here for follow up. C/o pain swelling and the inability to bear weight at times, no assistive devices, no use of heat/ice, brace use with specific activities, pain scale ofd 0 out of 10 when seated stationary and a 4 when active, no tenderness, uses Tylenol PRN. Patient is retired. AssessmentHPI: Joshua Barcenas is a 70-year-old gentleman who is in today for a followup check. He is status post right knee replacement by me in the past. He is doing wonderfully in that regard. He has no pain and no soreness. He walks beautifully, but he is having increasing pain and soreness in the contralateral left knee. It has been almost a year since his right knee replacement surgery, and his left knee is hurting him, restricting his activities, and keeping him awake at night. He has tried anti-inflammatories and an exercise program. He wears soft sole inserts in his shoes. None of that has really helped. He wants to go ahead with left knee replacement. He is otherwise a pretty healthy angela. [facility] without any issues whatsoever, and he wants to repeat the same venue. Pain level in the right knee is a 0 out of 10, and in the left knee, it is a 7 to an 8 out of 10, depending on his activities. He noticed increase of varus malalignment. PHYSICAL EXAMINATION:The patient is awake, alert and oriented x 3. The patient has appropriate mood and affect. The upper extremities have normal strength, sensation, reflexes, muscle tone and coordination. There are no skin lesions in either upper extremity. There are normal pulses in both wrists. These characteristics are important in the event that the patient may need crutches for ambulation in the future. Examination of the right knee shows a well-healed surgical incision, full extension, 130 of flexion, and no instability. The patella is midline. Gait is smooth on the right. Examination of the left knee: The patient ambulates with antalgia. There is a varus thrust on the left side with ambulation.The left knee has 5 of varus malalignment. Range of motion is from 5-115 of flexion. There is subtle laxity of the lateral collateral ligament. No gross instability is noted. Crepitation is noted with range of motion, most notably in the medial and patellofemoral compartments. There is a 1+ effusion. Tenderness is most marked medially, but subtle tenderness is also present in the lateral and patellofemoral compartments.The left lower extremity shows normal strength, sensation, reflex and coordination. There are normal pulses in the foot. There are no skin lesions. IMAGING: I have reviewed his previous x-rays. He has a well-positioned Press-Fit Sung right knee replacement and tricompartmental osteoarthritis of the left knee with [id number] medially and patellofemoral joint. DIAGNOSIS:1. Excellent progress a year after right knee replacement. 2. Primary osteoarthritis, left knee, failure of conservative management. TREATMENT: He wants to go ahead with left knee replacement at [facility], Sung Press-Fit components. Plan Albumin; Status:Active; Requested for:13Jan2021; Perform:Outside Facility; Order Comments:Please fax results to blood conservation: [phone] Abel Adams.; Due:23Jan2021; Last Updated By:Perla Calvin; 01/13/2021 2:17:04 PM;Ordered; For:Left knee pain, Osteoarthritis of left knee, Preoperative testing; Ordered By:Abel Adams; Ferritin; Status:Active; Requested for:13Jan2021; Perform:Outside Facility; Due:23Jan2021; Last Updated By:Perla Calvin; 01/13/2021 2:17:04 PM;Ordered; For:Left knee pain, Osteoarthritis of left knee, Preoperative testing; Ordered By:Abel Adams; HGB ( Hemoglobin ); Status:Active; Requested for:13Jan2021; Perform:Outside Facility; Due:23Jan2021; Last Updated By:Perla Calvin; 01/13/2021 2:17:04 PM;Ordered; For:Left knee pain, Osteoarthritis of left knee, Preoperative testing; Ordered By:Abel Adams; Iron Panel (IRON TOTAL, % SATURATION, TIBC, UIBC); Status:Active; Reques tedfor:13Jan2021; Perform:Outside Facility; Due:23Jan2021; Last Updated By:Perla Calvin; 01/13/2021 2:17:04 PM;Ordered; For:Left knee pain, Osteoarthritis of left knee, Preoperative testing; Ordered By:Abel Adams; Physical Therapy (SOS) - Total Joint Pre-Op and Initial Post-Op Physical Therapy Treatment Status: Active Requested for: 13Jan2021 Ordered;For: Left knee pain; Ordered By: Abel Adams Performed: Due: 27Jan2021; Last Updated By: Perla Calvin; 01/13/2021 2:17:28 PMScheduling of Initial Post-Op PT: : Knee: Please start initial post-op PT no later than 3-5 days post-op.Surgical Procedure and Date : TBD - left total kneePT Protocol - TJ : Evaluate and treat as indicated, per protocol or as previously written.Pre-Op PT - TJ : 1-2 visits per Total Joint Replacement protocol. Teach HEP.Laterality and Body Part: : Left knee Signatures Electronically signed by : Radha Evans, ; Jan 14 2021 1:17PM EST Electronically signed by : Abel Adams M.D.; Jan 19 2021 9:33AM EST Name Value Range Interpretation Code Description Data Candace rce(s) Supporting Document(s) ID Date Data Source [id number] 09/09/2020 09:45:00 AM EDT [facility] Name Value Range Interpretation Code Description Data Candace rce(s) Supporting Document(s) SARS-CoV-2 RNA Resp Ql JESSICA+probe NOT DETECTED [facility] This lab was ordered by [place] and re ported by [facility]. ID Date Data Source [id number] 06/25/2020 11:24:00 AM EDT [facility] Name Value Range Interpretation Code Description Data Candace rce(s) Supporting Document(s) Erythrocyte sedimentation rate by Westergren method 4 mm/hr 0 - 20 [facility] SED RATE REENTER 4 [facility] ID Date Data Source [id number] 06/25/2020 11:10:00 AM EDT [facility] Name Value Range Interpretation Code Description Data Candace rce(s) Supporting Document(s) C reactive protein [Mass/volume] in Serum or Plasma by High sensitivity method 1.16 MG/L 1.00 - 3.00 [facility] CDC/S HS-CRP CUT-OFF: RELATIVE RISK: <1.0 mg/L Low 1.0 - 3.0 mg/L Average >3.0 mg/L High Optimally, the average of HS-CRP results repeated two weeks apart should be used for risk assessment. ID Date Data Source [id number] 06/25/2020 10:58:00 AM EDT [facility] Name Value Range Interpretation Code Description Data Candace rce(s) Supporting Document(s) CBC W/AUTOMATED DIFF [facility] COMPLETE BLOOD COUNT Leukocytes [#/volume] in Blood by Automated count 3.9 10^3/uL 4.2 - 1 1.0 L [facility] Erythrocytes [#/volume] in Blood by Automated count 4.11 10^6/uL 4. 50 - 6.30 L [facility] Hemoglobin [Mass/volume] in Blood 13.2 g/dL 14.0 - 16.0 L [facility] Hematocrit [Volume Fraction] of Blood by Automated count 38.7 % 4 1.0 - 51.0 L [facility] Erythrocyte mean corpuscular volume [Entitic volume] by Auto mated count 94.2 fL 80.0 - 94.0 H [facility] Erythrocyte mean corpuscular hemoglobin [Entitic mass] by Automated count 32.1 pg 27.0 - 34.0 [facility] Erythrocyte mean corpuscular hemoglobin concentration [Mass/volume] by Automated count 34.1 g/dL 31.0 - 36.0 [facility] Erythrocyte distribution width [Ratio] by Automated count 14.2 % 11.5 - 14.8 [facility] Platelets [#/volume] in Blood by Automated count 234 10^3/uL 150 - 45 0 [facility] Platelet mean volume [Entitic volume] in Blood by Automated count 8.8 fL 7.4 - 10.4 [facility] Neutrophils/100 leukocytes in Blood by Automated count 56.1 % 37. 0 - 80.0 [facility] Lymphocytes/100 leukocytes in Blood by Manual count 25.6 % 25.0 - 40.0 [facility] Monocytes/100 leukocytes in Blood by Automated count 9.0 % 3.0 - 8.0 H [facility] Eosinophils/100 leukocytes in Blood by Automated count 7.7 % 0.0 - 7.0 H [facility] Basophils/100 leukocytes in Blood by Automated count 1.3 % 0.0 - 2.0 [facility] %IG 0.3 % 0.0 - 0.[address] [facility] al %NRBC 0.0 % 0.0 - 0.0 [facility] al Neutrophils [#/volume] in Blood by Automated count 2.19 10^3/uL 2.00 - 6.90 [facility] Lymphocytes [#/volume] in Blood by Automated count 1.00 10^3/uL 0.60 - 3.40 [facility] Monocytes [#/volume] in Blood by Automated count 0.35 10^3/uL 0.00 - 0.90 [facility] Eosinophils [#/volume] in Blood by Automated count 0.30 10^3/uL 0.00 - 0.70 [facility] Basophils [#/volume] in Blood by Automated count 0.05 10^3/uL 0.00 - 0.20 [facility] #IG 0.01 10^3/uL 0.00 - 0.10 [facility] #NRBC 0.00 10^3/uL 0.00 - 0.00 [facility] MANUAL DIFF NOT INDICATED [facility] RBC MORPH NOT INDICATED [facility] ID Date Data Source [id number] 06/15/2020 10:27:00 AM EDT [facility] Name Value Range Interpretation Code Description Data Candace rce(s) Supporting Document(s) C reactive protein [Mass/volume] in Serum or Plasma by High sensitivity method 0.96 MG/L 1.00 - 3.00 L [facility] CDC/S HS-CRP CUT-OFF: RELATIVE RISK: <1.0 mg/L Low 1.0 - 3.0 mg/L Average >3.0 mg/L High Optimally, the average of HS-CRP results repeated two weeks apart should be used for risk assessment. ID Date Data Source [id number] 06/15/2020 10:04:00 AM EDT [facility] Name Value Range Interpretation Code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 [Ratio] by Automated count 12.4 % 11.5 - 14.8 [facility] Platelets [#/volume] in Blood by Automated count 147 10^3/uL 150 - 45 0 L [facility] Platelet mean volume [Entitic volume] in Blood by Automated count 8.9 fL 7.4 - 10.4 [facility] Neutrophils/100 leukocytes in Blood by Automated count 50.1 % 37. 0 - 80.0 [facility] Lymphocytes/100 leukocytes in Blood by Manual count 22.3 % 25.0 - 40.0 L [facility] Monocytes/100 leukocytes in Blood by Automated count 12.1 % 3.0 - 8.0 H [facility] Eosinophils/100 leukocytes in Blood by Automated count 14.2 % 0.0 - 7.0 H [facility] Basophils/100 leukocytes in Blood by Automated count 1.3 % 0.0 - 2.0 [facility] %IG 0.0 % 0.0 - 0.0 [facility] %NRBC 0.0 % 0.0 - 0.0 [facility] al Neutrophils [#/volume] in Blood by Automated count 1.87 10^3/uL 2.00 - 6.90 L [facility] Lymphocytes [#/volume] in Blood by Automated count 0.83 10^3/uL 0.60 - 3.40 [facility] Monocytes [#/volume] in Blood by Automated count 0.45 10^3/uL 0.00 - 0.90 [facility] Eosinophils [#/volume] in Blood by Automated count 0.53 10^3/uL 0.00 - 0.70 [facility] Basophils [#/volume] in Blood by Automated count 0.05 10^3/uL 0.00 - 0.20 [facility] #IG 0.00 10^3/uL 0.00 - 0.10 [facility] o[facility] #NRBC 0.00 10^3/uL 0.00 - 0.00 [facility] MANUAL DIFF NOT INDICATED [facility] RBC MORPH NOT INDICATED [facility] ID Date Data Source [id number] 05/16/2020 01:38:00 [place] [address] PROGRESS NOTENAME: NARINDER Gee ROOM#: 101-1DATE OF : 1950 MR#: [id number] DATE: 05/15/20 OF SERVICE: 05/16/20SUBJECTIVE: The patient is a 70-year-old male who was admitted yesterday to the floor for IV antibiotics 3weeks status post incision and drainage of left hand ring finger wound infection 3 weeks status post triggerfinger release and early stage of flexor tenosynovitis. The patient was doing very well. He stopped taking hisp.o. antibiotics 4 days ago and since 2 days ago, he started having mild swelling and aggravation of pain in thefinger. Due to that, we did local irrigation of the wound and admitted him for IV antibiotics. Today, the patientstates that he is feeling better. Most of the time, he does not have any pain in the finger, including during rangeof motion. On deep palpation of the middle phalanx, he has mild pain which he states is less than 3 on a 0-10pain scale and better than what it was yesterday. He also states that he noticed that the finger is less swollenthan it was yesterday. He denies any numbness or tingling in his hand and states that in general, he is feelingvery well.OBJECTIVE: On his physical e xamination, the patient is comfortable without any acute distress. The patientis stable hemodynamically and his body temperature is less than 97.2. On his left hand examination, thewound for the trigger finger is mostly closed. There is still about a 1 cm opening. The wound looks clean andhas a low amount of discharge. There is no redness, no swelling. The finger itself, is not red and not swollen.He has full range of motion of the finger without pain. The distal surgical scar is well-healed. On deeppalpation, the finger seems to be less swollen than yesterday. It is almost not swollen. On deep palpation, hehas no tenderness on the proximal phalanx or the distal phalanx. There is mild tenderness over the middlephalanx. Patient has normal sensation on both sides of the finger. Capillary filling is less than 2 seconds. Onblood test from today, ESR is 7. CRP is 5.47, mildly elevated. White blood cell is 4.2. To be noted the patientmentioned that since he was admitted, he has stopped taking Naproxen, which he used to take daily beforethat.ASSESSMENT/PLAN: Patient seems to be clinically better than he was prior to the beginning of antibiotics.Due to that at this point, we will continue IV antibiotics and close follow up, including daily wound treatmentand CRP, ESR and white blood cell daily. I also added Gabapentin, which the patient used to take prior tobeing in the hospital due to complaint about leg numbness and pain when he does not take his Gabapentin. Ifthere will be any deterioration in the patient's condition, he is going to contact me on my cell phone.Otherwise, we will see him tomorrow for another wound treatment and follow up. The patient also is doinghand therapy with Frankie Velez, our hand therapist today and will keep doing it daily while he is in the hospital.It was a pleasure to see the patient on the floor today. I also spoke with Frankie Velez, who was round on thepatient at the same time that I was rounding on him and we coordinated our care plan.DD: Sherley Wilkins MD 05/16/20 12:26DT: ALVINO 05/16/20 13:24DS: Sherley Wilkins MD 05/17/20 14:56 1 [place] [address] PROGRESS NOTENAME: NARINDER Gee ROOM#: [id number] OF : 1950 MR#: [id number] DATE: 05/15/20 2 Name Value Range Interpretation Code Description Data Candace rce(s) Supporting Document(s) ID Date Data Source [id number] 05/15/2020 01:44:00 [place] [address] CONSULTATIONNAME: NARINDER Gee ROOM#: [id number] OF : 1950 MR#: [id number] PHYS: Sherley Wilkins MD DATE: 05/15/20CHIEF COMPLAINT: 70-year-old male complaining of left hand ring finger mild swelling anddischarge from surgical wound, which is mildly aggravated for the last 24 hours 3 weeks status postleft hand ring finger irrigation and debridement of surgical wound and finish of antibiotic treatment 3days ago.PLAN:Patient is admitted for IV Ceftaroline 600 mg twice a day. Patient will have wound treatment daily.Patient will have CRP, ESR and CBC daily. If there is any deterioration in his condition, they aregoing to contact me on my cell phone.HISTORY OF PRESENT ILLNESS:The patient is a 70-year-old male who is 3 weeks status post left hand ring finger irrigation anddebridement, including flexor tendon sheath, 6 weeks status post left hand ring trigger finger release.Patient was doing very well until yesterday. He finished antibiotic treatment 3 days ago. This morning,the patient came to the emergency room due to mild swelling of the finger and mild aggravation ofdischarge from the surgical wound at his palm at the area of the trigger finger release scar. Patientstates that his level of pain is less than 2 on a 0- 10 pain scale and he does have full range of motion ofthe finger. He denies any numbness or tingling in both sides of the finger.REVIEW OF SYSTEMS:Sleep apnea, hypercholesteremia, gastroesophageal reflux disease, gout, history of basal carcinomastatus post removal.PHYSICAL EXAMINATION:On his physical examination, the patient is comfortable without any acute distress. On his left handexamination, the surgical incision is still open on the volar aspect of his palm about 2 cm length x afew millimeter wide. There is mild discharge from the wound, but the discharge seems to be clean andlooking into the wound, it seemed to be clean. The distal incision, which is centered over his DIP iscompletely closed and clean. The finger is mildly swollen, but it is not red, it is not tender to deeppalpation or range of motion. He does have full range of motion of the MCP and DIP. Flexioncontracture of about 10 degrees at the PIP. Kanavel sign is negative. Patient has normal sensation onboth sides of the finger. Capillary filling is less than 2 seconds.LABORATORY STUDIES:Blood tests from this morning are all in the normal zones. Sedimentation is 7. White blood cell is 3.9with mildly low lymphocyte at 19.9%. CRP is 2.13, which is in the normal zone, but mildly higherthan what he has on Sunday, which was at that time 1.58. 1 [place] [address] CONSULTATIONNAME: NARINDER Gee ROOM#: 101-1DATE OF : 1950 MR#: [id number] PHYS: Sherley Wilkins MD DATE: 05/15/20ASSESSMENT/PLAN:I explained to the patient the above noted diagnosis. Due to the fact that he still has an open wound inhis palm and he feels that the finger is mildly more swollen and there is mildly more discharge, at thispoint, I recommend him to be admitted and start having again IV Ceftaroline 600 mg twice a day,wound treatment daily and blood tests, including CBC, ESR and CRP daily. If there will be anydeterioration, we will consider to wash the wound in the ER. To be noted, I did wash the wound in theemergency room today with 2 liters of saline. I also consulted Dr. Nadiya Herrera, a hand surgeon,who agreed to the above noted plan. Patient states he well understands and agrees with this plan. Alsodue to that, I admitted him to the floor. I will see him tomorrow for a follow up. All of the patient'sconcerns have been addressed. It was a pleasure to see him in the emergency room today.DD: Sherley Wilkins MD 05/15/20 12:30DT: AVLINO 05/15/20 13:24DS: Sherley Wilkins MD 05/17/20 14:53 2 Name Value Range Interpretation Code Description Data Candace rce(s) Supporting Document(s) ID Date Data Source [id number] 05/17/2020 01:47:00 [place] [address] PHONE: [phone] FAX: [phone] Name .................. : NARINDER Gee Acct Number.................. : [id number] ROOM. ................. : 101-1 MR Number ................... : [id number] Stay type ............. : O/P Discharge Date......... ... : Admit Date ......... : 05/15/20 Admit Phys .................... : FRANKY BENAVIDES Date of ....... : 1950 Family Phys ................... : JANEE BARRERA Phone .................. : [phone] Age ................................ : 70 Film# .................. .:[id number] Sex ................................. : M Unsigned transcriptions are preliminary reports and do not represent a medical or legal document HAND 2 [address]IEWS LT [id number] COMPLETE:05/15/20 09:36 W 4741 Reason(s): Pain LEFT HAND X-RAY: INDICATION: Pain. FINDINGS/IMPRESSION: There is no fracture or dislocation. No significant degenerative changes. No acute soft tissue abnormality. Electronically Reviewed and Signed By Forrest Lee M.D. , 05/17/20 13:47, [facility] Transcribe Initials: PATO , Transcribe Date: 05/15/20 12:53, Dictation Date: Copy for: JANEE SANDOVAL via fax Copy for: EMERGENCY DEPT via [facility] Copy for: 710 MED REC Page 1 of 1 Name Value Range Interpretation Code Description Data Candace rce(s) Supporting Document(s) ID Date Data Source [id number] 05/17/2020 08:14:00 AM [facility] Name Value Range Interpretation Code Description Data Candace rce(s) Supporting Document(s) Erythrocyte sedimentation rate by Westergren method 10 mm/hr 0 - 20 [facility] SED RATE REENTER 10 [facility] ID Date Data Source [id number] 05/17/2020 07:59:00 AM [facility] Name Value Range Interpretation Code Description Data Candace rce(s) Supporting Document(s) C reactive protein [Mass/volume] in Serum or Plasma by High sensitivity method 12.52 MG/L 1.00 - 3.00 H [facility] CDC/S HS-CRP CUT-OFF: RELATIVE RISK: <1.0 mg/L Low 1.0 - 3.0 mg/L Average >3.0 mg/L High Optimally, the average of HS-CRP results repeated two weeks apart should be used for risk assessment. ID Date Data Source [id number] 05/17/2020 07:43:00 AM [facility] Name Value Range Interpretation Code Description Data Candace e(s) Supporting Document(s) CBC W/AUTOMATED DIFF [facility] COMPLETE BLOOD COUNT Leukocytes [#/volume] in Blood by Automated count 4.7 10^3/uL 4.2 - 1 1.0 [facility] Erythrocytes [#/volume] in Blood by Automated count 4.03 10^6/uL 4. 50 - 6.30 L [facility] Hemoglobin [Mass/volume] in Blood 12.6 g/dL 14.0 - 16.0 L [facility] Hematocrit [Volume Fraction] of Blood by Automated count 36.5 % 4 1.0 - 51.0 L [facility] Erythrocyte mean corpuscular volume [Entitic volume] by Auto mated count 90.6 fL 80.0 - 94.0 [facility] Erythrocyte mean corpuscular hemoglobin [Entitic mass] by Automated count 31.3 pg 27.0 - 34.0 [facility] Erythrocyte mean corpuscular hemoglobin concentration [Mass/volume] by Automated count 34.5 g/dL 31.0 - 36.0 [facility] Erythrocyte distribution width [Ratio] by Automated count 12.4 % 11.5 - 14.8 [facility] Platelets [#/volume] in Blood by Automated count 148 10^3/uL 150 - 45 0 L [facility] Platelet mean volume [Entitic volume] in Blood by Automated count 8.9 fL 7.4 - 10.4 [facility] Neutrophils/100 leukocytes in Blood by Automated count 60.1 % 37. 0 - 80.0 [facility] Lymphocytes/100 leukocytes in Blood by Manual count 16.9 % 25.0 - 40.0 L [facility] Monocytes/100 leukocytes in Blood by Automated count 11.0 % 3.0 - 8.0 H [facility] Eosinophils/100 leukocytes in Blood by Automated count 11.0 % 0.0 - 7.0 H [facility] Basophils/100 leukocytes in Blood by Automated count 0.8 % 0.0 - 2.0 [facility] %IG 0.2 % 0.0 - 0.0 [facility] %NRBC 0.0 % 0.0 - 0.0 [facility] al Neutrophils [#/volume] in Blood by Automated count 2.84 10^3/uL 2.00 - 6.90 [facility] Lymphocytes [#/volume] in Blood by Automated count 0.80 10^3/uL 0.60 - 3.40 [facility] Monocytes [#/volume] in Blood by Automated count 0.52 10^3/uL 0.00 - 0.90 [facility] Eosinophils [#/volume] in Blood by Automated count 0.52 10^3/uL 0.00 - 0.70 [facility] Basophils [#/volume] in Blood by Automated count 0.04 10^3/uL 0.00 - 0.20 [facility] #IG 0.01 10^3/uL 0.00 - 0.10 [facility] ospital #NRBC 0.00 10^3/uL 0.00 - 0.00 [facility] ospital MANUAL DIFF NOT INDICATED [facility] RBC MORPH NOT INDICATED [facility] spital ID Date Data Source [id number] 05/16/2020 08:19:00 AM EST [facility] Name Value Range Interpretation Code Description Data Candace rce(s) Supporting Document(s) Erythrocyte sedimentation rate by Westergren method 7 mm/hr 0 - 20 [facility] SED RATE REENTER 7 [facility] ID Date Data Source [id number] 05/16/2020 08:18:00 AM [facility] Name Value Range Interpretation Code Description Data Candace rce(s) Supporting Document(s) CBC W/AUTOMATED DIFF [facility] COMPLETE BLOOD COUNT Leukocytes [#/volume] in Blood by Automated count 4.2 10^3/uL 4.2 - 1 1.0 [facility] Erythrocytes [#/volume] in Blood by Automated count 4.07 10^6/uL 4. 50 - 6.30 L [facility] Hemoglobin [Mass/volume] in Blood 13.0 g/dL 14.0 - 16.0 L [facility] Hematocrit [Volume Fraction] of Blood by Automated count 36.7 % 4 1.0 - 51.0 L [facility] Erythrocyte mean corpuscular volume [Entitic volume] by Auto mated count 90.2 fL 80.0 - 94.0 [facility] Erythrocyte mean corpuscular hemoglobin [Entitic mass] by Automated count 31.9 pg 27.0 - 34.0 [facility] Erythrocyte mean corpuscular hemoglobin concentration [Mass/volume] by Automated count 35.4 g/dL 31.0 - 36.0 [facility] Erythrocyte distribution width [Ratio] by Automated count 12.3 % 11.5 - 14.8 [facility] Platelets [#/volume] in Blood by Automated count 145 10^3/uL 150 - 45 0 L [facility] Platelet mean volume [Entitic volume] in Blood by Automated count 8.8 fL 7.4 - 10.4 [facility] Neutrophils/100 leukocytes in Blood by Automated count 65.1 % 37. 0 - 80.0 [facility] Lymphocytes/100 leukocytes in Blood by Manual count 12.3 % 25.0 - 40.0 L [facility] Monocytes/100 leukocytes in Blood by Automated count 12.0 % 3.0 - 8.0 H [facility] Eosinophils/100 leukocytes in Blood by Automated count 9.4 % 0.0 - 7.0 H [facility] Basophils/100 leukocytes in Blood by Automated count 1.0 % 0.0 - 2.0 [facility] %IG 0.2 % 0.0 - 0.[address] [facility] al %NRBC 0.0 % 0.0 - 0.0 [facility] al Neutrophils [#/volume] in Blood by Automated count 2.70 10^3/uL 2.00 - 6.90 [facility] Lymphocytes [#/volume] in Blood by Automated count 0.51 10^3/uL 0.60 - 3.40 L [facility] Monocytes [#/volume] in Blood by Automated count 0.50 10^3/uL 0.00 - 0.90 [facility] Eosinophils [#/volume] in Blood by Automated count 0.39 10^3/uL 0.00 - 0.70 [facility] Basophils [#/volume] in Blood by Automated count 0.04 10^3/uL 0.00 - 0.20 [facility] #IG 0.01 10^3/uL 0.00 - 0.10 [facility] H ospital #NRBC 0.00 10^3/uL 0.00 - 0.00 [facility] ospital MANUAL DIFF NOT INDICATED [facility] RBC MORPH NOT INDICATED [facility] sp[facility] ID Date Data Source [id number] 05/16/2020 08:15:00 AM [facility] Name Value Range Interpretation Code Description Data Candace rce(s) Supporting Document(s) C reactive protein [Mass/volume] in Serum or Plasma by High sensitivity method 5.47 MG/L 1.00 - 3.00 H [facility] CDC/AHS HS-CRP CUT-OFF: RELATIVE RISK: <1.0 mg/L Low 1.0 - 3.0 mg/L Average >3.0 mg/L High Optimally, the average of HS-CRP results repeated two weeks apart should be used for risk assessment. ID Date Data Source [id number] 05/15/2020 09:00:00 AM [facility] 1 OrderSheet [facility] Emergency Department [address] [place] [address] Phone #: ext- [phone] 05/15/2020 08:54 Patient: JOSHUA BARCENAS Sex: M : 1950 Age: 70yWEIGHT:77.1 kg (S) HEIGHT:68 inches (S) BMI:25.9ALLERGIES: NoneCHIEF COMPLAINT: pain, swellingDIAGNOSIS: Cellulitis of skinLAB ORDERSOrder Description Priority Entered Acknowledged InitialedCBC w Diff STAT 09:19 05/15/2020 09:22 Regine Hassan MD; Sienna RNCMP STAT 09:19 05/15/2020 09:22 Regine Hassan MD; Sienna RNSed. Rate STAT 09:19 05/15/2020 09:22 Regine Hassan MD; Sienna RNCRP STAT 09:19 05/15/2020 09:22 Regine Hassan MD; Seinna WARDBlood Culture STAT 09:30 05/15/2020 09:43 [id number] X2 (Regine Parry MD; Sienna RN09:30 05/15/2020)Blood Culture STAT 09:30 05/15/2020 09:43 [id number] X2 (Regine Parry MD; Sienna RN09:40 05/15/2020)COVID-19 CAH (Not STAT 11:31 05/15/2020 11:40 TerrySymptomatic as Regine Kowalski MD; Sienna RNDefined by [facility])(05/16/20) (First Test)(Hospitalized) (Not) (NotResident inCongregate CareSetting) (NotEmployed inHealthcare Setting)DIAGNOSTIC STUDY ORDERSOrder Description Priority Entered Acknowledged InitialedHand AP And LAT STAT 09:19 05/15/2020 09:22 TerryLeft (Oxygen?(No)) Regine Kowalski MD; El RN Reason for Study: Pain 2 OrderSheet [facility] Emergency Department [address] [place] [address] Phone #: ext- [phone] 05/15/2020 08:54 ------ Patient: JOSHUA BARCENAS Sex: M : 1950 Age: 70yMEDICATION/IV/DRIP/FLUID ORDERSOrder Description Priority Entered Acknowledged Initialed- (Ceftaroline 10:20 05/15/2020 10:39 [id number] IV BID until Regine Kowalski MD; Sienna [facility] notice)GENERAL ORDERSOrder Description Priority Entered Acknowledged Initialed[Electronically signed by Milton El RN (14:11 05/15/2020)][Electronically signed by Regine Kowalski MD (05:39 05/16/2020)][Electronically locked by Milton El RN (14:11 05/15/2020)] Name Value Range Interpretation Code Description Data Candace rce(s) Supporting Document(s) ID Date Data Source [id number] 05/15/2020 09:00:00 AM EST [facility] 1 Medication Reconciliation Report [facility] Emergency Department [address] [place] [address] Phone #: ext- [phone] 05/15/2020 08:54 Patient: JOSHUA BARCENAS Sex: M : 1950 Age: 70yWeight: 77.1 kgHeight/Length: 68 in.BMI: 25.9ALLERGIES: NoneThe patient's Home Medications are listed below:THE FOLLOWING MEDICATIONS NEED TO BE RECONCILED: Baclofen 10 mg bid Gabapentin Oral 300 mg, 2x a day Medication for neuropathy Naproxen Oral 500 mg, 2x a day Omeprazole Oral 20 mg, dailyThe source(s) of the original Home Medication information:Not obtained.The following Medications were given to the patient in the Emergency Department:ceftaroline IV Fluids bolus 0, then 600 mg, administered: 10:39 05/15/2020The following Medications were prescribed to the patient:None. Name Value Range Interpretation Code Description Data [facility](s) Supporting Document(s) ID Date Data Source [id number] 05/15/2020 09:00:00 AM [facility] 1 Medication Administration Record [facility] Emergency Department [address] [place] [address] Phone #: ext- [phone] 05/15/2020 08:54 Patient: JOSHUA BARCENAS Sex: M : 1950 Age: 70yWeight: 77.1 kgHeight/Length: 68 inBMI: 25.9ALLERGIES: None Date/Time Medication Administered Medication OrderedStart ceftaroline * - (Ceftaroline 600mg IV BID until10:39 05/15/2020 Dose: 600 mg * IV Fluids further notice)Milton El RN----Stop11:02 05/15/2020Milton El RN Name Value Range Interpretation Code Description Data [facility] rce(s) Supporting Document(s) ID Date Data Source [id number] 05/15/2020 09:00:00 AM [facility] 1 General Instructions [facility] Emergency Department [address] [place] [address] Phone #: ext- [phone] 05/15/2020 08:54 Patient: JOSHUA BARCENAS Sex: M : 1950 Age: 70yCellulitis of the left ring finger.Dehisced surgical wound to left hand.(Electronically signed by Regine Kowalski MD 05/16/2020 05:39) Name Value Range Interpretation Code Description Data Candace rce(s) Supporting Document(s) ID Date Data Source [id number] 05/15/2020 09:00:00 AM EST [facility] 1 Clinical Report - Nurses [facility] Emergency Department [address] [place] [address] Phone #: [phone] jag- [phone] 05/15/2020 08:54 Patient: JOSHUA BARCENAS Sex: M : 1950 Age: 70yTRIAGEArrived by private vehicle. Historian: patient. ( 04/02/20 pt had surgery on left ring finger to release triggerfinger by Dr Mart, end of March area became infection and was admitted for IV antibiotic, area stilldraining).Triage time: 09:00 05/15/2020. Acuity: LEVEL 5.Chief Complaint: Location of symptoms- left ring finger (infection).09:05 05/15/20.Location of injuries: left hand. He has had swelling.SEPSIS SCREEN: SIRS SCREEN NEGATIVE. SEPSIS SCREEN NEGATIVE. No suspected or confirmedsigns of infection present. (09:04 05/15/2020). --09:05 05/15/20 Milton El RN09:00 05/15/20. BP: 154/84. MAP: 107. HR: 67. RR: 18. O2 saturation: 98% on room air. Temp: 98.3 F(oral). Pain level now: 0/10. --09:05 05/15/20 Milton El RN.Weight: 77.1 kg stated. Height/Length: 68 inches Per Patient. BMI: 25.9. --09:00 05/15/20 Milton El RN.MedicationsNaproxen Oral 500 mg, 2x a day. --09:05/15/20 Milton El RN Omeprazole Oral 20 mg, daily. --09:05/15/20 Milton El RN Gabapentin Oral 300 mg, 2x a day. --:05/15/20 Milton El RN Baclofen 10 mg bid. 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 --:05/15/20 Milton El RN.AllergiesNone. --:05/15/20 Milton El RN.PROBLEMS:Neuropathy.Gastroesophageal Reflux Disease. --09:05/15/20 Milton El RN.ADDITIONAL SURGERIES:Adenoidectomy.Both hands.Right knee.Tonsillectomy. --:05/15/20 Milton El RN. 2 Clinical Report - Nurses [facility] Emergency Department [address] [place] [address] Phone #: [phone] ose- [phone] 05/15/2020 08:54 [id number]: [facility] : 1950 Age: 70y History 09:05 05/15/20. SOCIAL HX: Never smoker. Occasional alcohol use. No drug use. He was offered HIV testing but declined and hepatitis C testing but declined. He has not traveled outside the [place] Infectious disease exposure: No infectious disease exposure. SELF HARM ASSESSMENT: Self harm assessment was performed. The patient answered "no" to the question(s) "Have you recently felt down, depressed, or hopeless?", "Do you have thoughts of harming or killing yourself?", "Do you have a plan for harming or killing yourself?", "Have you recently had thoughts about harming or killing others?", "Do you have any dangerous items in your possession?", "Have you noticed less interest or pleasure in doing things?", "Are you here because you tried to hurt yourself?" and "Have you ever tried to hurt yourself before today?". ABUSE ASSESSMENT: Abuse history: reports abuse. (no). Abuse assessment. No suspicion of abuse. NUTRITIONAL RISK ASSESSMENT: The nutritional risk assessment revealed no deficiencies. FUNCTIONAL ASSESSMENT: Functional assessment: no impairments noted. LEARNING NEEDS ASSESSMENT: The learning needs assessment revealed no barriers. FALL RISK ASSESSMENT: Fall risk assessment completed. No risk factors identified. SKIN INTEGRITY ASSESSMENT: Skin integrity risk assessment completed. No skin integrity risk identified. --09:05/15/20 Milton El RN. Interventions 09:05/15/20. Identification band on patient. To room. --09:05 05/15/20 Milton El RN.PHYSICAL OOARRISCBI23:05/15/20. Ambulatory to room.GENERAL / NEURO / PSYCH: Disoriented. Alert. Appears in no acute distress.EXTREMITIES: Left ring finger: (dressing in place).SKIN: Skin is warm and dry. --09:05/15/20 Milton El RN.NURSING PROGRESS NOTES09:05/15/20. Two patient identifiers checked. Call light placed in reach. Bed placed in lowestposition. Brakes of bed on. Patient ready for evaluation- ED physician notified. --09:11 05/15/20 ED Pulido Checked patient name and birthdate: patient confirmed. Blood samples drawn by tech. ([id number]). Patient walked to radiology with mask and mechanical system technician. ([id number]). Patient walked back from radiology with mask and mechanical system technician. ([id number]).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 changes. He was visited byoccupational therapy and worked on hand therapy three times daily. He had no complications during hisadmission.FINAL DIAGNOSIS:LEFT HAND ABSCESS THREE WEEKS POST-OPERATIVELY FOR LEFT HAND RING TRIGGERFINGER.DISCHARGE INSTRUCTIONS:He does have a prescription for Zyvox 600 mg po twice daily for the next two weeks. He will follow up twoweeks from discharge on 05/12/20 at 10:20 a.m. He will have a CBC, sedimentation, and CRP repeated at thattime. He should continue his hand exercises, and he will contact Dr. Wilkins on his cell phone [facility] if he should have any complications.DD: EDWIGE Villegas 04/28/20 11:55DT: SSR 04/28/20 12:31DS: EDWIGE Villegas 04/29/20 12:19 2 Name Value Range Interpretation Code Description Data Candace rce(s) Supporting Document(s) ID Date Data Source [id number] 04/27/2020 12:27:00 [place] [address] PROGRESS NOTENAME: NARINDER Gee ROOM#: [id number] OF : 1950 MR#: [id number] DATE: 04/23/20 OF SERVICE: 04/26/2020UBJECTIVE:The patient is a 69-year-old male who was admitted on 04/21/20 for suspected left hand infection post-operatively after a left hand ring trigger finger release. After irrigation and debridement performed in theoperating room, he was admitted for occupational therapy as well as IV antibiotics. He has been improving asfar as his pain and range of motion. He continues to await final cultures.OBJECTIVE:On physical examination, the patient is comfortable without any acute distress. On left hand examination, thesurgical incision shows no sign of infection or deformity. His sutures remain loosely intact. He continues dailydressing changes, and there is no localized heat or drainage at the incision site.LABORATORY DATA:As of today, 04/26/20, show WBC count of 4.3, CRP now down to 8.79, and sed rate of 11. His wound culturehas shown no growth after 36-48 hours. Gram stain is final with no organisms seen.ASSESSMENT/PLAN:The patient is continuing occupational therapy three times daily as well as IV ceftaroline 600 mg twice daily.He no longer requires hydrocodone, and pain is being controlled on Tylenol alone. Today his incision wasirrigated with 10 mL of normal saline and the site was re-dressed with 4 x 4 and rolled gauze. He continuesregular diet, activity as tolerated. All of his concerns were addressed. It was a pleasure to see him in thehospital today.DD: EDWIGE Villegas 04/26/20 14:34DT: SSR 04/27/20 12:22DS: EDWIGE Villegas 04/28/20 11:36 1 Name Value Range Interpretation Code Description Data Candace rce(s) Supporting Document(s) ID Date Data Source [id number] 04/27/2020 12:16:00 [place] [address] PROGRESS NOTENAME: NARINDER Gee ROOM#: [id number] OF : 1950 MR#: [id number] DATE: 04/23/20 OF SERVICE: 04/27/2020UBJECTIVE:The patient is a 69-year-old male who was admitted on 04/21/20 for suspected left hand infection post-operatively after left hand ring trigger finger release. He underwent irrigation and debridement in the OR on04/21, and was admitted for occupational therapy as well as IV antibiotics, which he continues today. Thepatient is reporting minimal pain at this time. He continues to await final wound culture results. He continuesoccupational therapy three times a day.OBJECTIVE:On physical examination, the patient is comfortable without any acute distress. On left hand examination, thesurgical incision shows no sign of infection or def ormity. His sutures are loosely intact. He does have fullrange of motion of all fingers, and continues stretching of the PIP joint of the affected finger, which did have a10 degree contraction.LABORATORY DATA:As of 04/27/20 show white blood cell count of 4.2, CRP of 8, and sed rate 6.72. Blood cultures returned finalresult today of negative.ASSESSMENT/PLAN:The patient will continue three times daily occupational therapy as well as 600 mg of IV ceftaroline twicedaily. He is using only Tylenol for pain control at this time, and continues daily dressing changes and re-evaluation by Dr. Wilkins. Diet is regular, and activity as tolerated. All of his concerns were addressed today. Itwas a pleasure to see him in the hospital.DD: DI VillegasP 04/27/20 12:03DT: SSR 04/27/20 12:11DS: Davian FlorezEDWIGE bell 04/28/20 11:36 1 Name Value Range Interpretation Code Description Data Candace rce(s) Supporting Document(s) ID Date Data Source [id number] 04/28/2020 05:45:00 AM EST [facility] ([facility]) Name Value Range Interpretation Code Description Data Candace rce(s) Supporting Document(s) WBC 5.7 10^3/uL 4.2-11.0 [facility] ([facility]) CBC W/Automated Diff Laboratory test result [facility] ([facility]) COMPLETE BLOOD COUNT RBC 4.22 10^6/uL 4.50-6.30 Below low normal [facility] ([facility]) Hemoglobin 13.1 g/dL 14.0-16.0 Below low normal [facility] ( [facility]) Hematocrit 37.2 % 41.0-51.0 Below low normal [facility] ( [facility]) MCV 88.2 fL 80.0-94.0 [facility] ([facility]) MCH 31.0 pg 27.0-34.0 [facility] ([facility]) MCHC 35.2 g/dL 31.0-36.0 [facility] ([facility]) Platelets 205 10^3/uL 150-450 [facility] ([facility]) RDW 11.1 % 11.5-14.8 Below low normal [facility] ([facility]) MPV 8.8 fL 7.4-10.4 [facility] ([facility]) Finney 7.3 % 3.0-8.0 [facility] ([facility]) Neut 68.2 % 37.0-80.0 [facility] ([facility]) Lymph 16.6 % 25.0-40.0 Below low normal [facility] ( [facility]) Eos 6.8 % 0.0-7.0 [facility] ([facility]) %Ig 0.2 % 0.0-0.0 Above high normal [facility] ([facility]) Baso 0.9 % 0.0-2.0 [facility] ([facility]) %NRBC 0.0 % 0.0-0.0 [facility] ([facility]) #Neut 3.92 10^3/uL 2.00-6.90 [facility] ([facility]) #Finney 0.42 10^3/uL 0.00-0.90 [facility] ([facility]) #Lymph 0.95 10^3/uL 0.60-3.40 [facility] ([facility]) #Baso 0.05 10^3/uL 0.00-0.20 [facility] ([facility]) #Ig 0.01 10^3/uL 0.00-0.10 [facility] ([facility]) #Eos 0.39 10^3/uL 0.00-0.70 [facility] ([facility]) #NRBC 0.00 10^3/uL 0.00-0.00 [facility] ([facility]) RBC Morph Laboratory test result [facility] ([facility]) Manual Diff Laboratory test result M [facility] ([facility]) ID Date Data Source [id number] 04/28/2020 05:45:00 AM EST [facility] ([facility]) Name Value Range Interpretation Code Description Data Candace rce(s) Supporting Document(s) C reactive protein [Mass/volume] in Serum or Plasma by High sensitivity method 4.80 mg/L 1.00-3.00 Above high normal [facility] ([facility]) <content>CDC/AHS HS-CRP CUT-OFF: RELATIVE RISK:</content>
<content><1.0 mg/L Low</content>
<content>1.0 - 3.0 mg/L Average</michelle nt>
<content>>3.0 mg/L High</content>
<content>Optimally, the average of HS-CRP results repeated</content>
<content>two weeks apart should be used for risk assessment.</content>
<content></content> ID Date Data Source [id number] 04/28/2020 05:45:00 AM EST [facility] ([facility]) Name Value Range Interpretation Code Description Data Candace rce(s) Supporting Document(s) Sed Rate 9 mm/hr 0-20 [facility] ([facility]) Sed Rate Reenter 9 [facility] ([facility]) ID Date Data Source [id number] 04/28/2020 07:14:00 AM [facility] Name Value Range Interpretation Code Description Data Candace rce(s) Supporting Document(s) CBC W/AUTOMATED DIFF [facility] COMPLETE BLOOD COUNT Leukocytes [#/volume] in Blood by Automated count 5.7 10^3/uL 4.2 - 1 1.0 [facility] Erythrocytes [#/volume] in Blood by Automated count 4.22 10^6/uL 4. 50 - 6.30 L [facility] Hemoglobin [Mass/volume] in Blood 13.1 g/dL 14.0 - 16.0 L [facility] Hematocrit [Volume Fraction] of Blood by Automated count 37.2 % 4 1.0 - 51.0 L [facility] Erythrocyte mean corpuscular volume [Entitic volume] by Auto mated count 88.2 fL 80.0 - 94.0 [facility] Erythrocyte mean corpuscular hemoglobin [Entitic mass] by Automated count 31.0 pg 27.0 - 34.0 [facility] Erythrocyte mean corpuscular hemoglobin concentration [Mass/volume] by Automated count 35.2 g/dL 31.0 - 36.0 [facility] Erythrocyte distribution width [Ratio] by Automated count 11.1 % 11.5 - 14.8 L [facility] Platelets [#/volume] in Blood by Automated count 205 10^3/uL 150 - 45 0 [facility] Platelet mean volume [Entitic volume] in Blood by Automated count 8.8 fL 7.4 - 10.4 [facility] Neutrophils/100 leukocytes in Blood by Automated count 68.2 % 37. 0 - 80.0 [facility] Lymphocytes/100 leukocytes in Blood by Manual count 16.6 % 25.0 - 40.0 L [facility] Monocytes/100 leukocytes in Blood by Automated count 7.3 % 3.0 - 8.0 [facility] Eosinophils/100 leukocytes in Blood by Automated count 6.8 % 0.0 - 7.0 [facility] Basophils/100 leukocytes in Blood by Automated count 0.9 % 0.0 - 2.0 [facility] %IG 0.2 % 0.0 - 0.[address] [facility] al %NRBC 0.0 % 0.0 - 0.0 [facility] al Neutrophils [#/volume] in Blood by Automated count 3.92 10^3/uL 2.00 - 6.90 [facility] Lymphocytes [#/volume] in Blood by Automated count 0.95 10^3/uL 0.60 - 3.40 [facility] Monocytes [#/volume] in Blood by Automated count 0.42 10^3/uL 0.00 - 0.90 [facility] Eosinophils [#/volume] in Blood by Automated count 0.39 10^3/uL 0.00 - 0.70 [facility] Basophils [#/volume] in Blood by Automated count 0.05 10^3/uL 0.00 - 0.20 [facility] #IG 0.01 10^3/uL 0.00 - 0.10 [facility] #NRBC 0.00 10^3/uL 0.00 - 0.00 [facility] MANUAL DIFF NOT INDICATED [facility] RBC MORPH NOT INDICATED [facility] ID Date Data Source [id number] 04/28/2020 07:04:00 AM EST [facility] Name Value Range Interpretation Code Description Data Candace rce(s) Supporting Document(s) C reactive protein [Mass/volume] in Serum or Plasma by High sensitivity method 4.80 MG/L 1.00 - 3.00 H [facility]/S HS-CRP CUT-OFF: RELATIVE RISK: <1.0 mg/L Low 1.0 - 3.0 mg/L Average >3.0 mg/L High Optimally, the average of HS-CRP results repeated two weeks apart should be used for risk assessment. ID Date Data Source [id number] 04/28/2020 07:03:00 AM [facility] Name Value Range Interpretation Code Description Data Candace rce(s) Supporting Document(s) Erythrocyte sedimentation rate by Westergren method 9 mm/hr 0 - 20 [facility] SED RATE REENTER 9 [facility] ID Date Data Source [id number] 04/26/2020 07:45:00 AM [facility] [address] [place] [address] PROGRESS NOTENAME: NARINDER Gee ROOM#: [id number] OF : 1950 MR#: [id number] DATE: 04/23/20 OF SERVICE: 04/23/2020UBJECTIVE:The patient is a 69-year-old male who was admitted for suspected left hand infection. He did undergoirrigation and debridement in the operating room on 04/21/20, and was admitted for IV antibiotics andoccupational therapy. He has been having daily dressing changes and wound irrigation by Dr. Wilkins, and hasimproved significantly. Today he reports almost no pain. He continues awaiting culture results, and continuesoccupational therapy three times a day.OBJECTIVE:On physical examination, the patient is comfortable without any acute distress. On left hand examination,there is no sign of infection or deformity at this time. His sutures are intact, however the wound is looselyclosed. He currently has full range of motion of all fingers. Motor and sensory functions are normal in theradial, median, and ulnar nerve distributions, and pulses are palpated at 2+.LABORATORY DATA:Updated labs as of 04/23/20 show WBC count of 4.1, CRP 28.81, sedimentation rate 16.ASSESSMENT/PLAN:The patient continues IV ceftaroline 600 mg twice daily while he awaits final culture results. He does have anorder for hydrocodone 5/325 for pain control, however is reporting very little pain at this time. He willcontinue occupational therapy three times a day. Today he was re-admitted to inpatient rather than observationstatus. Diet is continued regular, and activity is as tolerated. All of his concerns were addressed today. It was apleasure to see him.DD: Davian Ray, PLANT SCIENCE PROFESSOR 04/23/20 12:51DT: SSR 04/26/20 07:40DS: Davian Ray PLANT SCIENCE PROFESSOR 04/27/20 12:05 1 Name Value Range Interpretation Code Description Data Candace rce(s) Supporting Document(s) ID Date Data Source [id number] 04/27/2020 06:05:00 AM EST [facility] ([facility]) Name Value Range Interpretation Code Description Data [facility] rce(s) Supporting Document(s) Sed Rate Reenter 8 [facility] ([facility]) Sed Rate 8 mm/hr 0-20 [facility] ([facility]) ID Date Data Source [id number] 04/27/2020 06:05:00 AM EST [facility] ([facility]) Name Value Range Interpretation Code Description Data [facility] rce(s) Supporting Document(s) RBC 4.16 10^6/uL 4.50-6.30 Below low normal [facility] ([facility]) CBC W/Automated Diff Laboratory test result [facility] ([facility]) COMPLETE BLOOD COUNT WBC 4.2 10^3/uL 4.2-11.0 [facility] ([facility]) Hematocrit 37.0 % 41.0-51.0 Below low normal [facility] ( [facility]) MCV 88.9 fL 80.0-94.0 [facility] ([facility]) Hemoglobin 13.1 g/dL 14.0-16.0 Below low normal [facility] ( [facility]) MCHC 35.4 g/dL 31.0-36.0 [facility] ([facility]) RDW 11.2 % 11.5-14.8 Below low normal [facility] ([facility]) MCH 31.5 pg 27.0-34.0 [facility] ([facility]) Platelets 202 10^3/uL 150-450 [facility] ([facility]) MPV 8.7 fL 7.4-10.4 [facility] ([facility]) Lymph 23.6 % 25.0-40.0 Below low normal [facility] ( [facility]) Finney 9.1 % 3.0-8.0 Above high normal [facility] ([facility]) Neut 54.4 % 37.0-80.0 [facility] ([facility]) Eos 11.5 % 0.0-7.0 Above high normal [facility] ([facility]) %Ig 0.0 % 0.0-0.0 [facility] ([facility]) Baso 1.4 % 0.0-2.0 [facility] ([facility]) #Neut 2.28 10^3/uL 2.00-6.90 [facility] ([facility]) #Lymph 0.99 10^3/uL 0.60-3.40 [facility] ([facility]) %NRBC 0.0 % 0.0-0.0 [facility] ([facility]) #Eos 0.48 10^3/uL 0.00-0.70 [facility] ([facility]) #Baso 0.06 10^3/uL 0.00-0.20 [facility] ([facility]) #Finney 0.38 10^3/uL 0.00-0.90 [facility] ([facility]) #Ig 0.00 10^3/uL 0.00-0.10 [facility] ([facility]) #NRBC 0.00 10^3/uL 0.00-0.00 [facility] ([facility]) Manual Diff Laboratory test result [facility] ([facility]) RBC Morph Laboratory test result [facility] ([facility]) ID Date Data Source [id number] 04/27/2020 06:05:00 AM EST [facility] ([facility]) Name Value Range Interpretation Code Description Data Candace rce(s) Supporting Document(s) C reactive protein [Mass/volume] in Serum or Plasma by High sensitivity method 6.72 mg/L 1.00-3.00 Above high normal [facility] <content>CDC/S HS-CRP CUT-OFF: RELATIVE RISK:</content>
<content><1.0 mg/L Low</content>
<content>1.0 - 3.0 mg/L Average</michelle nt>
<content>>3.0 mg/L High</content>
<content>Optimally, the average of HS-CRP results repeated</content>
<content>two weeks apart should be used for risk assessment.</content>
<content></content> ID Date Data Source [id number] 04/27/2020 07:41:00 AM [facility] Name Value Range Interpretation Code Description Data Candaec rce(s) Supporting Document(s) Erythrocyte sedimentation rate by Westergren method 8 mm/hr 0 - 20 [facility] SED RATE REENTER 8 [facility] ID Date Data Source [id number] 04/27/2020 07:15:00 AM [facility] Name Value Range Interpretation Code Description Data Candace rce(s) Supporting Document(s) CBC W/AUTOMATED DIFF [facility] COMPLETE BLOOD COUNT Leukocytes [#/volume] in Blood by Automated count 4.2 10^3/uL 4.2 - 1 1.0 [facility] Erythrocytes [#/volume] in Blood by Automated count 4.16 10^6/uL 4. 50 - 6.30 L [facility] Hemoglobin [Mass/volume] in Blood 13.1 g/dL 14.0 - 16.0 L [facility] Hematocrit [Volume Fraction] of Blood by Automated count 37.0 % 4 1.0 - 51.0 L [facility] Erythrocyte mean corpuscular volume [Entitic volume] by Auto mated count 88.9 fL 80.0 - 94.0 [facility] Erythrocyte mean corpuscular hemoglobin [Entitic mass] by Automated count 31.5 pg 27.0 - 34.0 [facility] Erythrocyte mean corpuscular hemoglobin concentration [Mass/volume] by Automated count 35.4 g/dL 31.0 - 36.0 [facility] Erythrocyte distribution width [Ratio] by Automated count 11.2 % 11.5 - 14.8 L [facility] Platelets [#/volume] in Blood by Automated count 202 10^3/uL 150 - 45 0 [facility] Platelet mean volume [Entitic volume] in Blood by Automated count 8.7 fL 7.4 - 10.4 [facility] Neutrophils/100 leukocytes in Blood by Automated count 54.4 % 37. 0 - 80.0 [facility] Lymphocytes/100 leukocytes in Blood by Manual count 23.6 % 25.0 - 40.0 L [facility] Monocytes/100 leukocytes in Blood by Automated count 9.1 % 3.0 - 8.0 H [facility] Eosinophils/100 leukocytes in Blood by Automated count 11.5 % 0.0 - 7.0 H [facility] Basophils/100 leukocytes in Blood by Automated count 1.4 % 0.0 - 2.0 [facility] %IG 0.0 % 0.0 - 0.0 [facility] al %NRBC 0.0 % 0.0 - 0.0 [facility] al Neutrophils [#/volume] in Blood by Automated count 2.28 10^3/uL 2.00 - 6.90 [facility] Lymphocytes [#/volume] in Blood by Automated count 0.99 10^3/uL 0.60 - 3.40 [facility] Monocytes [#/volume] in Blood by Automated count 0.38 10^3/uL 0.00 - 0.90 [facility] Eosinophils [#/volume] in Blood by Automated count 0.48 10^3/uL 0.00 - 0.70 [facility] Basophils [#/volume] in Blood by Automated count 0.06 10^3/uL 0.00 - 0.20 [facility] #IG 0.00 10^3/uL 0.00 - 0.10 [facility] #NRBC 0.00 10^3/uL 0.00 - 0.00 [facility] MANUAL DIFF NOT INDICATED [facility] RBC MORPH NOT INDICATED [facility] spital ID Date Data Source [id number] 04/27/2020 07:11:00 AM [facility] Name Value Range Interpretation Code Description Data Candace rce(s) Supporting Document(s) C reactive protein [Mass/volume] in Serum or Plasma by High sensitivity method 6.72 MG/L 1.00 - 3.00 H [facility] CDC/S HS-CRP CUT-OFF: RELATIVE RISK: <1.0 mg/L Low 1.0 - 3.0 mg/L Average >3.0 mg/L High Optimally, the average of HS-CRP results repeated two weeks apart should be used for risk assessment. ID Date Data Source [id number] 04/25/2020 11:38:00 [place] [address] OPERATIVE SUMMARYNAME: NARINDER Gee DATE OF : 1950ATTENDING PHYS: Sherley Wilkins MD DATE: 04/23/20 MR#: [id number] OF PROCEDURE: 04/21/20PREOPERATIVE DIAGNOSIS: Left hand ring finger infection 3 weeks status post left handring trigger finger release.POSTOPERATIVE DIAGNOSIS: Left hand ring finger abscess and flexor tenosynovitis.SURGEON: Sherley Wilkins MD.FILLER ROOM ATTENDANT: NANCY Vela FOR [employer] MIXER OPERATOR: Filemon Santo MD provided essential assistance during thiscase including careful retraction of vital structures, safe manipulation of anatomic structures,suctioning of body fluid for clear visualization, wound closure and dressing.ANESTHESIA: GeneralANESTHESIOLOGIST: Kashif Fuchs MDOPERATION PERFORMED: Left hand ring finger irrigation and debridement including flexortendon sheath.ESTIMATED BLOOD LOSS: Less than 20 cc.DRAINS: None.SPECIMENS: Aerobic and anaerobic culture x3, gram stain x2.TOURNIQUET TIME: 50 minutes.SURGICAL TIME: 44 minutes.SPONGE COUNT: Correct.NEEDLE COUNT: Correct.INDICATION FOR PROCEDURE: [address] [place] [address] OPERATIVE SUMMARYNAME: NARINDER Gee DATE OF : 1950ATTENDING PHYS: Sherley Wilkins MD DATE: 04/23/20 MR#: [id number] patient is a 69-year-old male who is 3 weeks status post left hand ring trigger finger release.Since 2 days, he started having pain at the surgical incision. Today, he came to the clinic withswelling around the surgical incision and positive kanavel signs, including exquisite tendernessover the course of the flexor sheath. The finger sits in mild resting flexed position of about 15degrees and he also had pain while we were passively extending the finger. The finger was mildlyswollen, not in a fusiform way at this point. At this point, it was elected to undergo the above notedsurgery. We performed an informed consent with the patient and explained to him the above noteddiagnosis, alterative treatment option and strongly recommended surgical irrigation anddebridement and positive surgical rehabilitation. The patient signed the informed consent.DESCRIPTION OF PROCEDURE:The patient was brought to the operating room and placed on the operating table in supine position.The left arm was then elevated, prepped and draped in the usual sterile fashion below a steriletourniquet, which was inflated to 250 mmHg. We did not use an Esmarch, but just gravity. Theprevious incision for the trigger finger release was opened and we identified and protected thedigital nerves. After opening the incision, there was a yellowish fluid at this area, which we took 3cultures for aerobic and anaerobic and 2 specimens for gram stain. After that, the patient receivedIV Ceftaroline 600 mg. We irrigated this surgical wound with 3 liters of normal saline until clearfluid came out of the wound and we could identify the flexor tendon clean and the digital nervesand vessels. Then we performed a Nicolás incision centered over the DIP and in blunt dissection, weraised the skin flap and exposed the distal end of the flexor tendon sheath. We performed a smallwindow at the flexor tendon sheath and inserted an baby cannula through this window of theflexor sheath and irrigated the flexor sheath from distal to proximal with 2 liters of normal saline,verifying that fluid is coming from the proximal wound until the fluid was completely clear. Thenboth wounds were closed with loose 4-0 nylon sutures. The patient was placed in a soft handdressing and taken to the recovery room in satisfactory condition.POSTOPERATIVE REHABILITATION PROTOCOL:The patient will start doing finger and wrist range of motion immediately. The patient will starthand therapy immediately. We will perform daily wound treatment. The patient will continuetreatment with IV Ceftaroline 600 mg twice a day until we receive the wound culture results.Patient will have daily CBC, ESR and CRP. To be noted prior to surgery, ESR was 15, white bloodcell was 5.7 and CRP was 46.71. ISherley, personally performed all elements of this surgery.DD: Sherley Wilkins MD 04/25/20 09:04DT: ALVINO 04/25/20 23:20DS: Sherley Wilkins MD 04/26/20 11:33 2 Name Value Range Interpretation Code Description Data Candace rce(s) Supporting Document(s) ID Date Data Source [id number] 04/25/2020 10:19:00 [place] [address] PROGRESS NOTENAME: NARINDER Gee ROOM#: [id number] OF : 1950 MR#: [id number] DATE: 04/23/20 OF SERVICE: 04/25/20SUBJECTIVE: The patient is a 69-year-old male who is 4 days status post irrigation and debridement of lefthand ring finger infection including early flexor tenosynovitis. The patient states that he has almost no pain atall during the day, 0 on a 0-10 pain scale. He weaned already from his narcotic pain medication, using onlyTylenol for pain. He is practicing hourly his range of motion exercise of the finger and feels that it isimproving significantly. He denies any numbness or tingling on both sides of the ring finger. I verified that heis receiving his IV antibiotics.OBJECTIVE: On his physical examination, the patient is comfortable without any acute distress. His bodytemperature is normal. He is stable hemodynamically. On his left hand examination, the distal surgical scar iswell- healed. No sign of infection or discharge. The proximal surgical scar is healing. There is only a minoramount of discharge from the wound without any evidence of pus. There is no swelling, no redness and nolocal tenderness over the flexor tendon sheath or around the palmar incision. Active range of motion of thefinger: He has full flexion in his MCP, PIP and DIP and full extension of his MCP, DIP and lack of 5 degreesof PIP extension. He has no pain during range of motion of the finger. He has normal sensation on both sidesof the finger. Capillary filling is less than 2 seconds.LABORATORY STUDIES: On his lab tests from today, white blood cells are 4.3. CRP is 11.41. Bloodculture: No growth so far after 24 hours. Gram stain: No evidence of white blood cells or bacteria. Bloodculture suspected to be contaminated.ASSESSMENT/PLAN: I explained to the patient the above noted diagnosis of clinical and lab improvementsince his surgery. The patient will keep doing finger exercise and have physical therapy today for range ofmotion of the finger. I changed his bandage. We will return tomorrow for wound inspection and treatment. Romy keep receiving IV antibiotics until we receive the final culture result. If there is any deterioration, [facility] will [facility] me on my cell phone. Patient states he well understands and agrees with thisrecommendation. All of the patient's concerns have been addressed. It was a pleasure to see him on the floortoday.DD: Sherley Wilkins MD 04/25/20 09:32DT: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 PHYS: Sherley Wilkins MD ADMISSION DATE: 04/21/20DD: EDWIGE Villegas 04/22/20 13:28DT: SSR 04/22/20 13:49DS: EDWIGE Villegas 04/23/20 11:34 2 Name Value Range Interpretation Code Description Data Candace rce(s) Supporting Document(s) ID Date Data Source [id number] 04/23/2020 05:23:00 AM EST [facility] ([facility]) Name Value Range Interpretation Code Description Data Candace rce(s) Supporting Document(s) C reactive protein [Mass/volume] in Serum or Plasma by High sensitivity method 28.81 mg/L 1.00-3.00 Above high normal [facility] ([facility]) <content>CDC/S HS-CRP CUT-OFF: RELATIVE RISK:</content>
<content><1.0 mg/L Low</content>
<content>1.0 - 3.0 mg/L Average</michelle nt>
<content>>3.0 mg/L High</content>
<content>Optimally, the average of HS-CRP results repeated</content>
<content>two weeks apart should be used for risk assessment.</content>
<content></content> ID Date Data Source [id number] 04/23/2020 05:23:00 AM EST [facility] ([facility]) Name Value Range Interpretation Code Description Data Candace rce(s) Supporting Document(s) CBC W/Automated Diff Laboratory test result [facility] ([facility]) COMPLETE BLOOD COUNT WBC 4.1 10^3/uL 4.2-11.0 Below low normal [facility] ([facility]) RBC 4.11 10^6/uL 4.50-6.30 Below low normal [facility] ([facility]) Hemoglobin 13.0 g/dL 14.0-16.0 Below low normal [facility] ( [facility]) Hematocrit 37.5 % 41.0-51.0 Below low normal [facility] ( [facility]) MCV 91.2 fL 80.0-94.0 [facility] ([facility]) RDW 11.7 % 11.5-14.8 [facility] ([facility]) MCH 31.6 pg 27.0-34.0 [facility] ([facility]) MCHC 34.7 g/dL 31.0-36.0 [facility] ([facility]) MPV 9.2 fL 7.4-10.4 [facility] ([facility]) Neut 50.0 % 37.0-80.0 [facility] ([facility]) Platelets 185 10^3/uL 150-450 [facility] ([facility]) Lymph 24.3 % 25.0-40.0 Below low normal [facility] ( [facility]) Finney 11.9 % 3.0-8.0 Above high normal [facility] ([facility]) Baso 0.7 % 0.0-2.0 [facility] ([facility]) Eos 13.1 % 0.0-7.0 Above high normal [facility] ([facility]) %Ig 0.0 % 0.0-0.0 [facility] ([facility]) #Neut 2.05 10^3/uL 2.00-6.90 [facility] ([facility]) %NRBC 0.0 % 0.0-0.0 [facility] ([facility]) #Lymph 1.00 10^3/uL 0.60-3.40 [facility] ([facility]) #Finney 0.49 10^3/uL 0.00-0.90 [facility] ([facility]) #Baso 0.03 10^3/uL 0.00-0.20 [facility] ([facility]) #Eos 0.54 10^3/uL 0.00-0.70 [facility] ([facility]) #NRBC 0.00 10^3/uL 0.00-0.00 [facility] ([facility]) #Ig 0.00 10^3/uL 0.00-0.10 [facility] Manual Diff Laboratory test result [facility] ([facility]) RBC Morph Laboratory test result [facility] ([facility]) ID Date Data Source [id number] 04/23/2020 05:23:00 AM EST [facility] ([facility]) Name Value Range Interpretation Code Description Data Candace rce(s) Supporting Document(s) Sed Rate 16 mm/hr 0-20 [facility] ([facility]) Sed Rate Reenter 16 [facility] ([facility]) ID Date Data Source [id number] 04/23/2020 08:55:00 AM [facility] Name Value Range Interpretation Code Description Data Candace rce(s) Supporting Document(s) Erythrocyte sedimentation rate by Westergren method 16 mm/hr 0 - 20 [facility] SED RATE REENTER 16 [facility] ID Date Data Source [id number] 04/23/2020 07:45:00 AM [facility] Name Value Range Interpretation Code Description Data Candace rce(s) Supporting Document(s) CBC W/AUTOMATED DIFF [facility] COMPLETE BLOOD COUNT Leukocytes [#/volume] in Blood by Automated count 4.1 10^3/uL 4.2 - 1 1.0 L [facility] Erythrocytes [#/volume] in Blood by Automated count 4.11 10^6/uL 4. 50 - 6.30 L [facility] Hemoglobin [Mass/volume] in Blood 13.0 g/dL 14.0 - 16.0 L [facility] Hematocrit [Volume Fraction] of Blood by Automated count 37.5 % 4 1.0 - 51.0 L [facility] Erythrocyte mean corpuscular volume [Entitic volume] by Auto mated count 91.2 fL 80.0 - 94.0 [facility] Erythrocyte mean corpuscular hemoglobin [Entitic mass] by Automated count 31.6 pg 27.0 - 34.0 [facility] Erythrocyte mean corpuscular hemoglobin concentration [Mass/volume] by Automated count 34.7 g/dL 31.0 - 36.0 [facility] Erythrocyte distribution width [Ratio] by Automated count 11.7 % 11.5 - 14.8 [facility] Platelets [#/volume] in Blood by Automated count 185 10^3/uL 150 - 45 0 [facility] Platelet mean volume [Entitic volume] in Blood by Automated count 9.2 fL 7.4 - 10.4 [facility] Neutrophils/100 leukocytes in Blood by Automated count 50.0 % 37. 0 - 80.0 [facility] Lymphocytes/100 leukocytes in Blood by Manual count 24.3 % 25.0 - 40.0 L [facility] Monocytes/100 leukocytes in Blood by Automated count 11.9 % 3.0 - 8.0 H [facility] Eosinophils/100 leukocytes in Blood by Automated count 13.1 % 0.0 - 7.0 H [facility] Basophils/100 leukocytes in Blood by Automated count 0.7 % 0.0 - 2.0 [facility] %IG 0.0 % 0.0 - 0.0 [facility] al %NRBC 0.0 % 0.0 - 0.0 [facility] al Neutrophils [#/volume] in Blood by Automated count 2.05 10^3/uL 2.00 - 6.90 [facility] Lymphocytes [#/volume] in Blood by Automated count 1.00 10^3/uL 0.60 - 3.40 [facility] Monocytes [#/volume] in Blood by Automated count 0.49 10^3/uL 0.00 - 0.90 [facility] Eosinophils [#/volume] in Blood by Automated count 0.54 10^3/uL 0.00 - 0.70 [facility] Basophils [#/volume] in Blood by Automated count 0.03 10^3/uL 0.00 - 0.20 [facility] #IG 0.00 10^3/uL 0.00 - 0.10 [facility] #NRBC 0.00 10^3/uL 0.00 - 0.00 [facility] MANUAL DIFF NOT INDICATED [facility] RBC MORPH NOT INDICATED [facility] spital ID Date Data Source [id number] 04/23/2020 07:27:00 AM [facility] Name Value Range Interpretation Code Description Data Candace rce(s) Supporting Document(s) C reactive protein [Mass/volume] in Serum or Plasma by High sensitivity method 28.81 MG/L 1.00 - 3.00 H [facility] CDC/S HS-CRP CUT-OFF: RELATIVE RISK: <1.0 mg/L Low 1.0 - 3.0 mg/L Average >3.0 mg/L High Optimally, the average of HS-CRP results repeated two weeks apart should be used for risk assessment. ID Date Data Source [id number] 04/22/2020 05:12:00 AM EST [facility] ([facility]) Name Value Range Interpretation Code Description Data Candace rce(s) Supporting Document(s) Sed Rate 11 mm/hr 0-20 [facility] ([facility]) Sed Rate Reenter 11 [facility] ([facility]) ID Date Data Source [id number] 04/22/2020 05:12:00 AM EST [facility] ([facility]) Name Value Range Interpretation Code Description Data Candace rce(s) Supporting Document(s) C reactive protein [Mass/volume] in Serum or Plasma by High sensitivity method 42.59 mg/L 1.00-3.00 Above high normal [facility] ([facility]) <content>CDC/AHS HS-CRP CUT-OFF: RELATIVE RISK:</content>
<content><1.0 mg/L Low</content>
<content>1.0 - 3.0 mg/L Average</michelle nt>
<content>>3.0 mg/L High</content>
<content>Optimally, the average of HS-CRP results repeated</content>
<content>two weeks apart should be used for risk assessment.</content>
<content></content> ID Date Data Source [id number] 04/22/2020 05:12:00 AM EST [facility] ([facility]) Name Value Range Interpretation Code Description Data Candace rce(s) Supporting Document(s) Comprehensive [employer]abo Laboratory test result [facility] ([facility]) COMPREHENSIVE METABOLIC PANEL Chloride 103 meq/L 98-107 [facility] ([facility]) Potassium 4.5 meq/L 3.6-5.0 [facility] ([facility]) Sodium 136 meq/L 134-153 [facility] ([facility]) BUN 15 mg/dL 7-21 [facility] ([facility]) Co2 26 meq/L 22-30 [facility] ([facility]) Glucose 98 mg/dL 70-99 [facility] ([facility]) Creatinine 1.0 mg/dL 0.7-1.5 [facility] ([facility]) Total Protein 5.6 g/dL 6.3-8.2 Below low normal [facility] ([facility]) BUN/Creat 15 8-27 [facility] ([facility]) Globulin 2.0 GM/DL 2.4-3.2 Below low normal [facility] ( [facility]) A/G Ratio 1.8 0.8-2.0 [facility] ([facility]) Albumin 3.6 g/dL 3.9-5.0 Below low normal [facility] ( [facility]) Calcium 8.3 mg/dL 8.4-10.2 Below low normal [facility] ( [facility]) Total Bili Laboratory test result 0.2-1.3 [facility] ([facility]) SGPT/Alt 13 U/L 7-56 [facility] ([facility]) Sgot/Ast 18 U/L 5-40 [facility] ([facility]) Alkaline Phos 42 U/L 38-126 [facility] ([facility]) Anion Gap 7.0 mmol/L 8.0-16.0 Below low normal [facility] ( [facility]) Age 69 yrs [facility] ([facility]) Afr Amer GFR Laboratory test result [facility] ([facility]) Male GFR Interprentation 20-49 yrs >60 mL/min Normal 50-59 yrs >56 mL/min Normal 60-69 yrs >49 mL/min Normal 70-79yrs >42 mL/min Normal 80 and above >35 mL/min Normal Female GFR Interpretation 20-39 yrs >60 mL/min Normal 40-49 yrs >58 mL/min Normal 50-59 yrs >51 mL/min Normal 60-69 yrs >45 mL/min Normal 70-79 yrs >39 mL/min Normal 80 and above >32 mL/min Normal Non-Aa GFR Laboratory test result [facility] ([facility]) ID Date Data Source [id number] 04/22/2020 05:12:00 AM EST [facility] ([facility]) Name Value Range Interpretation Code Description Data Candace rce(s) Supporting Document(s) CBC W/Automated Diff Laboratory test result [facility] ([facility]) COMPLETE BLOOD COUNT RBC 3.97 10^6/uL 4.50-6.30 Below low normal [facility] ([facility]) WBC 4.6 10^3/uL 4.2-11.0 [facility] ([facility]) Hematocrit 35.9 % 41.0-51.0 Below low normal [facility] ( [facility]) MCV 90.4 fL 80.0-94.0 [facility] ([facility]) Hemoglobin 12.5 g/dL 14.0-16.0 Below low normal [facility] ( [facility]) RDW 11.7 % 11.5-14.8 [facility] ([facility]) MCH 31.5 pg 27.0-34.0 [facility] ([facility]) MCHC 34.8 g/dL 31.0-36.0 [facility] ([facility]) Platelets 172 10^3/uL 150-450 [facility] ([facility]) Neut 53.1 % 37.0-80.0 [facility] ([facility]) MPV 9.1 fL 7.4-10.4 [facility] ([facility]) Eos 9.6 % 0.0-7.0 Above high normal [facility] ([facility]) Finney 12.7 % 3.0-8.0 Above high normal [facility] ([facility]) Lymph 23.1 % 25.0-40.0 Below low normal [facility] ( [facility]) %NRBC 0.0 % 0.0-0.0 [facility] ([facility]) %Ig 0.2 % 0.0-0.0 Above high normal [facility] ([facility]) Baso 1.3 % 0.0-2.0 [facility] ([facility]) #Neut 2.43 10^3/uL 2.00-6.90 [facility] ([facility]) #Lymph 1.06 10^3/uL 0.60-3.40 [facility] ([facility]) #Eos 0.44 10^3/uL 0.00-0.70 [facility] ([facility]) #Finney 0.58 10^3/uL 0.00-0.90 [facility] ([facility]) #Baso 0.06 10^3/uL 0.00-0.20 [facility] ([facility]) Manual Diff Laboratory test result [facility] ([facility]) #NRBC 0.00 10^3/uL 0.00-0.00 [facility] ([facility]) #Ig 0.01 10^3/uL 0.00-0.10 [facility] ([facility]) RBC Morph Laboratory test result [facility] ([facility]) ID Date Data Source [id number] 04/22/2020 08:27:[address] [facility] Name Value Range Interpretation Code Description Data Candace rce(s) Supporting Document(s) Erythrocyte sedimentation rate by Westergren method 11 mm/hr 0 - 20 [facility] SED RATE REENTER 11 [facility] ID Date Data Source [id number] 04/22/2020 07:25:[address] [facility] Name Value Range Interpretation Code Description Data Candace rce(s) Supporting Document(s) C reactive protein [Mass/volume] in Serum or Plasma by High sensitivity method 42.59 MG/L 1.00 - 3.00 H [facility]/S HS-CRP CUT-OFF: RELATIVE RISK: <1.0 mg/L Low 1.0 - 3.0 mg/L Average >3.0 mg/L High Optimally, the average of HS-CRP results repeated two weeks apart should be used for risk assessment. ID Date Data Source [id number] 04/22/2020 06:55:00 AM EST [facility] Name Value Range Interpretation Code Description Data [facility](s) Supporting Document(s) COMPREHENSIVE METABOLIC PANEL [facility] COMPREHENSIVE METABOLIC PANEL Sodium [Moles/volume] in Serum or Plasma 136 mEq/L 134 - 153 [facility] Potassium [Moles/volume] in Serum or Plasma 4.5 mEq/L 3.6 - 5.0 [facility] Chloride [Moles/volume] in Serum or Plasma 103 mEq/L 98 - 107 [facility] Carbon dioxide, total [Moles/volume] in Serum or Plasma 26 MEQ/L 22 - 30 [facility] Glucose [Mass/volume] in Serum or Plasma 98 MG/DL 70 - 99 [facility] BUN 15 MG/DL 7 - 21 [facility] al Creatinine [Mass/volume] in Serum or Plasma 1.0 MG/DL 0.7 - 1.5 [facility] BUN/CREAT 15 8 - 27 [facility] al Protein [Mass/volume] in Serum or Plasma 5.6 G/DL 6.3 - 8.2 L [facility] Albumin [Mass/volume] in Serum or Plasma 3.6 G/DL 3.9 - 5.0 L [facility] Globulin [Mass/volume] in Serum by calculation 2.0 GM/DL 2.4 - 3.2 L [facility] A/G RATIO 1.8 0.8 - 2.0 [facility] Calcium [Mass/volume] in Serum or Plasma 8.3 MG/DL 8.4 - 10.2 L [facility] Bilirubin.total [Mass/volume] in Serum or Plasma <0.7 MG/DL 0.2 - 1.3 [facility] Alkaline phosphatase [Enzymatic activity/volume] in Serum or Plasma 42 U/L 38 - 126 [facility] Aspartate aminotransferase [Enzymatic activity/volume] in Serum or Plasma 18 U/L 5 - 40 [facility] Alanine aminotransferase [Enzymatic activity/volume] in Seru m or Plasma 13 U/L 7 - 56 [facility] Anion gap 3 in Serum or Plasma 7.0 mmol/L 8.0 - 16.0 L [facility] AGE [address] [facility] NON-AA GFR >60 mL/min [facility] AFR AMER GFR >60 mL/min [facility] Male GFR In terprentation 20-49 yrs >60 mL/min Normal 50-59 yrs >56 mL/min Normal 60-69 yrs >49 mL/min Normal 70-79yrs >42 mL/min Normal 80 and above >35 mL/min Normal Female GFR Interpretation 20-39 yrs >60 mL/min Normal 40-49 yrs >58 mL/min Normal 50-59 yrs >51 mL/min Normal 60-69 yrs >45 mL/min Normal 70-79 yrs >39 mL/min Normal 80 and above >32 mL/min Normal ID Date Data Source [id number] 04/22/2020 06:50:00 AM EST [facility] Name Value Range Interpretation Code Description Data Candace rce(s) Supporting Document(s) CBC W/AUTOMATED DIFF [facility] COMPLETE BLOOD COUNT Leukocytes [#/volume] in Blood by Automated count 4.6 10^3/uL 4.2 - 1 1.0 [facility] Erythrocytes [#/volume] in Blood by Automated count 3.97 10^6/uL 4. 50 - 6.30 L [facility] Hemoglobin [Mass/volume] in Blood 12.5 g/dL 14.0 - 16.0 L [facility] Hematocrit [Volume Fraction] of Blood by Automated count 35.9 % 4 1.0 - 51.0 L [facility] Erythrocyte mean corpuscular volume [Entitic volume] by Auto mated count 90.4 fL 80.0 - 94.0 [facility] Erythrocyte mean corpuscular hemoglobin [Entitic mass] by Automated count 31.5 pg 27.0 - 34.0 [facility] Erythrocyte mean corpuscular hemoglobin concentration [Mass/volume] by Automated count 34.8 g/dL 31.0 - 36.0 [facility] Erythrocyte distribution width [Ratio] by Automated count 11.7 % 11.5 - 14.8 [facility] Platelets [#/volume] in Blood by Automated count 172 10^3/uL 150 - 45 0 [facility] Platelet mean volume [Entitic volume] in Blood by Automated count 9.1 fL 7.4 - 10.4 [facility] Neutrophils/100 leukocytes in Blood by Automated count 53.1 % 37. 0 - 80.0 [facility] Lymphocytes/100 leukocytes in Blood by Manual count 23.1 % 25.0 - 40.0 L [facility] Monocytes/100 leukocytes in Blood by Automated count 12.7 % 3.0 - 8.0 H [facility] Eosinophils/100 leukocytes in Blood by Automated count 9.6 % 0.0 - 7.0 H [facility] Basophils/100 leukocytes in Blood by Automated count 1.3 % 0.0 - 2.0 [facility] %IG 0.2 % 0.0 - 0.[address] [facility] %NRBC 0.0 % 0.0 - 0.0 [facility] al Neutrophils [#/volume] in Blood by Automated count 2.43 10^3/uL 2.00 - 6.90 [facility] Lymphocytes [#/volume] in Blood by Automated count 1.06 10^3/uL 0.60 - 3.40 [facility] Monocytes [#/volume] in Blood by Automated count 0.58 10^3/uL 0.00 - 0.90 [facility] Eosinophils [#/volume] in Blood by Automated count 0.44 10^3/uL 0.00 - 0.70 [facility] Basophils [#/volume] in Blood by Automated count 0.06 10^3/uL 0.00 - 0.20 [facility] #IG 0.01 10^3/uL 0.00 - 0.10 [facility] #NRBC 0.00 10^3/uL 0.00 - 0.00 [facility] MANUAL DIFF NOT INDICATED [facility] RBC MORPH NOT INDICATED [facility] ID Date Data Source [id number] 04/21/2020 01:29:00 PM EST [facility]) Name Value Range Interpretation Code Description Data Candace rce(s) Supporting Document(s) Laboratory test finding (navigational concept) Laboratory test result [facility] ([facility]) Left ring trigger finger, suspected infe ction {SPECIMEN SOURCE : Left ring finger {SPECIMEN SOURCE : Left ring finger ID Date Data Source [id number] 04/21/2020 01:29:00 PM EST [facility] ([facility]) Name Value Range Interpretation Code Description Data Candace rce(s) Supporting Document(s) Microscopic observation [Identifier] in Body fluid by Gram stain Laboratory test result [facility] ([facility]) Left ring trigger finger, suspected infe ction {SPECIMEN SOURCE : Left ring finger {SPECIMEN SOURCE : Left ring finger Culture Wound Laboratory test result [facility] Left ring trigger finger, suspected infe ction {SPECIMEN SOURCE : Left ring finger {SPECIMEN SOURCE : Left ring finger ID Date Data Source [id number] 04/28/2020 10:10:00 AM EST [facility] Name Value Range Interpretation Code Description Data Candace rce(s) Supporting Document(s) CULTURE AEROBIC/ANAEROBIC [facility] _CULTURE AEROBIC/ANAEROBIC_$$[id number]$$[id number] 92$$[id number]$$[id number]$$[id number]$$[id number] DATE/TIME: 04/28/2020 10:06Culture: CULTURE AEROBIC/ANAEROBIC Status: FinalAnaerobic Culture: P1No anaerobic growth in 72 hours.Aerobic Culture: P1No growth in 36 - 48 hours. Previous result entered on 04/24/2020 16:29 ET No growth after 18-24 hours. Previous result entered on 04/24/2020 14:50 ET No growth after 18-24 hours. -- Continued on next page --Patient: NARINDER Gee Order: [id number] Page 2Culture: CULTURE AEROBIC/ANAEROBIC Status: Final ====P1 Test performed by: [facility] #: [id number] [address] [place] [address] Avenue [phone] [facility] [address]Cjjvmnc Director : Juwan Nugent MD NPI #:Telesales Representative : 04/24/20.1607.XMT.SENT REF 04/26/20.0630.XMT.SENT REF 04/28/20.1010.XMT.SENT REF 04/28/20.1010. .to [facility] via fax ID Date Data Source [id number] 04/28/2020 10:10:00 AM EST [facility] Name Value Range Interpretation Code Description Data Candace rce(s) Supporting Document(s) CULTURE AEROBIC/ANAEROBIC [facility] _CULTURE AEROBIC/ANAEROBIC_$$[id number]$$818322$$549793$$484200$$486241$$293578$$576331$$0802 92$$030452$$[id number]$$[id number]$$[id number] DATE/TIME: 04/28/2020 10:06Culture: CULTURE AEROBIC/ANAEROBIC Status: FinalAnaerobic Culture: P1No anaerobic growth in 72 hours.Aerobic Culture: P1No growth in 36 - 48 hours. Previous result entered on 04/24/2020 16:29 ET No growth after 18-24 hours. Previous result entered on 04/24/2020 14:50 ET No growth after 18-24 hours. -- Continued on next page --Patient: NARINDER Gee Order: [id number] Page 2Culture: CULTURE AEROBIC/ANAEROBIC Status: Final ====P1 Test performed by: [facility] #: [id number] [address] [phone] [facility] [address]Pwkdwzf Director : Juwan Nugent MD NPI #:Telesales Representative : 04/24/20.1607.XMT.SENT REF 04/24/20.1850.XMT.SENT REF 04/26/20.0630.XMT.SENT REF 04/28/20.1010.XMT.SENT REF 04/28/20.1010. .to [facility] via fax ID Date Data Source [id number] 04/28/2020 10:09:00 AM EST [facility] Name Value Range Interpretation Code Description Data Candace rce(s) Supporting Document(s) CULTURE AEROBIC/ANAEROBIC [facility] _CULTURE AEROBIC/ANAEROBIC_$$[id number]$$729843$$017420$$995392$$383157$$384241$$243664$$0802 92$$857266$$164163$$[id number]$$[id number] DATE/TIME: 04/28/2020 10:06Culture: CULTURE AEROBIC/ANAEROBIC Status: FinalAnaerobic Culture: P1No anaerobic growth in 72 hours.Aerobic Culture: P1No growth in 36 - 48 hours. Previous result entered on 04/24/2020 16:29 ET No growth after 18-24 hours. Previous result entered on 04/24/2020 14:50 ET No growth after 18-24 hours. -- Continued on next page --Patient: NARINDER Gee Order: [id number] Page 2Culture: CULTURE AEROBIC/ANAEROBIC Status: Final ====P1 Test performed by: [facility]W #: [id number] [address] [facility] [phone] [facility] [address]Okgxmrq Director : Juwan Nugent MD NPI #:Telesales Representative : 04/23/20.0941.XMT.SENT REF 04/24/20.1607.XMT.SENT REF 04/26/20.0630.XMT.SENT REF 04/28/20.1009.XMT.SENT REF 04/28/20.1010. .to [facility] via fax ID Date Data Source [id number] 04/25/2020 02:45:00 PM EST [facility] Value Range Interpretation Code Description Data Candace rce(s) Supporting Document(s) CULTURE WOUND [facility] _CULTURE WOUND_$$[id number]$$313342$$99 7878$$754630$$[id number]$$[id number] DATE/TIME: 04/25/2020 11:05Culture: CULTURE WOUND Status: FinalAerobic Bacterial Culture: P1No growth in 36 - 48 hours. Previous result entered on 04/24/2020 03:02 ET No growth after 18-24 hours.P1 Test performed by: [facility]W #: [id number] [address] [facility] [phone] [facility] [address]Hodujpp Director : Juwan Nugent MD NPI #:Telesales Representative : 04/24/20.1542.XMT.SENT REF 04/25/20.1445.XMT.SENT REF 04/25/20.1445.DW .to [facility] via fax ID Date Data Source [id number] 04/23/2020 01:13:00 PM [facility] Name Value Range Interpretation Code Description Data Candace rce(s) Supporting Document(s) GRAM STAIN [facility] _GRAM STAIN_$$152915$$068266$$16481 3$$657506$$[id number]$$[id number] DATE/TIME: 04/23/2020 10:07Culture: GRAM STAIN Status: FinalGram Stain Result: P1No white blood cells seen.No organisms seenP1 Test performed by: [facility] #: [id number] [address] [place] [address] [phone] [facility] [id number] Director : Juwan Nugent MD NPI #:Telesales Representative : 04/23/20.1313.XMT.SENT REF 04/23/20.1313.CM .to [facility] via fax ID Date Data Source [id number] 04/28/2020 06:26:00 AM [facility] [id number] STAIN = GRAM POSITIVE RICK CI IN NXFBHTWH97/01/21 07 CALLED TO LAI Hand BY BETZY, RESULTS READ BACKGROWTH IN AEROBIC SGKVBP99/03/21 06 CALLED TO SETH Rojo BY BETZY, RESULTS READBACKMICROCOCCUS & RELATED SPECIES Name Value Range Interpretation Code Description Data Candace rce(s) Supporting Document(s) Bacteria identified in Blood by Culture [facility] NO GROWTH AFTER 5 DAYS ID Date Data Source [id number] 04/26/2020 07:54:00 AM [facility] SPECIMEN REVIEWED BY BETZY 04/26/20 04420 04/26/20705 CALLED TO LAI BO, RESULTS READ BACKGROWTH IN AEROBIC BOTTLEThe FilmArray BCID Panel is a qualitative multiplexednucleic acid-based test - PCRNormal results for each test is "Not detected"The BCID panel detects KPC,mecA,Radu/Bresistance,enterococcus,L.monocytogenes,Staphlococcus,S.aureus,St reptococcus,GRP B, GRP A, S.pneumoniae,A.baumanii,Enterobacteriaceae,E.cloacae complex,E.coli,K.oxytoca,K.pneumoniae,Proteus,S.marcescens,H.influenzae,N.mening itidis,P.aeruginosa,C. albicans,C.glabrata ,C.krusei,C.parapsilosis,C.tropicalisTraditional Culture ID and Sensitivities will still beperformed on all positive blood cultures.The FilmArray BCID panel may not distinguish mixed cultureswhen two or more species of the same genus or organism groupare present in a specimen.This test is a qualitative test and does not provide aquantitative value for the organism(s)in the sample.Antimicrobial resistance can occur via multiple mechanisms.A Not detected result for the [employer]Array antimicrobialresistance gene assays does not indicate antimicrobialsusceptibility. Subculturing and standard susceptibilitytesting of isolates is requried to determine antimicrobialsusceptibility.Results from this test must be correlated with the clinicalhistory, epidemiological data,and otherdata available to theclinician evaluating the patient.SARS-CoV-2 RNA Resp Ql JESSICA+probe Name Value Range Interpretation Code Description Data Candace rce(s) Supporting Document(s) ID Date Data Source [id number] 04/21/2020 12:27:00 PM EST [facility] ([facility]) Name Value Range Interpretation Code Description Data Candace rce(s) Supporting Document(s) Culture Blood Laboratory test result [facility] ([facility]) _CULTURE BLOOD_ TEST PERFORMED AT [address] [address] CLIA# [id number] SEE SCANNED REPORT { PRELIM GROWTH OF GRAM POSITIVE COCCI IN CLUSTERS BCID:NO ORGANISMS DETECTED CALLED TO 0935 04/26/20 CM ID Date Data Source [id number] 05/03/2020 07:31:00 AM EST [facility] Name Value Range Interpretation Code Description Data Candace rce(s) Supporting Document(s) CULTURE BLOOD [facility] spital _CULTURE BLOOD_ TEST PERFORM ED AT [address] [address] CLIA# [id number] SEE SCANNED REPORT{ PRELIM GROWTH OF GRAM POSITIVE COCCI IN CLUSTERSBCID:NO ORGANISMS DETECTEDCALLED TO 0935 04/26/20 CM ID Date Data Source [id number] 04/21/2020 12:23:00 PM EST [facility] ([facility]) Name Value Range Interpretation Code Description Data Candace rce(s) Supporting Document(s) Culture Blood Laboratory test result [facility] ([facility]) _CULTURE BLOOD_ TEST PERFORMED AT [address] [address] [facility]# [id number] SEE SCANNED REPORT { PRELIM ID Date Data Source [id number] 04/21/2020 12:23:00 PM EST [facility] ([facility]) Name Value Range Interpretation Code Description Data Candace rce(s) Supporting Document(s) Sed Rate Reenter 15 [facility] ([facility]) Sed Rate 15 mm/hr 0-20 [facility] ([facility]) ID Date Data Source [id number] 04/21/2020 12:23:00 PM EST [facility] ([facility]) Name Value Range Interpretation Code Description Data Candace rce(s) Supporting Document(s) C reactive protein [Mass/volume] in Serum or Plasma by High sensitivity method 46.79 mg/L 1.00-3.00 Above high normal [facility] ([facility]) <content>CDC/S HS-CRP CUT-OFF: RELATIVE RISK:</content>
<content><1.0 mg/L Low</content>
<content>1.0 - 3.0 mg/L Average</michelle nt>
<content>>3.0 mg/L High</content>
<content>Optimally, the average of HS-CRP results repeated</content>
<content>two weeks apart should be used for risk assessment.</content>
<content></content> ID Date Data Source [id number] 04/21/2020 12:23:00 PM EST [facility] ([facility]) Name Value Range Interpretation Code Description Data Candace rce(s) Supporting Document(s) CBC W/Automated Diff Laboratory test result [facility] ([facility]) COMPLETE BLOOD COUNT WBC 5.7 10^3/uL 4.2-11.0 [facility] ([facility]) Hemoglobin 13.9 g/dL 14.0-16.0 Below low normal [facility] ( [facility]) RBC 4.36 10^6/uL 4.50-6.30 Below low normal [facility] ([facility]) Hematocrit 39.3 % 41.0-51.0 Below low normal [facility] ( [facility]) MCV 90.1 fL 80.0-94.0 [facility] ([facility]) MCH 31.9 pg 27.0-34.0 [facility] ([facility]) MCHC 35.4 g/dL 31.0-36.0 [facility] ([facility]) RDW 11.6 % 11.5-14.8 [facility] ([facility]) MPV 8.8 fL 7.4-10.4 [facility] ([facility]) Platelets 206 10^3/uL 150-450 [facility] ([facility]) Finney 8.6 % 3.0-8.0 Above high normal [facility] ([facility]) Neut 72.5 % 37.0-80.0 [facility] ([facility]) Lymph 13.9 % 25.0-40.0 Below low normal [facility] ( [facility]) Eos 3.9 % 0.0-7.0 [facility] ([facility]) Baso 0.7 % 0.0-2.0 [facility] ([facility]) %NRBC 0.0 % 0.0-0.0 [facility] ([facility]) %Ig 0.4 % 0.0-0.0 Above high normal [facility] ([facility]) #Neut 4.12 10^3/uL 2.00-6.90 [facility] ([facility]) #Lymph 0.79 10^3/uL 0.60-3.40 [facility] ([facility]) #Eos 0.22 10^3/uL 0.00-0.70 [facility] ([facility]) #Finney 0.49 10^3/uL 0.00-0.90 [facility] ([facility]) #Baso 0.04 10^3/uL 0.00-0.20 [facility] ([facility]) #Ig 0.02 10^3/uL 0.00-0.10 [facility] ([facility]) Manual Diff Laboratory test result [facility] ([facility]) RBC Morph Laboratory test result [facility] ([facility]) #NRBC 0.00 10^3/uL 0.00-0.00 [facility] ([facility]) ID Date Data Source [id number] 04/27/2020 09:35:00 AM [facility] Name Value Range Interpretation Code Description Data Candace rce(s) Supporting Document(s) CULTURE BLOOD [facility] spital _CULTURE BLOOD_ [place] [address] CLIA# [id number] SEE SCANNED REPORT{ PRELIM ID Date Data Source [id number] 04/21/2020 01:30:00 PM [facility] Name Value Range Interpretation Code Description Data Candace rce(s) Supporting Document(s) Erythrocyte sedimentation rate by Westergren method 15 mm/hr 0 - 20 [facility] SED RATE REENTER 15 [facility] ID Date Data Source [id number] 04/21/2020 01:30:00 PM [facility] Name Value Range Interpretation Code Description Data Candace rce(s) Supporting Document(s) C reactive protein [Mass/volume] in Serum or Plasma by High sensitivity method 46.79 MG/L 1.00 - 3.00 H [facility] CDC/S HS-CRP CUT-OFF: RELATIVE RISK: <1.0 mg/L Low 1.0 - 3.0 mg/L Average >3.0 mg/L High Optimally, the average of HS-CRP results repeated two weeks apart should be used for risk assessment. ID Date Data Source [id number] 04/21/2020 12:53:00 PM [facility] Name Value Range Interpretation Code Description Data Candace rce(s) Supporting Document(s) CBC W/AUTOMATED DIFF [facility] COMPLETE BLOOD COUNT Leukocytes [#/volume] in Blood by Automated count 5.7 10^3/uL 4.2 - 1 1.0 [facility] Erythrocytes [#/volume] in Blood by Automated count 4.36 10^6/uL 4. 50 - 6.30 L [facility] Hemoglobin [Mass/volume] in Blood 13.9 g/dL 14.0 - 16.0 L [facility] Hematocrit [Volume Fraction] of Blood by Automated count 39.3 % 4 1.0 - 51.0 L [facility] Erythrocyte mean corpuscular volume [Entitic volume] by Auto mated count 90.1 fL 80.0 - 94.0 [facility] Erythrocyte mean corpuscular hemoglobin [Entitic mass] by Automated count 31.9 pg 27.0 - 34.0 [facility] Erythrocyte mean corpuscular hemoglobin concentration [Mass/volume] by Automated count 35.4 g/dL 31.0 - 36.0 [facility] Erythrocyte distribution width [Ratio] by Automated count 11.6 % 11.5 - 14.8 [facility] Platelets [#/volume] in Blood by Automated count 206 10^3/uL 150 - 45 0 [facility] Platelet mean volume [Entitic volume] in Blood by Automated count 8.8 fL 7.4 - 10.4 [facility] Neutrophils/100 leukocytes in Blood by Automated count 72.5 % 37. 0 - 80.0 [facility] Lymphocytes/100 leukocytes in Blood by Manual count 13.9 % 25.0 - 40.0 L [facility] Monocytes/100 leukocytes in Blood by Automated count 8.6 % 3.0 - 8.0 H [facility] Eosinophils/100 leukocytes in Blood by Automated count 3.9 % 0.0 - 7.0 [facility] Basophils/100 leukocytes in Blood by Automated count 0.7 % 0.0 - 2.0 [facility] %IG 0.4 % 0.0 - 0.0 [facility] %NRBC 0.0 % 0.0 - 0.0 [facility] al Neutrophils [#/volume] in Blood by Automated count 4.12 10^3/uL 2.00 - 6.90 [facility] Lymphocytes [#/volume] in Blood by Automated count 0.79 10^3/uL 0.60 - 3.40 [facility] Monocytes [#/volume] in Blood by Automated count 0.49 10^3/uL 0.00 - 0.90 [facility] Eosinophils [#/volume] in Blood by Automated count 0.22 10^3/uL 0.00 - 0.70 [facility] Basophils [#/volume] in Blood by Automated count 0.04 10^3/uL 0.00 - 0.20 [facility] #IG 0.02 10^3/uL 0.00 - 0.10 [facility] #NRBC 0.00 10^3/uL 0.00 - 0.00 [facility] ospital MANUAL DIFF NOT INDICATED [facility] RBC MORPH NOT INDICATED [facility] spital ID Date Data Source [id number] 04/19/2020 09:08:00 AM EST [facility] Name Value Range Interpretation Code Description Data Candace rce(s) Supporting Document(s) SARS coronavirus 2 RNA [Presence] in Res piratory specimen by JESSICA with probe detection Negative [facility] This lab was ordered by [facility] and reported by [facility]. ID Date Data Source [id number] 04/02/2020 01:05:00 [place] [address] OPERATIVE SUMMARYNAME: NARINDER Gee DATE OF : 1950ATTENDING PHYS: Sherley Wilkins MD DATE: 04/01/20 MR#: [id number] OF PROCEDURE: 1PREOPERATIVE DIAGNOSIS: Left hand ring trigger finger.POSTOPERATIVE DIAGNOSIS: Left hand ring trigger finger.SURGEON: Sherley gomez MD.FILLER ROOM ATTENDANT: Davian Ray NP.[employer] MIXER OPERATOR: Davian Ray NP provided essential assistance during this caseincluding careful retraction of vital structures, safe manipulation of anatomic structures, suctioningof body fluid for clear visualization, wound closure, and dressing.ANESTHESIOLOGIST: Darrell Roper MD.ANESTHESIA: Local plus sedation.OPERATION PERFORMED: Left hand ring trigger finger release.ESTIMATED BLOOD LOSS: Less than 20 cc.DRAINS: None.SPECIMENS: None.TOURNIQUET TIME: 15 minutes.SURGICAL TIME: 15 minutes.SPONGE COUNT: Correct.NEEDLE COUNT: Correct.INDICATION FOR PROCEDURE:The patient is a 69-year-old male who suffers from left hand ring trigger finger and locking for thelast three months. His pre-operative evaluation supported the above noted diagnosis. The patientfailed conservative treatment. At this point, it was elected to undergo the above noted surgery. [address] [place] [address] OPERATIVE SUMMARYNAME: NARINDER Gee DATE OF : 1950ATTENDING PHYS: Sherley Wilkins MD DATE: 04/01/20 MR#: [id number] OF PROCEDURE:The patient was brought to the operating room and placed on the operating table in supine position.The left arm was then elevated, prepped, and draped in the usual sterile fashion below steriletourniquet, which was inflated to 250 mmHg. The patient received 2 grams of Ancef IV pre-operatively as prophylaxis against infection. After time-out, an incision was planned on the volaraspect of the hand with skin tension free and infiltrated with local anesthesia.RING TRIGGER FINGER RELEASE:A longitudinal incision over the base of the ring finger all the way down to the distal palmar creasewas created, a total of about 3 cm, followed by blunt soft tissue dissection down to the tendonsheath, identifying and protecting the digital nerves. The A-1 caroline was identified and release.After this, active flexion and extension were isolated. The patient did active flexion and extensionwith no locking or clicking. I was satisfied with the decompression. I pulled the tendon out of thewound and was sure that it was completely released. Then, the instruments were removed, thewound was thoroughly irrigated.The wound was closed using 4-0 nylon in a mattress fashion. The patient was placed in a soft handdressing and taken to the recovery room in satisfactory condition.POSTOPERATIVE REHABILITATION PROTOCOL:The patient will start doing finger and wrist range of motion immediately. The [facility], we will inspect the wound. Between 10-14 days, the suture will be removed.Then he will start hand therapy and scar therapy. This is Dr. Sherley Wilkins, I personally performed allof the elements of this surgery.DD: Sherley Wilkins MD 04/02/20 11:48DT: TOBI 04/02/20 12:55DS: Sherley Wilkins MD 04/14/20 08:36 [address] [place] [address] OPERATIVE SUMMARYNAME: NARINDER Gee DATE OF : 1950ATTENDING PHYS: Sherley Wilkins MD DATE: 04/01/20 MR#: [id number] Name Value Range Interpretation Code Description Data Candace rce(s) Supporting Document(s) ID Date Data Source [id number] 04/12/2020 01:15:00 PM EST [facility] ([facility]) Name Value Range Interpretation Code Description Data Candace rce(s) Supporting Document(s) Bacteria identified in Urine by Culture Laboratory test result [facility] ([facility]) FULL REPORT IN LAB NOTES ([facility] and [facility] ). NO GROWTH ID Date Data Source [id number] 04/12/2020 01:15:00 PM EST [facility] ([facility]) Name Value Range Interpretation Code Description Data Candace rce(s) Supporting Document(s) Appearance, Urine Laboratory test result [facility] ([facility]) Color, Urine Laboratory test result [facility] NT ([facility]) PH,Urine 6.0 units 5.0-9.0 [facility]) Specific Cherry Log Urine Auto 1.009 1.002-1.035 [facility] ([facility]) Protein, Urine Auto Laboratory test result [facility] ([facility]) Glucose, Urine (Ua) Auto Laboratory test result [facility] ([facility]) Bilirubin, Urine Auto Laboratory test result [facility] ([facility]) Ketone, Urine Auto Laboratory test result [facility] ([facility]) Urobilinogen, Urine Auto 0.2 mg/dL 0.0-2.0 [facility] T ([facility]) Nitrite, Urine Auto Laboratory test result [facility] ([facility]) Blood, Urine Blood Laboratory test result [facility] ([facility]) Leukocyte Esterase, Urine Auto Laboratory test result [facility] ([facility]) WBC, Urine Auto 0 /HPF 0-3 [facility] ([facility]) Bacteria, Urine Auto Laboratory test result [facility] ([facility]) RBC, Urine Auto 0 /HPF 0-3 [facility] ([facility]) Squamous Epithelial Cell Ur AU 0 /HPF 0-6 [facility] ([facility]) Hyaline Cast, Urine Auto 0 /LPF 0-1 [facility] T ([facility]) ID Date Data Source [id number] 04/12/2020 01:15:00 PM EST [facility] ([facility]) Name Value Range Interpretation Code Description Data Candace rce(s) Supporting Document(s) Prothrombin Time 13.4 s 12.5-14.3 [facility] ([facility]) Inr 1.00 [facility] ([facility]) THERAPUTIC HUMAN INR VALUES INDICATIONS NORMAL RANGES PROPHYLAXIS/TREATMENT OF: VENOUS THROMBOSIS 2.0-3.0 PULMONARY EMBOLISM 2.0-3.0 PREVENTION OF SYSTEMIC EMBOLISM FROM: TISSUE HEART VALVES 2.0-3.0 ACUTE MYOCARDIAL INFARCTION 2.0-3.0 VALVULAR HEART DISEASE 2.0-3.0 ATRIAL FIBRILLATION 2.0-3.0 MECHANICAL VALVES(HIGH RISK) 2.5-3.5 RECURRENT MYOCARDIAL INFARCTION 2.5-3.5 Partial Thromboplastin Time 34.9 s 24.2-38.5 [facility] ([facility]) ID Date Data Source [id number] 04/12/2020 01:11:00 PM EST [facility] ([facility]) Name Value Range Interpretation Code Description Data Candace rce(s) Supporting Document(s) Urea nitrogen [Mass/volume] in Serum or Plasma 18 mg/dL 7-18 [facility] ([facility]) Glucose [Mass/volume] in Serum or Plasma 63 mg/dL 74-99 [facility] ([facility]) 100-125 mg/dL PRE-DIABETES/FASTING >126 mg/dL DIABETES/FASTING Potassium [Moles/volume] in Serum or Plasma 4.7 meq/L 3.5-5.1 [facility] ([facility]) Sodium [Moles/volume] in Serum or Plasma 136 meq/L 136-145 [facility] ([facility]) Creatinine 0.9 mg/dL 0.6-1.3 [facility] ([facility]) Chloride [Moles/volume] in Serum or Plasma 99 meq/L 98-107 [facility] ([facility]) Carbon dioxide, total [Moles/volume] in Serum or Plasma 29 meq/L 21 -32 [facility] ([facility]) Calcium [Mass/volume] in Serum or Plasma 9.0 mg/dL 8.5-10.1 [facility] ([facility]) Alkaline phosphatase isoenzyme [Units/volume] in Serum or Pl asma 56 mg/dL 46-116 [facility] ([facility]) Total Bilirubin 0.7 mg/dL 0.2-1.0 [facility] ([facility]) Alanine aminotransferase [Enzymatic activity/volume] in Seru m or Plasma 23 U/L 12-78 [facility] ([facility]) Aspartate aminotransferase [Enzymatic activity/volume] in Serum or Plasma 19 U/L 15-37 [facility] ([facility] ) Proteinase 3 Ab [Units/volume] in Serum 7.4 g/dL 6.4-8.2 [facility] ([facility]) Albumin [Mass/volume] in Serum or Plasma 4.2 g/dL 3.4-5.0 [facility] ([facility]) A/G Ratio 1.31 CALC 1.00-1.90 [facility]) Glomerular filtration rate/1.73 sq M pre dicted among blacks [Volume Rate/Area] in Serum or Plasma by Creatinine-based formula (MDRD) Laboratory test result [facility] <content>CHRONIC KIDNEY DISEASE STAGING PER NKF</content>
<content></content>
<content>STAGE I & II GFR >= 60 NORMAL TO MILDLY DECREASED</content>
<content>STAGE III GFR 30-59 MODERATELY DECREASED</content>
<content>STAGE IV GFR 15-29 SEVERELY DECREASED</content>
<content>STAGE V GFR <15 VERY LITTLE GFR LEFT</content>
<content>ESRD GFR <15 ON UNDERWRITING TECHNICIAN</content>
<content></content> Glomerular filtration rate/1.73 sq M pre dicted among non-blacks [Volume Rate/Area] in Serum or Plasma by Creatinine-based formula (MDRD) Laboratory test result [facility] ([facility] ) ID Date Data Source [id number] 04/12/2020 01:11:00 PM EST [facility] ([facility]) Name Value Range Interpretation Code Description Data Candace rce(s) Supporting Document(s) Leukocytes [#/volume] in Blood by Automated count 4.5 x10*3/UL 4.1-10 .9 [facility] ([facility]) Erythrocytes [#/volume] in Blood by Automated count 4.29 x10*6/UL 4.2 0-6.30 [facility] ([facility]) Hemoglobin [Mass/volume] in Blood 13.7 g/dL 12.0-18.0 [facility] ([facility]) MCH 31.9 pg 26.0-32.0 [facility] [place] [facility] MCV 89.1 fL 80.0-97.0 [facility] [place] [facility] Hematocrit [Volume Fraction] of Blood by Automated count 38.2 % 3 7.0-51.0 [facility] ([facility]) Platelets [#/volume] in Blood by Automated count 205 x10*3/UL 140-440 [facility] ([facility]) Erythrocyte distribution width [Ratio] by Automated count 12.0 % 11.6-13.7 [facility] ([facility]) MCHC 35.8 g/dL 31.0-38.0 [facility] [facility]) Mid % 5.3 % 1.7-9.3 [facility] [facility]) MPV 7.4 FL 7.8-11.0 [facility] [place] [facility] Lymph % 24.5 % 10.0-58.5 [facility] [place] [facility] Mid # 0.3 x10*3/UL 0.1-0.6 [facility] ([facility]) Neut % 70.2 % 37.0-92.0 [facility] [place] [facility] Lymph # 1.1 x10*3/UL 0.6-4.1 [facility] ([facility]) Neut # 3.1 x10*3/UL 2.0-7.8 [facility] ([facility]) ID Date Data Source [id number] 04/08/2020 02:14:05 PM EST [facility] PCName: Joshua BarcenasDOB: 1950Provider: Celi Adams: 04/08/2020 Reason For VisitJoshua Barcenas is here today for Left Knee. Joshua Barcenas is here for a history and physical. Expected DOS: 04/19/2020. Patient is retired. Assessment Osteoarthrosis, localized, primary, knee (715.16) (M17.10) The patient has chronic knee pain associated with increasing malalignment of the affected knee. Bony crepitation is present with ambulation. Patient has developed a flexion contracture and deformity of the knee. Activities of daily living are no longer possible without severe discomfort. Patient is unable to walk any significant distance, get dressed, get shoes and socks on. Stair climbing is quite painful. Conservative management such as anti- inflammatories, injections in the knee, and activity modification and I will no longer effective.PE: the upper extremities show no abnormalities. There is normal strength sensation reflexes muscle tone and coordination in both upper e xtremities.The patient is awake alert and oriented x3. The patient has appropriate mood and affect. Patient ambulates with antalgia and Trendelenburg gait on the affected side. The lower extremities both show normal strength, sensation, reflexes, muscle tone and coordination. There are no skin lesions in either lower extremity. Good pulses are present in both feet. There are no skin lesions present. The affected extremity is 1 cm short compared to the unaffected side.The affected knee shows 5 of varus/ valgus deformity. There is a 5-8 flexion contracture. There is crepitation with range of motion of the knee and pain at the extremes of motion. Motion goes from 5 to about 115 of flexion. Is a 2+ effusion of the affected knee. No varus valgus or Tigre instability is noted. There are no skin lesions and a good pulse in the foot is present.Xrays: Standing AP lateral and merchants view of the affected left knee show tricompartmental osteoarthritis.Dx: end stage primary osteoarthritis of the affected left kneeRx: The patient wishes to go ahead with left total knee replacement. We discussed the operation, its risks and complications and expected outcomes. The patient was not guaranteed a perfect result. The possibility of complications was discussed in detail not limited to infection contracture continued pain long-term component loosening or wear. Non-orthopedic complications such as bleeding deep vein thrombosis or pulmonary embolism and infection were discussed. The patient wishes to go ahead with knee replacement surgery.We discussed that typically I use two alternating operating room's to perform joint replacement surgery. Occasionally there may even be 3 operating rooms. In each operating room I have a team of Managed Services Consultant surgeons which helped me with the surgery. I do the entire operation including the skin incision and all the way through implantation of the implants and closure of the deep tissues. After this portion of the operation is completed, the credit control assistant surgeons will close the subcutaneous tissue and the skin. During this time, I will be completing a dictation and documentation or possibly even beginning another operation. I am always available to return to the operative room if the need arises. Signatures Electronically signed by : Abel Adams M.D.; Apr 08 2020 2:14PM EST (Author) Name Value Range Interpretation Code Description Data [facility] rce(s) Supporting Document(s) ID Date Data Source [id number] 03/27/2020 08:30:00 AM EST [facility] ([facility]) Name Value Range Interpretation Code Description Data [facility] rce(s) Supporting Document(s) Coronavirus Covid-19 Laboratory test result [facility] ([facility]) This nucleic acid amplification test was developed and its performance characteristics determined by [employer]. Nucleic acid amplification tests include PCR and TMA. This test has not been FDA cleared or approved. This test has been authorized by FDA under an Emergency Use Authorization (EUA). This test is only authorized for the duration of time the declaration that circumstances exist justifying the authorization of the emergency use of in vitro diagnostic tests for detection of SARS-CoV-2 virus and/or diagnosis of COVID-19 infection under section 564(b)(1) of the Act, 21 U.S.C. 360bbb-3(b) (1), unless the authorizatio n is terminated or revoked sooner. When diagnostic testing is negative, the possibility of a false negative result should be considered in the context of a patient's recent exposures and the presence of clinical signs and symptoms consistent with COVID-19. An individual without symptoms of COVID-19 and who is not shedding SARS-CoV-2 virus would expect to have a negative (not detected) result in this assay. ID Date Data Source [id number] 03/27/2020 08:30:00 AM EST [facility] ([facility]) Name Value Range Interpretation Code Description Data [facility] rce(s) Supporting Document(s) Coronavirus Covid-19 Laboratory test result [facility] ([facility]) This nucleic acid amplification test was developed and its performance characteristics determined by [employer]. Nucleic acid amplification tests include PCR and TMA. This test has not been FDA cleared or approved. This test has been authorized by FDA under an Emergency Use Authorization (EUA). This test is only authorized for the duration of time the declaration that circumstances exist justifying the authorization of the emergency use of in vitro diagnostic tests for detection of SARS-CoV-2 virus and/or diagnosis of COVID-19 infection under section 564(b)(1) of the Act, 21 U.S.C. 360bbb-3(b) (1), unless the authorizatio n is terminated or revoked sooner. When diagnostic testing is negative, the possibility of a false negative result should be considered in the context of a patient's recent exposures and the presence of clinical signs and symptoms consistent with COVID-19. An individual without symptoms of COVID-19 and who is not shedding SARS-CoV-2 virus would expect to have a negative (not detected) result in this assay. ID Date Data Source [id number] 03/27/2020 08:30:00 AM EST [facility] Name Value Range Interpretation Code Description Data [facility](s) Supporting Document(s) SARS coronavirus 2 RNA [facility] This lab was ordered by [facility] [place] and reported by [employer] ([place]). ID Date Data Source [id number] 03/29/2020 02:10:00 PM [facility] Name Value Range Interpretation Code Description Data [facility] rc(s) Supporting Document(s) SARS-CoV-2, JESSICA Not Detected Not Detected [facility] This nucleic acid amplification test was developed and its performancecharacteristics determined by [employer]. Nucleic acidamplification tests include PCR and TMA. This test has not been FDAcleared or approved. This test has been authorized by FDA under anEmergency Use Authorization (EUA). This test is only authorized forthe duration of time the declaration that circumstances existjustifying the authorization of the emergency use of in vitrodiagnostic tests for detection of SARS-CoV-2 virus and/or diagnosisof COVID-19 infection under section 564(b)(1) of the Act, 21 U.S.C.360bbb-3(b) (1), unless the authorization is terminated or revokedsooner.When diagnostic testing is negative, the possibility of a falsenegative result should be considered in the context of a patient'srecent exposures and the presence of clinical signs and symptomsconsistent with COVID- 19. An individual without symptoms of COVID-19and who is not shedding SARS-CoV-2 virus would expect to have anegative (not detected) result in this assay. Procedure Social History Code Duration Value Status Description Data Source(s ) Smoking 01/22/2021 09:58:10 AM EDT Never smoked tobacco (findi ng) completed Never smoked tobacco (finding) GISEL (Alec Joseph MD [facility]) Smoking 10/12/2020 02:46:17 PM EDT Never smoked tobacco (findi ng) completed Never smoked tobacco (finding) GISEL (Alec Joseph MD [facility]) Smoking 05/14/2020 12:00:00 AM EST Never Smoker completed Never S moker [facility] Smoking 05/14/2020 12:00:00 AM EST Never Smoker completed Never S moker [facility] ([facility]) Smoking 05/14/2020 12:00:00 AM EST Never Smoker completed Never S moker eCW1 ([facility]) Smoking 05/14/2020 12:00:00 AM EST Never Smoker completed Never S moker eCW1 ([facility]) Smoking 05/14/2020 12:00:00 AM EST Never Smoker completed Never S moker eCW1 ([facility]) Smoking 05/07/2020 12:00:00 AM EST Never Smoker completed Never S moker eCW1 ([facility]) Vital Signs ID Date Data Source UNK Name Value Range Interpretation Code Description Data Source(s) Systolic blood pressure 110 mm[Hg] 110 mm[Hg] M [facility] ([facility]) Diastolic blood pressure 72 mm[Hg] 72 mm[Hg] [facility] ([facility]) Heart rate 64 /min 64 /min [facility] Body mass index (BMI) [Ratio] 25.5 kg/m2 25.5 k g/m2 [facility] Body height 68 [in_i] 68 [in_i] [facility] ([facility]) 5'8" Body weight 168.00 [lb_av] 168.00 [lb_av] [facility] T ([facility]) Body height 68 [in_i] 68 [in_i] [facility] ([facility]) 5'8" Body weight 167.44 [lb_av] 167.44 [lb_av] [facility] T ([facility]) Systolic blood pressure 114 mm[Hg] 114 mm[Hg] [facility] Diastolic blood pressure 76 mm[Hg] 76 mm[Hg] [facility]) Heart rate 68 /min 68 /min [facility]) Oxygen saturation in Arterial blood by Pulse oximetry 96 % 96 % [facility] ([facility]) RM Air Body mass index (BMI) [Ratio] 25.5 kg/m2 25.5 k g/m2 [facility] Body height 68 [in_i] 68 [in_i] [facility] ([facility]) 5'8" Body weight 171.00 [lb_av] 171.00 [lb_av] MED[facility] T ([facility]) Body mass index (BMI) [Ratio] 26.0 kg/m2 26.0 k g/m2 [facility] ([facility]) Systolic blood pressure 112 mm[Hg] 112 mm[Hg] [facility] Diastolic blood pressure 72 mm[Hg] 72 mm[Hg] [facility] ([facility]) Heart rate 72 /min 72 /min [facility]) Body weight 173 [lb_av] 173 [lb_av] eCW1 ([facility]) Body height [in_i] eCW1 ([facility]) Body mass index (BMI) [Ratio] 26.30 kg/m2 26.30 kg/m2 [facility] Heart rate 67 /min 67 /min eCW[facility] Respiratory rate 16 /min 16 /min eCW1 ([facility]) Body temperature 96.2 [degF] 96.2 [degF] eCW1 ( [facility]) Systolic blood pressure 127 mm[Hg] 127 mm[Hg] e CW1 ([facility]) Diastolic blood pressure 66 mm[Hg] 66 mm[Hg] eCW1 [facility]) Body temperature 97.0 [degF] 97.0 [degF] [facility] ([facility]) Systolic blood pressure 129 mm[Hg] 129 mm[Hg] e CW1 ([facility]) Diastolic blood pressure 68 mm[Hg] 68 mm[Hg] eCW1 ([facility]) Body weight 173 [lb_av] 173 [lb_av] eCW1 ([facility]) Body height [in_i] eCW1 ([facility]) Body mass index (BMI) [Ratio] 26.30 kg/m2 26.30 kg/m2 [facility]CW1 [facility]) Heart rate 64 /min 64 /min eCW1 [facility] Respiratory rate 18 /min 18 /min eCW1 ([facility]) Body temperature 97.9 [degF] 97.9 [degF] eCW1 ( [facility]) Body temperature 97.3 [degF] 97.3 [degF] [facility] ([facility]) Body temperature 97.0 [degF] 97.0 [degF] [facility] ([facility]) Body temperature 97.2 [degF] 97.2 [degF] [facility] ([facility]) Body temperature 97.2 [degF] 97.2 [degF] [facility] ([facility]) Systolic blood pressure 130 mm[Hg] 130 mm[Hg] M EDENT ([facility]) Diastolic blood pressure 72 mm[Hg] 72 mm[Hg] [facility] ([facility]) Heart rate 76 /min 76 /min [facility] ([facility]) Body height 68 [in_i] 68 [in_i] [facility] ([facility]) 5'8" Body weight 169.00 [lb_av] 169.00 [lb_av] MEDEN T ([facility]) Body mass index (BMI) [Ratio] 25.7 kg/m2 25.7 k g/m2 [facility] ([facility]) Body temperature 97.3 [degF] 97.3 [degF] [facility] ([facility]) Body weight 171.00 [lb_av] 171.00 [lb_av] [facility] T ([facility]) Systolic blood pressure 122 mm[Hg] 122 mm[Hg] M [facility] ([facility]) Diastolic blood pressure 66 mm[Hg] 66 mm[Hg] [facility] ([facility]) Heart rate 64 /min 64 /min [facility] ([facility]) Body height 68 [in_i] 68 [in_i] [facility] ([facility]) 5'8" Body mass index (BMI) [Ratio] 26.0 kg/m2 26.0 k g/m2 [facility] ([facility]) Body weight 164.00 [lb_av] 164.00 [lb_av] MED[facility] T ([facility]) Body weight 74.390 kg 74.390 kg [facility] ([facility]) Body height 68 [in_i] 68 [in_i] [facility] ([facility]) 5'8" Body mass index (BMI) [Ratio] 24.9 kg/m2 24.9 k g/m2 [facility] ([facility]) Body surface area Derived from formula 1.88 m2 1.88 m2 [facility] ([facility]) Systolic blood pressure 120 mm[Hg] 120 mm[Hg] M [facility] ([facility]) Diastolic blood pressure 70 mm[Hg] 70 mm[Hg] [facility] Heart rate 87 /min 87 /min [facility] ([facility]) Body temperature 97.0 [degF] 97.0 [degF] [facility] ([facility]) Oxygen saturation in Arterial blood by Pulse oximetry 97 % 97 % [facility] ([facility]) Body temperature 96.8 [degF] 96.8 [degF] [facility] ([facility]) ID Date Data Source [id number] 06/28/2020 10:15:13 AM EDT [facility] Name Value Range Interpretation Code Description Data Source(s) WEIGHT RECORDED 171.[address] [facility] Height 68 Inches 068 Inches [facility] WEIGHT RECORDED 170.[address] [facility] Height 68 Inches 068 Inches [facility] ID Date Data Source [id number] 06/09/2020 09:34:44 AM EDT [facility] Name Value Range Interpretation Code Description Data Source(s) WEIGHT RECORDED 172.[address] [facility] Height [address] [facility] WEIGHT RECORDED 168.[address] [facility] Height 68 Inches 068 Inches [facility] WEIGHT RECORDED 164.[address] [facility] Height 68 Inches 068 Inches [facility] ID Date Data Source [id number] 05/12/2020 10:04:12 AM EST [facility] Name Value Range Interpretation Code Description Data Source(s) WEIGHT RECORDED 168.[address] [facility] Height 68 Inches 068 Inches [facility]
--- NOTE | 2021-03-06 20:07 | REPVR ---
PROCEDURE INFORMATION: Exam: CTA Chest With Contrast Exam date and time: 03/06/2021 7:40 PM Age: 70 years old Clinical indication: Shortness of breath; Additional info: Post op syncope, R/O pe TECHNIQUE: Imaging protocol: Computed tomographic angiography of the chest with contrast. 3D rendering (Not supervised by radiologist): MIP and/or 3D reconstructed images were created by the technologist. Radiation optimization: All CT scans at this facility use at least one of these dose optimization techniques: automated exposure control; mA and/or kV adjustment per patient size (includes targeted exams where dose is matched to clinical indication); or iterative reconstruction. Contrast material: ISOVUE 370; Contrast volume: 100 ml; Contrast route: INTRAVENOUS (IV); COMPARISON: CR PORTABLE CHEST X-RAY 03/06/2021 6:07 PM FINDINGS: Pulmonary arteries: Abnormal intraluminal filling defects within the right inter lobar pulmonary artery and right lower lobe segmental pulmonary arterial branches. Aorta: Mildly ectatic thoracic aorta with ascending portion measuring 4.1 cm. Descending aorta is normal in caliber measuring 2.8 cm. No evidence of dissection or atherosclerotic calcification. Lungs: Atelectasis and patchy ground-glass densities are seen at the lung bases. I cannot exclude a right basilar pneumonia particularly. Pleural spaces: No pleural effusion or pneumothorax. Heart: No overt cardiac enlargement or abnormal volume of pericardial fluid. No evidence of right heart strain Lymph nodes: No enlarged mediastinal lymph nodes. Bones/joints: Postsurgical and degenerative changes are seen in the thoracolumbar spine. No destructive osseous process IMPRESSION: 1. Inter lobar and right lower lobe segmental pulmonary arterial emboli. No evidence of right heart strain. 2. Basilar atelectasis and question of possible but not conclusive posterior right basilar pneumonia. 3. Mildly ectatic ascending aorta with no significant atherosclerotic change and no acute complication Electronically signed by: Kristopher Pierce On 03/06/2021 20:06:54 PM
--- NOTE | 2021-03-06 20:09 | REPVR ---
PROCEDURE INFORMATION: Exam: CT Abdomen And Pelvis With Contrast Exam date and time: 03/06/2021 7:40 PM Age: 70 years old Clinical indication: Abdominal pain; Additional info: Post op syncope, abdominal pain TECHNIQUE: Imaging protocol: Computed tomography of the abdomen and pelvis with contrast. Radiation optimization: All CT scans at this facility use at least one of these dose optimization techniques: automated exposure control; mA and/or kV adjustment per patient size (includes targeted exams where dose is matched to clinical indication); or iterative reconstruction. Contrast material: ISOVUE 370; Contrast volume: 100 ml; Contrast route: INTRAVENOUS (IV); COMPARISON: CR Abdomen,Flat Plate KUB 03/06/2021 6:07 PM FINDINGS: Liver: Liver is unremarkable aside from a benign simple fluid density 5 cm right lobe cyst. Gallbladder and bile ducts: Gallbladder contains a dependent intraluminal stone. No wall thickening or duct obstruction. Pancreas: Pancreas appears normal. No focal mass or peripancreatic inflammation. Spleen: Spleen appears homogeneous without focal mass. Adrenal glands: Adrenal glands are normal in appearance. Kidneys and ureters: Kidneys appear normal, with no stone, solid mass or hydronephrosis. Stomach and bowel: Multiple fluid-filled loops of nondilated bowel with enhancing mucosa are present. Appendix: Appendix is not seen. No RLQ inflammation to suggest appendicitis. Intraperitoneal space: No organized intraperitoneal or retroperitoneal fluid collection suggestive of abscess. Small volume of pelvic free fluid is present. Vasculature: No aortic aneurysm. Main portal and splenic veins enhance normally. Lymph nodes: . No enlarged lymph nodes. Urinary bladder: Urinary bladder appears normal. Reproductive: Heterogeneous appearing prostate gland with calcifications. Bones/joints: Postsurgical changes of the SI joints and lumbar spine noted. No abnormal adjacent fluid collection. Soft tissues: Unremarkable. IMPRESSION: Appearance of small bowel and colon suggests inflammatory or infectious enteritis without mechanical bowel obstruction. Small volume of dependent pelvic free fluid with no fluid collection or pneumoperitoneum to indicate perforated bowel Electronically signed by: Kristopher Pierce On 03/06/2021 20:09:32 PM
[2021-03-06] MEDS ORDERED: PIPERACILLIN/TAZOBACTAM SOD 4.5 GM in D5W MINI-BAG PLUS 50 ML IV ONE (20:30)
[2021-03-06] MEDS ORDERED: HEPARIN DRIP 25,000 UNITS in IV 1 EA IV SCH ×2 (20:40→23:45)
[2021-03-06] MEDS ORDERED: MULT-90 PO (20:55)
[2021-03-06] MEDS ORDERED: BACL1TAB9 PO (20:55)
[2021-03-06] MEDS ORDERED: CELE1CAP9 PO (20:56)
[2021-03-06] MEDS ORDERED: HOME MED LIST COMPLETE! XX SCH (21:00)
[2021-03-06 21:20] LABS: BASO % 0.2 % (0.0-1.0); EOS % 0.2 % (0.0-3.0); HEMATOCRIT 30.9 % (42.0-52.0); HEMOGLOBIN 10.6 g/dl (13.5-17.5); LYMPH # 0.2 10^3/uL (1.5-5.0); LYMPH % 4.4 % (24.0-44.0); MEAN CORPUSCULAR HEMOGLOBIN 31.5 pg (27.0-33.0); MEAN CORPUSCULAR HGB CONC 34.3 g/dl (32.0-36.5); MONO # 0.1 10^3/uL (0.0-0.8); MONO % 2.4 % (2.0-8.0); NEUTROPHILS # 5.1 10^3/uL (1.5-8.5); NEUTROPHILS % 92.4 % (36.0-66.0); PLATELET COUNT, AUTOMATED 157 10^3/uL (150-450); RED BLOOD COUNT 3.36 10^6/uL (4.30-6.10); WHITE BLOOD COUNT 5.5 10^3/uL (4.0-10.0)
--- NOTE | 2021-03-06 21:20 | ECGEPIP ---
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
--- NOTE | 2021-03-06 21:24 | ECGEPIP ---
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
[2021-03-06 21:47] LABS: CK-MB VALUE MASS 3.8 NG/ML (<3.6); MB/CK RELATIVE INDEX 0.61 (< OR =4)
[2021-03-06] MEDS ORDERED: MAALOX 30 ML SUSP *UDC PO PRN (23:45)
[2021-03-06] MEDS ORDERED: MOM 30ML SUSPENSION UDC PO PRN (23:45)
[2021-03-06] MEDS ORDERED: HEPARIN SOD (PORCINE) 5000UNITS/ML 1ML VIAL/SYRINGE IV PRN (23:45)
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
--- OUTSIDE RECORDS SUMMARY | 2021-03-07 00:25 | CCD ---
Author Author [facility] Organization [facility] Address Unknown Phone Unavailable Care Team Providers Care Component Technician Name Role Phone Katerina Weller MD Unavailable [...] Unavailable Unavailable Katerina Weller MD Unavailable Unavailable ArgentaKaterina coyne MD Unavailable Unavailable ArgentaKaterina MD Unavailable Unavailable JaneeKaterina MD Unavailable Unavailable ArgentaKaterina MD Unavailable Unavailable ArgentaKaterina MD Unavailable Unavailable JaneeKaterina MD Unavailable Unavailable JaneeKaterina MD Unavailable Unavailable ArgentaKaterina MD Unavailable Unavailable JaneeKaterina MD Unavailable Unavailable JaneeKaterina MD Unavailable Unavailable ArgentaKaterina MD Unavailable Unavailable ArgentaKaterina MD Unavailable Unavailable ArgentaKaterina MD Unavailable Unavailable JaneeKaterina MD Unavailable Unavailable ArgentaKaterina MD Unavailable Unavailable ArgentaKaterina MD Unavailable Unavailable ArgentaaKterina MD Unavailable Unavailable ArgentaKaterina MD Unavailable Unavailable ArgentaKaterina MD Unavailable Unavailable JaneeKaterina MD Unavailable Unavailable JaneeKaterina MD Unavailable Unavailable ArgentaKaterina MD Unavailable Unavailable ArgentaKaterina MD Unavailable Unavailable ArgentaKaterina MD Unavailable Unavailable ArgentaKaterina MD Unavailable Unavailable JaneeKaterina MD Unavailable Unavailable JaneeKaterina MD Unavailable Unavailable ArgentaKaterina MD Unavailable Unavailable ArgentaKaterina MD Unavailable Unavailable ArgentaKaterina coyne MD Unavailable Unavailable ArgentaKaterina MD Unavailable Unavailable ArgentaKaterina MD Unavailable Unavailable ArgentaKaterina MD Unavailable Unavailable JaneeKaterina MD Unavailable Unavailable JaneeKaterina MD Unavailable Unavailable ArgentaKaterina coyne MD Unavailable Unavailable ArgentaKaterina coyne MD Unavailable Unavailable ArgentaKaterina coyne MD Unavailable Unavailable JaneeKaterina MD Unavailable Unavailable JaneeKaterina coyne MD Unavailable Unavailable ArgentaKaterina MD Unavailable Unavailable JaneeKaterina MD Unavailable Unavailable JaneeKaterina coyne MD Unavailable Unavailable ArgentaKaterina coyne MD Unavailable Unavailable JaneeKaterina coyne MD Unavailable Unavailable ArgentaKaterina MD Unavailable Unavailable ArgentaKaterina MD Unavailable Unavailable JaneeKaterina MD Unavailable Unavailable ArgentaKaterina MD Unavailable Unavailable ArgentaKaterina MD Unavailable Unavailable JaneeKaterina MD Unavailable Unavailable ArgentaKaterina MD Unavailable Unavailable JaneeKaterina MD Unavailable Unavailable ArgentaKaterina MD Unavailable Unavailable ArgentaKaterina MD Unavailable Unavailable ArgentaKaterina MD Unavailable Unavailable JaneeKaterina MD Unavailable Unavailable JaneeKaterina MD Unavailable Unavailable ArgentaKaterina MD Unavailable Unavailable ArgentaKaterina MD Unavailable Unavailable Fan, Yandel Waller MD [...] Waller MD Unavailable Unavailable Flor, D Davian GAGE MAKER Unavailable Unavailable Flor, D Davian GAGE MAKER Unavailable Unavailable Flor, D Davian GAGE MAKER Unavailable Unavailable Flor, D Davian GAGE MAKER Unavailable Unavailable Flor, D Davian GAGE MAKER Unavailable Unavailable Flor, D Davian GAGE MAKER Unavailable Unavailable Flor, D Davian GAGE MAKER Unavailable Unavailable Flor, D Davian GAGE MAKER Unavailable Unavailable Flor, D Davian GAGE MAKER Unavailable Unavailable Flor, D Davian GAGE MAKER Unavailable Unavailable Flor, D Davian GAGE MAKER Unavailable Unavailable Flor, D Davian GAGE MAKER Unavailable Unavailable Flor, D Davian GAGE MAKER Unavailable Unavailable Flor, D Davian GAGE MAKER Unavailable Unavailable Flor, D Davian GAGE MAKER Unavailable Unavailable Flor, D Davian GAGE MAKER Unavailable Unavailable Flor, D Davian GAGE MAKER Unavailable Unavailable Flor, D Davian GAGE MAKER Unavailable Unavailable Flor, D Davian GAGE MAKER Unavailable Unavailable Flor, D Davian GAGE MAKER Unavailable Unavailable Flor, D Davian GAGE MAKER Unavailable Unavailable Flor, D Davian GAGE MAKER Unavailable Unavailable Flor, D Davian GAGE MAKER Unavailable Unavailable Flor, D Davian GAGE MAKER Unavailable Unavailable Flor, D Davian GAGE MAKER Unavailable Unavailable Flor, D Davian GAGE MAKER Unavailable Unavailable Flor, D Davian GAGE MAKER Unavailable Unavailable Flor, D Davian GAGE MAKER Unavailable Unavailable Flor, D Davian GAGE MAKER Unavailable Unavailable Flor, D Davian GAGE MAKER Unavailable Unavailable Flor, D Davian GAGE MAKER Unavailable Unavailable Flor, D Davian GAGE MAKER Unavailable Unavailable Flor, D Davian GAGE MAKER Unavailable Unavailable Flor, D Davian GAGE MAKER Unavailable Unavailable Flor, D Davian GAGE MAKER Unavailable Unavailable Flor, D Davian GAGE MAKER Unavailable Unavailable Corado Joseph, Karan Michael MD, FACS Unavailable Unavailable Corado Joseph, Karan Michael MD, FACS Unavailable Unavailable Corado Joseph, Karan iMchael MD, FACS Unavailable Unavailable Corado Joseph, Karan [...] MD, FACS Unavailable Unavailable Flor, D Davian GAGE MAKER Unavailable Unavailable Flor, D Davian GAGE MAKER Unavailable Unavailable Flor, D Davian GAGE MAKER Unavailable Unavailable Flor, D Davian GAGE MAKER Unavailable Unavailable Flor, D Davian GAGE MAKER Unavailable Unavailable Flor, D Davian GAGE MAKER Unavailable Unavailable Flor, D Davian GAGE MAKER Unavailable Unavailable Flor, D Davian GAGE MAKER Unavailable Unavailable Flor, D Davian GAGE MAKER Unavailable Unavailable Flor, D Davian GAGE MAKER Unavailable Unavailable Flor, D Davian GAGE MAKER Unavailable Unavailable Flor, D Davian GAGE MAKER Unavailable Unavailable Flor, D Davian GAGE MAKER Unavailable Unavailable Flor, D Daivan GAGE MAKER Unavailable Unavailable Flor, D Davian GAGE MAKER Unavailable Unavailable Flor, D Davian GAGE MAKER Unavailable Unavailable Flor, D Davian GAGE MAKER Unavailable Unavailable Flor, D Davian GAGE MAKER Unavailable Unavailable Flor, D Davian GAGE MAKER Unavailable Unavailable Flor, D Davian GAGE MAKER Unavailable Unavailable Flor, D Davian GAGE MAKER Unavailable Unavailable Flor, D Davian GAGE MAKER Unavailable Unavailable Flor, D Davian GAGE MAKER Unavailable Unavailable Flor, D Davian GAGE MAKER Unavailable Unavailable Flor, D Davian GAGE MAKER Unavailable Unavailable Flor, D Davian GAGE MAKER Unavailable Unavailable Flor, D Davian GAGE MAKER Unavailable Unavailable Flor, D Davian GAGE MAKER Unavailable Unavailable Flor, D Davian GAGE MAKER Unavailable Unavailable Flor, D Davian GAGE MAKER Unavailable Unavailable Flor, D Davian GAGE MAKER Unavailable Unavailable Flor, D Davian GAGE MAKER Unavailable Unavailable Flor, D Davian GAGE MAKER Unavailable Unavailable Flor, D Davian GAGE MAKER Unavailable Unavailable Flor, D Davian GAGE MAKER Unavailable Unavailable Flor, D Davian GAGE MAKER Unavailable Unavailable Katerina Weller MD Unavailable Unavailable Katerina Weller MD Unavailable Unavailable JaneeKaterina coyne MD Unavailable Unavailable JaneeKaterina coyne MD Unavailable Unavailable ArgentaKaterina coyne MD Unavailable Unavailable JaneeKaterina coyne MD Unavailable Unavailable ArgentaKaterina coyne MD Unavailable Unavailable JaneeKaterina coyne MD Unavailable Unavailable JaneeKaterina coyne MD Unavailable Unavailable JaneeKaterina coyne MD Unavailable Unavailable ArgentaKaterina coyne MD Unavailable Unavailable JaneeKaterina MD Unavailable Unavailable ArgentaKaterina MD Unavailable Unavailable JaneeKaterina MD Unavailable Unavailable JaneeKaterina MD Unavailable Unavailable ArgentaKaterina MD Unavailable Unavailable JaneeKaterina MD Unavailable Unavailable JaneeKaterina MD Unavailable Unavailable JaneeKaterina MD Unavailable Unavailable JaneeKaterina MD Unavailable Unavailable ArgentaKaterina MD Unavailable Unavailable ArgentaKaterina MD Unavailable Unavailable JaneeKaterina MD Unavailable Unavailable ArgentaKaterina MD Unavailable Unavailable JaneeKaterina MD Unavailable Unavailable JaneeKaterina MD Unavailable Unavailable JaneeKaterina MD Unavailable Unavailable JaneeKaterina MD Unavailable Unavailable JaneeKaterina MD Unavailable Unavailable JaneeKaterina MD Unavailable Unavailable JaneeKaterina MD Unavailable Unavailable ArgentaKaterina MD Unavailable Unavailable JaneeKaterina MD Unavailable Unavailable JaneeKaterina MD Unavailable Unavailable ArgentaKaterina MD Unavailable Unavailable ArgentaKaterina MD Unavailable Unavailable JaneeKaterina MD Unavailable Unavailable JaneeKaterina MD Unavailable Unavailable ArgentaKaterina MD Unavailable Unavailable JaneeKaterina MD Unavailable Unavailable JaneeKaterina MD Unavailable Unavailable JaneeKaterina MD Unavailable Unavailable ArgentaKaterina MD Unavailable Unavailable ArgentaKaterina MD Unavailable Unavailable ArgentaKaterina MD Unavailable Unavailable ArgentaKaterina MD Unavailable Unavailable JaneeKaterina coyne MD Unavailable Unavailable ArgentaKaterina MD Unavailable Unavailable JaneeKaterina MD Unavailable Unavailable ArgentaKaterina MD Unavailable Unavailable JaneeKaterina MD Unavailable Unavailable JaneeKaterina MD Unavailable Unavailable JaneeKaterina MD Unavailable Unavailable ArgentaKaterina coyne MD Unavailable Unavailable ArgentaKaterina MD Unavailable Unavailable ArgentaKaterina MD Unavailable Unavailable ArgentaKaterina MD Unavailable Unavailable JaneeKaterina MD Unavailable Unavailable ArgentaKaterina MD Unavailable Unavailable ArgentaKaterina MD Unavailable Unavailable JaneeKaterina MD Unavailable Unavailable JaneeKaterina MD Unavailable Unavailable JaneeKaterina MD Unavailable Unavailable JaneeKaterina MD Unavailable Unavailable ArgentaKaterina MD Unavailable Unavailable JaneeKaterina MD Unavailable Unavailable ArgentaKaterina coyne MD Unavailable Unavailable Katerina Weller MD Unavailable Unavailable JaneeKaterina coyne MD Unavailable Unavailable ArgentaKaterina coyne MD Unavailable Unavailable ArgentaKaterina coyne MD Unavailable Unavailable ArgentaKaterina coyne MD Unavailable Unavailable ArgentaKaterina coyne MD Unavailable Unavailable ArgentaKaterina coyne MD Unavailable Unavailable ArgentaKaterina coyne MD Unavailable Unavailable ArgentaKaterina coyne MD Unavailable Unavailable JaneeKaterina coyne MD Unavailable Unavailable JaneeKaterina coyne MD Unavailable Unavailable ArgentaKaterina coyne MD Unavailable Unavailable JaneeKaterina coyne MD Unavailable Unavailable ArgentaKaterina coyne MD Unavailable Unavailable ArgentaKaterina coyne MD Unavailable Unavailable ArgentaKaterina coyne MD Unavailable Unavailable ArgentaKaterina coyne MD Unavailable Unavailable ArgentaKaterina coyne MD Unavailable Unavailable Katerina Weller MD Unavailable Unavailable Katerina Weller MD Unavailable Unavailable Yandel BOYD MD Unavailable Unavailable Yandel BOYD MD Unavailable Unavailable Yandel BOYD MD Unavailable Unavailable Yandel BOYD MD Unavailable Unavailable Yandel BOYD MD Unavailable Unavailable Yandel BOYD MD Unavailable Unavailable Yandel BOYD MD Unavailable Unavailable Yandel BOYD MD Unavailable Unavailable Yandel BOYD MD Unavailable Unavailable Yandel BOYD MD Unavailable Unavailable Yandel BOYD MD Unavailable Unavailable Yandel BOYD MD Unavailable Unavailable Yandel BOYD MD Unavailable Unavailable Yandel BOYD MD Unavailable Unavailable Yandel BOYD MD Unavailable Unavailable Yandel BOYD MD Unavailable Unavailable Yandel BOYD MD Unavailable Unavailable Yandel BOYD MD Unavailable Unavailable Yandel BOYD MD Unavailable Unavailable Yandel BOYD MD Unavailable Unavailable [place], Quiana PA Unavailable Unavailable Dave, Quiana PA Unavailable Unavailable Dave, Quiana PA Unavailable Unavailable [place], Quiana PA Unavailable Unavailable [place], Quiana PA Unavailable Unavailable [place], Quiana PA Unavailable Unavailable [place], Quiana PA Unavailable Unavailable [place], Quiana PA Unavailable Unavailable [place], Quiana PA Unavailable Unavailable Dave, Quiana PA Unavailable Unavailable [place], Quiana PA Unavailable Unavailable Dave, Quiana PA Unavailable Unavailable Dave, Quiana PA Unavailable Unavailable [facility] Unavailable Unavailable Feola, T Elma PA Unavailable [...] B ABEL MD Unavailable Unavailable GREENKY, B ABLE MD Unavailable Unavailable GREENKY, B ABEL MD [...] B ABEL MD Unavailable Unavailable GREENKY, B AEBL MD Unavailable Unavailable GREENKY, B ABEL MD [...] MD Unavailable Unavailable JaneeKaterina MD Unavailable Unavailable ArgentaKaterina MD Unavailable Unavailable ArgentaKaterina MD Unavailable Unavailable ArgentaKaterina MD Unavailable Unavailable ArgentaKaterina MD Unavailable Unavailable ArgentaKaterina MD Unavailable Unavailable ArgentaKaterina MD Unavailable Unavailable ArgentaKaterina MD Unavailable Unavailable ArgentaKaterina MD Unavailable Unavailable JaneeKaterina MD Unavailable Unavailable JaneeKaterina MD Unavailable Unavailable ArgentaKaterina coyne MD Unavailable Unavailable JaneeKaterina MD Unavailable Unavailable JaneeKaterina MD Unavailable Unavailable JaneeKaterina coyne MD Unavailable Unavailable JaneeKaterina MD Unavailable Unavailable JaneeKaterina coyne MD Unavailable Unavailable JaneeKaterina coyne MD Unavailable Unavailable ArgentaKaterina coyne MD Unavailable Unavailable JaneeaKterina MD Unavailable Unavailable ArgentaKaterina coyne MD Unavailable Unavailable ArgentaKaterina coyne MD Unavailable Unavailable ArgentaKaterina coyne MD Unavailable Unavailable ArgentaKaterina coyne MD Unavailable Unavailable ArgentaKaterina coyne MD Unavailable Unavailable ArgentaKaterina coyne MD Unavailable Unavailable ArgentaKaterina coyne MD Unavailable Unavailable ArgentaKaterina coyne MD Unavailable Unavailable ArgentaKaterina coyne MD Unavailable Unavailable JaneeKaterina coyne MD Unavailable Unavailable JaneeKaterina coyne MD Unavailable Unavailable ArgentaKaterina coyne MD Unavailable Unavailable ArgentaKaterina coyne MD Unavailable Unavailable JaneeKaterina coyne MD Unavailable Unavailable JaneeKaterina MD Unavailable Unavailable JaneeKaterina MD Unavailable Unavailable JaneeKaterina MD Unavailable Unavailable ArgentaKaterina MD Unavailable Unavailable ArgentaKaterina MD Unavailable Unavailable ArgentaKaterina MD Unavailable Unavailable ArgentaKaterina coyne MD Unavailable Unavailable ArgentaKaterina MD Unavailable Unavailable JaneeKaterina MD Unavailable Unavailable JaneeKaterina MD Unavailable Unavailable JaneeKaterina MD Unavailable Unavailable JaneeKaterina MD Unavailable Unavailable Argenta, Katerina Jaime DUGAN Unavailable Unavailable Janee, Katerina Sandoval MD Unavailable Unavailable Argenta, F Sandoval MD Unavailable Unavailable Argenta, F Sandoval MD Unavailable Unavailable Janee, F Sandoval MD Unavailable Unavailable Janee, F Sandoval MD Unavailable Unavailable Argenta, F Sandoval MD Unavailable Unavailable Argenta, F Sandoval MD Unavailable Unavailable Argenta, F Sandoval MD Unavailable Unavailable Janee, F Sandoval MD Unavailable Unavailable Janee, F Sandoval MD Unavailable Unavailable Argenta, F Sandoval MD Unavailable Unavailable Janee, Katerina Sandoval MD Unavailable Unavailable Janee, F Sandoval MD Unavailable Unavailable Janee, F Sandoval MD Unavailable Unavailable Janee, F Sandoval MD Unavailable Unavailable Janee, F Sandoval MD Unavailable Unavailable Argenta, F Sandoval MD Unavailable Unavailable Janee, F Sandoval MD Unavailable Unavailable Janee, F Sandoval MD Unavailable Unavailable Janee, F Sandoval MD Unavailable Unavailable Janee, Katerina Sandoval MD Unavailable Unavailable Argenta, F Sandoval MD Unavailable Unavailable Argenta, Katerina Jaime MD Unavailable Unavailable Argenta, Katerina Jaime MD Unavailable Unavailable Janee, Katerina Sandoval MD Unavailable Unavailable Janee, Katerina Sandoval MD Unavailable Unavailable Janee, Katerina Sandoval MD Unavailable Unavailable Argenta, Katerina Sandoval MD Unavailable Unavailable Argenta, F Sandoval MD Unavailable Unavailable Argenta, Katerina Sandoval MD Unavailable Unavailable Janee, F Sandoval MD Unavailable Unavailable Janee, Katerina Sandoval MD Unavailable Unavailable Janee, F Sandoval MD Unavailable Unavailable Argenta, Katerina Sandoval MD Unavailable Unavailable Janee, Katerina Sandoval MD Unavailable Unavailable Argenta, Katerina Sandoval MD Unavailable Unavailable Argenta, Katerina Jaime MD Unavailable Unavailable Janee, Katerina Jaime MD Unavailable Unavailable Argenta, Katerina Jaime DUGAN Unavailable Unavailable Re-disclosure Warning [...] is protected by Article 27-F of the [facility] Public Health law. If you continue you may have access to information: Regarding HIV / AIDS; Provided by facilities licensed or operated by the [facility] Office of Mental Health; or Provided by the [facility] Office for People With Developmental Disabilities. If such information is present, then the following [facility] mandated warning applies: This information has [...] law may result in a fine or penitentiary sentence or both. A general authorization for the release of medical or other information is NOT sufficient authorization for further disc losure. Allergies and Adverse Reactions Type Description Substance Reaction Status Data Source(s ) Allergy to substance No Known Allergies No known allergies (situation ) [place] (Alec Joseph MD [facility]) Allergy to substance No Known Allergies No known allergies (situation ) [place] (Alec Joseph MD [facility]) No Known Drug Allergies No Known Drug Allergies [facility] No Known Environmental Allergies No Known Environmental Al lergies [facility] No Known Food Allergies No Known Food Allergies [facility] Family History Family Member Name Family Member Gender Family Member Status Date o f Status Description Data Source(s) Unknown Unknown Problem [facility] ([facility]) Unknown Female Problem [facility] ([facility]) Encounters Encounter Providers Location Date Indications Data Source(s ) Outpatient Attender: ABEL Covarrubiaserrer: Jaime centeno MD 02/23/2021 03:20:08 PM EST [facility] Outpatient Attender: ABEL Farmer: Jaime centeno MD 01/19/2021 09:33:35 AM EDT [facility] Outpatient Attender: Jaime Klein 09:00:00 AM EDT [facility] ([facility] ) Recurring Patient Attender: ABEL Farmer: Jaime modi MD 01/13/2021 01:23:47 PM EDT [facility] Recurring Patient Attender: ABEL RODRIGUEZeferrer: Jaime modi MD 01/12/2021 01:20:59 PM EDT [facility] <td ID="encounterTypeDescriptionID0">1 Y ear Follow-Up</td><td>Alec Joseph MD, FACS</td><td>Alec Blackburn MD [facility]</td><td>10/12/2020</td><td>8:32AM</td><td>9:59AM</td><td><content ID="encounterDiagnosisID0-0">Cataract Senile Nuclear</content>, <content ID="encounterDiagnosisID0-1">Conjunctivitis Chronic Allergic</content>, <content ID="encounterDiagnosisID0-2">Blepharitis Squamous</content>, <content ID="encounterDiagnosisID0-3">Dry Eye Syndrome</content>, <content ID="encounterDiagnosisID0-4">Vitreous Disorders Degeneration</content></td>Outpatient Attender: Alec Joseph MD, FACS Alec Blackburn MD [facility] 10/12/2020 08:32:00 AM EDT - 10/12/2020 09:59:00 AM ED T Blepharitis SquamousCataract Senile NuclearBlepharitis SquamousCataract Senile NuclearConjunctivitis Chronic AllergicConjunctivitis Chronic AllergicVitreous Disorders DegenerationDry Eye SyndromeVitreous Disorders DegenerationDry Eye Syndrome [place] (Alec Joseph MD [facility]) 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 Conjunctivitis Chronic Allergic Conjunctivitis Chronic Allergic Vitreous Disorders Degeneration Dry Eye Syndrome Vitreous Disorders Degeneration Dry Eye Syndrome Outpatient Attender: Elma WAITE 021 10:37:13 AM EDT - 09/09/2020 10:53:55 AM EDT [facility] ([facility] ) OFFICE OUTPATIENT VISIT 15 MINUTES Attender: Sridhar Fan MD Phys ical Therapy 09/01/2020 09:00:00 AM EDT [facility] ([facility]) Outpatient Attender: SHERLEY WILKINS MDConsultant: Jaime centeno MD 08/27/2020 08:18:00 AM EDT - 08/27/2020 08:18:00 AM EDT [facility] Recurring Patient Attender: ABEL ADAMS MDReferrer: Jaime modi MD 07/21/2020 01:18:35 PM EDT [facility] Recurring Patient Attender: ABEL DEMARCO MDReferrer: Jaime modi MD 07/21/2020 01:18:15 PM EDT [facility] Outpatient Attender: SHERLEY WILKINS MDConsultant: Jaime centeno MD 07/12/2020 11:15:00 AM EDT - 07/12/2020 11:15:00 AM EDT [facility] Outpatient Attender: SHERLEY WILKINS MDConsultant: Jaime centeno MD 06/28/2020 10:14:00 AM EDT - 06/28/2020 10:14:00 AM EDT [facility] Outpatient Attender: SHERLEY WILKINS MDConsultant: Jaime centeno MD 06/25/2020 10:09:00 AM EDT - 06/25/2020 11:09:00 AM EDT [facility] Outpatient Attender: SHERLEY WILKINS MDConsultant: Jaime centeno MD 06/16/2020 10:35:00 AM EDT - 06/16/2020 10:35:00 AM EDT [facility] Outpatient Attender: Davian Ray NPConsultant: Jaime kelly MD 06/15/2020 09:14:00 AM EDT - 06/15/2020 10:14:00 AM EDT [facility] Outpatient Attender: SHERLEY WILKINS MDConsultant: Jaime centeno MD 06/09/2020 09:34:00 AM EDT - 06/09/2020 09:34:00 AM EDT [facility] Unknown [address] [address] 06/09/2020 12:00:00 AM EDT [facility]CW1 ([facility]) Outpatient Attender: SHERLEY WILKINS MDConsultant: Jaime centeno MD 06/08/2020 09:35:00 AM EDT - 06/08/2020 10:35:00 AM EDT [facility] [place] [address] [address] 06/08/2020 12:00:00 AM EDT eCW1 ([facility]) Outpatient Attender: SHERLEY WILKINS MDConsultant: Jaime centeno MD 06/02/2020 09:33:00 AM EST - 06/02/2020 09:33:00 AM [facility] Outpatient Attender: Davian Ray NPConsultant: Jaime kelly MD 06/01/2020 10:33:00 AM EST - 06/01/2020 11:33:00 AM [facility] Outpatient Attender: SHERLEY WILKINS MDConsultant: Jaime centeno MD 05/26/2020 09:39:00 AM EST - 05/26/2020 09:39:00 AM [facility] Outpatient Attender: Davian Ray NPConsultant: Jaime kelly MD 05/25/2020 11:32:00 AM EST - 05/25/2020 12:32:00 PM [facility] [place] [address] [facility] [address] 05/24/2020 12:00:00 AM EST eCW1 ([facility]) [place] [address] [address] 05/18/2020 12:00:00 AM EST eCW1 ([facility]) Inpatient Attender: SHERLEY Fritze nder: REGINE BOYD MDConsultant: Jaime Weller MD 05/17/2020 02:33:00 PM EST - 05/20/2020 02:45:00 PM [facility] Patient discharged. Outpatient Attender: [facility] 05/15/2020 09:5 0:00 AM [facility] Outpatient Attender: SHERLEY WILKINS MD 02/20/2 021 09:00:00 AM EST - 05/17/2020 02:59:00 PM EST [facility] ([id number]) For Template Jarrell [address] [place] [address] 05/14/2020 12:00:00 AM EST eCW1 ([facility]) Outpatient Attender: SHERLEY WILKINS MDConsultant: Jaime centeno MD 05/12/2020 10:02:00 AM EST - 05/12/2020 10:02:00 AM [facility] Office Visit Attender: Davian Ray NP [facility] 2020 09:20:00 AM EST [facility] ([facility]) Outpatient Attender: Quiana Acosta PAConsultant: Tevin Weller MD 05/12/2020 08:33:00 AM EST - 05/12/2020 09:33:00 AM [facility] Outpatient Attender: [facility] 05/12/2020 07:2 5:00 AM EST [facility] Outpatient Attender: Davian Ray NPConsultant: Jaime kelly MD 05/12/2020 07:16:00 AM EST - 05/12/2020 08:16:00 AM [facility] (WND NP120) New Patient 120 [address] [place] [address] 05/07/2020 12:00:00 AM EST eCW1 ([facility]) Outpatient Attender: SHERLEY WILKINS MDConsultant: Jaime centeno MD 05/03/2020 10:38:00 AM EST - 05/03/2020 10:38:00 AM [facility] Office Visit Attender: Davian Ray NP Family Practice 2020 09:40:00 AM EST [facility] ([facility]) Outpatient Attender: SHERLEY WILKINS MDConsultant: Jaime centeno MD 04/30/2020 09:57:00 AM EST - 04/30/2020 09:57:00 AM [facility] Inpatient Attender: SHERLEY WILKINS MDConsultant: Jaime centeno MD 04/23/2020 12:40:00 PM EST - 04/28/2020 02:35:00 PM [facility] Patient discharged. Outpatient Attender: SHERLEY WILKINS MDConsultant: Jaime centeno MD 04/23/2020 09:34:58 AM EST - 06/01/2020 03:49:00 PM [facility] Patient discharged. Outpatient Attender: SHERLEY WILKINS MD 021 02:46:00 PM [facility] - 04/23/2020 12:39:00 PM [facility] Outpatient Attender: [facility] 04/21/2020 12:2 3:00 PM [facility] Outpatient Attender: SHERLEY WILKINS MDConsultant: Jaime centeno MD 04/21/2020 10:37:[address] [facility] 04/21/2020 10:37:00 AM [facility] Outpatient Attender: SHERLEY WILKINS MDConsultant: Jaime centeno MD 04/19/2020 11:06:00 AM [facility] - 04/19/2020 11:06:00 AM [facility] Outpatient Attender: SHERLEY WILKINS MDConsultant: Jaime centeno MD 04/12/2020 02:30:00 PM [facility] - 04/12/2020 02:30:00 PM [facility] Office Visit Attender: SHERLEY WILKINS MD [facility] Practice 021 01:40:00 PM EST [facility] ([facility]) Outpatient Attender: Jaime Regalado 04/12/2020 12:30:00 PM EST [facility] ([facility] ) Outpatient Attender: ABEL ADAMS MDReferrer: Jaime centeno MD 04/08/2020 02:14:05 PM EST [facility] Outpatient Attender: SHERLEY WILKINS MDConsultant: Jaime centeno MD 04/07/2020 08:39:00 AM EST - 04/07/2020 08:39:00 AM [facility] Office Visit Attender: Davian Ray NP Family Practice 2020 07:40:00 AM EST [facility] ([facility]) Outpatient Attender: SHERLEY WILKINS MDConsultant: Jaime centeno MD 04/01/2020 08:30:00 AM EST - 04/01/2020 12:51:00 PM [facility] Patient discharged. Outpatient Attender: SHERLEY Brown nder: Davian Flor NPConsultant: Jaime Weller MD 03/27/2020 08:22:00 AM EST - 03/27/2020 09:22:00 AM EST [facility] Patient discharged. Outpatient Attender: SHERLEY WILKINS MDConsultant: Jaime centeno MD 03/11/2020 08:31:08 AM EST - 03/12/2020 02:00:00 PM [facility] Patient discharged. Outpatient Attender: Jaime Regalado 05/12/2019 08:20:00 AM EST [facility] ([facility] ) Outpatient Attender: SHERLEY WILKINS MDConsultant: Jaime centeno MD 03/05/2020 08:20:00 AM EST - 03/05/2020 08:20:00 AM [facility] Outpatient Attender: SHERLEY WILKINS MD Family Practice 03/05/2020 07 :20:00 AM EST [facility] ([facility]) Outpatient Attender: SHERLEY WILKINS MDConsultant: Jaime centeno MD 02/27/2020 09:10:00 AM EST - 02/27/2020 09:10:00 AM [facility] Immunizations Vaccine Date Status Description Data Source(s) This CVX code allows reporting of a vacc ination when formulation is unknown (for example, when recording a Influenza vaccination when noted on a vaccination card) 02/21/2021 10:20:00 AM EST completed MEDEN T ([facility]) Medications Medication Brand Name Start Date [...] Complex 02/24/2021 12:00:00 AM EST active [facility] ([facility]) 20 mg 02/23/2021 12:00:00 AM EST [...] Anusol-HC 01/18/2021 12:00:00 AM EDT active [facility] ([facility]) 20 mg 12/28/2020 12:00:00 [...] 12:00:00 AM EDT ORAL active [facility] ( [facility]) 750 mg 11/10/2020 12:00:00 AM EDT tablet 60 TAKE ONE TABLET BY MOUTH TWICE A DAY NEEDED TAKE ONE TABLET BY MOUTH TWICE A DAY NEEDED SOLD: [facility] Methocarbamol 750 MG Oral Tablet Methocarbamol 11/10/2020 12:00:00 AM EDT active [facility] ([facility]) 30 mg 11/10/2020 12:00:00 AM [...] Or al Tablet GISEL (Alec Joseph MD [facility]) gabapentin 300 MG Oral Capsule Gabapentin 300 MG Oral Capsule Gabapentin 300 MG Oral Capsule 10/12/2020 12:00:00 AM EDT 1 activ e gabapentin 300 MG Oral Capsule [facility] Omeprazole 20 MG Oral Tablet Delayed Release [...] Ketoconazole 07/06/2020 12:00:00 AM EDT active [facility] ([facility]) Calcium Carbonate 1500 MG / Cholecalciferol 200 UNT Oral Tab let Calcium 600 + D 07/06/2020 12:00:00 AM EDT ORAL active [facility] ([facility]) 30 mg 07/06/2020 12:00:00 AM EDT [...] MG Oral Capsule GISEL (Alec Joseph MD [facility]) Baclofen 10 MG Oral Tablet Baclofen 10 MG Oral Tablet 2019 12:00:00 AM EDT 1 aborted baclofen 10 MG O ral Tablet GISEL (Alec Joseph MD [facility]) 750 mg 09/11/2019 12:00:00 AM EDT tablet [...] Release Oral Capsule GISEL (Alec Joseph MD [facility]) Insurance Providers Payer name Policy type / Coverage type Policy ID Covered constitution party ID Covered constitution party's relationship to jarrell Policy Jarrell Plan Information [place] 302/307 [id number] SP [id number] [place] P[place] 302/307 [id number] SP [id number] [place] PPO 302/307 [id number] SP [id number] [place] PPO 302/307 [id number] SP [id number] [facility] Money Forward o Health Maintenance Organization ([facility]) [id number] 2.16.840.1.457299.3.227.99.4595.6470.0 Self D [id number] [facility] Blue Ppo Health Maintenance Organization (O) [id number] Self 802 BS [place] Medigap Part B [id number] .16.840.1.249636.3.227.99.991.94317.0 Self D [id number] BS [place] Medigap Part B [id number] 2.16.840.1.648740.3.227.99.991.98944.0 Self D [id number] BS [place] Medigap Part B [id number] 2.16840.1.722778.3.227.99.991.77706.0 Self D [id number] BS [place] Medigap Part B [id number] Self BS [place] Medigap Part B [id number] 2.16840.1.126159.3.227.99.991.10102.0 Self D [id number] BS [place] [facility] [id number] 2.16840.1.843567.3.227.99.991.04630.0 Self D [id number] BS [place] Medigap Part B [id number] 2.16840.1.332982.3.227.99.991.55642.0 Self D [id number] BS [place] Medigap Part B [id number] 2.16840.1.831923.3.227.99.991.30344.0 Self D [id number] BS [place] Medigap Part B [id number] 2.16840.1.812577.3.227.99.991.86334.0 Self D [id number] BS [place] Medigap Part B [id number] 2.16840.1.608099.3.227.99.991.09559.0 Self D [id number] BS [place] Medigap Part B [id number] 2.16840.1.018203.3.227.99.991.97909.0 Self D [id number] BS [place] Medigap Part B [id number] 2.160.1.745766.3.227.99.991.92631.0 Self D [id number] BS [place]le Trad/MX Commercial [id number] Self 802 BS [place] Medigap Part B [id number] Self 302/802 BS [place] Medigap Part B [id number] 2.160.1.643369.3.227.99.991.38285.0 Self A [id number] BS [place] Medigap Part B [id number] 2.0.1.899434.3.227.99.991.79349.0 Self A [id number] BS [place] Medigap Part B [id number] 2.0.1.889863.3.227.99.991.27853.0 Self A [id number] BCBS Ppo Commercial [id number] 2.0.1.216348.3.227.99.177.73272 .0 Self [id number] BS [place] Medigap Part B [id number] 2.0.1.831947.3.227.99.991.80322.0 Self A [id number] BS [place] Medigap Part B [id number] 2.160.1.213558.3.227.99.991.26915.0 Self A [id number] BS [place] Medigap Part B [id number] 2.160.1.132559.3.227.99.991.01287.0 Self A [id number] BS [place] Trad/MX Medigap Part B [id number] 2.0.1.184376.3.227.99.4595.6470.0 Self A [id number] BS [place] Medigap Part B [id number] 2.16.840.1.847906.3.227.99.991.55641.0 Self A [id number] BS [place] Medigap Part B [id number] 2.16840.1.590178.3.227.99.991.56855.0 Self A [id number] BCBS Ppo Commercial [id number] 2.16840.1.733698.3.227.99.177.89719 .0 Self [id number] BS [place] Medigap Part B [id number] 2.840.1.240665.3.227.99.991.75239.0 Self A [id number] BS [place] Medigap Part B [id number] 2.0.1.841218.3.227.99.991.94455.0 Self A [id number] BS [place] Medigap Part B [id number] 2.840.1.055167.3.227.99.991.56635.0 Self A [id number] Medicare C [id number] SELF [id number] A MEDICARE [id number] Karen [id number] [id number] Medicare Natl Govt Servic Medicare Primary [id number] 2.840.1.736481.3.227.99.4595.6470.0 Self 0 [id number] Medicare Natl Govt Servic Medicare Primary [id number] 2.16840.1.987942.3.227.99.4595.6470.0 Self 7 [id number] Medicare Blue Ppo Commercial [id number] 2.840.1.113 883.3.227.99.4595.6470.0 Self [id number] MEDICARE [id number] Karen [id number] A Medicare Natl Govt Servic Medicare Primary [id number] 2.16.840.1.087448.3.227.99.4595.6470.0 Self 0 [id number] Medicare Natl Govt Servic Medicare Primary [id number] 2.16.840.1.157134.3.227.99.4595.6470.0 Self 0 [id number] Medicare Natl Govt Servic Medicare Primary [id number] 2.16.840.1.558381.3.227.99.4595.6470.0 Self 0 [id number] Medicare Natl Govt Servic Medicare Primary [id number] 2.16.840.1.811656.3.227.99.4595.6470.0 Self 7 [id number] Medicare Blue Ppo Commercial [id number] Self 8 [id number] Medicare Natl Govt Servic Medicare Primary [id number] 2.16840.1.500067.3.227.99.4595.6470.0 Self 7 [id number] [facility] Jurisdiction [facility] [id number] SELF [id number] Medicare Natl Govt Servic Medicare Primary [id number] 2.16840.1.840432.3.227.99.4595.6470.0 Self 7 [id number] Medicare Natl Govt Servic Medicare Primary [id number] 2.16840.1.578950.3.227.99.4595.6470.0 Self 0 [id number] Medicare Natl Govt Servic Medicare Primary [id number] 2.16840.1.336083.3.227.99.4595.6470.0 Self 0 [id number] Medicare Blue Ppo Commercial [id number] 2.16840.1.113 883.3.227.99.4595.6470.0 Self [id number] Blue Shield MCR Advantage Commercial [id number] 2.16840.1.003943.3.227.99.991.51933.0 Self V [id number] Blue Shield MCR Advantage Commercial 302/802 [id number] Self 302/802 [facility] MEDICARE [id number] Karen [id number] EXCELLUS MEDICARE BLUE PPO G [id number] Self [id number] MEDICARE BLUE PPO 306 [id number] SP [id number] [facility] Medigap Part B [id number] 2.16.840.1.117744.3.227.99.4595.6470.0 Self 3 [id number] AARP HEALTH CARE OPTIONS [id number] SP [id number] [facility] AARP Supplemental F [id number] SELF [id number] [facility] [id number] Karen [id number] [facility] Medigap Part B [id number] 2.16.840.1.599493.3.227.99.4595.6470.0 Self 3 [id number] [facility] Medigap Part B [id number] 2.16.840.1.432712.3.227.99.4595.6470.0 Self 3 [id number] [facility] Medigap Part B [id number] 11 2.16.840.1.192405.3.227.99.4595.6470.0 Self 3 [id number] [facility] [facility] CARE OPTIONS [id number] SP [id number] [facility] Medigap Part B [id number] 11 2.16.840.1.886593.3.227.99.4595.6470.0 Self 3 [id number] [facility] Medigap Part B [id number] 11 2.16.840.1.683725.3.227.99.4595.6470.0 Self 3 [id number] [facility] Medigap Part B [id number] 11 2.16.840.1.827729.3.227.99.4595.6470.0 Self 3 [id number] [facility] Medigap Part B [id number] 11 2.16.840.1.036093.3.227.99.4595.6470.0 Self 3 [id number] 11 [facility] Medigap Part B [id number] 11 2.16.840.1.971108.3.227.99.4595.6470.0 Self 3 [id number] 11 [facility] Medigap Part B [id number] 11 05.11.830.1.364059.3.227.99.4595.6470.0 Self 3 [id number] Medicare C [id number] SELF [id number] N64 DME Jurisdiction A NHIC C [id number] SELF [id number] Blue Shield Medicare P [id number] SELF [id number] [employer] Blue Cross and Blue Shield - [facility] Blue Cross/ Blue Shield [id number] Self [id number] [employer] Blue Cross and Blue Shield [place] Blue Cross/B lue Shield [id number] Self [id number] Medicare C [id number] SELF [id number] N64 DME A [place] C [id number] SELF [id number] Blue Cross Blue Shield P [id number] SELF [id number] Medicare Part A [place] Medicare Primary [id number] 05.11.830.1.154162.3.227.99.510.04282.0 Self 0 [id number] Medicare Part A [place] Medicare Primary [id number] 05.11.830.1.770404.3.227.99.510.18912.0 Self 0 [id number] [facility] [place] Part B [id number] 05.11.830.1.557110.3.227.99.510.95913.0 Self 3 [id number] Medicare Part A [place] Medicare Primary [id number] 05.11.830.1.555063.3.227.99.510.72532.0 Self 0 [id number] [facility] Medigap Part B [id number] 05.11.830.1.846351.3.227.99.510.51031.0 Self 3 [id number] Medicare Part A [place] Medicare Primary [id number] 840.1.839599.3.227.99.510.21051.0 Self 0 [id number] [facility] Other 0 [id number] Se lf 0 [facility] Medigap Part B [id number] 2.16.840.1.558841.3.227.99.510.79960.0 Self 3 [id number] AARP HEALTH CARE OPTIONS -RECURRING [id number] 18 [id number] MEDICARE -RECURRING [id number] 18 [id number] [facility] Medigap Part B [id number] 2.16840.1.929767.3.227.99.510.89343.0 Self 3 [id number] Medicare Part A [place] Medicare Primary [id number] 2.16840.1.523270.3.227.99.510.67592.0 Self 0 [id number] [facility] Medigap Part B [id number] 2.16840.1.547693.3.227.99.510.67054.0 Self 3 [id number] Medicare Part A [place] Medicare Primary [id number] 2.16840.1.117622.3.227.99.510.53047.0 Self 0 [id number] AARP HEALTH CARE OPTIONS -PHYSICIAN [id number] 18 [id number] MEDICARE -SWING BED [id number] 18 [id number] AARP O [id number] S [id number] MEDICARE C [id number] S [id number] A MEDICARE [id number] SP [id number] A BCBS [place] PPO 302/307 [id number] SP [id number] BCBS [place] PPO 302/307 [id number] SP [id number] AARP HEALTH CARE OPTIONS -O [id number] 18 [id number] Medicare Part A [place] Medicare Primary [id number] 2.16840.1.330232.3.227.99.510.74414.0 Self 0 [id number] MEDICARE BLUE PPO 306 [id number] SP [id number] [facility] Medigap Part B [id number] 2.16840.1.066289.3.227.99.510.64911.0 Self [id number] DAIRY [id number] SP [id number] AARP HEALTH CARE OPTIONS [id number] SP [id number] MEDICARE PI PI KIM PI PI Medicare [place] Medicare Primary [id number] 2.840.1.537811.3.227.99.991.21353.0 Self 7 [id number] MEDICARE [id number] SP [id number] [facility] Medigap Part B [id number] 2.840.1.614694.3.227.99.991.58991.0 Self 3 [id number] UNAVAILABLE UNAVAILA BLE AARP HEA [id number] S [id number] MEDICARE MCA [id number] S [id number] 2A MEDICARE MCA [id number] S [id number] 2A Medicare [place] Medicare Primary [id number] 2.0.1.197790.3.227.99.991.72186.0 Self 7 [id number] [facility] Medigap Part B [id number] 2.840.1.988988.3.227.99.991.59339.0 Self 3 [id number] [place] Medicare Primary [id number] 2.840.1.158709.3.227.99.991.40137.0 Self 7 [id number] [facility] Medigap Part B [id number] 2.840.1.212379.3.227.99.991.50884.0 Self 3 [id number] [place] Medicare Primary [id number] 2.840.1.436548.3.227.99.991.04351.0 Self 7 [id number] EXCELLUS BCBS MEDICARE Medicare MC MC [facility] Medigap Part B [id number] 2.840.1.528915.3.227.99.991.69105.0 Self 3 [id number] Medicare Part A [place] Medicare Primary [id number] 2.840.1.093073.3.227.99.510.06176.0 Self 0 [id number] [facility] Medigap Part B [id number] 2.840.1.932662.3.227.99.510.65319.0 Self 3 [id number] [facility]ARP [facility] CARE OPTIONS [id number] 18 [id number] Medicare Blue Ppo Commercial [id number] 2.0.1.113 883.3.227.99.177.00406.0 Self [id number] [facility] B [id number] S [id number] Medicare - NGS Medicare Primary [id number] 2.0.1.607032.3.227.99.177.76201.0 Self 7 [id number] [facility] Medigap Part B [id number] 2..1.561882.3.227.99.177.72359.0 Self 3 [id number] MEDICARE PART A -O/P [id number] 18 [id number] MEDICARE PART A [facility] [id number] 18 [id number] [place] MEDICARE [id number] 18 [id number] MEDICARE BLUE PPO 306 [id number] SP [id number] BLUE CROSS BLUE SHIELD MCR -OP [id number] 18 [id number] Medicare Blue Ppo Commercial [id number] 2..1.113 883.3.227.99.177.13126.0 Self [id number] AARP HE[facility] CARE OPTIONS -O/P [id number] 18 [id number] BLUE CROSS BLUE SHIELD MCR -IP [id number] 18 [id number] BLUE CROSS BLUE SHIELD MCR - PROFEE [id number] 1 8 [id number] BLUE CROSS BLUE SHIELD MCR - RECURRING [id number] 18 [id number] BLUE CROSS BLUE SHIELD MCR -OP [id number] 18 [id number] [place] MEDICARE [id number] 18 [id number] Medicare Part B [facility] Other 0 [id number] Self 0 [place] Other 0 [id number] Se lf 0 BCBS [place] 306/8 B [id number] S [id number] 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 O [id number] S [id number] Medicare Part A [place] Medicare Primary [id number] 2.16.840.1.382014.3.227.99.510.07194.0 Self 0 [id number] [facility] Medigap Part B [id number] 2.16840.1.726357.3.227.99.510.19977.0 Self 3 [id number] Medicare Part A [place] Medicare Primary [id number] 2.16840.1.978942.3.227.99.510.53513.0 Self 0 [id number] [facility] Medigap Part B [id number] 2.16840.1.393755.3.227.99.510.61552.0 Self 3 [id number] Medicare Part A [place] Medicare Primary [id number] 2.16.840.1.539210.3.227.99.510.70426.0 Self 0 [id number] Medicare Part A [place] Medicare Primary [id number] 2.16840.1.528416.3.227.99.510.84227.0 Self 0 [id number] [facility] Medigap Part B [id number] 2.16.840.1.933484.3.227.99.510.35740.0 Self 3 [id number] Medicare Part B [facility] Other 0 [id number] Self 0 [facility] Medigap Part B [id number] 2.16840.1.195315.3.227.99.510.89717.0 Self 3 [id number] [facility] Medigap Part B [id number] 2.16.840.1.428664.3.227.99.510.37172.0 Self 3 [id number] Medicare Part A [place] Medicare Primary [id number] 2.16.840.1.437441.3.227.99.510.45845.0 Self 0 [id number] [facility] Health Care Options [facility] Part B [id number] 2.16.840.1.906031.3.227.99.510.45877.0 Self 3 [id number] Medicare Part A [place] Medicare Primary [id number] 2.16.840.1.101499.3.227.99.510.39489.0 Self 0 [id number] [facility] Part B [id number] 2.16.840.1.924500.3.227.99.510.90368.0 Self 3 [id number] Problems, Conditions, and Diagnoses Code Display Name Description Problem Type Effective Dates Data Source(s) T12496 Cutaneous abscess of left hand Cutaneous abscess of le ft hand Diagnosis 06/28/2020 10:14:00 AM [facility] [id number] Trigger finger, left ring finger Trigger finger, left ring finger Diagnosis 06/16/2020 10:35:00 AM [facility] [id number] Infection following a procedure, other s urgical site, initial encounter Infection following a procedure, other surgical site, initial encounter Diagnosis 06/02/2020 09:33:00 AM [facility] Z1152 ENCOUNTER FOR SCREENING FOR COVID-19 ENCOUNTER F OR SCREENING FOR COVID-19 Diagnosis 05/15/2020 09:00:00 AM [facility] [id number] Disruption of external opera tion (surgical) wound, not elsewhere classified, initial encounter Disruption of external operation (surgic al) wound, not elsewhere classified, initial encounter Diagnosis 08:33:00 AM [facility] Z4802 Encounter for removal of sutures Encounter for r emoval of sutures Diagnosis 05/03/2020 10:38:00 AM [facility] Z4789 Encounter for other orthopedic aftercare Encounter for other orthopedic aftercare Diagnosis 04/30/2020 08:50:00 AM [facility] Y838 Other surgical procedures as the cause of abnormal reaction of the patient, or of later complication, without mention of misadventure at the time of the procedure Other surgical procedures as the cause o f abnormal reaction of the patient, or of later complication, without mention of misadventure at the time of the procedure Diagnosis 04/23/2020 12:40:00 PM [facility] G15126 Pain in left hand Pain in left hand Diagnosis 04/21/2020 10:37:00 AM [facility] Z1159 Encounter for screening for other viral diseases Encounter for screening for other viral diseases Diagnosis 03/27/2020 08:22:00 AM [facility] J53329 Encounter for other preprocedural examin ation Encounter for other preprocedural examination Diagnosis 03/12/2020 01:00:[address] [facility] T81.31XD [id number] Disruption of score caller al operation (surgical) wound, not elsewhere classified, subsequent encounter Problem 05/13/2020 12:00: 00 AM EST eCW1 ([facility]) [id number] Pure hypercholesterolemia Pure hypercholesterolemia Pr oblem 02/27/2020 12:00:00 AM EST [facility] ([facility]) [id number] Acquired trigger finger Acquired trigger finger Proble m 02/27/2020 12:00:00 AM EST [facility] ([facility]) Surgeries/Procedures Procedure Description Date Indications Data Source(s) OFFICE OUTPATIENT VISIT 25 MINUTES 01/18/2021 12:00:00 AM EDT [facility] ([facility]) Chronic Care MGMT 20 Mins Clinical Staff Time Per Calendar [facility] 11/26/2020 12:00:00 AM EDT [facility] ([facility] ) Complex Chronic Care Management SVC 1St 60 Min 021 12:00:00 AM EDT [facility] ([facility]) Complex Chronic Care MGMT Service Ea Addl 30 Min 11/10 12:00:00 AM EDT [facility] ([facility]) Surgical / procedural history : Tonsille [...] 12:00:00 AM EDT GISEL (Alec Joseph MD [facility]) Chronic Care MGMT 20 Mins Clinical Staff Time Per Calendar [facility] 10/07/2020 12:00:00 AM [facility] Chronic Care MGMT 20 Mins Clinical Staff Time Per Calendar [facility] 09/03/2020 12:00:00 AM EDT [facility] ([facility] ) ARTHROCENTESIS ASPIR&/INJECTION MAJOR JT/BURSA 021 12:00:00 AM EDT [facility] ([facility] ) OFFICE OUTPATIENT VISIT 15 MINUTES 09/01/2020 12:00:00 AM EDT [facility] ([facility] ) Chronic Care Management Services Ea Addl 20 Min 2020 12:00:00 AM EDT [facility] ([facility]) Chronic Care MGMT 20 Mins Clinical Staff Time Per Calendar [facility] 08/19/2020 12:00:00 AM [facility] ) Introduction of Electrolytic and Water B alance Substance into Peripheral Vein, Percutaneous Approach Introduction of Electrolytic and Water B alance Substance into Peripheral Vein, Percutaneous Approach 05/17/2020 12:00:00 AM [facility] Introduction of Other Anti-infective int o Peripheral Vein, Percutaneous Approach Introduction of Other Anti-infective int o Peripheral Vein, Percutaneous Approach 05/17/2020 12:00:00 AM [facility] FINE NEEDLE ASPIRATION W/O IMAGING GUIDANCE 05/14/2020 12:00:00 AM EST [email or web address] ([facility]) ECG ROUTINE ECG W/LEAST 12 LDS W/I&R 03/11/2020 12:00: 00 AM EST [facility] ([facility]) Results ID Date Data Source [id number] 02/28/2021 10:45:00 AM EST [facility] Name Value Range Interpretation Code Description Data Candace rce(s) Supporting Document(s) SARS-CoV-2 RNA Resp Ql JESSICA+probe Negative NYSDOH This lab was ordered by [facility] and reported by [employer]. ID Date Data Source [id number] 02/24/2021 10:12:00 AM EST [facility] ([facility]) Name Value Range Interpretation Code Description Data Candace rce(s) Supporting Document(s) Bacteria identified in Urine by Culture Laboratory test result [facility] ([facility]) FULL REPORT IN LAB NOTES (eCW and [facility] ). NO GROWTH ID Date Data Source [id number] 02/24/2021 10:12:00 AM EST [facility] ([facility]) Name Value Range Interpretation Code Description Data [facility] rce(s) Supporting Document(s) Color, Urine Laboratory test result MEDE NT ([facility]) Appearance, Urine Laboratory test result [facility] ([facility]) PH,Urine 5.0 units 5.0-9.0 [facility] ([facility]) Specific [place] Urine Auto 1.018 1.002-1.035 [facility] ([facility]) Protein, Urine Auto Laboratory test result [facility] ([facility]) Ketone, Urine Auto Laboratory test result [facility] ([facility]) Glucose, Urine (Ua) Auto Laboratory test result [facility] ([facility]) Urobilinogen, Urine Auto 0.2 mg/dL 0.0-2.0 MEDEN T ([facility]) Bilirubin, Urine Auto Laboratory test result [facility] ([facility]) Leukocyte Esterase, Urine Auto Laboratory test result [facility] ([facility]) Nitrite, Urine Auto Laboratory test result [facility] ([facility]) WBC, Urine Auto 0 /HPF 0-3 [facility] ([facility]) Blood, Urine Blood Laboratory test result [facility] ([facility]) RBC, Urine Auto 0 /HPF 0-3 [facility] ([facility]) Squamous Epithelial Cell Ur AU 0 /HPF 0-6 [facility] ([facility]) Bacteria, Urine Auto Laboratory test result [facility] ([facility]) Hyaline Cast, Urine Auto 0 /LPF 0-1 MEDEN T ([facility]) ID Date Data Source [id number] 02/24/2021 10:12:00 AM EST [facility] ([facility]) Name Value Range Interpretation Code Description Data Candace rce(s) Supporting Document(s) Prothrombin Time 13.4 s 12.7-14.5 [facility] ([facility]) Inr 0.98 [facility] [facility] THERAPUTIC HUMAN INR VALUES INDICATIONS NORMAL RANGES PROPHYLAXIS/TREATMENT OF: VENOUS THROMBOSIS 2.0-3.0 PULMONARY EMBOLISM 2.0-3.0 PREVENTION OF SYSTEMIC EMBOLISM FROM: TISSUE HEART VALVES 2.0-3.0 ACUTE MYOCARDIAL INFARCTION 2.0-3.0 VALVULAR HEART DISEASE 2.0-3.0 ATRIAL FIBRILLATION 2.0-3.0 MECHANICAL VALVES(HIGH RISK) 2.5-3.5 RECURRENT MYOCARDIAL INFARCTION 2.5-3.5 Partial Thromboplastin Time 32.0 s 25.9-37.0 [facility] DENT ([facility]) ID Date Data Source [id number] 02/24/2021 10:11:00 AM EST [facility] ([facility]) Name Value Range Interpretation Code Description Data Candace rce(s) Supporting Document(s) Glucose [Mass/volume] in Serum or Plasma 89 mg/dL 74-99 [facility] ([facility]) 100-125 mg/dL PRE-DIABETES/FASTING >126 mg/dL DIABETES/FASTING Urea nitrogen [Mass/volume] in Serum or Plasma 21 mg/dL 7-18 [facility] ([facility]) Creatinine 1.1 mg/dL 0.6-1.3 [facility]) Potassium [Moles/volume] in Serum or Plasma 4.4 meq/L 3.5-5.1 [facility] ([facility]) Sodium [Moles/volume] in Serum or Plasma 140 meq/L 136-145 [facility] ([facility]) Calcium [Mass/volume] in Serum or Plasma 8.8 mg/dL 8.5-10.1 [facility] ([facility]) Chloride [Moles/volume] in Serum or Plasma 102 meq/L 98-107 [facility] ([facility]) Carbon dioxide, total [Moles/volume] in Serum or Plasma 34 meq/L 21 -32 [facility] ([facility]) Alkaline phosphatase isoenzyme [Units/volume] in Serum or Pl asma 51 mg/dL 46-116 [facility] ([facility]) Total Bilirubin 0.6 mg/dL 0.2-1.0 [facility] ([facility]) Aspartate aminotransferase [Enzymatic activity/volume] in Serum or Plasma 21 U/L 15-37 [facility] ([facility] ) Alanine aminotransferase [Enzymatic activity/volume] in Seru m or Plasma 26 U/L 12-78 [facility] ([facility]) Albumin [Mass/volume] in Serum or Plasma 4.0 g/dL 3.4-5.0 [facility] ([facility]) Proteinase 3 Ab [Units/volume] in Serum 7.3 g/dL 6.4-8.2 [facility] ([facility]) A/G Ratio 1.21 CALC 1.00-1.90 [facility] ([place] [facility]) Glomerular filtration rate/1.73 sq M pre dicted among non-blacks [Volume Rate/Area] in Serum or Plasma by Creatinine-based formula (MDRD) Laboratory test result [facility] ([facility] ) Glomerular filtration rate/1.73 sq M pre dicted among blacks [Volume Rate/Area] in Serum or Plasma by Creatinine-based formula (MDRD) Laboratory test result [facility] ([facility]) <content>CHRONIC KIDNEY DISEASE STAGING PER NKF</content>
<content></content>
<content>STAGE I & II GFR >= 60 NORMAL TO MILDLY DECREASED</content>
<content>STAGE III GFR 30-59 MODERATELY DECREASED</content>
<content>STAGE IV GFR 15-29 SEVERELY DECREASED</content>
<content>STAGE V GFR <15 VERY LITTLE GFR LEFT</content>
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
<content></content> ID Date Data Source [id number] 02/24/2021 10:11:00 AM EST [facility] ([facility]) Name Value Range Interpretation Code Description Data Candace rce(s) Supporting Document(s) Leukocytes [#/volume] in Blood by Automated count 3.6 x10*3/UL 4.1-10 .9 [facility] ([facility]) NOTE: RESULT VERIFIED. Hemoglobin [Mass/volume] in Blood 13.5 g/dL 12.0-18.0 [facility] ([facility]) Erythrocytes [#/volume] in Blood by Automated count 4.31 x10*6/UL 4.2 0-6.30 [facility] ([facility]) Hematocrit [Volume Fraction] of Blood by Automated count 37.9 % 3 7.0-51.0 [facility] ([facility]) MCV 87.9 fL 80.0-97.0 [facility] ([place] [facility] MCH 31.4 pg 26.0-32.0 [facility] ([place] [facility] Erythrocyte distribution width [Ratio] by Automated count 12.4 % 11.6-13.7 [facility] ([facility]) MCHC 35.7 g/dL 31.0-38.0 [facility] [facility] Platelets [#/volume] in Blood by Automated count 222 x10*3/UL 140-440 [facility] ([facility]) MPV 7.1 FL 7.8-11.0 [facility] [facility] Lymph % 27.4 % 10.0-58.5 [facility] ([place] [facility] Mid % 7.4 % 1.7-9.3 [facility] ([place] [facility] Neut % 65.2 % 37.0-92.0 [facility] ([place] [facility]) Mid # 0.3 x10*3/UL 0.1-0.6 [facility] ([facility]) Lymph # 1.0 x10*3/UL 0.6-4.1 [facility] ([facility]) Neut # 2.3 x10*3/UL 2.0-7.8 [facility] ([facility]) ID Date Data Source [id number] 02/23/2021 03:20:08 PM EST [facility] PCName: Jsohua BarcenasDOB: 1950Provider: Celi Adams: 02/23/2021 Assessment Osteoarthrosis, localized, [...] operating room I have a team of Intelligence Agent surgeons which helped me with the surgery. I do the entire operation including the skin incision and all the way through implantation of the implants and closure of the deep tissues. After this portion of the operation is completed, the campus administrative assistant surgeons will close the subcutaneous tissue and the skin. During this time, I will be completing a dictation and documentation or possibly even beginning another operation. I am always available to return to the operative room if the need arises. Plan X- Ray I Knee - 3 views (XRays were ordered, obtained and interpreted today in theoffice. Indication: pain/dysfunction.); Status:Complete; Done: 23Feb2021 P erform:SOS29; Due:[id number]; Last Updated By:Lesley Phipps; 02/23/2021 2:55:57 PM;Ordered; For:Left knee pain; Ordered By:Abel Adams;Weight Bearing Status : Weight bearingLaterality: : Left Physical Therapy (SOS) - General Treatment Treatment Status: Complete Done:23Feb2021 Ordered;For: Left knee pain; Ordered By: Abel Adams Performed: Due: [id number]; Last Updated By: Perla Calvin; 02/23/2021 2:08:05 PMPT Protocol : Evaluate and treat as indicated, per protocol or as previously written.Duration: : Four WeeksPT Frequency : Two or three times a weekLaterality and Body Part: : Left knee Signatures Electronically signed by : Abel Adams M.D.; Feb 23 2021 3:20PM EST (Author) Name Value Range Interpretation Code Description Data [facility] Supporting Document(s) ID Date Data Source [id number] 01/18/2021 10:04:00 AM EDT [facility] ([facility]) Name Value Range Interpretation Code Description Data Candace rce(s) Supporting Document(s) Ferritin [Mass/volume] in Serum or Plasma 113 ng/mL 26-388 [facility] ([facility]) ID Date Data Source [id number] 01/18/2021 10:04:00 AM EDT [facility] ([facility]) Name Value Range Interpretation Code Description Data Candace rce(s) Supporting Document(s) Total Iron Binding Capacity 289 ug/dL 250-450 [place] DENT ([facility]) Iron (Fe) 115 ug/dL 65-175 [facility] ([place] [facility] Percent Saturation 39.8 % 19.7-50.0 [facility] ([facility]) ID Date Data Source [id number] 01/18/2021 10:04:00 AM EDT [facility] ([facility]) Name Value Range Interpretation Code Description Data Candace rce(s) Supporting Document(s) Albumin % 60.5 % 55.8-66.1 [facility] ([place] [facility] Ezsmc-0-Rpfianrg % 3.5 % 2.9-4.9 [facility] ([facility] Pcqvh-4-Txjmqyjoz % 8.7 % 7.1-11.8 [facility] ([facility]) Eqyw-2-Cjoxirxll % 4.9 % 4.7-7.2 [facility] ([facility]) Gamma Globulin % 18.0 % 11.1-18.8 [facility] ([facility]) Ewpp-4-Ltvbbywaf % 4.4 % 3.2-6.5 [facility] ([facility]) Ggupy-7-Ddratfmvr 0.26 GM/DL 0.17-0.41 [facility] ([facility]) Albumin 4.54 GM/DL 3.29-5.55 [facility] Vybu-8-Layzclxpk 0.33 GM/DL 0.19-0.55 [facility] ([facility]) Gwjxa-9-Qmjofohxc 0.65 GM/DL 0.42-0.99 [facility] ([facility]) Dpne-7-Hcwkecara 0.37 GM/DL 0.28-0.60 [facility] ([facility]) Gamma Globulins 1.35 GM/DL 0.65-1.58 [facility] ([facility]) Total Protein 7.5 GM/DL 6.4-8.2 [facility] ([facility]) Laboratory test finding (navigational concept) Laboratory test result [facility] ([facility]) REV'D BY Loli Griffith Interpretation For RFX Laboratory test result [facility] ([facility]) NO M-SPIKE(S)NOTED. ID Date Data Source [id number] 01/18/2021 10:04:00 AM EDT [facility] ([facility]) Name Value Range Interpretation Code Description Data Candace rce(s) Supporting Document(s) Vitamin B12 Level 692 pg/mL [facility] ([facility]) VITAMIN B12 NORMAL RANGE NORMAL 247 - 911 PG/ML INDETERMINATE 211 - 246 PG/ML DEFICIENT LESS THAN 211 PG/ML Folate 18.5 ng/mL [facility] ([facility]) FOLATE NORMAL RANGE NORMAL GREATER THAN 5.4 NG/ML INDETERMINATE 3.4-5.4 NG/ML DEFICIENT LESS THAN 3.4 NG/ML ID Date Data Source [id number] 01/18/2021 10:01:00 AM EDT [facility] Name Value Range Interpretation Code Description Data Candace rce(s) Supporting Document(s) Prostate specific Ag [Mass/volume] in Serum or Plasma 1.84 ng/mL [facility] ([facility]) This assay was performed on the Siemens Dimension EXL using the B- Galactosidase/CPRG methodology and should not be compared interchangeably with other methods. The PSA should not be used alone as a screening test for the presence or absence of malignant disease. ID Date Data Source [id number] 01/18/2021 10:00:00 AM EDT [facility] Name Value Range Interpretation Code Description Data Candace rce(s) Supporting Document(s) Erythrocytes [#/volume] in Blood by Automated count 4.60 x10*6/UL 4.2 0-6.30 [facility] ([facility]) Leukocytes [#/volume] in Blood by Automated count 3.8 x10*3/UL 4.1-10 .9 [facility] ([facility]) Hemoglobin [Mass/volume] in Blood 14.3 g/dL 12.0-18.0 [facility] ([facility]) Hematocrit [Volume Fraction] of Blood by Automated count 40.7 % 3 7.0-51.0 [facility] ([facility]) MCH 31.2 pg 26.0-32.0 [facility] ([place] [facility]) MCV 88.5 fL 80.0-97.0 [facility] ([place] [facility]) Erythrocyte distribution width [Ratio] by Automated count 12.6 % 11.6-13.7 [facility] ([facility]) MCHC 35.2 g/dL 31.0-38.0 [facility] ([place] [facility]) Platelets [#/volume] in Blood by Automated count 211 x10*3/UL 140-440 [facility] ([facility]) MPV 7.4 FL 7.8-11.0 [facility] ([place] [facility]) Lymph % 24.0 % 10.0-58.5 [facility] ([place] [facility]) Mid % 7.0 % 1.7-9.3 [facility] ([place] [facility] Neut % 69.0 % 37.0-92.0 [facility] ([place] [facility]) Neut # 2.6 x10*3/UL 2.0-7.8 [facility] ([facility]) Mid # 0.3 x10*3/UL 0.1-0.6 [facility] ([facility]) Lymph # 0.9 x10*3/UL 0.6-4.1 [facility] ([facility]) ID Date Data Source [id number] 01/18/2021 10:00:00 AM EDT [facility] ([facility]) Name Value Range Interpretation Code Description Data Candace rce(s) Supporting Document(s) Thyrotropin [Units/volume] in Serum or Plasma by Detec tion limit <= 0.05 mIU/L 0.96 uIU/mL 0.36-3.74 [facility] ([facility] ) ID Date Data Source [id number] 01/18/2021 10:00:00 AM EDT [facility] ([facility]) Name Value Range Interpretation Code Description Data Candace rce(s) Supporting Document(s) Triglyceride [Mass/volume] in Serum or Plasma 55 mg/dL 30-150 [facility] ([facility]) Cholesterol [Mass/volume] in Serum or Plasma 222 mg/dL 131-200 [facility] ([facility]) Cholesterol in LDL [Mass/volume] in Serum or Plasma by calcu lation 144 CALC 50-159 [facility] ([facility]) Cholesterol in HDL [Mass/volume] in Serum or Plasma 67 mg/dL 35-60 [facility] ([facility]) ID Date Data Source [id number] 01/18/2021 10:00:00 AM [facility] ([facility]) Name Value Range Interpretation Code Description Data Candace rce(s) Supporting Document(s) Glucose [Mass/volume] in Serum or Plasma 97 mg/dL 74-99 [facility] ([facility]) 100-125 mg/dL PRE-DIABETES/FASTING >126 mg/dL DIABETES/FASTING Urea nitrogen [Mass/volume] in Serum or Plasma 21 mg/dL 7-18 [facility] ([facility]) Sodium [Moles/volume] in Serum or Plasma 135 meq/L 136-145 [facility] ([facility]) Creatinine 1.1 mg/dL 0.6-1.3 [facility] ([facility]) Potassium [Moles/volume] in Serum or Plasma 4.9 meq/L 3.5-5.1 [facility] ([facility]) Chloride [Moles/volume] in Serum or Plasma 100 meq/L 98-107 [facility] ([facility]) Carbon dioxide, total [Moles/volume] in Serum or Plasma 29 meq/L 21 -32 [facility] ([facility]) Calcium [Mass/volume] in Serum or Plasma 9.7 mg/dL 8.5-10.1 [facility] ([facility]) Aspartate aminotransferase [Enzymatic activity/volume] in Serum or Plasma 27 U/L 15-37 [facility] ([facility] ) Total Bilirubin 0.9 mg/dL 0.2-1.0 [facility] ([facility]) Alkaline phosphatase isoenzyme [Units/volume] in Serum or Pl asma 50 mg/dL 46-116 [facility] ([facility]) Albumin [Mass/volume] in Serum or Plasma 4.1 g/dL 3.4-5.0 [facility] ([facility]) Alanine aminotransferase [Enzymatic activity/volume] in Seru m or Plasma 27 U/L 12-78 [facility] ([facility]) Proteinase 3 Ab [Units/volume] in Serum 7.6 g/dL 6.4-8.2 [facility] ([facility]) Glomerular filtration rate/1.73 sq M pre dicted among non-blacks [Volume Rate/Area] in Serum or Plasma by Creatinine-based formula (MDRD) Laboratory test result [facility] ([facility] ) A/G Ratio 1.17 CALC 1.00-1.90 [facility] ([facility] [place] [facility]) Glomerular filtration rate/1.73 sq M pre dicted among blacks [Volume Rate/Area] in Serum or Plasma by Creatinine-based formula (MDRD) Laboratory test result [facility] ([facility]) <content>CHRONIC KIDNEY DISEASE STAGING PER NKF</content>
<content></content>
<content>STAGE I & II GFR >= 60 NORMAL TO MILDLY DECREASED</content>
<content>STAGE III GFR 30-59 MODERATELY DECREASED</content>
<content>STAGE IV GFR 15-29 SEVERELY DECREASED</content>
<content>STAGE V GFR <15 VERY LITTLE GFR LEFT</content>
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
<content></content> ID Date Data Source [id number] 01/19/2021 09:33:35 AM EDT [facility] PCName: Joshua NarinderDOB: 1950Provider: Celi [...] previous x-rays. He has a well-positioned [employer] right knee replacement and tricompartmental osteoarthritis of the left knee with caob-lq-lynr medially and patellofemoral joint. DIAGNOSIS:1. Excellent progress a year after right knee replacement. 2. Primary osteoarthritis, left knee, failure of conservative management. TREATMENT: He wants to go ahead with left knee replacement at [facility] [place]. Plan Albumin; Status:Active; Requested for:13Jan2021; Perform:Outside Facility; Order Comments:Please fax results to blood conservation: [phone] Abel Adams.; Due:23Jan2021; Last Updated [...] rce(s) Supporting Document(s) ID Date Data Source [id number] 09/09/2020 09:45:00 AM EDT [facility] Name Value Range Interpretation Code Description Data Candace rce(s) Supporting Document(s) SARS-CoV-2 RNA Resp Ql JESSICA+probe NOT DETECTED [facility] This lab was ordered by [facility] [place] and re ported by [facility]. ID Date Data Source [id number] 06/25/2020 11:24:00 AM EDT [facility] Name Value Range Interpretation Code Description Data Candace rce(s) Supporting Document(s) Erythrocyte sedimentation rate by Westergren method 4 mm/hr 0 - 20 [facility] SED RATE REENTER 4 [facility] ID Date Data Source [id number] 06/25/2020 11:10:00 AM EDT [facility] Name Value Range Interpretation Code Description Data Candace rce(s) Supporting Document(s) C reactive protein [Mass/volume] in Serum or Plasma by High sensitivity method 1.16 MG/L 1.00 - 3.00 [facility] CDC/S HS-CRP CUT-OFF: RELATIVE RISK: <1.0 mg/L Low 1.0 - 3.0 mg/L Average >3.0 mg/L High Optimally, the average of HS-CRP results repeated two weeks apart should be used for risk assessment. ID Date Data Source [id number] 06/25/2020 10:58:00 AM EDT [facility] Name Value Range Interpretation Code Description Data Candace rce(s) Supporting Document(s) CBC W/AUTOMATED DIFF [facility] COMPLETE BLOOD COUNT Leukocytes [#/volume] in Blood by Automated count 3.9 10^3/uL 4.2 - 1 1.0 L [facility] Erythrocytes [#/volume] in Blood by Automated count 4.11 10^6/uL 4. 50 - 6.30 L [facility] Hemoglobin [Mass/volume] in Blood 13.2 g/dL 14.0 - 16.0 L [facility] Hematocrit [Volume Fraction] of Blood by Automated count 38.7 % 4 1.0 - 51.0 L [facility] Erythrocyte mean corpuscular volume [Entitic volume] by Auto mated count 94.2 fL 80.0 - 94.0 H [facility] Erythrocyte mean corpuscular hemoglobin [Entitic mass] by Automated count 32.1 pg 27.0 - 34.0 [facility] Erythrocyte mean corpuscular hemoglobin concentration [Mass/volume] by Automated count 34.1 g/dL 31.0 - 36.0 [facility] Erythrocyte distribution width [Ratio] by Automated count 14.2 % 11.5 - 14.8 [facility] Platelets [#/volume] in Blood by Automated count 234 10^3/uL 150 - 45 0 [facility] Platelet mean volume [Entitic volume] in Blood by Automated count 8.8 fL 7.4 - 10.4 [facility] Neutrophils/100 leukocytes in Blood by Automated count 56.1 % 37. 0 - 80.0 [facility] Lymphocytes/100 leukocytes in Blood by Manual count 25.6 % 25.0 - 40.0 [facility] Monocytes/100 leukocytes in Blood by Automated count 9.0 % 3.0 - 8.0 H [facility] Eosinophils/100 leukocytes in Blood by Automated count 7.7 % 0.0 - 7.0 H [facility] Basophils/100 leukocytes in Blood by Automated count 1.3 % 0.0 - 2.0 [facility] %IG 0.3 % 0.0 - 0.0 [facility] 0.0 % 0.0 - 0.0 [facility] al Neutrophils [#/volume] in Blood by Automated count 2.19 10^3/uL 2.00 - 6.90 [facility] Lymphocytes [#/volume] in Blood by Automated count 1.00 10^3/uL 0.60 - 3.40 [facility] Monocytes [#/volume] in Blood by Automated count 0.35 10^3/uL 0.00 - 0.90 [facility] Eosinophils [#/volume] in Blood by Automated count 0.30 10^3/uL 0.00 - 0.70 [facility] Basophils [#/volume] in Blood by Automated count 0.05 10^3/uL 0.00 - 0.20 [facility] #IG 0.01 10^3/uL 0.00 - 0.10 [facility]ital #NRBC 0.00 10^3/uL 0.00 - 0.00 [facility] MANUAL DIFF NOT INDICATED [facility] RBC MORPH NOT INDICATED [facility] spital ID Date Data Source [id number] 06/15/2020 10:27:00 AM EDT [facility] Name Value Range Interpretation Code Description Data Candace rce(s) Supporting Document(s) C reactive protein [Mass/volume] in Serum or Plasma by High sensitivity method 0.96 MG/L 1.00 - 3.00 L [facility] CDC/S HS-CRP CUT-OFF: RELATIVE RISK: <1.0 mg/L Low 1.0 - 3.0 mg/L Average >3.0 mg/L High Optimally, the average of HS-CRP results repeated two weeks apart should be used for risk assessment. ID Date Data Source [id number] 06/15/2020 10:04:00 AM EDT [facility] Name Value Range Interpretation Code Description Data Candace rce(s) Supporting Document(s) Erythrocyte sedimentation rate by Westergren method 8 mm/hr 0 - 20 [facility] SED RATE REENTER 8 [facility] ID Date Data Source [id number] 06/15/2020 09:28:00 AM EDT [facility] Name Value Range Interpretation Code Description Data Candace rce(s) Supporting Document(s) CBC NO DIFF [facility] COMPLETE BLOOD COUNT Leukocytes [#/volume] in Blood by Automated count 4.1 10^3/uL 4.2 - 1 1.0 L [facility] [facility] Erythrocytes [#/volume] in Blood by Automated count 4.10 10^6/uL 4. 50 - 6.30 L [facility] Hemoglobin [Mass/volume] in Blood 13.3 g/dL 14.0 - 16.0 L [facility] Hematocrit [Volume Fraction] of Blood by Automated count 38.2 % 4 1.0 - 51.0 L [facility] Erythrocyte mean corpuscular volume [Entitic volume] by Auto mated count 93.2 fL 80.0 - 94.0 [facility] Erythrocyte mean corpuscular hemoglobin [Entitic mass] by Automated count 32.4 pg 27.0 - 34.0 [facility] Erythrocyte mean corpuscular hemoglobin concentration [Mass/volume] by Automated count 34.8 g/dL 31.0 - 36.0 [facility] Erythrocyte distribution width [Ratio] by Automated count 13.9 % 11.5 - 14.8 [facility] Platelets [#/volume] in Blood by Automated count 179 10^3/uL 150 - 45 0 [facility] Platelet mean volume [Entitic volume] in Blood by Automated count 8.8 fL 7.4 - 10.4 [facility] ID Date Data Source [id number] 06/08/2020 11:55:00 AM EDT [facility] Name Value Range Interpretation Code Description Data Candace rce(s) Supporting Document(s) C reactive protein [Mass/volume] in Serum or Plasma by High sensitivity method 3.82 MG/L 1.00 - 3.00 H [facility] CDC/AHS HS-CRP CUT-OFF: RELATIVE RISK: <1.0 mg/L Low 1.0 - 3.0 mg/L Average >3.0 mg/L High Optimally, the average of HS-CRP results repeated two weeks apart should be used for risk assessment. ID Date Data Source [id number] 06/08/2020 10:43:00 AM EDT [facility] Name Value Range Interpretation Code Description Data Candace rce(s) Supporting Document(s) Erythrocyte sedimentation rate by Westergren method 8 mm/hr 0 - 20 [facility] SED RATE REENTER 8 [facility] ID Date Data Source [id number] 06/08/2020 09:50:00 AM EDT [facility] Name Value Range Interpretation Code Description Data Candace rce(s) Supporting Document(s) CBC W/AUTOMATED DIFF [facility] COMPLETE BLOOD COUNT Leukocytes [#/volume] in Blood by Automated count 4.1 10^3/uL 4.2 - 1 1.0 L [facility] Erythrocytes [#/volume] in Blood by Automated count 3.90 10^6/uL 4. 50 - 6.30 L [facility] Hemoglobin [Mass/volume] in Blood 12.5 g/dL 14.0 - 16.0 L [facility] Hematocrit [Volume Fraction] of Blood by Automated count 36.2 % 4 1.0 - 51.0 L [facility] Erythrocyte mean corpuscular volume [Entitic volume] by Auto mated count 92.8 fL 80.0 - 94.0 [facility] Erythrocyte mean corpuscular hemoglobin [Entitic mass] by Automated count 32.1 pg 27.0 - 34.0 [facility] Erythrocyte mean corpuscular hemoglobin concentration [Mass/volume] by Automated count 34.5 g/dL 31.0 - 36.0 [facility] Erythrocyte distribution width [Ratio] by Automated count 12.7 % 11.5 - 14.8 [facility] Platelets [#/volume] in Blood by Automated count 136 10^3/uL 150 - 45 0 L [facility] Platelet mean volume [Entitic volume] in Blood by Automated count 9.1 fL 7.4 - 10.4 [facility] Neutrophils/100 leukocytes in Blood by Automated count 52.9 % 37. 0 - 80.0 [facility] Lymphocytes/100 leukocytes in Blood by Manual count 28.1 % 25.0 - 40.0 [facility] Monocytes/100 leukocytes in Blood by Automated count 9.4 % 3.0 - 8.0 H [facility] Eosinophils/100 leukocytes in Blood by Automated count 7.9 % 0.0 - 7.0 H [facility] Basophils/100 leukocytes in Blood by Automated count 1.5 % 0.0 - 2.0 [facility] %IG 0.2 % 0.0 - 0.0 H [facility] %NRBC 0.0 % 0.0 - 0.0 [facility] al Neutrophils [#/volume] in Blood by Automated count 2.14 10^3/uL 2.00 - 6.90 [facility] Lymphocytes [#/volume] in Blood by Automated count 1.14 10^3/uL 0.60 - 3.40 [facility] Monocytes [#/volume] in Blood by Automated count 0.38 10^3/uL 0.00 - 0.90 [facility] Eosinophils [#/volume] in Blood by Automated count 0.32 10^3/uL 0.00 - 0.70 [facility] Basophils [#/volume] in Blood by Automated count 0.06 10^3/uL 0.00 - 0.20 [facility] #IG 0.01 10^3/uL 0.00 - 0.10 [facility] #NRBC 0.00 10^3/uL 0.00 - 0.00 [facility] ospital MANUAL DIFF NOT INDICATED [facility] RBC MORPH NOT INDICATED [facility] ID Date Data Source [id number] 06/01/2020 10:53:00 AM EST [facility] Name Value Range Interpretation Code Description Data Candace rce(s) Supporting Document(s) CBC NO DIFF [facility] ital COMPLETE BLOOD COUNT Leukocytes [#/volume] in Blood by Automated count 3.3 10^3/uL 4.2 - 1 1.0 L [facility] Erythrocytes [#/volume] in Blood by Automated count 3.95 10^6/uL 4. 50 - 6.30 L [facility] Hemoglobin [Mass/volume] in Blood 12.8 g/dL 14.0 - 16.0 L [facility] Hematocrit [Volume Fraction] of Blood by Automated count 36.4 % 4 1.0 - 51.0 L [facility] Erythrocyte mean corpuscular volume [Entitic volume] by Auto mated count 92.2 fL 80.0 - 94.0 [facility] Erythrocyte mean corpuscular hemoglobin [Entitic mass] by Automated count 32.4 pg 27.0 - 34.0 [facility] Erythrocyte mean corpuscular hemoglobin concentration [Mass/volume] by Automated count 35.2 g/dL 31.0 - 36.0 [facility] Erythrocyte distribution width [Ratio] by Automated count 12.3 % 11.5 - 14.8 [facility] Platelets [#/volume] in Blood by Automated count 150 10^3/uL 150 - 45 0 [facility] Platelet mean volume [Entitic volume] in Blood by Automated count 8.6 fL 7.4 - 10.4 [facility] ID Date Data Source [id number] 05/25/2020 12:30:00 PM [facility] Name Value Range Interpretation Code Description Data Candace rce(s) Supporting Document(s) C reactive protein [Mass/volume] in Serum or Plasma by High sensitivity method 1.19 MG/L 1.00 - 3.00 [facility] CDC/[facility] HS-CRP CUT-OFF: RELATIVE RISK: <1.0 mg/L Low 1.0 - 3.0 mg/L Average >3.0 mg/L High Optimally, the average of HS-CRP results repeated two weeks apart should be used for risk assessment. ID Date Data Source [id number] 05/25/2020 12:12:00 PM [facility] Name Value Range Interpretation Code Description Data Candace rce(s) Supporting Document(s) Erythrocyte sedimentation rate by Westergren method 7 mm/hr 0 - 20 [facility] SED RATE REENTER 7 [facility] ID Date Data Source [id number] 05/25/2020 12:03:00 PM [facility] Name Value Range Interpretation Code Description Data Candace rce(s) Supporting Document(s) CBC NO DIFF [facility] ital COMPLETE BLOOD COUNT Leukocytes [#/volume] in Blood by Automated count 3.7 10^3/uL 4.2 - 1 1.0 L [facility] Erythrocytes [#/volume] in Blood by Automated count 4.15 10^6/uL 4. 50 - 6.30 L [facility] Hemoglobin [Mass/volume] in Blood 13.1 g/dL 14.0 - 16.0 L [facility] Hematocrit [Volume Fraction] of Blood by Automated count 38.3 % 4 1.0 - 51.0 L [facility] Erythrocyte mean corpuscular volume [Entitic volume] by Auto mated count 92.3 fL 80.0 - 94.0 [facility] Erythrocyte mean corpuscular hemoglobin [Entitic mass] by Automated count 31.6 pg 27.0 - 34.0 [facility] Erythrocyte mean corpuscular hemoglobin concentration [Mass/volume] by Automated count 34.2 g/dL 31.0 - 36.0 [facility] Erythrocyte distribution width [Ratio] by Automated count 12.8 % 11.5 - 14.8 [facility] Platelets [#/volume] in Blood by Automated count 206 10^3/uL 150 - 45 0 [facility] Platelet mean volume [Entitic volume] in Blood by Automated count 8.8 fL 7.4 - 10.4 [facility] ID Date Data Source [id number] 05/20/2020 12:41:00 PM EST [facility] [address] [address] DISCHARGE SUMMARYNAME: NARINDER Gee ROOM#: 101-1DATE OF : 1950 MR#: [id number] PHYS: Sherley Wilkins MD DATE: 05/17/20 DISCHARGED:ANTICIPATED [...] alone. 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 He is a lifelongnonsmoker. Reports occasional alcohol, and denies drug use.FAMILY HISTORY:Significant for heart attack father and breast cancer mother. He also has one sister with history of breastcancer.PHYSICAL EXAMINATION: [address] [place] [address] DISCHARGE SUMMARYNAME: NARINDER Gee ROOM#: 101-1DATE OF : 1950 MR#: [id number] PHYS: Sherley Wilkins MD DATE: 05/17/20 DISCHARGED:On [...] mouth twice daily. [facility] He is instructed to keep his hand dressing clean and dry,and change the dressing once daily. He will have CBC, ESR, and CRP the day prior to his follow upappointment. All of his concerns were addressed. It was a pleasure to see him today in the hospital.DD: Davian Ray ECHOCARDIOGRAPH TECH 05/20/20 12:25DT: SSR 05/20/20 12:29DS: Davian Ray EDWIGE 05/21/20 11:44 2 Name Value Range Interpretation Code Description Data Candace rce(s) Supporting Document(s) ID Date Data Source [id number] 05/20/2020 07:29:00 [place] [address] PROGRESS NOTENAME: NARINDER Gee ROOM#: 101-1DATE OF : 1950 MR#: [id number] DATE: 05/17/20 OF SERVICE: 05/19/2020UBJECTIVE:The patient is [...] was a pleasure to see him today.DD: Davian Ray, ECHOCARDIOGRAPH TECH 05/19/20 13:01DT: SSR 05/20/20 07:24DS: Davian Ray [facility] 05/20/20 11:24 1 Name Value Range Interpretation Code Description Data [facility](s) Supporting Document(s) ID Date Data Source [id number] 05/20/2020 07:11:00 AM EST [facility] Name Value Range Interpretation Code Description Data [facility](s) Supporting Document(s) CBC W/AUTOMATED DIFF [facility] COMPLETE BLOOD COUNT Leukocytes [#/volume] in Blood by Automated count 4.1 10^3/uL 4.2 - 1 1.0 L [facility] Erythrocytes [#/volume] in Blood by Automated count 4.11 10^6/uL 4. 50 - 6.30 L [facility] Hemoglobin [Mass/volume] in Blood 13.1 g/dL 14.0 - 16.0 L [facility] Hematocrit [Volume Fraction] of Blood by Automated count 37.1 % 4 1.0 - 51.0 L [facility] Erythrocyte mean corpuscular volume [Entitic volume] by Auto mated count 90.3 fL 80.0 - 94.0 [facility] Erythrocyte mean corpuscular hemoglobin [Entitic mass] by Automated count 31.9 pg 27.0 - 34.0 [facility] Erythrocyte mean corpuscular hemoglobin concentration [Mass/volume] by Automated count 35.3 g/dL 31.0 - 36.0 [facility] Erythrocyte distribution width [Ratio] by Automated count 12.4 % 11.5 - 14.8 [facility] Platelets [#/volume] in Blood by Automated count 160 10^3/uL 150 - 45 0 [facility] Platelet mean volume [Entitic volume] in Blood by Automated count 9.0 fL 7.4 - 10.4 [facility] Neutrophils/100 leukocytes in Blood by Automated count 50.0 % 37. 0 - 80.0 [facility] Lymphocytes/100 leukocytes in Blood by Manual count 25.4 % 25.0 - 40.0 [facility] Monocytes/100 leukocytes in Blood by Automated count 10.5 % 3.0 - 8.0 H [facility] Eosinophils/100 leukocytes in Blood by Automated count 12.4 % 0.0 - 7.0 H [facility] Basophils/100 leukocytes in Blood by Automated count 1.5 % 0.0 - 2.0 [facility] %IG 0.2 % 0.0 - 0.0 H [facility] %NRBC 0.0 % 0.0 - 0.0 [facility] al Neutrophils [#/volume] in Blood by Automated count 2.05 10^3/uL 2.00 - 6.90 [facility] Lymphocytes [#/volume] in Blood by Automated count 1.04 10^3/uL 0.60 - 3.40 [facility] Monocytes [#/volume] in Blood by Automated count 0.43 10^3/uL 0.00 - 0.90 [facility] Eosinophils [#/volume] in Blood by Automated count 0.51 10^3/uL 0.00 - 0.70 [facility] Basophils [#/volume] in Blood by Automated count 0.06 10^3/uL 0.00 - 0.20 [facility] #IG 0.01 10^3/uL 0.00 - 0.10 [facility] #NRBC 0.00 10^3/uL 0.00 - 0.00 [facility] MANUAL DIFF NOT INDICATED [facility] RBC MORPH NOT INDICATED [facility] ID Date Data Source [id number] 05/20/2020 07:10:00 AM [facility] Name Value Range Interpretation Code Description Data Candace rce(s) Supporting Document(s) Erythrocyte sedimentation rate by Westergren method 7 mm/hr 0 - 20 [facility] SED RATE REENTER 7 [facility] ID Date Data Source [id number] 05/20/2020 06:53:00 AM [facility] Name Value Range Interpretation Code Description Data Candace rce(s) Supporting Document(s) C reactive protein [Mass/volume] in Serum or Plasma by High sensitivity method 4.19 MG/L 1.00 - 3.00 H [facility] CDC/S HS-CRP CUT-OFF: RELATIVE RISK: <1.0 mg/L Low 1.0 - 3.0 mg/L Average >3.0 mg/L High Optimally, the average of HS-CRP results repeated two weeks apart should be used for risk assessment. ID Date Data Source [id number] 05/18/2020 02:41:00 PM [facility] [address] [place] [address] PROGRESS NOTENAME: NARINDER Gee ROOM#: 101-1DATE OF : 1950 MR#: [id number] DATE: 05/17/20 OF SERVICE: 05/18/2020UBJECTIVE:The patient is [...] rce(s) Supporting Document(s) ID Date Data Source [id number] 05/18/2020 02:35:00 PM EST [facility] [address] [place] [address] PROGRESS NOTENAME: NARINDER Gee ROOM#: [id number] OF : 1950 MR#: [id number] DATE: 05/17/20 OF SERVICE: 05/17/2020UBJECTIVE:The patient is [...] which remains open. He hasbeen following with [facility] regarding that. Today he [...] EDWIGE Villegas 05/17/20 12:19DT: SSR 05/18/20 08:22DS: DI VillegasP 05/19/20 12:55 1 Name Value Range Interpretation Code Description Data Candace rce(s) Supporting Document(s) ID Date Data Source [id number] 05/19/2020 08:51:00 AM [facility] Name Value Range Interpretation Code Description Data Candace rce(s) Supporting Document(s) C reactive protein [Mass/volume] in Serum or Plasma by High sensitivity method 6.36 MG/L 1.00 - 3.00 H [facility] CDC/S HS-CRP CUT-OFF: RELATIVE RISK: <1.0 mg/L Low 1.0 - 3.0 mg/L Average >3.0 mg/L High Optimally, the average of HS-CRP results repeated two weeks apart should be used for risk assessment. ID Date Data Source [id number] 05/19/2020 07:25:00 AM [facility] Name Value Range Interpretation Code Description Data Candace rce(s) Supporting Document(s) Erythrocyte sedimentation rate by Westergren method 8 mm/hr 0 - 20 [facility] SED RATE REENTER 8 [facility] ID Date Data Source [id number] 05/19/2020 07:05:00 AM [facility] Name Value Range Interpretation Code Description Data [facility] CBC W/AUTOMATED DIFF [facility] COMPLETE BLOOD COUNT Leukocytes [#/volume] in Blood by Automated count 4.0 10^3/uL 4.2 - 1 1.0 L [facility] Erythrocytes [#/volume] in Blood by Automated count 4.04 10^6/uL 4. 50 - 6.30 L [facility] Hemoglobin [Mass/volume] in Blood 12.9 g/dL 14.0 - 16.0 L [facility] Hematocrit [Volume Fraction] of Blood by Automated count 36.3 % 4 1.0 - 51.0 L [facility] Erythrocyte mean corpuscular volume [Entitic volume] by Auto mated count 89.9 fL 80.0 - 94.0 [facility] Erythrocyte mean corpuscular hemoglobin [Entitic mass] by Automated count 31.9 pg 27.0 - 34.0 [facility] Erythrocyte mean corpuscular hemoglobin concentration [Mass/volume] by Automated count 35.5 g/dL 31.0 - 36.0 [facility] Erythrocyte distribution width [Ratio] by Automated count 12.5 % 11.5 - 14.8 [facility] Platelets [#/volume] in Blood by Automated count 151 10^3/uL 150 - 45 0 [facility] Platelet mean volume [Entitic volume] in Blood by Automated count 9.0 fL 7.4 - 10.4 [facility] Neutrophils/100 leukocytes in Blood by Automated count 54.5 % 37. 0 - 80.0 [facility] Lymphocytes/100 leukocytes in Blood by Manual count 22.1 % 25.0 - 40.0 L [facility] Monocytes/100 leukocytes in Blood by Automated count 9.8 % 3.0 - 8.0 H [facility] Eosinophils/100 leukocytes in Blood by Automated count 12.3 % 0.0 - 7.0 H [facility] Basophils/100 leukocytes in Blood by Automated count 1.0 % 0.0 - 2.0 [facility] %IG 0.3 % 0.0 - 0.0 H [facility] %NRBC 0.0 % 0.0 - 0.0 [facility] al Neutrophils [#/volume] in Blood by Automated count 2.17 10^3/uL 2.00 - 6.90 [facility] Lymphocytes [#/volume] in Blood by Automated count 0.88 10^3/uL 0.60 - 3.40 [facility] Monocytes [#/volume] in Blood by Automated count 0.39 10^3/uL 0.00 - 0.90 [facility] Eosinophils [#/volume] in Blood by Automated count 0.49 10^3/uL 0.00 - 0.70 [facility] Basophils [#/volume] in Blood by Automated count 0.04 10^3/uL 0.00 - 0.20 [facility] #IG 0.01 10^3/uL 0.00 - 0.10 [facility] #NRBC 0.00 10^3/uL 0.00 - 0.00 [facility]spital MANUAL DIFF NOT INDICATED [facility] RBC MORPH NOT INDICATED [facility] ID Date Data Source [id number] 05/18/2020 08:45:00 AM [facility] Name Value Range Interpretation Code Description Data Candace rce(s) Supporting Document(s) C reactive protein [Mass/volume] in Serum or Plasma by High sensitivity method 10.50 MG/L 1.00 - 3.00 H [facility] CDC/S HS-CRP CUT-OFF: RELATIVE RISK: <1.0 mg/L Low 1.0 - 3.0 mg/L Average >3.0 mg/L High Optimally, the average of HS-CRP results repeated two weeks apart should be used for risk assessment. ID Date Data Source [id number] 05/18/2020 07:13:00 AM [facility] Name Value Range Interpretation Code Description Data Candace rce(s) Supporting Document(s) Erythrocyte sedimentation rate by Westergren method 11 mm/hr 0 - 20 [facility] SED RATE REENTER 11 [facility] ID Date Data Source [id number] 05/18/2020 06:59:00 AM [facility] Name Value Range Interpretation Code Description Data Candace rce(s) Supporting Document(s) CBC W/AUTOMATED DIFF [facility] COMPLETE BLOOD COUNT Leukocytes [#/volume] in Blood by Automated count 3.7 10^3/uL 4.2 - 1 1.0 L [facility] Erythrocytes [#/volume] in Blood by Automated count 3.99 10^6/uL 4. 50 - 6.30 L [facility] Hemoglobin [Mass/volume] in Blood 12.6 g/dL 14.0 - 16.0 L [facility] Hematocrit [Volume Fraction] of Blood by Automated count 35.8 % 4 1.0 - 51.0 L [facility] Erythrocyte mean corpuscular volume [Entitic volume] by Auto mated count 89.7 fL 80.0 - 94.0 [facility] Erythrocyte mean corpuscular hemoglobin [Entitic mass] by Automated count 31.6 pg 27.0 - 34.0 [facility] Erythrocyte mean corpuscular hemoglobin concentration [Mass/volume] by Automated count 35.2 g/dL 31.0 - 36.0 [facility] Erythrocyte distribution width [Ratio] by Automated count 12.4 % 11.5 - 14.8 [facility] Platelets [#/volume] in Blood by Automated count 147 10^3/uL 150 - 45 0 L [facility] Platelet mean volume [Entitic volume] in Blood by Automated count 8.9 fL 7.4 - 10.4 [facility] Neutrophils/100 leukocytes in Blood by Automated count 50.1 % 37. 0 - 80.0 [facility] Lymphocytes/100 leukocytes in Blood by Manual count 22.3 % 25.0 - 40.0 L [facility] Monocytes/100 leukocytes in Blood by Automated count 12.1 % 3.0 - 8.0 H [facility] Eosinophils/100 leukocytes in Blood by Automated count 14.2 % 0.0 - 7.0 H [facility] Basophils/100 leukocytes in Blood by Automated count 1.3 % 0.0 - 2.0 [facility] %IG 0.0 % 0.0 - 0.0 [facility] al %NRBC 0.0 % 0.0 - 0.0 [facility] al Neutrophils [#/volume] in Blood by Automated count 1.87 10^3/uL 2.00 - 6.90 L [facility] Lymphocytes [#/volume] in Blood by Automated count 0.83 10^3/uL 0.60 - 3.40 [facility] Monocytes [#/volume] in Blood by Automated count 0.45 10^3/uL 0.00 - 0.90 [facility] Eosinophils [#/volume] in Blood by Automated count 0.53 10^3/uL 0.00 - 0.70 [facility] Basophils [#/volume] in Blood by Automated count 0.05 10^3/uL 0.00 - 0.20 [facility] #IG 0.00 10^3/uL 0.00 - 0.10 [facility] #NRBC 0.00 10^3/uL 0.00 - 0.00 [facility] MANUAL DIFF NOT INDICATED [facility] RBC MORPH NOT INDICATED [facility] spital ID Date Data Source [id number] 05/16/2020 01:38:00 [place] [address] PROGRESS NOTENAME: NARINDER Gee ROOM#: 101-1DATE OF : 1950 MR#: [id number] DATE: 05/15/20 OF SERVICE: 05/16/20SUBJECTIVE: The patient [...] 13:24DS: Sherley Wilkins MD 05/17/20 14:56 [address] [place] [address] PROGRESS NOTENAME: NARINDER Gee ROOM#: 101-1DATE OF : 1950 MR#: [id number] DATE: 05/15/20 2 Name Value Range Interpretation Code Description Data Candace rce(s) Supporting Document(s) ID Date Data Source [id number] 05/15/2020 01:44:00 [place] [address] CONSULTATIONNAME: NARINDER Gee ROOM#: 101-1DATE OF : 1950 MR#: [id number] PHYS: Sherley Wilkins MD DATE: 05/15/20CHIEF COMPLAINT: [...] which was at that time 1.58. [address] [place] [address] CONSULTATIONNAME: NARINDER Gee ROOM#: 101-1DATE OF : 1950 MR#: [id number] PHYS: Sherley Wilkins MD DATE: 05/15/20ASSESSMENT/PLAN:I explained [...] room today.DD: Sherley Wilkins MD 05/15/20 12:30DT: ALVINO 05/15/20 13:24DS: Sherley Wilkins MD 05/17/20 14:53 2 Name Value Range Interpretation Code Description Data Candace rce(s) Supporting Document(s) ID Date Data Source [id number] 05/17/2020 01:47:00 [place] [address] PHONE: [phone] FAX: [phone] Name .................. : NARINDER Gee Acct Number.................. : [id number] ROOM. ................. : 101-1 MR Number ................... : [id number] Stay type ............. : O/P Discharge Date......... ... : Admit Date ......... : 05/15/20 Admit Phys .................... : FRANKY BENAVIDES Date of ....... : 1950 Family Phys ................... : JANEE BARRERA Phone .................. : [phone] Age ................................ : 70 Film# .................. .:[id number] Sex ................................. : M Unsigned transcriptions are preliminary reports and do not represent a medical or legal document HAND 2 VIEWS LT [id number] COMPLETE:05/15/20 09:36 [facility] 4748 Reason(s): Pain LEFT HAND X-RAY: INDICATION: Pain. FINDINGS/IMPRESSION: There is no fracture or dislocation. No significant degenerative changes. No acute soft tissue abnormality. Electronically Reviewed and Signed By Forrest Lee M.D. , 05/17/20 13:47, UTY Transcribe Initials: PATO , Transcribe Date: 05/15/20 12:53, Dictation Date: Copy for: JANEE SANDOVAL via fax Copy for: EMERGENCY DEPT via modem Copy for: [address] [place] [place] [address] REC Page 1 of 1 Name Value Range Interpretation Code Description Data Candace rce(s) Supporting Document(s) ID Date Data Source [id number] 05/17/2020 08:14:00 AM EST [facility] Name Value Range Interpretation Code Description Data Candace rce(s) Supporting Document(s) Erythrocyte sedimentation rate by Westergren method 10 mm/hr 0 - 20 [facility] SED RATE REENTER 10 [facility] ID Date Data Source [id number] 05/17/2020 07:59:00 AM EST [facility] Name Value Range Interpretation Code Description Data Candace rce(s) Supporting Document(s) C reactive protein [Mass/volume] in Serum or Plasma by High sensitivity method 12.52 MG/L 1.00 - 3.00 H [facility] CDC/S HS-CRP CUT-OFF: RELATIVE RISK: <1.0 mg/L Low 1.0 - 3.0 mg/L Average >3.0 mg/L High Optimally, the average of HS-CRP results repeated two weeks apart should be used for risk assessment. ID Date Data Source [id number] 05/17/2020 07:43:00 AM [facility] Name Value Range Interpretation Code Description Data Candace rce(s) Supporting Document(s) CBC W/AUTOMATED DIFF [facility] COMPLETE BLOOD COUNT Leukocytes [#/volume] in Blood by Automated count 4.7 10^3/uL 4.2 - 1 1.0 [facility] Erythrocytes [#/volume] in Blood by Automated count 4.03 10^6/uL 4. 50 - 6.30 L [facility] Hemoglobin [Mass/volume] in Blood 12.6 g/dL 14.0 - 16.0 L [facility] Hematocrit [Volume Fraction] of Blood by Automated count 36.5 % 4 1.0 - 51.0 L [facility] Erythrocyte mean corpuscular volume [Entitic volume] by Auto mated count 90.6 fL 80.0 - 94.0 [facility] Erythrocyte mean corpuscular hemoglobin [Entitic mass] by Automated count 31.3 pg 27.0 - 34.0 [facility] Erythrocyte mean corpuscular hemoglobin concentration [Mass/volume] by Automated count 34.5 g/dL 31.0 - 36.0 [facility] Erythrocyte distribution width [Ratio] by Automated count 12.4 % 11.5 - 14.8 [facility] Platelets [#/volume] in Blood by Automated count 148 10^3/uL 150 - 45 0 L [facility] Platelet mean volume [Entitic volume] in Blood by Automated count 8.9 fL 7.4 - 10.4 [facility] Neutrophils/100 leukocytes in Blood by Automated count 60.1 % 37. 0 - 80.0 [facility] Lymphocytes/100 leukocytes in Blood by Manual count 16.9 % 25.0 - 40.0 L [facility] Monocytes/100 leukocytes in Blood by Automated count 11.0 % 3.0 - 8.0 H [facility] Eosinophils/100 leukocytes in Blood by Automated count 11.0 % 0.0 - 7.0 H [facility] Basophils/100 leukocytes in Blood by Automated count 0.8 % 0.0 - 2.0 [facility] %IG 0.2 % 0.0 - 0.0 [facility] 0.0 % 0.0 - 0.0 [facility] al Neutrophils [#/volume] in Blood by Automated count 2.84 10^3/uL 2.00 - 6.90 [facility] Lymphocytes [#/volume] in Blood by Automated count 0.80 10^3/uL 0.60 - 3.40 [facility] Monocytes [#/volume] in Blood by Automated count 0.52 10^3/uL 0.00 - 0.90 [facility] Eosinophils [#/volume] in Blood by Automated count 0.52 10^3/uL 0.00 - 0.70 [facility] Basophils [#/volume] in Blood by Automated count 0.04 10^3/uL 0.00 - 0.20 [facility] #IG 0.01 10^3/uL 0.00 - 0.10 [facility] #NRBC 0.00 10^3/uL 0.00 - 0.00 [facility] MANUAL DIFF NOT INDICATED [facility] RBC MORPH NOT INDICATED [facility] spital ID Date Data Source [id number] 05/16/2020 08:19:00 AM [facility] Name Value Range Interpretation Code Description Data Candace rce(s) Supporting Document(s) Erythrocyte sedimentation rate by Westergren method 7 mm/hr 0 - 20 [facility] SED RATE REENTER 7 [facility] ID Date Data Source [id number] 05/16/2020 08:18:00 AM EST [facility] Name Value Range Interpretation Code Description Data Candace rce(s) Supporting Document(s) CBC W/AUTOMATED DIFF [facility] COMPLETE BLOOD COUNT Leukocytes [#/volume] in Blood by Automated count 4.2 10^3/uL 4.2 - 1 1.0 [facility] Erythrocytes [#/volume] in Blood by Automated count 4.07 10^6/uL 4. 50 - 6.30 L [facility] Hemoglobin [Mass/volume] in Blood 13.0 g/dL 14.0 - 16.0 L [facility] Hematocrit [Volume Fraction] of Blood by Automated count 36.7 % 4 1.0 - 51.0 L [facility] Erythrocyte mean corpuscular volume [Entitic volume] by Auto mated count 90.2 fL 80.0 - 94.0 [facility] Erythrocyte mean corpuscular hemoglobin [Entitic mass] by Automated count 31.9 pg 27.0 - 34.0 [facility] Erythrocyte mean corpuscular hemoglobin concentration [Mass/volume] by Automated count 35.4 g/dL 31.0 - 36.0 [facility] Erythrocyte distribution width [Ratio] by Automated count 12.3 % 11.5 - 14.8 [facility] Platelets [#/volume] in Blood by Automated count 145 10^3/uL 150 - 45 0 L [facility] Platelet mean volume [Entitic volume] in Blood by Automated count 8.8 fL 7.4 - 10.4 [facility] Neutrophils/100 leukocytes in Blood by Automated count 65.1 % 37. 0 - 80.0 [facility] Lymphocytes/100 leukocytes in Blood by Manual count 12.3 % 25.0 - 40.0 L [facility] Monocytes/100 leukocytes in Blood by Automated count 12.0 % 3.0 - 8.0 H [facility] Eosinophils/100 leukocytes in Blood by Automated count 9.4 % 0.0 - 7.0 H [facility] Basophils/100 leukocytes in Blood by Automated count 1.0 % 0.0 - 2.0 [facility] %IG 0.2 % 0.0 - 0.0 H [facility] %NRBC 0.0 % 0.0 - 0.0 [facility] al Neutrophils [#/volume] in Blood by Automated count 2.70 10^3/uL 2.00 - 6.90 [facility] Lymphocytes [#/volume] in Blood by Automated count 0.51 10^3/uL 0.60 - 3.40 L [facility] Monocytes [#/volume] in Blood by Automated count 0.50 10^3/uL 0.00 - 0.90 [facility] Eosinophils [#/volume] in Blood by Automated count 0.39 10^3/uL 0.00 - 0.70 [facility] Basophils [#/volume] in Blood by Automated count 0.04 10^3/uL 0.00 - 0.20 [facility] #IG 0.01 10^3/uL 0.00 - 0.10 [facility] #NRBC 0.00 10^3/uL 0.00 - 0.00 [facility] MANUAL DIFF NOT INDICATED [facility] RBC MORPH NOT INDICATED [facility] ID Date Data Source [id number] 05/16/2020 08:15:00 AM EST [facility] Name Value Range Interpretation Code Description Data Candace rce(s) Supporting Document(s) C reactive protein [Mass/volume] in Serum or Plasma by High sensitivity method 5.47 MG/L 1.00 - 3.00 H [facility] CDC/S HS-CRP CUT-OFF: RELATIVE RISK: <1.0 mg/L Low 1.0 - 3.0 mg/L Average >3.0 mg/L High Optimally, the average of HS-CRP results repeated two weeks apart should be used for risk assessment. ID Date Data Source [id number] 05/15/2020 09:00:00 AM EST [facility] 1 OrderSheet [facility] Emergency Department [address] [place] [address] Phone #: ext- [phone] 05/15/2020 08:54 Patient: [...] 09:19 05/15/2020 09:22 Regine Hassan MD; Sienna WARDBlood Culture STAT 09:30 05/15/2020 09:43 [id number] X2 (Regine Parry MD; Sienna RN09:30 05/15/2020)Blood Culture STAT 09:30 05/15/2020 09:43 [id number] X2 (Regine Parry MD; Sienna RN09:40 05/15/2020)COVID-19 CAH (Not STAT 11:31 05/15/2020 11:40 TerrySymptomatic Regine Carroll MD; Sienna RNDefined by [facility])(05/16/20) (First Test)(Hospitalized) (Not) (NotResident inCongregate CareSetting) (NotEmployed inHealthcare Setting)DIAGNOSTIC STUDY ORDERSOrder Description Priority Entered Acknowledged InitialedHand AP And LAT STAT 09:19 05/15/2020 09:22 TerryLeft (Oxygen?(No)) Regine Boyd MD; Sienna WARD Reason for Study: Pain 2 OrderSheet [facility] Emergency Department [address] [place] [address] Phone #: ext- [phone] 05/15/2020 08:54 ------ Patient: JOSHUA BARCENAS Sex: M : 1950 Age: 70yMEDICATION/IV/DRIP/FLUID ORDERSOrder Description Priority Entered Acknowledged Initialed- (Ceftaroline 10:20 05/15/2020 10:39 [id number] IV BID until Regine Boyd MD; Sienna [facility])GENERAL ORDERSOrder Description Priority Entered Acknowledged Initialed[Electronically signed by Milton El RN (14:11 05/15/2020)][Electronically signed by Regine Boyd MD (05:39 05/16/2020)][Electronically locked by Milton El RN (14:11 05/15/2020)] Name Value Range Interpretation Code Description Data Candace rce(s) Supporting Document(s) ID Date Data Source [id number] 05/15/2020 09:00:00 AM EST [facility] 1 Medication Reconciliation Report [facility] Emergency Department [address] [place] [address] Phone #: ext- [phone] 05/15/2020 08:54 Patient: [...] Code Description Data Candace e(s) Supporting Document(s) ID Date Data Source [id number] 05/15/2020 09:00:00 AM [facility] 1 Medication Administration Record [facility] Emergency Department [address] [place] [address] Phone #: ext- [phone] 05/15/2020 08:54 Patient: JOSHUA BARCENAS Sex: M : 1950 Age: 70yWeight: 77.1 kgHeight/Length: 68 inBMI: 25.9ALLERGIES: None Date/Time Medication Administered Medication OrderedStart ceftaroline * - (Ceftaroline 600mg IV BID until10:39 05/15/2020 Dose: 600 mg * IV Fluids further notice)Milton El RN----Stop11:02 05/15/2020Milton El RN Name Value Range Interpretation Code Description Data Candace rce(s) Supporting Document(s) ID Date Data Source [id number] 05/15/2020 09:00:00 AM [facility] 1 General Instructions [facility] Emergency Department [address] [place] [address] Phone #: ext- [phone] 05/15/2020 08:54 Patient: JOSHUA BARCENAS Sex: M : 1950 Age: 70yCellulitis of the left ring finger.Dehisced surgical wound to left hand.(Electronically signed by Regine Boyd MD 05/16/2020 05:39) Name Value Range Interpretation Code Description Data Candace rce(s) Supporting Document(s) ID Date Data Source [id number] 05/15/2020 09:00:00 AM EST [facility] 1 Clinical Report - Nurses [facility] Emergency Department [address] [place] [address] Phone #: [phone]- [phone] 05/15/2020 08:54 Patient: JOSHUA BARCENAS Sex: M [...] or confirmedsigns of infection present. (09:04 05/15/2020). --09:05/15/20 Miltonjalen El, RN09:00 05/15/20. BP: 154/84. MAP: 107. HR: 67. RR: 18. O2 saturation: 98% on room air. Temp: 98.3 F(oral). Pain level now: 0/10. --09:05 05/15/20 Milton El RN.Weight: 77.1 kg stated. Height/Length: 68 inches Per Patient. BMI: 25.9. --09:00 05/15/20 Milton El RN.MedicationsNaproxen Oral 500 mg, 2x a day. --09:05/15/20 Milton lE RN Omeprazole Oral 20 mg, daily. --09:05/15/20 Milton El RN Gabapentin Oral 300 mg, 2x a day. --09:05/15/20 Milton El RN Baclofen 10 mg bid. --09:05/15/20 Milton El RN Medication for neuropathy. --:05/15/20 Milton El RN.AllergiesNone. --:05/15/20 Milton El RN.PROBLEMS:Neuropathy.Gastroesophageal Reflux Disease. --09:05/15/20 Milton El RN.ADDITIONAL SURGERIES:Adenoidectomy.Both hands.Right knee.Tonsillectomy. --09:05/15/20 Milton El RN. 2 Clinical Report - Nurses [facility] Emergency Department [address] [place] [address] Phone #: [phone]- [phone] 05/15/2020 08:54 Patient: JOSHUA BARCENAS Sex: Yazan : 1950 Age: 70y History 09:05 05/15/20. [...] 09:05/15/20. Identification band on patient. To room. --09:05/15/20 Milton El RN.PHYSICAL [id number]:05/15/20. Ambulatory to room.GENERAL / NEURO / PSYCH: Disoriented. Alert. Appears in no acute distress.EXTREMITIES: Left ring finger: (dressing in place).SKIN: Skin is warm and dry. --09:05/15/20 Milton El RN.NURSING PROGRESS NOTES09:05/15/20. Two patient identifiers checked. Call light placed in reach. Bed placed in lowestposition. Brakes of bed on. Patient ready for evaluation- ED physician notified. --09:05/15/20 ED Pulido Checked patient name and birthdate: patient confirmed. Blood samples drawn by tech. ([id number]). Patient walked to radiology with mask and ct scan technician. (14). Patient walked back from radiology with mask and ct scan technician. (919). --09:49 05/15/20 Milton El RN 3 Clinical Report - Nurses [facility] Emergency Department [address] [place] [address] Phone #: ext- [phone] 05/15/2020 08:54 Patient: JOSHUA BARCENAS Sex: M : 1950 Age: 70y Wound cleansed with sterile saline ([address] Mart). --10:19 1 Milton El RN 10:34 05/15/2020 Site #1 [...] of the patient and sent to lab (4815). --11:41 05/15/20 Milton El RN.DISPOSITION / DISCHARGE [...] El RN 4 Clinical Report - Nurses [facility] Emergency Department [address] [place] [address] Phone #: ext- [phone] 05/15/2020 08:54 Patient: JOSHUA BARCENAS Sex: M : 1950 Age: 70y Name Value Range Interpretation Code Description Data Candace rce(s) Supporting Document(s) ID Date Data Source [id number] 05/15/2020 09:00:00 AM EST [facility] 1 Clinical Report - Physicians/Mid Levels [facility] Emergency Department [address] [place] [address] Phone #: ext- [phone] 05/15/2020 08:54 [id number] Sex: [facility] : 1950 Age: 70y Arrived- [...] day. 2 Clinical Report - Physicians/Mid Levels [facility] Emergency Department [address] [place] [address] Phone #: ext- [phone] 05/15/2020 08:54 [id number] Sex: M : 1950 Age: 70y Omeprazole [...] 36.0) 3 Clinical Report - Physicians/Mid Levels [facility] Emergency Department [address] [place] [address] Phone #: ext- [phone] 05/15/2020 08:54 Patient: [...] Male GFR Interprentation 20-49 yrs >60 mL/min Daisiu71-87 yrs >56 mL/min Normal 60-69 yrs >49 mL/min Normal 70-79yrs>42 mL/min Normal 80 and above >35 mL/min Normal Female GFRInterpretation 20-39 yrs >60 mL/min Normal 40-49 yrs >58 mL/minNormal 50-59 yrs >51 mL/min Normal 60-69 yrs >45 mL/min Qrvbes00-55 yrs >39 mL/min Normal 80 and above >32 mL/min NormalSed. Rate: (YOLY: 05/15/2020 09:50) ( MsgRcvd 05/15/2020 10:53) Final results Test Result Flag Units (Reference) SED RATE 7 mm/hr (0 - 20) SED RATE REENTER 7CRP: (YOLY: 05/15/2020 09:50) ( MsgRcvd 05/15/2020 10:32) Final results 4 Clinical Report - Physicians/Mid Levels [facility] Emergency Department [address] [place] [address] Phone #: ext- [phone] 05/15/2020 08:54 Patient: [...] wound to left hand.(Electronically signed by Regine Boyd MD 05/16/2020 05:39) Name Value Range Interpretation Code Description Data Candace rce(s) Supporting Document(s) ID Date Data Source [id number] 05/15/2020 11:35:00 AM EST [facility] Name Value Range Interpretation Code Description Data Candace rce(s) Supporting Document(s) COVID19 Case rprt NOT DETECTED [facility] This lab was ordered by [facility] JIMY SAMPSON and reported by [facility]. ID Date Data Source [id number] 05/15/2020 12:19:00 PM [facility] NOT DETECTEDNOT DETECTED{ PROC EDURAL CONTROL VALID KIT LOT # _[id number] 05/15/20.9.MD . KIT EXP DATE _06.11.20 05/15/20.1218. . NORMAL RANGE IS NOT DETECTEDNEGATIVE RESULTS [...] rce(s) Supporting Document(s) ID Date Data Source [id number] 05/23/2020 02:21:00 PM [facility] Name Value Range Interpretation Code Description Data Candace rce(s) Supporting Document(s) CULTURE BLOOD [facility] _CULTURE BLOOD_ TEST PERFORM ED AT [address] [address] CLIA# [id number] SEE SCANNED REPORT{ PRELIM ID Date Data Source [id number] 05/21/2020 12:27:00 PM EST [facility] [address] Name Value Range Interpretation Code Description Data Candace rce(s) Supporting Document(s) Bacteria identified in Blood by Culture [facility] NO GROWTH AFTER 5 DAYS ID Date Data Source [id number] 05/23/2020 02:21:00 PM EST [facility] Name Value Range Interpretation Code Description Data Candace rce(s) Supporting Document(s) CULTURE BLOOD [facility] spital _CULTURE BLOOD_ TEST [place] [address] CLIA# [id number] SEE SCANNED REPORT{ PRELIM ID Date Data Source [id number] 05/15/2020 10:51:00 AM [facility] Name Value Range Interpretation Code Description Data Candace rce(s) Supporting Document(s) Erythrocyte sedimentation rate by Westergren method 7 mm/hr 0 - 20 [facility] SED RATE REENTER 7 [facility] ID Date Data Source [id number] 05/15/2020 10:39:00 AM [facility] Name Value Range Interpretation Code Description Data Candace rce(s) Supporting Document(s) CBC W/AUTOMATED DIFF [facility] COMPLETE BLOOD COUNT Leukocytes [#/volume] in Blood by Automated count 3.9 10^3/uL 4.2 - 1 1.0 L [facility] Erythrocytes [#/volume] in Blood by Automated count 4.13 10^6/uL 4. 50 - 6.30 L [facility] Hemoglobin [Mass/volume] in Blood 13.2 g/dL 14.0 - 16.0 L [facility] Hematocrit [Volume Fraction] of Blood by Automated count 37.4 % 4 1.0 - 51.0 L [facility] Erythrocyte mean corpuscular volume [Entitic volume] by Auto mated count 90.6 fL 80.0 - 94.0 [facility] Erythrocyte mean corpuscular hemoglobin [Entitic mass] by Automated count 32.0 pg 27.0 - 34.0 [facility] Erythrocyte mean corpuscular hemoglobin concentration [Mass/volume] by Automated count 35.3 g/dL 31.0 - 36.0 [facility] Erythrocyte distribution width [Ratio] by Automated count 12.1 % 11.5 - 14.8 [facility] Platelets [#/volume] in Blood by Automated count 158 10^3/uL 150 - 45 0 [facility] Platelet mean volume [Entitic volume] in Blood by Automated count 8.9 fL 7.4 - 10.4 [facility] Neutrophils/100 leukocytes in Blood by Automated count 63.1 % 37. 0 - 80.0 [facility] Lymphocytes/100 leukocytes in Blood by Manual count 19.9 % 25.0 - 40.0 L [facility] Monocytes/100 leukocytes in Blood by Automated count 9.3 % 3.0 - 8.0 H [facility] Eosinophils/100 leukocytes in Blood by Automated count 6.7 % 0.0 - 7.0 [facility] Basophils/100 leukocytes in Blood by Automated count 1.0 % 0.0 - 2.0 [facility] %IG 0.0 % 0.0 - 0.0 [facility] %NRBC 0.0 % 0.0 - 0.0 [facility] al Neutrophils [#/volume] in Blood by Automated count 2.43 10^3/uL 2.00 - 6.90 [facility] Lymphocytes [#/volume] in Blood by Automated count 0.77 10^3/uL 0.60 - 3.40 [facility] Monocytes [#/volume] in Blood by Automated count 0.36 10^3/uL 0.00 - 0.90 [facility] Eosinophils [#/volume] in Blood by Automated count 0.26 10^3/uL 0.00 - 0.70 [facility] Basophils [#/volume] in Blood by Automated count 0.04 10^3/uL 0.00 - 0.20 [facility] #IG 0.00 10^3/uL 0.00 - 0.10 [facility] ospital #NRBC 0.00 10^3/uL 0.00 - 0.00 [facility] MANUAL DIFF NOT INDICATED [facility] RBC MORPH NOT INDICATED [facility] spital ID Date Data Source [id number] 05/15/2020 10:39:00 AM EST [facility] Name Value Range Interpretation Code Description Data Candace rce(s) Supporting Document(s) COMPREHENSIVE METABOLIC PANEL [facility] COMPREHENSIVE METABOLIC PANEL Sodium [Moles/volume] in Serum or Plasma 134 mEq/L 134 - 153 [facility] Potassium [Moles/volume] in Serum or Plasma 4.8 mEq/L 3.6 - 5.0 [facility] Chloride [Moles/volume] in Serum or Plasma 100 mEq/L 98 - 107 [facility] Carbon dioxide, total [Moles/volume] in Serum or Plasma 29 MEQ/L 22 - 30 [facility] Glucose [Mass/volume] in Serum or Plasma 97 MG/DL 70 - 99 [facility] BUN 19 MG/DL 7 - 21 [facility] Creatinine [Mass/volume] in Serum or Plasma 1.1 MG/DL 0.7 - 1.5 [facility] BUN/CREAT 17 8 - 27 [facility] Protein [Mass/volume] in Serum or Plasma 6.8 G/DL 6.3 - 8.2 [facility] Albumin [Mass/volume] in Serum or Plasma 4.1 G/DL 3.9 - 5.0 [facility] Globulin [Mass/volume] in Serum by calculation 2.7 GM/DL 2.4 - 3.2 [facility] A/G RATIO 1.5 0.8 - 2.0 [facility] Calcium [Mass/volume] in Serum or Plasma 9.2 MG/DL 8.4 - 10.2 [facility] Bilirubin.total [Mass/volume] in Serum or Plasma <0.7 MG/DL 0.2 - 1.3 [facility] Alkaline phosphatase [Enzymatic activity/volume] in Serum or Plasma 47 U/L 38 - 126 [facility] Aspartate aminotransferase [Enzymatic activity/volume] in Serum or Plasma 23 U/L 5 - 40 [facility] Alanine aminotransferase [Enzymatic activity/volume] in Seru m or Plasma 16 U/L 7 - 56 [facility] Anion gap 3 in Serum or Plasma 5.0 mmol/L 8.0 - 16.0 L [facility] AGE 70 yrs [facility] al NON-AA GFR >60 mL/min [facility] ital AFR AMER GFR >60 mL/min [facility] Male GFR In terprentation 20-49 [...] >32 mL/min Normal ID Date Data Source [id number] 05/15/2020 10:32:00 AM [facility] Name Value Range Interpretation Code Description Data Candace rce(s) Supporting Document(s) C reactive protein [Mass/volume] in Serum or Plasma by High sensitivity method 2.13 MG/L 1.00 - 3.00 [facility] HS-CRP CUT-OFF: RELATIVE RISK: <1.0 mg/L Low 1.0 - 3.0 mg/L Average >3.0 mg/L High Optimally, the average of HS-CRP results repeated two weeks apart should be used for risk assessment. ID Date Data Source [id number] 05/17/2020 06:03:00 PM [facility] [address] Name Value Range Interpretation Code Description Data Candace rce(s) Supporting Document(s) Bacteria identified in Blood by Culture [facility] NO GROWTH AFTER 5 DAYS ID Date Data Source [id number] 05/18/2020 12:54:00 PM [facility] Name Value Range Interpretation Code Description Data Candace rce(s) Supporting Document(s) [facility] BLOOD CULTURE [facility] _CULTURE BLOOD_{ PRELIM TEST PERFORMED AT [facility] [address] [place] [address] CLIA# [id number] SEE SCANNED REPORT ID Date Data Source [id number] 05/12/2020 11:16:00 AM [facility] Name Value Range Interpretation Code Description Data Candace rce(s) Supporting Document(s) BASIC METABOLIC PANEL [facility] BASIC METABOLIC PANEL Sodium [Moles/volume] in Serum or Plasma 134 mEq/L 134 - 153 [facility] Potassium [Moles/volume] in Serum or Plasma 4.7 mEq/L 3.6 - 5.0 [facility] Chloride [Moles/volume] in Serum or Plasma 99 mEq/L 98 - 107 [facility] Carbon dioxide, total [Moles/volume] in Serum or Plasma 26 MEQ/L 22 - 30 [facility] Glucose [Mass/volume] in Serum or Plasma 106 MG/DL 70 - 99 H [facility] BUN 18 MG/DL 7 - 21 [facility] al Creatinine [Mass/volume] in Serum or Plasma 1.1 MG/DL 0.7 - 1.5 [facility] BUN/CREAT 16 8 - 27 [facility] Calcium [Mass/volume] in Serum or Plasma 9.1 MG/DL 8.4 - 10.2 [facility] Anion gap 3 in Serum or Plasma 9.0 mmol/L 8.0 - 16.0 [facility] AGE 70 yrs [facility] al AFR AMER GFR >60 mL/min [facility] NON-AA GFR >60 mL/min [facility] ital Male GFR Inter prentation 20-49 [...] >32 mL/min Normal ID Date Data Source [id number] 05/12/2020 09:39:00 AM EST [facility] Name Value Range Interpretation Code Description Data Candace rce(s) Supporting Document(s) C reactive protein [Mass/volume] in Serum or Plasma by High sensitivity method 1.58 MG/L 1.00 - 3.00 [facility] CDC/S HS-CRP CUT-OFF: RELATIVE RISK: <1.0 mg/L Low 1.0 - 3.0 mg/L Average >3.0 mg/L High Optimally, the average of HS-CRP results repeated two weeks apart should be used for risk assessment. ID Date Data Source [id number] 05/12/2020 09:34:00 AM EST [facility] Name Value Range Interpretation Code Description Data Candace rce(s) Supporting Document(s) Erythrocyte sedimentation rate by Westergren method 7 mm/hr 0 - 20 [facility] SED RATE REENTER 7 [facility] ID Date Data Source [id number] 05/12/2020 08:05:00 AM EST [facility] Name Value Range Interpretation Code Description Data Candace rce(s) Supporting Document(s) Erythrocyte sedimentation rate by Westergren method 8 mm/hr 0 - 20 [facility] SED RATE REENTER 8 [facility] ID Date Data Source [id number] 05/12/2020 07:49:00 AM EST [facility] Name Value Range Interpretation Code Description Data Candace rce(s) Supporting Document(s) CBC W/AUTOMATED DIFF [facility] COMPLETE BLOOD COUNT Leukocytes [#/volume] in Blood by Automated count 4.0 10^3/uL 4.2 - 1 1.0 L [facility] Erythrocytes [#/volume] in Blood by Automated count 4.18 10^6/uL 4. 50 - 6.30 L [facility] Hemoglobin [Mass/volume] in Blood 13.1 g/dL 14.0 - 16.0 L [facility] Hematocrit [Volume Fraction] of Blood by Automated count 38.4 % 4 1.0 - 51.0 L [facility] Erythrocyte mean corpuscular volume [Entitic volume] by Auto mated count 91.9 fL 80.0 - 94.0 [facility] Erythrocyte mean corpuscular hemoglobin [Entitic mass] by Automated count 31.3 pg 27.0 - 34.0 [facility] Erythrocyte mean corpuscular hemoglobin concentration [Mass/volume] by Automated count 34.1 g/dL 31.0 - 36.0 [facility] Erythrocyte distribution width [Ratio] by Automated count 11.9 % 11.5 - 14.8 [facility] Platelets [#/volume] in Blood by Automated count 175 10^3/uL 150 - 45 0 [facility] Platelet mean volume [Entitic volume] in Blood by Automated count 8.6 fL 7.4 - 10.4 [facility] Neutrophils/100 leukocytes in Blood by Automated count 47.9 % 37. 0 - 80.0 [facility] Lymphocytes/100 leukocytes in Blood by Manual count 27.5 % 25.0 - 40.0 [facility] Monocytes/100 leukocytes in Blood by Automated count 10.8 % 3.0 - 8.0 H [facility] Eosinophils/100 leukocytes in Blood by Automated count 12.0 % 0.0 - 7.0 H [facility] Basophils/100 leukocytes in Blood by Automated count 1.5 % 0.0 - 2.0 [facility] %IG 0.3 % 0.0 - 0.0 H [facility] %NRBC 0.0 % 0.0 - 0.0 [facility] Neutrophils [#/volume] in Blood by Automated count 1.92 10^3/uL 2.00 - 6.90 L [facility] Lymphocytes [#/volume] in Blood by Automated count 1.10 10^3/uL 0.60 - 3.40 [facility] Monocytes [#/volume] in Blood by Automated count 0.43 10^3/uL 0.00 - 0.90 [facility] Eosinophils [#/volume] in Blood by Automated count 0.48 10^3/uL 0.00 - 0.70 [facility] Basophils [#/volume] in Blood by Automated count 0.06 10^3/uL 0.00 - 0.20 [facility] #IG 0.01 10^3/uL 0.00 - 0.10 [facility] #NRBC 0.00 10^3/uL 0.00 - 0.00 [facility] MANUAL DIFF NOT INDICATED [facility] RBC MORPH NOT INDICATED [facility] ID Date Data Source [id number] 04/28/2020 12:43:00 PM EST [facility] [address] [place] [address] DISCHARGE SUMMARYNAME: NARINDER Gee ROOM#: 101-1DATE OF : 1950 MR#: [id number] PHYS: Sherley Wilkins MD DATE: 04/23/20 DISCHARGED:HISTORY [...] in 2008, basal cell carcinoma excision in 2016,bilateral carpal [...] lives alone. 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 He denies drug use and denies any caffeine use.REVIEW OF SYSTEMS:Significant for sleep apnea, hypercholesterolemia, GERD, gout, and history of basal cell carcinoma.FAMILY HISTORY:Significant for heart attack in his father, and mother with breast cancer as well as one sister also with breastcancer. [address] [id number] DISCHARGE SUMMARYNAME: NARINDER Gee ROOM#: 101-1DATE OF : 1950 MR#: [id number] PHYS: Sherley Wilkins MD DATE: 04/23/20 DISCHARGED:JIMY VALENTINE COURSE:His course in the hospital was uneventful. [...] on his cell phone [facility] he should have any complications.DD: EDWIGE Villegas 04/28/20 11:55DT: SSR 04/28/20 12:31DS: EDWIGE Villegas 04/29/20 12:19 2 Name Value Range Interpretation Code Description Data Candace rce(s) Supporting Document(s) ID Date Data Source [id number] 04/27/2020 12:27:00 [place] [address] PROGRESS NOTENAME: NARINDER Gee ROOM#: 101-1DATE OF : 1950 MR#: [id number] DATE: 04/23/20 OF SERVICE: 04/26/2020UBJECTIVE:The patient is [...] in thehospital today.DD: EDWIGE Villegas 04/26/20 14:34DT: TOBI 04/27/20 12:22DS: EDWIGE Villegas 04/28/20 11:36 1 Name Value Range Interpretation Code Description Data Candace rce(s) Supporting Document(s) ID Date Data Source [id number] 04/27/2020 12:16:00 [place] [address] PROGRESS NOTENAME: NARINDER Gee ROOM#: [id number] OF : 1950 MR#: [id number] DATE: 04/23/20 OF SERVICE: 04/27/2020UBJECTIVE:The patient is [...] did have a10 degree contraction.LABORATORY DATA:As of 02/02/21 show white blood cell count of 4.2, [...] pleasure to see him in the hospital.DD: EDWIGE Villegas 04/27/20 12:03DT: SSR 04/27/20 12:11DS: EDWIGE Villegas 04/28/20 11:36 1 Name Value Range Interpretation Code Description Data [facility] rce(s) Supporting Document(s) ID Date Data Source [id number] 04/28/2020 05:45:00 AM EST [facility] ([facility]) Name Value Range Interpretation Code Description Data Candace rce(s) Supporting Document(s) WBC 5.7 10^3/uL 4.2-11.0 [facility] ([facility]) CBC W/Automated Diff Laboratory test result [facility] ([facility]) COMPLETE BLOOD COUNT RBC 4.22 10^6/uL 4.50-6.30 Below low normal [facility] ([facility]) Hemoglobin 13.1 g/dL 14.0-16.0 Below low normal [facility] ( [facility]) Hematocrit 37.2 % 41.0-51.0 Below low normal [facility] ( [facility]) MCV 88.2 fL 80.0-94.0 [facility] ([facility]) MCH 31.0 pg 27.0-34.0 [facility] ([facility]) MCHC 35.2 g/dL 31.0-36.0 [facility] ([facility]) Platelets 205 10^3/uL 150-450 [facility] ([facility]) RDW 11.1 % 11.5-14.8 Below low normal [facility] ([facility]) MPV 8.8 fL 7.4-10.4 [facility] ([facility]) [place] 7.3 % 3.0-8.0 [facility] ([facility]) Neut 68.2 % 37.0-80.0 [facility] ([facility]) Lymph 16.6 % 25.0-40.0 Below low normal [facility] ( [facility]) Eos 6.8 % 0.0-7.0 [facility] ([facility]) %Ig 0.2 % 0.0-0.0 Above high normal [facility] ([facility]) Baso 0.9 % 0.0-2.0 [facility] ([facility]) %NRBC 0.0 % 0.0-0.0 [facility] ([facility]) #Neut 3.92 10^3/uL 2.00-6.90 [facility] ([facility]) #[place] 0.42 10^3/uL 0.00-0.90 [facility] ([facility]) #Lymph 0.95 10^3/uL 0.60-3.40 [facility] ([facility]) #Baso 0.05 10^3/uL 0.00-0.20 [facility] ([facility]) #Ig 0.01 10^3/uL 0.00-0.10 [facility] ([facility]) #Eos 0.39 10^3/uL 0.00-0.70 [facility] ([facility]) #NRBC 0.00 10^3/uL 0.00-0.00 [facility] ([facility]) RBC Morph Laboratory test result [facility] ([facility]) Manual Diff Laboratory test result [facility] ([facility]) ID Date Data Source [id number] 04/28/2020 05:45:00 AM EST [facility] ([facility]) Name Value Range Interpretation Code Description Data Candace rce(s) Supporting Document(s) C reactive protein [Mass/volume] in Serum or Plasma by High sensitivity method 4.80 mg/L 1.00-3.00 Above high normal [facility]) <content>CDC/AHS HS-CRP CUT-OFF: RELATIVE RISK:</content>
<content><1.0 mg/L Low</content>
<content>1.0 - 3.0 mg/L Average</michelle nt>
<content>>3.0 mg/L High</content>
<content>Optimally, the average of HS-CRP results repeated</content>
<content>two weeks apart should be used for risk assessment.</content>
<content></content> ID Date Data Source [id number] 04/28/2020 05:45:00 AM EST [facility] ([facility]) Name Value Range Interpretation Code Description Data Candace rce(s) Supporting Document(s) Sed Rate 9 mm/hr 0-20 [facility] ([facility]) Sed Rate Reenter 9 [facility] ([facility]) ID Date Data Source [id number] 04/28/2020 07:14:00 AM [facility] Name Value Range Interpretation Code Description Data Candace rce(s) Supporting Document(s) CBC W/AUTOMATED DIFF [facility] COMPLETE BLOOD COUNT Leukocytes [#/volume] in Blood by Automated count 5.7 10^3/uL 4.2 - 1 1.0 [facility] Erythrocytes [#/volume] in Blood by Automated count 4.22 10^6/uL 4. 50 - 6.30 L [facility] Hemoglobin [Mass/volume] in Blood 13.1 g/dL 14.0 - 16.0 L [facility] Hematocrit [Volume Fraction] of Blood by Automated count 37.2 % 4 1.0 - 51.0 L [facility] Erythrocyte mean corpuscular volume [Entitic volume] by Auto mated count 88.2 fL 80.0 - 94.0 [facility] Erythrocyte mean corpuscular hemoglobin [Entitic mass] by Automated count 31.0 pg 27.0 - 34.0 [facility] Erythrocyte mean corpuscular hemoglobin concentration [Mass/volume] by Automated count 35.2 g/dL 31.0 - 36.0 [facility] Erythrocyte distribution width [Ratio] by Automated count 11.1 % 11.5 - 14.8 L [facility] Platelets [#/volume] in Blood by Automated count 205 10^3/uL 150 - 45 0 [facility] Platelet mean volume [Entitic volume] in Blood by Automated count 8.8 fL 7.4 - 10.4 [facility] Neutrophils/100 leukocytes in Blood by Automated count 68.2 % 37. 0 - 80.0 [facility] Lymphocytes/100 leukocytes in Blood by Manual count 16.6 % 25.0 - 40.0 L [facility] Monocytes/100 leukocytes in Blood by Automated count 7.3 % 3.0 - 8.0 [facility] Eosinophils/100 leukocytes in Blood by Automated count 6.8 % 0.0 - 7.0 [facility] Basophils/100 leukocytes in Blood by Automated count 0.9 % 0.0 - 2.0 [facility] %IG 0.2 % 0.0 - 0.0 [facility] %NRBC 0.0 % 0.0 - 0.0 [facility] al Neutrophils [#/volume] in Blood by Automated count 3.92 10^3/uL 2.00 - 6.90 [facility] Lymphocytes [#/volume] in Blood by Automated count 0.95 10^3/uL 0.60 - 3.40 [facility] Monocytes [#/volume] in Blood by Automated count 0.42 10^3/uL 0.00 - 0.90 [facility] Eosinophils [#/volume] in Blood by Automated count 0.39 10^3/uL 0.00 - 0.70 [facility] Basophils [#/volume] in Blood by Automated count 0.05 10^3/uL 0.00 - 0.20 [facility] #IG 0.01 10^3/uL 0.00 - 0.10 [facility] ospital #NRBC 0.00 10^3/uL 0.00 - 0.00 [facility]ital MANUAL DIFF NOT INDICATED [facility] RBC MORPH NOT INDICATED [facility] spital ID Date Data Source [id number] 04/28/2020 07:04:00 AM EST [facility] Name Value Range Interpretation Code Description Data Candace rce(s) Supporting Document(s) C reactive protein [Mass/volume] in Serum or Plasma by High sensitivity method 4.80 MG/L 1.00 - 3.00 H [facility] CDC/S HS-CRP CUT-OFF: RELATIVE RISK: <1.0 mg/L Low 1.0 - 3.0 mg/L Average >3.0 mg/L High Optimally, the average of HS-CRP results repeated two weeks apart should be used for risk assessment. ID Date Data Source [id number] 04/28/2020 07:03:00 AM [facility] Name Value Range Interpretation Code Description Data Candace rce(s) Supporting Document(s) Erythrocyte sedimentation rate by Westergren method 9 mm/hr 0 - 20 [facility] SED RATE REENTER 9 [facility] ID Date Data Source [id number] 04/26/2020 07:45:00 AM [facility] [address] [place] [address] PROGRESS NOTENAME: NARINDER Gee ROOM#: 101-1DATE OF : 1950 MR#: [id number] DATE: 04/23/20 OF SERVICE: 04/23/2020UBJECTIVE:The patient is [...] It was apleasure to see him.DD: Davian FlorezDI bellP 04/23/20 12:51DT: SSR 04/26/20 07:40DS: Davian FlorezEDWIGE bell 04/27/20 12:05 1 Name Value Range Interpretation Code Description Data Candace rce(s) Supporting Document(s) ID Date Data Source [id number] 04/27/2020 06:05:00 AM EST [facility] ([facility]) Name Value Range Interpretation Code Description Data Candace rce(s) Supporting Document(s) Sed Rate Reenter 8 [facility] ([facility]) Sed Rate 8 mm/hr 0-20 [facility] ([facility]) ID Date Data Source [id number] 04/27/2020 06:05:00 AM EST [facility] ([facility]) Name Value Range Interpretation Code Description Data Candace rce(s) Supporting Document(s) RBC 4.16 10^6/uL 4.50-6.30 Below low normal [facility] ([facility]) CBC W/Automated Diff Laboratory test result [facility] ([facility]) COMPLETE BLOOD COUNT WBC 4.2 10^3/uL 4.2-11.0 [facility] ([facility]) Hematocrit 37.0 % 41.0-51.0 Below low normal [facility] ( [facility]) MCV 88.9 fL 80.0-94.0 [facility] ([facility]) Hemoglobin 13.1 g/dL 14.0-16.0 Below low normal [facility] ( [facility]) MCHC 35.4 g/dL 31.0-36.0 [facility] ([facility]) RDW 11.2 % 11.5-14.8 Below low normal [facility] ([facility]) MCH 31.5 pg 27.0-34.0 [facility] ([facility]) Platelets 202 10^3/uL 150-450 [facility] ([facility]) MPV 8.7 fL 7.4-10.4 [facility] ([facility]) Lymph 23.6 % 25.0-40.0 Below low normal [facility] ( [facility]) [place] 9.1 % 3.0-8.0 Above high normal [facility] ([facility]) Neut 54.4 % 37.0-80.0 [facility] ([facility]) Eos 11.5 % 0.0-7.0 Above high normal [facility] ([facility]) %Ig 0.0 % 0.0-0.0 [facility] ([facility]) Baso 1.4 % 0.0-2.0 [facility] ([facility]) #Neut 2.28 10^3/uL 2.00-6.90 [facility] ([facility]) #Lymph 0.99 10^3/uL 0.60-3.40 [facility] ([facility]) %NRBC 0.0 % 0.0-0.0 [facility] ([facility]) #Eos 0.48 10^3/uL 0.00-0.70 [facility] ([facility]) #Baso 0.06 10^3/uL 0.00-0.20 [facility] ([facility]) #[place] 0.38 10^3/uL 0.00-0.90 [facility] ([facility]) #Ig 0.00 10^3/uL 0.00-0.10 [facility] ([facility]) #NRBC 0.00 10^3/uL 0.00-0.00 [facility] ([facility]) Manual Diff Laboratory test result [facility] ([facility]) RBC Morph Laboratory test result [facility] ([facility]) ID Date Data Source [id number] 04/27/2020 06:05:00 AM EST [facility] ([facility]) Name Value Range Interpretation Code Description Data Candace rce(s) Supporting Document(s) C reactive protein [Mass/volume] in Serum or Plasma by High sensitivity method 6.72 mg/L 1.00-3.00 Above high normal [facility] ([facility]) <content>CDC/S HS-CRP CUT-OFF: RELATIVE RISK:</content>
<content><1.0 mg/L Low</content>
<content>1.0 - 3.0 mg/L Average</michelle nt>
<content>>3.0 mg/L High</content>
<content>Optimally, the average of HS-CRP results repeated</content>
<content>two weeks apart should be used for risk assessment.</content>
<content></content> ID Date Data Source [id number] 04/27/2020 07:41:00 AM [facility] Name Value Range Interpretation Code Description Data Candace rce(s) Supporting Document(s) Erythrocyte sedimentation rate by Westergren method 8 mm/hr 0 - 20 [facility] SED RATE REENTER 8 [facility] ID Date Data Source [id number] 04/27/2020 07:15:00 AM [facility] Name Value Range Interpretation Code Description Data Candace [facility](s) Supporting Document(s) CBC W/AUTOMATED DIFF [facility] COMPLETE BLOOD COUNT Leukocytes [#/volume] in Blood by Automated count 4.2 10^3/uL 4.2 - 1 1.0 [facility] Erythrocytes [#/volume] in Blood by Automated count 4.16 10^6/uL 4. 50 - 6.30 L [facility] Hemoglobin [Mass/volume] in Blood 13.1 g/dL 14.0 - 16.0 L [facility] Hematocrit [Volume Fraction] of Blood by Automated count 37.0 % 4 1.0 - 51.0 L [facility] Erythrocyte mean corpuscular volume [Entitic volume] by Auto mated count 88.9 fL 80.0 - 94.0 [facility] Erythrocyte mean corpuscular hemoglobin [Entitic mass] by Automated count 31.5 pg 27.0 - 34.0 [facility] Erythrocyte mean corpuscular hemoglobin concentration [Mass/volume] by Automated count 35.4 g/dL 31.0 - 36.0 [facility] Erythrocyte distribution width [Ratio] by Automated count 11.2 % 11.5 - 14.8 L [facility] Platelets [#/volume] in Blood by Automated count 202 10^3/uL 150 - 45 0 [facility] Platelet mean volume [Entitic volume] in Blood by Automated count 8.7 fL 7.4 - 10.4 [facility] Neutrophils/100 leukocytes in Blood by Automated count 54.4 % 37. 0 - 80.0 [facility] Lymphocytes/100 leukocytes in Blood by Manual count 23.6 % 25.0 - 40.0 L [facility] Monocytes/100 leukocytes in Blood by Automated count 9.1 % 3.0 - 8.0 H [facility] Eosinophils/100 leukocytes in Blood by Automated count 11.5 % 0.0 - 7.0 H [facility] Basophils/100 leukocytes in Blood by Automated count 1.4 % 0.0 - 2.0 [facility] %IG 0.0 % 0.0 - 0.0 [facility] al %NRBC 0.0 % 0.0 - 0.0 [facility] al Neutrophils [#/volume] in Blood by Automated count 2.28 10^3/uL 2.00 - 6.90 [facility] Lymphocytes [#/volume] in Blood by Automated count 0.99 10^3/uL 0.60 - 3.40 [facility] Monocytes [#/volume] in Blood by Automated count 0.38 10^3/uL 0.00 - 0.90 [facility] Eosinophils [#/volume] in Blood by Automated count 0.48 10^3/uL 0.00 - 0.70 [facility] Basophils [#/volume] in Blood by Automated count 0.06 10^3/uL 0.00 - 0.20 [facility] #IG 0.00 10^3/uL 0.00 - 0.10 [facility] #NRBC 0.00 10^3/uL 0.00 - 0.00 [facility]spital MANUAL DIFF NOT INDICATED [facility] RBC MORPH NOT INDICATED [facility] spital ID Date Data Source [id number] 04/27/2020 07:11:00 AM [facility] Name Value Range Interpretation Code Description Data Candace rce(s) Supporting Document(s) C reactive protein [Mass/volume] in Serum or Plasma by High sensitivity method 6.72 MG/L 1.00 - 3.00 H [facility] CDC/S HS-CRP CUT-OFF: RELATIVE RISK: <1.0 mg/L Low 1.0 - 3.0 mg/L Average >3.0 mg/L High Optimally, the average of HS-CRP results repeated two weeks apart should be used for risk assessment. ID Date Data Source [id number] 04/25/2020 11:38:00 [place] [address] OPERATIVE SUMMARYNAME: NARINDER Gee DATE OF : 1950ATTENDING PHYS: Sherley Wilkins MD DATE: 04/23/20 MR#: [id number] OF PROCEDURE: 04/21/20PREOPERATIVE DIAGNOSIS: Left hand ring finger infection 3 weeks status post left handring trigger finger release.POSTOPERATIVE DIAGNOSIS: Left hand ring finger abscess and flexor tenosynovitis.SURGEON: Sherley Wilkins MD.GLASSWARE FINISHER: NANCY Vela FOR MANAGER SALES AND MARKETING: Filemon Santo MD provided essential assistance during [...] COUNT: Correct.NEEDLE COUNT: Correct.INDICATION FOR PROCEDURE: [address] [place] [address] OPERATIVE SUMMARYNAME: NARINDER SIMONJalen Gee DATE OF : 1950ATTENDING PHYS: Sherley Wilkins MD DATE: 04/23/20 MR#: [id number] patient is a 69-year-old male who is [...] bloodcell was 5.7 and CRP was 46.71. I, Sherley Wilkins, personally performed all elements of this surgery.DD: Sherley Wilkins MD 04/25/20 09:04DT: ALVINO 04/25/20 23:20DS: Sherley Wilkins MD 04/26/20 11:33 2 Name Value Range Interpretation Code Description Data Candace rce(s) Supporting Document(s) ID Date Data Source [id number] 04/25/2020 10:19:00 [place] [address] PROGRESS NOTENAME: NARINDER Gee ROOM#: 101-1DATE OF : 1950 MR#: [id number] DATE: 04/23/20 OF SERVICE: 04/25/20SUBJECTIVE: The patient [...] result. If there is any deterioration, [facility] me on my [...] rce(s) Supporting Document(s) ID Date Data Source [id number] 04/24/2020 01:23:00 [place] [address] PROGRESS NOTENAME: NARINDER Gee ROOM#: 101-1DATE OF : 1950 MR#: [id number] DATE: 04/23/20 OF SERVICE: 04/24/20SUBJECTIVE: The patient [...] rce(s) Supporting Document(s) ID Date Data Source [id number] 04/26/2020 05:48:00 AM EST [facility] [facility] Name Value Range Interpretation Code Description Data Candace rce(s) Supporting Document(s) Sed Rate 11 mm/hr 0-20 [facility] ([facility]) Sed Rate Reenter 11 [facility] ([facility]) ID Date Data Source [id number] 04/26/2020 05:48:00 AM EST [facility] ([facility]) Name Value Range Interpretation Code Description Data Candace rce(s) Supporting Document(s) CBC W/Automated Diff Laboratory test result [facility] ([facility]) COMPLETE BLOOD COUNT WBC 4.3 10^3/uL 4.2-11.0 [facility] ([facility]) Hemoglobin 13.1 g/dL 14.0-16.0 Below low normal [facility] ( [facility]) RBC 4.21 10^6/uL 4.50-6.30 Below low normal [facility] ([facility]) Hematocrit 37.7 % 41.0-51.0 Below low normal [facility] ( [facility]) MCV 89.5 fL 80.0-94.0 [facility] ([facility]) MCHC 34.7 g/dL 31.0-36.0 [facility] ([facility]) MCH 31.1 pg 27.0-34.0 [facility] ([facility]) Platelets 209 10^3/uL 150-450 [facility] ([facility]) RDW 11.4 % 11.5-14.8 Below low normal [facility] ([facility]) MPV 8.8 fL 7.4-10.4 [facility] ([facility]) Neut 49.4 % 37.0-80.0 [facility] ([facility]) Lymph 26.4 % 25.0-40.0 [facility] ([facility]) [place] 10.7 % 3.0-8.0 Above high normal [facility] ([facility]) Eos 12.1 % 0.0-7.0 Above high normal [facility] ([facility]) Baso 1.2 % 0.0-2.0 [facility] ([facility]) #Neut 2.11 10^3/uL 2.00-6.90 [facility] ([facility]) %Ig 0.2 % 0.0-0.0 Above high normal [facility] ([facility]) %NRBC 0.0 % 0.0-0.0 [facility] ([facility]) #Lymph 1.13 10^3/uL 0.60-3.40 [facility] ([facility]) #[place] 0.46 10^3/uL 0.00-0.90 [facility] ([facility]) #Eos 0.52 10^3/uL 0.00-0.70 [facility] ([facility]) #Baso 0.05 10^3/uL 0.00-0.20 [facility] ([facility]) #Ig 0.01 10^3/uL 0.00-0.10 [facility] ([facility]) RBC Morph Laboratory test result [facility] ([facility]) #NRBC 0.00 10^3/uL 0.00-0.00 [facility] ([facility]) Manual Diff Laboratory test result [facility] ([facility]) ID Date Data Source [id number] 04/26/2020 05:48:00 AM EST [facility] ([facility]) Name Value Range Interpretation Code Description Data Candace rce(s) Supporting Document(s) C reactive protein [Mass/volume] in Serum or Plasma by High sensitivity method 8.79 mg/L 1.00-3.00 Above high normal [facility]) <content>CDC/S HS-CRP CUT-OFF: RELATIVE RISK:</content>
<content><1.0 mg/L Low</content>
<content>1.0 - 3.0 mg/L Average</michelle nt>
<content>>3.0 mg/L High</content>
<content>Optimally, the average of HS-CRP results repeated</content>
<content>two weeks apart should be used for risk assessment.</content>
<content></content> ID Date Data Source [id number] 04/26/2020 07:30:00 AM [facility] Name Value Range Interpretation Code Description Data Candace rce(s) Supporting Document(s) Erythrocyte sedimentation rate by Westergren method 11 mm/hr 0 - 20 [facility] SED RATE REENTER 11 [facility] ID Date Data Source [id number] 04/26/2020 07:23:00 AM EST [facility] Name Value Range Interpretation Code Description Data Candace rce(s) Supporting Document(s) CBC W/AUTOMATED DIFF [facility] COMPLETE BLOOD COUNT Leukocytes [#/volume] in Blood by Automated count 4.3 10^3/uL 4.2 - 1 1.0 [facility] Erythrocytes [#/volume] in Blood by Automated count 4.21 10^6/uL 4. 50 - 6.30 L [facility] Hemoglobin [Mass/volume] in Blood 13.1 g/dL 14.0 - 16.0 L [facility] Hematocrit [Volume Fraction] of Blood by Automated count 37.7 % 4 1.0 - 51.0 L [facility] Erythrocyte mean corpuscular volume [Entitic volume] by Auto mated count 89.5 fL 80.0 - 94.0 [facility] Erythrocyte mean corpuscular hemoglobin [Entitic mass] by Automated count 31.1 pg 27.0 - 34.0 [facility] Erythrocyte mean corpuscular hemoglobin concentration [Mass/volume] by Automated count 34.7 g/dL 31.0 - 36.0 [facility] Erythrocyte distribution width [Ratio] by Automated count 11.4 % 11.5 - 14.8 L [facility] Platelets [#/volume] in Blood by Automated count 209 10^3/uL 150 - 45 0 [facility] Platelet mean volume [Entitic volume] in Blood by Automated count 8.8 fL 7.4 - 10.4 [facility] Neutrophils/100 leukocytes in Blood by Automated count 49.4 % 37. 0 - 80.0 [facility] Lymphocytes/100 leukocytes in Blood by Manual count 26.4 % 25.0 - 40.0 [facility] Monocytes/100 leukocytes in Blood by Automated count 10.7 % 3.0 - 8.0 H [facility] Eosinophils/100 leukocytes in Blood by Automated count 12.1 % 0.0 - 7.0 H [facility] Basophils/100 leukocytes in Blood by Automated count 1.2 % 0.0 - 2.0 [facility] %IG 0.2 % 0.0 - 0.0 [facility] %NRBC 0.0 % 0.0 - 0.0 [facility] al Neutrophils [#/volume] in Blood by Automated count 2.11 10^3/uL 2.00 - 6.90 [facility] Lymphocytes [#/volume] in Blood by Automated count 1.13 10^3/uL 0.60 - 3.40 [facility] Monocytes [#/volume] in Blood by Automated count 0.46 10^3/uL 0.00 - 0.90 [facility] Eosinophils [#/volume] in Blood by Automated count 0.52 10^3/uL 0.00 - 0.70 [facility] Basophils [#/volume] in Blood by Automated count 0.05 10^3/uL 0.00 - 0.20 [facility] #IG 0.01 10^3/uL 0.00 - 0.10 [facility] #NRBC 0.00 10^3/uL 0.00 - 0.00 [facility] ospital MANUAL DIFF NOT INDICATED [facility] RBC MORPH NOT INDICATED [facility] spital ID Date Data Source [id number] 04/26/2020 07:20:00 AM [facility] Name Value Range Interpretation Code Description Data Candace rce(s) Supporting Document(s) C reactive protein [Mass/volume] in Serum or Plasma by High sensitivity method 8.79 MG/L 1.00 - 3.00 H [facility] CDC/S HS-CRP CUT-OFF: RELATIVE RISK: <1.0 mg/L Low 1.0 - 3.0 mg/L Average >3.0 mg/L High Optimally, the average of HS-CRP results repeated two weeks apart should be used for risk assessment. ID Date Data Source [id number] 04/25/2020 06:12:00 AM EST [facility] ([facility]) Name Value Range Interpretation Code Description Data Candace rce(s) Supporting Document(s) CBC W/Automated Diff Laboratory test result [facility] ([facility]) COMPLETE BLOOD COUNT WBC 4.8 10^3/uL 4.2-11.0 [facility] ([facility]) Hemoglobin 13.3 g/dL 14.0-16.0 Below low normal [facility] ( [facility]) RBC 4.23 10^6/uL 4.50-6.30 Below low normal [facility] ([facility]) Hematocrit 37.9 % 41.0-51.0 Below low normal [facility] ( [facility]) MCV 89.6 fL 80.0-94.0 [facility] ([facility]) MCH 31.4 pg 27.0-34.0 [facility] ([facility]) MCHC 35.1 g/dL 31.0-36.0 [facility] ([facility]) RDW 11.4 % 11.5-14.8 Below low normal [facility] ([facility]) MPV 9.2 fL 7.4-10.4 [facility] ([facility]) Platelets 208 10^3/uL 150-450 [facility] ([facility]) Neut 57.5 % 37.0-80.0 [facility] ([facility]) [place] 7.5 % 3.0-8.0 [facility] ([facility]) Lymph 22.2 % 25.0-40.0 Below low normal [facility] ( [facility]) Eos 11.4 % 0.0-7.0 Above high normal [facility] ([facility]) %Ig 0.2 % 0.0-0.0 Above high normal [facility] ([facility]) Baso 1.2 % 0.0-2.0 [facility] ([facility]) %NRBC 0.0 % 0.0-0.0 [facility] ([facility]) #Neut 2.77 10^3/uL 2.00-6.90 [facility] ([facility]) #[place] 0.36 10^3/uL 0.00-0.90 [facility] ([facility]) #Eos 0.55 10^3/uL 0.00-0.70 [facility] ([facility]) #Lymph 1.07 10^3/uL 0.60-3.40 [facility] ([facility]) #Ig 0.01 10^3/uL 0.00-0.10 [facility] ([facility]) #Baso 0.06 10^3/uL 0.00-0.20 [facility] ([facility]) #NRBC 0.00 10^3/uL 0.00-0.00 [facility] ([facility]) RBC Morph Laboratory test result [facility] ([facility]) Manual Diff Laboratory test result [facility] ([facility]) ID Date Data Source [id number] 04/25/2020 06:12:00 AM EST [facility] ([facility]) Name Value Range Interpretation Code Description Data Candace rce(s) Supporting Document(s) Sed Rate 14 mm/hr 0-20 [facility] ([facility]) Sed Rate Reenter 14 [facility] ([facility]) ID Date Data Source [id number] 04/25/2020 06:12:00 AM EST [facility] ([facility]) Name Value Range Interpretation Code Description Data Candace rce(s) Supporting Document(s) C reactive protein [Mass/volume] in Serum or Plasma by High sensitivity method 11.41 mg/L 1.00-3.00 Above high normal [facility] ([facility]) <content>CDC/S HS-CRP CUT-OFF: RELATIVE RISK:</content>
<content><1.0 mg/L Low</content>
<content>1.0 - 3.0 mg/L Average</michelle nt>
<content>>3.0 mg/L High</content>
<content>Optimally, the average of HS-CRP results repeated</content>
<content>two weeks apart should be used for risk assessment.</content>
<content></content> ID Date Data Source [id number] 04/25/2020 09:52:00 AM [facility] Name Value Range Interpretation Code Description Data Candace rce(s) Supporting Document(s) CBC W/AUTOMATED DIFF [facility] COMPLETE BLOOD COUNT Leukocytes [#/volume] in Blood by Automated count 4.8 10^3/uL 4.2 - 1 1.0 [facility] Erythrocytes [#/volume] in Blood by Automated count 4.23 10^6/uL 4. 50 - 6.30 L [facility] Hemoglobin [Mass/volume] in Blood 13.3 g/dL 14.0 - 16.0 L [facility] Hematocrit [Volume Fraction] of Blood by Automated count 37.9 % 4 1.0 - 51.0 L [facility] Erythrocyte mean corpuscular volume [Entitic volume] by Auto mated count 89.6 fL 80.0 - 94.0 [facility] Erythrocyte mean corpuscular hemoglobin [Entitic mass] by Automated count 31.4 pg 27.0 - 34.0 [facility] Erythrocyte mean corpuscular hemoglobin concentration [Mass/volume] by Automated count 35.1 g/dL 31.0 - 36.0 [facility] Erythrocyte distribution width [Ratio] by Automated count 11.4 % 11.5 - 14.8 L [facility] Platelets [#/volume] in Blood by Automated count 208 10^3/uL 150 - 45 0 [facility] Platelet mean volume [Entitic volume] in Blood by Automated count 9.2 fL 7.4 - 10.4 [facility] Neutrophils/100 leukocytes in Blood by Automated count 57.5 % 37. 0 - 80.0 [facility] Lymphocytes/100 leukocytes in Blood by Manual count 22.2 % 25.0 - 40.0 L [facility] Monocytes/100 leukocytes in Blood by Automated count 7.5 % 3.0 - 8.0 [facility] Eosinophils/100 leukocytes in Blood by Automated count 11.4 % 0.0 - 7.0 H [facility] Basophils/100 leukocytes in Blood by Automated count 1.2 % 0.0 - 2.0 [facility] %IG 0.2 % 0.0 - 0.0 [facility] %NRBC 0.0 % 0.0 - 0.0 [facility] Neutrophils [#/volume] in Blood by Automated count 2.77 10^3/uL 2.00 - 6.90 [facility] Lymphocytes [#/volume] in Blood by Automated count 1.07 10^3/uL 0.60 - 3.40 [facility] Monocytes [#/volume] in Blood by Automated count 0.36 10^3/uL 0.00 - 0.90 [facility] Eosinophils [#/volume] in Blood by Automated count 0.55 10^3/uL 0.00 - 0.70 [facility] Basophils [#/volume] in Blood by Automated count 0.06 10^3/uL 0.00 - 0.20 [facility] #IG 0.01 10^3/uL 0.00 - 0.10 [facility] #NRBC 0.00 10^3/uL 0.00 - 0.00 [facility] ospital MANUAL DIFF NOT INDICATED [facility] RBC MORPH NOT INDICATED [facility] spital ID Date Data Source [id number] 04/25/2020 09:49:00 AM [facility] Name Value Range Interpretation Code Description Data Candace rce(s) Supporting Document(s) Erythrocyte sedimentation rate by Westergren method 14 mm/hr 0 - 20 [facility] SED RATE REENTER 14 [facility] ID Date Data Source [id number] 04/25/2020 08:11:00 AM [facility] Name Value Range Interpretation Code Description Data Candace rce(s) Supporting Document(s) C reactive protein [Mass/volume] in Serum or Plasma by High sensitivity method 11.41 MG/L 1.00 - 3.00 H [facility] CDC/S HS-CRP CUT-OFF: RELATIVE RISK: <1.0 mg/L Low 1.0 - 3.0 mg/L Average >3.0 mg/L High Optimally, the average of HS-CRP results repeated two weeks apart should be used for risk assessment. ID Date Data Source [id number] 04/24/2020 06:06:00 AM EST [facility] ([facility]) Name Value Range Interpretation Code Description Data Candace rce(s) Supporting Document(s) Sed Rate Reenter 9 [facility] ([facility]) Sed Rate 9 mm/hr 0-20 [facility] ([facility]) ID Date Data Source [id number] 04/24/2020 06:06:00 AM EST [facility] ([facility]) Name Value Range Interpretation Code Description Data Candace rce(s) Supporting Document(s) CBC W/Automated Diff Laboratory test result [facility] ([facility]) COMPLETE BLOOD COUNT RBC 4.17 10^6/uL 4.50-6.30 Below low normal [facility] ([facility]) WBC 4.3 10^3/uL 4.2-11.0 [facility] ([facility]) Hemoglobin 13.1 g/dL 14.0-16.0 Below low normal [facility] ( [facility]) MCV 89.7 fL 80.0-94.0 [facility] ([facility]) Hematocrit 37.4 % 41.0-51.0 Below low normal [facility] ( [facility]) MCH 31.4 pg 27.0-34.0 [facility] ([facility]) MCHC 35.0 g/dL 31.0-36.0 [facility] ([facility]) RDW 11.6 % 11.5-14.8 [facility] ([facility]) MPV 9.3 fL 7.4-10.4 [facility] ([facility]) Neut 49.9 % 37.0-80.0 [facility] ([facility]) Platelets 197 10^3/uL 150-450 [facility] ([facility]) [place] 10.1 % 3.0-8.0 Above high normal [facility] ([facility]) Eos 12.6 % 0.0-7.0 Above high normal [facility] ([facility]) Lymph 26.0 % 25.0-40.0 [facility] ([facility]) Baso 1.2 % 0.0-2.0 [facility] ([facility]) %Ig 0.2 % 0.0-0.0 Above high normal [facility] ([facility]) #Lymph 1.11 10^3/uL 0.60-3.40 [facility] ([facility]) %NRBC 0.0 % 0.0-0.0 [facility] ([facility]) #Neut 2.13 10^3/uL 2.00-6.90 [facility] ([facility]) #[place] 0.43 10^3/uL 0.00-0.90 [facility] ([facility]) #Eos 0.54 10^3/uL 0.00-0.70 [facility] ([facility]) #Baso 0.05 10^3/uL 0.00-0.20 [facility] ([facility]) #Ig 0.01 10^3/uL 0.00-0.10 [facility] ([facility]) #NRBC 0.00 10^3/uL 0.00-0.00 [facility] ([facility]) Manual Diff Laboratory test result [facility] ([facility]) RBC Morph Laboratory test result [facility] ([facility]) ID Date Data Source [id number] 04/24/2020 06:06:00 AM EST [facility] ([facility]) Name Value Range Interpretation Code Description Data Candace rce(s) Supporting Document(s) C reactive protein [Mass/volume] in Serum or Plasma by High sensitivity method 17.63 mg/L 1.00-3.00 Above high normal [facility] ([facility]) <content>CDC/S HS-CRP CUT-OFF: RELATIVE RISK:</content>
<content><1.0 mg/L Low</content>
<content>1.0 - 3.0 mg/L Average</michelle nt>
<content>>3.0 mg/L High</content>
<content>Optimally, the average of HS-CRP results repeated</content>
<content>two weeks apart should be used for risk assessment.</content>
<content></content> ID Date Data Source [id number] 04/24/2020 12:20:00 PM EST [facility] Name Value Range Interpretation Code Description Data Candace rce(s) Supporting Document(s) Erythrocyte sedimentation rate by Westergren method 9 mm/hr 0 - 20 [facility] SED RATE REENTER 9 [facility] ID Date Data Source [id number] 04/24/2020 08:08:00 AM EST [facility] Name Value Range Interpretation Code Description Data Candace [facility](s) Supporting Document(s) CBC W/AUTOMATED DIFF [facility] COMPLETE BLOOD COUNT Leukocytes [#/volume] in Blood by Automated count 4.3 10^3/uL 4.2 - 1 1.0 [facility] Erythrocytes [#/volume] in Blood by Automated count 4.17 10^6/uL 4. 50 - 6.30 L [facility] Hemoglobin [Mass/volume] in Blood 13.1 g/dL 14.0 - 16.0 L [facility] Hematocrit [Volume Fraction] of Blood by Automated count 37.4 % 4 1.0 - 51.0 L [facility] Erythrocyte mean corpuscular volume [Entitic volume] by Auto mated count 89.7 fL 80.0 - 94.0 [facility] Erythrocyte mean corpuscular hemoglobin [Entitic mass] by Automated count 31.4 pg 27.0 - 34.0 [facility] Erythrocyte mean corpuscular hemoglobin concentration [Mass/volume] by Automated count 35.0 g/dL 31.0 - 36.0 [facility] Erythrocyte distribution width [Ratio] by Automated count 11.6 % 11.5 - 14.8 [facility] Platelets [#/volume] in Blood by Automated count 197 10^3/uL 150 - 45 0 [facility] Platelet mean volume [Entitic volume] in Blood by Automated count 9.3 fL 7.4 - 10.4 [facility] Neutrophils/100 leukocytes in Blood by Automated count 49.9 % 37. 0 - 80.0 [facility] Lymphocytes/100 leukocytes in Blood by Manual count 26.0 % 25.0 - 40.0 [facility] Monocytes/100 leukocytes in Blood by Automated count 10.1 % 3.0 - 8.0 H [facility] Eosinophils/100 leukocytes in Blood by Automated count 12.6 % 0.0 - 7.0 H [facility] Basophils/100 leukocytes in Blood by Automated count 1.2 % 0.0 - 2.0 [facility] %IG 0.2 % 0.0 - 0.0 [facility] %NRBC 0.0 % 0.0 - 0.0 [facility] al Neutrophils [#/volume] in Blood by Automated count 2.13 10^3/uL 2.00 - 6.90 [facility] Lymphocytes [#/volume] in Blood by Automated count 1.11 10^3/uL 0.60 - 3.40 [facility] Monocytes [#/volume] in Blood by Automated count 0.43 10^3/uL 0.00 - 0.90 [facility] Eosinophils [#/volume] in Blood by Automated count 0.54 10^3/uL 0.00 - 0.70 [facility] Basophils [#/volume] in Blood by Automated count 0.05 10^3/uL 0.00 - 0.20 [facility] #IG 0.01 10^3/uL 0.00 - 0.10 [facility] ospital #NRBC 0.00 10^3/uL 0.00 - 0.00 [facility] MANUAL DIFF NOT INDICATED [facility] RBC MORPH NOT INDICATED [facility] spital ID Date Data Source [id number] 04/24/2020 08:06:00 AM [facility] Name Value Range Interpretation Code Description Data Candace rce(s) Supporting Document(s) C reactive protein [Mass/volume] in Serum or Plasma by High sensitivity method 17.63 MG/L 1.00 - 3.00 H [facility] CDC/AHS HS-CRP CUT-OFF: RELATIVE RISK: <1.0 mg/L Low 1.0 - 3.0 mg/L Average >3.0 mg/L High Optimally, the average of HS-CRP results repeated two weeks apart should be used for risk assessment. ID Date Data Source [id number] 04/22/2020 02:11:00 PM [facility] [address] [place] [address] PROGRESS NOTENAME: NARINDER Gee ROOM#: [id number] OF : 1950 MR#: [id number] DATE: [facility]/21/20 [id number] OF SERVICE: 04/22/2020UBJECTIVE:The patient is a 69-year-old [...] see him today.DD: EDWIGE Villegas 04/22/20 13:46DT: SSR 04/22/20 14:04DS: EDWIGE Villegas 04/23/20 11:34 1 Name Value Range Interpretation Code Description Data Candace rce(s) Supporting Document(s) ID Date Data Source [id number] 04/22/2020 02:04:00 [place] [address] HISTORY AND PHYSICALNAME: NARINDER Gee ROOM#: [id number] OF : 1950 MR#: [id number] PHYS: Sherley Wilkins MD [facility]#: [id number] DATE: 04/21/20ATTENDING PHYSICIAN: Sherley Wilkins MD.REASON FOR [...] be evaluated daily by Dr. Wilkins. [address] [place] [address] HISTORY AND PHYSICAL NAME: NARINDER Gee ROOM#: [id number] DATE OF : 1950 MR#: [id number] ATTENDING PHYS: Sherley Wilkins MD ADMISSION DATE: 04/21/20DD: EDWIGE Villegas 04/22/20 13:28DT: SSR 04/22/20 13:49DS: EDWIGE Villegas 04/23/20 11:34 2 Name Value Range Interpretation Code Description Data Candace rce(s) Supporting Document(s) ID Date Data Source [id number] 04/23/2020 05:23:00 AM EST [facility] ([facility]) Name Value Range Interpretation Code Description Data Candace rce(s) Supporting Document(s) C reactive protein [Mass/volume] in Serum or Plasma by High sensitivity method 28.81 mg/L 1.00-3.00 Above high normal [facility] ([facility]) <content>CDC/S HS-CRP CUT-OFF: RELATIVE RISK:</content>
<content><1.0 mg/L Low</content>
<content>1.0 - 3.0 mg/L Average</michelle nt>
<content>>3.0 mg/L High</content>
<content>Optimally, the average of HS-CRP results repeated</content>
<content>two weeks apart should be used for risk assessment.</content>
<content></content> ID Date Data Source [id number] 04/23/2020 05:23:00 AM EST [facility] ([facility]) Name Value Range Interpretation Code Description Data Candace rce(s) Supporting Document(s) CBC W/Automated Diff Laboratory test result [facility] ([facility]) COMPLETE BLOOD COUNT WBC 4.1 10^3/uL 4.2-11.0 Below low normal [facility] ([facility]) RBC 4.11 10^6/uL 4.50-6.30 Below low normal [facility] ([facility]) Hemoglobin 13.0 g/dL 14.0-16.0 Below low normal [facility] ( [facility]) Hematocrit 37.5 % 41.0-51.0 Below low normal [facility] ( [facility]) MCV 91.2 fL 80.0-94.0 [facility] ([facility]) RDW 11.7 % 11.5-14.8 [facility] ([facility]) MCH 31.6 pg 27.0-34.0 [facility] ([facility]) MCHC 34.7 g/dL 31.0-36.0 [facility] ([facility]) MPV 9.2 fL 7.4-10.4 [facility] ([facility]) Neut 50.0 % 37.0-80.0 [facility] ([facility]) Platelets 185 10^3/uL 150-450 [facility] ([facility]) Lymph 24.3 % 25.0-40.0 Below low normal [facility] ( [facility]) [place] 11.9 % 3.0-8.0 Above high normal [facility] ([facility]) Baso 0.7 % 0.0-2.0 [facility] ([facility]) Eos 13.1 % 0.0-7.0 Above high normal [facility] ([facility]) %Ig 0.0 % 0.0-0.0 [facility] ([facility]) #Neut 2.05 10^3/uL 2.00-6.90 [facility] ([facility]) %NRBC 0.0 % 0.0-0.0 [facility] ([facility]) #Lymph 1.00 10^3/uL 0.60-3.40 [facility] ([facility]) #[place] 0.49 10^3/uL 0.00-0.90 [facility] ([facility]) #Baso 0.03 10^3/uL 0.00-0.20 [facility] ([facility]) #Eos 0.54 10^3/uL 0.00-0.70 [facility] ([facility] [facility]) #NRBC 0.00 10^3/uL 0.00-0.00 [facility] ([facility]) #Ig 0.00 10^3/uL 0.00-0.10 [facility] ([facility]) Manual Diff Laboratory test result M [facility] ([facility]) RBC Morph Laboratory test result [facility] ([facility]) ID Date Data Source [id number] 04/23/2020 05:23:00 AM EST [facility] ([facility]) Name Value Range Interpretation Code Description Data Candace rce(s) Supporting Document(s) Sed Rate 16 mm/hr 0-20 [facility] ([facility]) Sed Rate Reenter 16 [facility] ([facility]) ID Date Data Source [id number] 04/23/2020 08:55:00 AM [facility] Name Value Range Interpretation Code Description Data Candace rce(s) Supporting Document(s) Erythrocyte sedimentation rate by Westergren method 16 mm/hr 0 - 20 [facility] SED RATE REENTER 16 [facility] ID Date Data Source [id number] 04/23/2020 07:45:00 AM [facility] Name Value Range Interpretation Code Description Data Candace rce(s) Supporting Document(s) CBC W/AUTOMATED DIFF [facility] COMPLETE BLOOD COUNT Leukocytes [#/volume] in Blood by Automated count 4.1 10^3/uL 4.2 - 1 1.0 L [facility] Erythrocytes [#/volume] in Blood by Automated count 4.11 10^6/uL 4. 50 - 6.30 L [facility] Hemoglobin [Mass/volume] in Blood 13.0 g/dL 14.0 - 16.0 L [facility] Hematocrit [Volume Fraction] of Blood by Automated count 37.5 % 4 1.0 - 51.0 L [facility] Erythrocyte mean corpuscular volume [Entitic volume] by Auto mated count 91.2 fL 80.0 - 94.0 [facility] Erythrocyte mean corpuscular hemoglobin [Entitic mass] by Automated count 31.6 pg 27.0 - 34.0 [facility] Erythrocyte mean corpuscular hemoglobin concentration [Mass/volume] by Automated count 34.7 g/dL 31.0 - 36.0 [facility] Erythrocyte distribution width [Ratio] by Automated count 11.7 % 11.5 - 14.8 [facility] Platelets [#/volume] in Blood by Automated count 185 10^3/uL 150 - 45 0 [facility] Platelet mean volume [Entitic volume] in Blood by Automated count 9.2 fL 7.4 - 10.4 [facility] Neutrophils/100 leukocytes in Blood by Automated count 50.0 % 37. 0 - 80.0 [facility] Lymphocytes/100 leukocytes in Blood by Manual count 24.3 % 25.0 - 40.0 L [facility] Monocytes/100 leukocytes in Blood by Automated count 11.9 % 3.0 - 8.0 H [facility] Eosinophils/100 leukocytes in Blood by Automated count 13.1 % 0.0 - 7.0 H [facility] Basophils/100 leukocytes in Blood by Automated count 0.7 % 0.0 - 2.0 [facility] %IG 0.0 % 0.0 - 0.0 [facility] al %NRBC 0.0 % 0.0 - 0.0 [facility] al Neutrophils [#/volume] in Blood by Automated count 2.05 10^3/uL 2.00 - 6.90 [facility] Lymphocytes [#/volume] in Blood by Automated count 1.00 10^3/uL 0.60 - 3.40 [facility] Monocytes [#/volume] in Blood by Automated count 0.49 10^3/uL 0.00 - 0.90 [facility] Eosinophils [#/volume] in Blood by Automated count 0.54 10^3/uL 0.00 - 0.70 [facility] Basophils [#/volume] in Blood by Automated count 0.03 10^3/uL 0.00 - 0.20 [facility] #IG 0.00 10^3/uL 0.00 - 0.10 [facility] #NRBC 0.00 10^3/uL 0.00 - 0.00 [facility]spital MANUAL DIFF NOT INDICATED [facility] RBC MORPH NOT INDICATED [facility] ID Date Data Source [id number] 04/23/2020 07:27:00 AM [facility] Name Value Range Interpretation Code Description Data Candace rce(s) Supporting Document(s) C reactive protein [Mass/volume] in Serum or Plasma by High sensitivity method 28.81 MG/L 1.00 - 3.00 H [facility] CDC/S HS-CRP CUT-OFF: RELATIVE RISK: <1.0 mg/L Low 1.0 - 3.0 mg/L Average >3.0 mg/L High Optimally, the average of HS-CRP results repeated two weeks apart should be used for risk assessment. ID Date Data Source [id number] 04/22/2020 05:12:00 AM EST [facility] ([facility]) Name Value Range Interpretation Code Description Data Candace rce(s) Supporting Document(s) Sed Rate 11 mm/hr 0-20 [facility] ([facility]) Sed Rate Reenter 11 [facility] ([facility]) ID Date Data Source [id number] 04/22/2020 05:12:00 AM EST [facility] ([facility]) Name Value Range Interpretation Code Description Data Candace rce(s) Supporting Document(s) C reactive protein [Mass/volume] in Serum or Plasma by High sensitivity method 42.59 mg/L 1.00-3.00 Above high normal [facility] ([facility]) <content>CDC/AHS HS-CRP CUT-OFF: RELATIVE RISK:</content>
<content><1.0 mg/L Low</content>
<content>1.0 - 3.0 mg/L Average</michelle nt>
<content>>3.0 mg/L High</content>
<content>Optimally, the average of HS-CRP results repeated</content>
<content>two weeks apart should be used for risk assessment.</content>
<content></content> ID Date Data Source [id number] 04/22/2020 05:12:00 AM EST [facility] ([facility]) Name Value Range Interpretation Code Description Data Candace rce(s) Supporting Document(s) Comprehensive [facility]abo Laboratory test result [facility] ([facility]) COMPREHENSIVE METABOLIC PANEL Chloride 103 meq/L 98-107 [facility] ([facility]) Potassium 4.5 meq/L 3.6-5.0 [facility] ([facility]) Sodium 136 meq/L 134-153 [facility] ([facility]) BUN 15 mg/dL 7-21 [facility] ([facility]) Co2 26 meq/L 22-30 [facility] ([facility]) Glucose 98 mg/dL 70-99 [facility] ([facility]) Creatinine 1.0 mg/dL 0.7-1.5 [facility] ([facility]) Total Protein 5.6 g/dL 6.3-8.2 Below low normal [facility] T ([facility]) BUN/Creat 15 8-27 [facility] ([facility]) Globulin 2.0 GM/DL 2.4-3.2 Below low normal [facility] ( [facility]) A/G Ratio 1.8 0.8-2.0 [facility] ([facility]) Albumin 3.6 g/dL 3.9-5.0 Below low normal [facility] ( [facility]) Calcium 8.3 mg/dL 8.4-10.2 Below low normal [facility] ( [facility]) Total Bili Laboratory test result 0.2-1.3 ME D[facility] ([facility]) SGPT/Alt 13 U/L 7-56 [facility] ([facility]) Sgot/Ast 18 U/L 5-40 [facility] ([facility]) Alkaline Phos 42 U/L 38-126 [facility] ([facility]) Anion Gap 7.0 mmol/L 8.0-16.0 Below low normal [facility] ( [facility]) Age 69 yrs [facility] ([facility]) Afr Amer GFR Laboratory test result [facility] ([facility]) Male GFR Interprentation 20-49 yrs >60 [...] Normal Non-Aa GFR Laboratory test result [facility] ([facility]) ID Date Data Source [id number] 04/22/2020 05:12:00 AM EST [facility] ([facility]) Name Value Range Interpretation Code Description Data Candace rce(s) Supporting Document(s) CBC W/Automated Diff Laboratory test result [facility] ([facility]) COMPLETE BLOOD COUNT RBC 3.97 10^6/uL 4.50-6.30 Below low normal [facility] ([facility]) WBC 4.6 10^3/uL 4.2-11.0 [facility] ([facility]) Hematocrit 35.9 % 41.0-51.0 Below low normal [facility] ( [facility]) MCV 90.4 fL 80.0-94.0 [facility] ([facility]) Hemoglobin 12.5 g/dL 14.0-16.0 Below low normal [facility] ( [facility]) RDW 11.7 % 11.5-14.8 [facility] ([facility]) MCH 31.5 pg 27.0-34.0 [facility] ([facility]) MCHC 34.8 g/dL 31.0-36.0 [facility] ([facility]) Platelets 172 10^3/uL 150-450 [facility] ([facility]) Neut 53.1 % 37.0-80.0 [facility] ([facility]) MPV 9.1 fL 7.4-10.4 [facility] ([facility]) Eos 9.6 % 0.0-7.0 Above high normal [facility] ([facility]) [place] 12.7 % 3.0-8.0 Above high normal [facility] ([facility]) Lymph 23.1 % 25.0-40.0 Below low normal [facility] ( [facility]) %NRBC 0.0 % 0.0-0.0 [facility] ([facility]) %Ig 0.2 % 0.0-0.0 Above high normal [facility] ([facility]) Baso 1.3 % 0.0-2.0 [facility] ([facility]) #Neut 2.43 10^3/uL 2.00-6.90 [facility] ([facility]) #Lymph 1.06 10^3/uL 0.60-3.40 [facility] ([facility]) #Eos 0.44 10^3/uL 0.00-0.70 [facility] ([facility]) #[place] 0.58 10^3/uL 0.00-0.90 [facility] ([facility]) #Baso 0.06 10^3/uL 0.00-0.20 [facility] ([facility]) Manual Diff Laboratory test result M [facility] ([facility]) #NRBC 0.00 10^3/uL 0.00-0.00 [facility] ([facility]) #Ig 0.01 10^3/uL 0.00-0.10 [facility] ([facility]) RBC Morph Laboratory test result [facility] ([facility]) ID Date Data Source [id number] 04/22/2020 08:27:00 AM EST [facility] Name Value Range Interpretation Code Description Data Candace rce(s) Supporting Document(s) Erythrocyte sedimentation rate by Westergren method 11 mm/hr 0 - 20 [facility] SED RATE REENTER 11 [facility] ID Date Data Source [id number] 04/22/2020 07:25:00 AM [facility] Name Value Range Interpretation Code Description Data Candace rce(s) Supporting Document(s) C reactive protein [Mass/volume] in Serum or Plasma by High sensitivity method 42.59 MG/L 1.00 - 3.00 H [facility]/S HS-CRP CUT-OFF: RELATIVE RISK: <1.0 mg/L Low 1.0 - 3.0 mg/L Average >3.0 mg/L High Optimally, the average of HS-CRP results repeated two weeks apart should be used for risk assessment. ID Date Data Source [id number] 04/22/2020 06:55:00 AM [facility] Name Value Range Interpretation Code Description Data Candace e(s) Supporting Document(s) COMPREHENSIVE METABOLIC PANEL [facility] COMPREHENSIVE METABOLIC PANEL Sodium [Moles/volume] in Serum or Plasma 136 mEq/L 134 - 153 [facility] Potassium [Moles/volume] in Serum or Plasma 4.5 mEq/L 3.6 - 5.0 [facility] Chloride [Moles/volume] in Serum or Plasma 103 mEq/L 98 - 107 [facility] Carbon dioxide, total [Moles/volume] in Serum or Plasma 26 MEQ/L 22 - 30 [facility] Glucose [Mass/volume] in Serum or Plasma 98 MG/DL 70 - 99 [facility] BUN 15 MG/DL 7 - 21 [facility] al Creatinine [Mass/volume] in Serum or Plasma 1.0 MG/DL 0.7 - 1.5 [facility] BUN/CREAT 15 8 - 27 [facility] al Protein [Mass/volume] in Serum or Plasma 5.6 G/DL 6.3 - 8.2 L [facility] Albumin [Mass/volume] in Serum or Plasma 3.6 G/DL 3.9 - 5.0 L [facility] Globulin [Mass/volume] in Serum by calculation 2.0 GM/DL 2.4 - 3.2 L [facility] A/G RATIO 1.8 0.8 - 2.0 [facility] Calcium [Mass/volume] in Serum or Plasma 8.3 MG/DL 8.4 - 10.2 L [facility] Bilirubin.total [Mass/volume] in Serum or Plasma <0.7 MG/DL 0.2 - 1.3 [facility] Alkaline phosphatase [Enzymatic activity/volume] in Serum or Plasma 42 U/L 38 - 126 [facility] Aspartate aminotransferase [Enzymatic activity/volume] in Serum or Plasma 18 U/L 5 - 40 [facility] Alanine aminotransferase [Enzymatic activity/volume] in Seru m or Plasma 13 U/L 7 - 56 [facility] Anion gap 3 in Serum or Plasma 7.0 mmol/L 8.0 - 16.0 L [facility] AGE 69 yrs [facility] NON-AA GFR >60 mL/min [facility] AFR AMER GFR >60 mL/min [facility] Male GFR In terprentation 20-49 [...] >32 mL/min Normal ID Date Data Source [id number] 04/22/2020 06:50:00 AM EST [facility] Name Value Range Interpretation Code Description Data Candace rce(s) Supporting Document(s) CBC W/AUTOMATED DIFF [facility] COMPLETE BLOOD COUNT Leukocytes [#/volume] in Blood by Automated count 4.6 10^3/uL 4.2 - 1 1.0 [facility] Erythrocytes [#/volume] in Blood by Automated count 3.97 10^6/uL 4. 50 - 6.30 L [facility] Hemoglobin [Mass/volume] in Blood 12.5 g/dL 14.0 - 16.0 L [facility] Hematocrit [Volume Fraction] of Blood by Automated count 35.9 % 4 1.0 - 51.0 L [facility] Erythrocyte mean corpuscular volume [Entitic volume] by Auto mated count 90.4 fL 80.0 - 94.0 [facility] Erythrocyte mean corpuscular hemoglobin [Entitic mass] by Automated count 31.5 pg 27.0 - 34.0 [facility] Erythrocyte mean corpuscular hemoglobin concentration [Mass/volume] by Automated count 34.8 g/dL 31.0 - 36.0 [facility] Erythrocyte distribution width [Ratio] by Automated count 11.7 % 11.5 - 14.8 [facility] Platelets [#/volume] in Blood by Automated count 172 10^3/uL 150 - 45 0 [facility] Platelet mean volume [Entitic volume] in Blood by Automated count 9.1 fL 7.4 - 10.4 [facility] Neutrophils/100 leukocytes in Blood by Automated count 53.1 % 37. 0 - 80.0 [facility] Lymphocytes/100 leukocytes in Blood by Manual count 23.1 % 25.0 - 40.0 L [facility] Monocytes/100 leukocytes in Blood by Automated count 12.7 % 3.0 - 8.0 H [facility] Eosinophils/100 leukocytes in Blood by Automated count 9.6 % 0.0 - 7.0 H [facility] Basophils/100 leukocytes in Blood by Automated count 1.3 % 0.0 - 2.0 [facility] %IG 0.2 % 0.0 - 0.0 [facility] %[facility] 0.0 % 0.0 - 0.0 [facility] al Neutrophils [#/volume] in Blood by Automated count 2.43 10^3/uL 2.00 - 6.90 [facility] Lymphocytes [#/volume] in Blood by Automated count 1.06 10^3/uL 0.60 - 3.40 [facility] Monocytes [#/volume] in Blood by Automated count 0.58 10^3/uL 0.00 - 0.90 [facility] Eosinophils [#/volume] in Blood by Automated count 0.44 10^3/uL 0.00 - 0.70 [facility] Basophils [#/volume] in Blood by Automated count 0.06 10^3/uL 0.00 - 0.20 [facility] #IG 0.01 10^3/uL 0.00 - 0.10 [facility] #NRBC 0.00 10^3/uL 0.00 - 0.00 [facility] MANUAL DIFF NOT INDICATED [facility] RBC MORPH NOT INDICATED [facility] ID Date Data Source [id number] 04/21/2020 01:29:00 PM EST [facility] ([facility]) Name Value Range Interpretation Code Description Data Candace rce(s) Supporting Document(s) Laboratory test finding (navigational concept) Laboratory test result [facility] ([facility]) Left ring trigger finger, suspected infe ction {SPECIMEN SOURCE : Left ring finger {SPECIMEN SOURCE : Left ring finger ID Date Data Source [id number] 04/21/2020 01:29:00 PM EST [facility] ([facility]) Name Value Range Interpretation Code Description Data Candace rce(s) Supporting Document(s) Microscopic observation [Identifier] in Body fluid by Gram stain Laboratory [facility] Left ring trigger finger, suspected infe ction {SPECIMEN SOURCE : Left ring finger {SPECIMEN SOURCE : Left ring finger Culture Wound Laboratory test result [facility]) Left ring trigger finger, suspected infe ction {SPECIMEN SOURCE : Left ring finger {SPECIMEN SOURCE : Left ring finger ID Date Data Source [id number] 04/28/2020 10:10:00 AM EST [facility] Name Value Range Interpretation Code Description Data Candace rce(s) Supporting Document(s) CULTURE AEROBIC/ANAEROBIC [facility] _CULTURE AEROBIC/ANAEROBIC_$$[id number]$$[id number]$$[id number]$$[id number]$$[id number]$$[id number]$$847351$$0802 92$$492561$$[id number]$$[id number]$$[id number] DATE/TIME: 04/28/2020 10:06Culture: CULTURE AEROBIC/ANAEROBIC Status: FinalAnaerobic Culture: P1No anaerobic growth in 72 hours.Aerobic Culture: P1No growth in 36 - 48 hours. Previous result entered on 04/24/2020 16:29 ET No growth after 18-24 hours. Previous result entered on 04/24/2020 14:50 ET No growth after 18-24 hours. -- Continued on next page --Patient: NARINDER Gee Order: [id number] Page 2Culture: CULTURE AEROBIC/ANAEROBIC Status: Final ====P1 Test performed by: [facility] #: [id number] [address] [place] [address] Avenue [phone] [facility] [id number] Director : Juwan Nugent MD NPI #:Sales Trainer : 04/24/20.1607.XMT.SENT REF 04/26/20.0630.XMT.SENT REF 04/28/20.1010.XMT.SENT REF 04/28/20.1010. .to [facility] via fax ID Date Data Source [id number] 04/28/2020 10:10:00 AM EST [facility] Name Value Range Interpretation Code Description Data Candace rce(s) Supporting Document(s) CULTURE AEROBIC/ANAEROBIC [facility] _CULTURE AEROBIC/ANAEROBIC_$$[id number]$$[id number]$$319059$$635269$$379052$$438498$$091505$$0802 92$$337879$$636836$$[id number]$$[id number] DATE/TIME: 04/28/2020 10:06Culture: CULTURE AEROBIC/ANAEROBIC Status: FinalAnaerobic Culture: P1No anaerobic growth in 72 hours.Aerobic Culture: P1No growth in 36 - 48 hours. Previous result entered on 04/24/2020 16:29 ET No growth after 18-24 hours. Previous result entered on 04/24/2020 14:50 ET No growth after 18-24 hours. -- Continued on next page --Patient: NARINDER Gee Order: [id number] Page 2Culture: CULTURE AEROBIC/ANAEROBIC Status: Final ====P1 Test performed by: [facility] #: [id number] [address] [id number] [facility] [id number] Director : Juwan Nugent MD NPI #:Sales Trainer : 04/24/20.1607.XMT.SENT REF 04/24/20.1850.XMT.SENT REF 04/26/20.0630.XMT.SENT REF 04/28/20.1010.XMT.SENT REF 04/28/20.1010. .to [facility] via fax ID Date Data Source [id number] 04/28/2020 10:09:00 AM EST [facility] Name Value Range Interpretation Code Description Data Candace rce(s) Supporting Document(s) CULTURE AEROBIC/ANAEROBIC [facility] _CULTURE AEROBIC/ANAEROBIC_$$[id number]$$[id number]$$837164$$307980$$278735$$205616$$497109$$0802 92$$239475$$676859$$[id number]$$[id number] DATE/TIME: 04/28/2020 10:06Culture: CULTURE AEROBIC/ANAEROBIC Status: FinalAnaerobic Culture: P1No anaerobic growth in 72 hours.Aerobic Culture: P1No growth in 36 - 48 hours. Previous result entered on 04/24/2020 16:29 ET No growth after 18-24 hours. Previous result entered on 04/24/2020 14:50 ET No growth after 18-24 hours. -- Continued on next page --Patient: NARINDER Gee Order: [id number] Page 2Culture: CULTURE AEROBIC/ANAEROBIC Status: Final ====P1 Test performed by: [facility] #: [id number] [address] [facility] [id number] [facility] [address]Pgherke Director : Juwan Nugent MD NPI #:Sales Trainer : 04/23/20.0941.XMT.SENT REF 04/24/20.1607.XMT.SENT REF 04/26/20.0630.XMT.SENT REF 04/28/20.1009.XMT.SENT REF 04/28/20.1010. .to [facility] via fax ID Date Data Source [id number] 04/25/2020 02:45:00 PM EST [facility] Value Range Interpretation Code Description Data Candace rce(s) Supporting Document(s) CULTURE WOUND [facility] _CULTURE WOUND_$$[id number]$$158845$$99 7878$$922160$$[id number]$$[id number] DATE/TIME: 04/25/2020 11:05Culture: CULTURE WOUND Status: FinalAerobic Bacterial Culture: P1No growth in 36 - 48 hours. Previous result entered on 04/24/2020 03:02 ET No growth after 18-24 hours.P1 Test performed by: [facility] #: [id number] [address] [facility] [id number] [facility] [address]Sfaiuwf Director : Juwan Nugent MD NPI #:Sales Trainer : 04/24/20.1542.XMT.SENT REF 04/25/20.1445.XMT.SENT REF 04/25/20.1445.DW .to [facility] via fax ID Date Data Source [id number] 04/23/2020 01:13:00 PM [facility] Value Range Interpretation Code Description Data Candace rce(s) Supporting Document(s) GRAM STAIN [facility] _GRAM STAIN_$$[id number]$$[id number]$$32663 3$$858266$$057804$$[id number] DATE/TIME: 04/23/2020 10:07Culture: GRAM STAIN Status: FinalGram Stain Result: P1No white blood cells seen.No organisms seenP1 Test performed by: [facility] #: [id number] [address] [place] [id number] [facility] [id number] Director : Juwan Nugent MD NPI #:Sales Trainer : 04/23/20.1313.XMT.SENT REF 04/23/20.1313.CM .to [facility] via fax ID Date Data Source [id number] 04/28/2020 06:26:00 AM [facility] [id number] STAIN = GRAM POSITIVE RICK CI IN [id number]/01/21 0706 CALLED TO LAI Hand BY BETZY, RESULTS READ BACKGROWTH IN AEROBIC OHJAON41/03/21 06 CALLED TO SETH Rojo BY BETZY, RESULTS READBACKMICROCOCCUS & RELATED SPECIES Name Value Range Interpretation Code Description Data Candace rce(s) Supporting Document(s) Bacteria identified in Blood by Culture [facility] NO GROWTH AFTER 5 DAYS ID Date Data Source [id number] 04/26/2020 07:54:00 AM [facility] SPECIMEN REVIEWED BY BETZY 04/26/20 [id number] 04/26/20 07 CALLED TO LAI Hand BY BETZY, RESULTS READ BACKGROWTH IN AEROBIC BOTTLEThe StudiekringArray BCID Panel is a qualitative multiplexednucleic acid-based [...] multiple mechanisms.A Not detected result for the Film[employer] antimicrobialresistance gene assays does not indicate antimicrobialsusceptibility. Subculturing and standard susceptibilitytesting of isolates is requried to determine antimicrobialsusceptibility.Results from this test must be correlated with the clinicalhistory, epidemiological data,and otherdata available to theclinician evaluating the patient.SARS-CoV-2 RNA Resp Ql JESSICA+probe Name Value Range Interpretation Code Description Data Candace rce(s) Supporting Document(s) ID Date Data Source [id number] 04/21/2020 12:27:00 PM EST [facility] ([facility]) Name Value Range Interpretation Code Description Data Candace rce(s) Supporting Document(s) Culture Blood Laboratory test result [facility] ([facility]) _CULTURE BLOOD_ TEST PERFORMED AT [facility] [id number] [place] [address] CLIA# [id number] SEE SCANNED REPORT { PRELIM GROWTH OF GRAM POSITIVE COCCI IN CLUSTERS BCID:NO ORGANISMS DETECTED CALLED TO 0935 04/26/20 CM ID Date Data Source [id number] 05/03/2020 07:31:00 AM EST [facility] Name Value Range Interpretation Code Description Data Candace rce(s) Supporting Document(s) CULTURE BLOOD [facility]ital _CULTURE BLOOD_ TEST PERFORM ED AT [facility] [address] [place] [address] CLIA# [id number] SEE SCANNED REPORT{ PRELIM GROWTH OF GRAM POSITIVE COCCI IN CLUSTERSBCID:NO ORGANISMS DETECTEDCALLED TO 0935 04/26/20 CM ID Date Data Source [id number] 04/21/2020 12:23:00 PM EST [facility] ([facility]) Name Value Range Interpretation Code Description Data Candace rce(s) Supporting Document(s) Culture Blood Laboratory test result [facility] ([facility]) _CULTURE BLOOD_ TEST PERFORMED AT [facility] [address] [place] [address] IA# [id number] SEE SCANNED REPORT { PRELIM ID Date Data Source [id number] 04/21/2020 12:23:00 PM EST [facility] ([facility]) Name Value Range Interpretation Code Description Data Candace rce(s) Supporting Document(s) Sed Rate Reenter 15 [facility] ([facility]) Sed Rate 15 mm/hr 0-20 MEDENT ([facility]) ID Date Data Source [id number] 04/21/2020 12:23:00 PM EST MEDENT ([facility]) Name Value Range Interpretation Code Description Data Candace rce(s) Supporting Document(s) C reactive protein [Mass/volume] in Serum or Plasma by High sensitivity method 46.79 mg/L 1.00-3.00 Above high normal MEDENT ([facility]) <content>CDC/S HS-CRP CUT-OFF: RELATIVE RISK:</content>
<content><1.0 mg/L Low</content>
<content>1.0 - 3.0 mg/L Average</michelle nt>
<content>>3.0 mg/L High</content>
<content>Optimally, the average of HS-CRP results repeated</content>
<content>two weeks apart should be used for risk assessment.</content>
<content></content> ID Date Data Source [id number] 04/21/2020 12:23:00 PM EST MEDENT ([facility]) Name Value Range Interpretation Code Description Data Candace rce(s) Supporting Document(s) CBC W/Automated Diff Laboratory test result MEDENT ([facility]) COMPLETE BLOOD COUNT WBC 5.7 10^3/uL 4.2-11.0 MEDENT ([facility]) Hemoglobin 13.9 g/dL 14.0-16.0 Below low normal MEDENT ( [facility]) RBC 4.36 10^6/uL 4.50-6.30 Below low normal MEDENT ([facility]) Hematocrit 39.3 % 41.0-51.0 Below low normal MEDENT ( [facility]) MCV 90.1 fL 80.0-94.0 MEDENT ([facility]) MCH 31.9 pg 27.0-34.0 MEDENT ([facility]) MCHC 35.4 g/dL 31.0-36.0 MEDENT ([facility]) RDW 11.6 % 11.5-14.8 MEDENT ([facility]) MPV 8.8 fL 7.4-10.4 MEDENT ([facility]) Platelets 206 10^3/uL 150-450 MEDENT ([facility]) [place] 8.6 % 3.0-8.0 Above high normal MEDENT ([facility]) Neut 72.5 % 37.0-80.0 MEDENT ([facility]) Lymph 13.9 % 25.0-40.0 Below low normal MEDENT ( [facility]) Eos 3.9 % 0.0-7.0 MEDENT ([facility]) Baso 0.7 % 0.0-2.0 MEDENT ([facility]) %NRBC 0.0 % 0.0-0.0 MEDENT ([facility]) %Ig 0.4 % 0.0-0.0 Above high normal MEDENT ([facility]) #Neut 4.12 10^3/uL 2.00-6.90 MEDENT ([facility]) #Lymph 0.79 10^3/uL 0.60-3.40 MED[facility] ([facility]) #Eos 0.22 10^3/uL 0.00-0.70 MED[facility] ([facility]) #[place] 0.49 10^3/uL 0.00-0.90 MED[facility] ([facility]) #Baso 0.04 10^3/uL 0.00-0.20 MED[facility] ([facility]) #Ig 0.02 10^3/uL 0.00-0.10 MED[facility] ([facility]) Manual Diff Laboratory test result M EDENT ([facility]) RBC Morph Laboratory test result MEDENT ([facility]) #NRBC 0.00 10^3/uL 0.00-0.00 MED[facility] ([facility]) ID Date Data Source [id number] 04/27/2020 09:35:00 AM [facility] Name Value Range Interpretation Code Description Data Candace rce(s) Supporting Document(s) CULTURE BLOOD [facility] spital _CULTURE BLOOD_ TEST [place] [address] CLIA# [id number] SEE SCANNED REPORT{ PRELIM ID Date Data Source [id number] 04/21/2020 01:30:00 PM [facility] Name Value Range Interpretation Code Description Data Candace rce(s) Supporting Document(s) Erythrocyte sedimentation rate by Westergren method 15 mm/hr 0 - 20 [facility] SED RATE REENTER 15 [facility] ID Date Data Source [id number] 04/21/2020 01:30:00 PM [facility] Name Value Range Interpretation Code Description Data Candace rce(s) Supporting Document(s) C reactive protein [Mass/volume] in Serum or Plasma by High sensitivity method 46.79 MG/L 1.00 - 3.00 H [facility] CDC/S HS-CRP CUT-OFF: RELATIVE RISK: <1.0 mg/L Low 1.0 - 3.0 mg/L Average >3.0 mg/L High Optimally, the average of HS-CRP results repeated two weeks apart should be used for risk assessment. ID Date Data Source [id number] 04/21/2020 12:53:00 PM [facility] Name Value Range Interpretation Code Description Data Candace rce(s) Supporting Document(s) CBC W/AUTOMATED DIFF [facility] COMPLETE BLOOD COUNT Leukocytes [#/volume] in Blood by Automated count 5.7 10^3/uL 4.2 - 1 1.0 [facility] Erythrocytes [#/volume] in Blood by Automated count 4.36 10^6/uL 4. 50 - 6.30 L [facility] Hemoglobin [Mass/volume] in Blood 13.9 g/dL 14.0 - 16.0 L [facility] Hematocrit [Volume Fraction] of Blood by Automated count 39.3 % 4 1.0 - 51.0 L [facility] Erythrocyte mean corpuscular volume [Entitic volume] by Auto mated count 90.1 fL 80.0 - 94.0 [facility] Erythrocyte mean corpuscular hemoglobin [Entitic mass] by Automated count 31.9 pg 27.0 - 34.0 [facility] Erythrocyte mean corpuscular hemoglobin concentration [Mass/volume] by Automated count 35.4 g/dL 31.0 - 36.0 [facility] Erythrocyte distribution width [Ratio] by Automated count 11.6 % 11.5 - 14.8 [facility] Platelets [#/volume] in Blood by Automated count 206 10^3/uL 150 - 45 0 [facility] Platelet mean volume [Entitic volume] in Blood by Automated count 8.8 fL 7.4 - 10.4 [facility] Neutrophils/100 leukocytes in Blood by Automated count 72.5 % 37. 0 - 80.0 [facility] Lymphocytes/100 leukocytes in Blood by Manual count 13.9 % 25.0 - 40.0 L [facility] Monocytes/100 leukocytes in Blood by Automated count 8.6 % 3.0 - 8.0 H [facility] Eosinophils/100 leukocytes in Blood by Automated count 3.9 % 0.0 - 7.0 [facility] Basophils/100 leukocytes in Blood by Automated count 0.7 % 0.0 - 2.0 [facility] %IG 0.4 % 0.0 - 0.0 [facility] %[facility] 0.0 % 0.0 - 0.0 [facility] al Neutrophils [#/volume] in Blood by Automated count 4.12 10^3/uL 2.00 - 6.90 [facility] Lymphocytes [#/volume] in Blood by Automated count 0.79 10^3/uL 0.60 - 3.40 [facility] Monocytes [#/volume] in Blood by Automated count 0.49 10^3/uL 0.00 - 0.90 [facility] Eosinophils [#/volume] in Blood by Automated count 0.22 10^3/uL 0.00 - 0.70 [facility] Basophils [#/volume] in Blood by Automated count 0.04 10^3/uL 0.00 - 0.20 [facility] #IG 0.02 10^3/uL 0.00 - 0.10 [facility] #NRBC 0.00 10^3/uL 0.00 - 0.00 [facility] MANUAL DIFF NOT INDICATED [facility] RBC MORPH NOT INDICATED [facility] ID Date Data Source [id number] 04/19/2020 09:08:00 AM EST [facility] Name Value Range Interpretation Code Description Data Candace rce(s) Supporting Document(s) SARS coronavirus 2 RNA [Presence] in Res piratory specimen by JESSICA with probe detection Negative [facility] This lab was ordered by [facility] and reported by [employer]. ID Date Data Source [id number] 04/02/2020 01:05:00 [place] [address] OPERATIVE SUMMARYNAME: NRAINDER Gee DATE OF : 1950ATTENDING PHYS: Sherley Wilkins MD DATE: 04/01/20 MR#: [id number] [id number] PROCEDURE: 04/01/2020REOPERATIVE DIAGNOSIS: Left hand ring trigger finger.POSTOPERATIVE DIAGNOSIS: Left hand ring trigger finger.SURGEON: Sherley gomez MD.GLASSWARE FINISHER: Davian Ray NP.REASON FOR MANAGER SALES AND MARKETING: Davian Ray NP provided essential assistance during [...] to undergo the above noted surgery. [address] [place] [id number] OPERATIVE SUMMARYNAME: NARINDER Gee DATE OF : 1950ATTENDING PHYS: Sherley Wilkins MD DATE: 04/01/20 MR#: [id number] OF PROCEDURE:The patient was brought to the [...] surgery.DD: Sherley Wilkins MD 04/02/20 11:48DT: TOBI 1/08/21 12:55DS: Sherley Wilkins MD 04/14/20 08:36 [address] [place] [address] OPERATIVE SUMMARYNAME: NARINDER Gee DATE OF : 1950ATTENDING PHYS: Sherley Wilkins MD DATE: 04/01/20 MR#: [id number] Name Value Range Interpretation Code Description Data Candace rce(s) Supporting Document(s) ID Date Data Source [id number] 04/12/2020 01:15:00 PM EST MEDENT ([facility]) Name Value Range Interpretation Code Description Data Candace rce(s) Supporting Document(s) Bacteria identified in Urine by Culture Laboratory test result MEDENT ([facility]) FULL REPORT IN LAB NOTES (eCW and Medent ). NO GROWTH ID Date Data Source [id number] 04/12/2020 01:15:00 PM EST MED[facility] ([facility]) Name Value Range Interpretation Code Description Data Candace rce(s) Supporting Document(s) Appearance, Urine Laboratory test result MEDENT ([facility]) Color, Urine Laboratory test result MEDE NT ([facility]) PH,Urine 6.0 units 5.0-9.0 [facility] Specific [place] Urine Auto 1.009 1.002-1.035 [facility] Protein, Urine Auto Laboratory test result [facility] ([facility]) Glucose, Urine (Ua) Auto Laboratory test result [facility] ([facility]) Bilirubin, Urine Auto Laboratory test result [facility] ([facility]) Ketone, Urine Auto Laboratory test result [facility] ([facility]) Urobilinogen, Urine Auto 0.2 mg/dL 0.0-2.0 MEDEN T ([facility]) Nitrite, Urine Auto Laboratory test result [facility] ([facility]) Blood, Urine Blood Laboratory test result [facility] Leukocyte Esterase, Urine Auto Laboratory test result [facility] ([facility] WBC, Urine Auto 0 /HPF 0-3 MED[facility] ([facility]) Bacteria, Urine Auto Laboratory test result [facility] ([facility]) RBC, Urine Auto 0 /HPF 0-3 [facility] ([facility]) Squamous Epithelial Cell Ur AU 0 /HPF 0-6 [facility] ([facility]) Hyaline Cast, Urine Auto 0 /LPF 0-1 MEDEN T ([facility]) ID Date Data Source [id number] 04/12/2020 01:15:00 PM EST MEDENT ([facility]) Name Value Range Interpretation Code Description Data Candace rce(s) Supporting Document(s) Prothrombin Time 13.4 s 12.5-14.3 [facility] ([facility]) Inr 1.00 [facility] ([facility]) THERAPUTIC HUMAN INR VALUES INDICATIONS NORMAL RANGES PROPHYLAXIS/TREATMENT OF: VENOUS THROMBOSIS 2.0-3.0 PULMONARY EMBOLISM 2.0-3.0 PREVENTION OF SYSTEMIC EMBOLISM FROM: TISSUE HEART VALVES 2.0-3.0 ACUTE MYOCARDIAL INFARCTION 2.0-3.0 VALVULAR HEART DISEASE 2.0-3.0 ATRIAL FIBRILLATION 2.0-3.0 MECHANICAL VALVES(HIGH RISK) 2.5-3.5 RECURRENT MYOCARDIAL INFARCTION 2.5-3.5 Partial Thromboplastin Time 34.9 s 24.2-38.5 SC DENT ([facility]) ID Date Data Source [id number] 04/12/2020 01:11:00 PM EST MED[facility] ([facility]) Name Value Range Interpretation Code Description Data Candace rce(s) Supporting Document(s) Urea nitrogen [Mass/volume] in Serum or Plasma 18 mg/dL 7-18 [facility] ([facility]) Glucose [Mass/volume] in Serum or Plasma 63 mg/dL 74-99 [facility] ([facility]) 100-125 mg/dL PRE-DIABETES/FASTING >126 mg/dL DIABETES/FASTING Potassium [Moles/volume] in Serum or Plasma 4.7 meq/L 3.5-5.1 [facility] ([facility]) Sodium [Moles/volume] in Serum or Plasma 136 meq/L 136-145 [facility] ([facility]) Creatinine 0.9 mg/dL 0.6-1.3 [facility] ([facility]) Chloride [Moles/volume] in Serum or Plasma 99 meq/L 98-107 [facility] ([facility]) Carbon dioxide, total [Moles/volume] in Serum or Plasma 29 meq/L 21 -32 [facility] ([facility]) Calcium [Mass/volume] in Serum or Plasma 9.0 mg/dL 8.5-10.1 [facility] ([facility]) Alkaline phosphatase isoenzyme [Units/volume] in Serum or Pl asma 56 mg/dL 46-116 [facility] ([facility]) Total Bilirubin 0.7 mg/dL 0.2-1.0 [facility] ([facility]) Alanine aminotransferase [Enzymatic activity/volume] in Seru m or Plasma 23 U/L 12-78 [facility] ([facility]) Aspartate aminotransferase [Enzymatic activity/volume] in Serum or Plasma 19 U/L 15-37 [facility] ([facility] ) Proteinase 3 Ab [Units/volume] in Serum 7.4 g/dL 6.4-8.2 [facility] ([facility]) Albumin [Mass/volume] in Serum or Plasma 4.2 g/dL 3.4-5.0 [facility] ([facility]) A/G Ratio 1.31 CALC 1.00-1.90 [facility] [facility] Glomerular filtration rate/1.73 sq M pre dicted among blacks [Volume Rate/Area] in Serum or Plasma by Creatinine-based formula (MDRD) Laboratory test result [facility] <content>CHRONIC KIDNEY DISEASE STAGING PER NKF</content>
<content></content>
<content>STAGE I & II GFR >= 60 NORMAL TO MILDLY DECREASED</content>
<content>STAGE III GFR 30-59 MODERATELY DECREASED</content>
<content>STAGE IV GFR 15-29 SEVERELY DECREASED</content>
<content>STAGE V GFR <15 VERY LITTLE GFR LEFT</content>
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
<content></content> Glomerular filtration rate/1.73 sq M pre dicted among non-blacks [Volume Rate/Area] in Serum or Plasma by Creatinine-based formula (MDRD) Laboratory test result [facility] ([facility] ) ID Date Data Source [id number] 04/12/2020 01:11:00 PM EST MED[facility] ([facility]) Name Value Range Interpretation Code Description Data Candace rce(s) Supporting Document(s) Leukocytes [#/volume] in Blood by Automated count 4.5 x10*3/UL 4.1-10 .9 [facility] ([facility]) Erythrocytes [#/volume] in Blood by Automated count 4.29 x10*6/UL 4.2 0-6.30 [facility] ([facility] Hemoglobin [Mass/volume] in Blood 13.7 g/dL 12.0-18.0 [facility] ([facility]) MCH 31.9 pg 26.0-32.0 [facility] [facility] MCV 89.1 fL 80.0-97.0 [facility] [facility] Hematocrit [Volume Fraction] of Blood by Automated count 38.2 % 3 7.0-51.0 [facility] ([facility] Platelets [#/volume] in Blood by Automated count 205 x10*3/UL 140-440 [facility] ([facility] Erythrocyte distribution width [Ratio] by Automated count 12.0 % 11.6-13.7 [facility] ([facility] MCHC 35.8 g/dL 31.0-38.0 [facility] [facility] Mid % 5.3 % 1.7-9.3 [facility] ([place] [facility] MPV 7.4 FL 7.8-11.0 [facility] ([place] [facility] Lymph % 24.5 % 10.0-58.5 [facility] [facility] Mid # 0.3 x10*3/UL 0.1-0.6 [facility] ([facility]) Neut % 70.2 % 37.0-92.0 [facility] [facility] Lymph # 1.1 x10*3/UL 0.6-4.1 [facility] ([facility]) Neut # 3.1 x10*3/UL 2.0-7.8 MEDMAGGIE ([facility]) ID Date Data Source [id number] 04/08/2020 02:14:05 PM EST [facility], PCName: Joshua BarcenasDOB: 1950Provider: Abel AdamsDOS: 04/08/2020 Reason For VisitJoshua Barcenas is here [...] operating room I have a team of Intelligence Agent surgeons which helped me with the surgery. I do the entire operation including the skin incision and all the way through implantation of the implants and closure of the deep tissues. After this portion of the operation is completed, the campus administrative assistant surgeons will close the subcutaneous tissue [...] rce(s) Supporting Document(s) ID Date Data Source [id number] 03/27/2020 08:30:00 AM EST MEDENT ([facility]) Name Value Range Interpretation Code Description Data Candace rce(s) Supporting Document(s) Coronavirus Covid-19 Laboratory test result [facility] ([facility]) This nucleic acid amplification test was developed and its performance characteristics determined by [employer]. Nucleic acid amplification tests include PCR and [...] in this assay. ID Date Data Source [id number] 03/27/2020 08:30:00 AM EST [facility] ([facility]) Name Value Range Interpretation Code Description Data Candace rce(s) Supporting Document(s) Coronavirus Covid-19 Laboratory test result [facility] This nucleic acid amplification test was developed and its performance characteristics determined by [employer]. Nucleic acid amplification tests include PCR and [...] in this assay. ID Date Data Source [id number] 03/27/2020 08:30:00 AM EST [facility] Name Value Range Interpretation Code Description Data Candace rce(s) Supporting Document(s) SARS coronavirus 2 RNA [facility] This lab was ordered by [facility] and reported by [employer]. ID Date Data Source [id number] 03/29/2020 02:10:00 PM EST [facility] Name Value Range Interpretation Code Description Data Candace rce(s) Supporting Document(s) SARS-CoV-2, JESSICA Not Detected Not Detected [facility] This nucleic acid amplification test was developed and its performancecharacteristics determined by [employer]. Nucleic acidamplification tests include PCR and TMA. [...] smoked tobacco (finding) GISEL (Alec Joseph MD [facility]) Smoking 10/12/2020 02:46:17 PM EDT Never smoked tobacco (findi ng) completed Never smoked tobacco (finding) GISEL (Alec Joseph MD [facility]) Smoking 05/14/2020 12:00:00 AM EST Never Smoker completed Never S moker eCW1 ([facility]) Smoking 05/14/2020 12:00:00 AM EST Never Smoker completed Never S moker eCW1 ([facility]) Smoking 05/14/2020 12:00:00 AM EST Never Smoker completed Never S moker eCW1 ([facility]) Smoking 05/14/2020 12:00:00 AM EST Never Smoker completed Never S moker eCW1 ([facility]) Smoking 05/14/2020 12:00:00 AM EST Never Smoker completed Never S moker eCW1 ([facility]) Smoking 05/07/2020 12:00:00 AM EST Never Smoker completed Never S raquel eCW1 ([facility]) Vital Signs ID Date Data Source [id number] Name Value Range Interpretation Code Description Data Source(s) Systolic blood pressure 110 mm[Hg] 110 mm[Hg] M EDENT ([facility]) Diastolic blood pressure 72 mm[Hg] 72 mm[Hg] [facility] ([facility]) Heart rate 64 /min 64 /min [facility] ([facility]) Body mass index (BMI) [Ratio] 25.5 kg/m2 25.5 k g/m2 [facility] ([facility]) Body height 68 [in_i] 68 [in_i] [facility] ([facility]) 5'8" Body weight 168.00 [lb_av] 168.00 [lb_av] MEDEN T ([facility]) Body height 68 [in_i] 68 [in_i] [facility] ([facility]) 5'8" Body weight 167.44 [lb_av] 167.44 [lb_av] MEDEN T ([facility]) Systolic blood pressure 114 mm[Hg] 114 mm[Hg] M [facility] ([facility]) Diastolic blood pressure 76 mm[Hg] 76 mm[Hg] [facility] ([facility]) Heart rate 68 /min 68 /min [facility] ([facility]) Oxygen saturation in Arterial blood by Pulse oximetry 96 % 96 % [facility] ([facility]) RM Air Body mass index (BMI) [Ratio] 25.5 kg/m2 25.5 k g/m2 [facility] ([facility]) Body height 68 [in_i] 68 [in_i] [facility] ([facility]) 5'8" Body weight 171.00 [lb_av] 171.00 [lb_av] MEDEN T ([facility]) Body mass index (BMI) [Ratio] 26.0 kg/m2 26.0 k g/m2 [facility] ([facility]) Systolic blood pressure 112 mm[Hg] 112 mm[Hg] M [facility]) Diastolic blood pressure 72 mm[Hg] 72 mm[Hg] [facility] ([facility]) Heart rate 72 /min 72 /min [facility] ([facility]) Body weight 173 [lb_av] 173 [lb_av] eCW1 ([facility]) Body height [in_i] eCW1 ([facility]) Body mass index (BMI) [Ratio] 26.30 kg/m2 26.30 kg/m2 eCW1 ([facility]) Heart rate 67 /min 67 /min eCW1 ([facility]) Respiratory rate 16 /min 16 /min eCW1 ([facility]) Body temperature 96.2 [degF] 96.2 [degF] eCW1 ( [facility]) Systolic blood pressure 127 mm[Hg] 127 mm[Hg] e CW1 ([facility]) Diastolic blood pressure 66 mm[Hg] 66 mm[Hg] eCW1 ([facility]) Body temperature 97.0 [degF] 97.0 [degF] MEDENT ([facility]) Body weight 173 [lb_av] 173 [lb_av] eCW1 ([facility]) Systolic blood pressure 129 mm[Hg] 129 mm[Hg] e CW1 ([facility]) Diastolic blood pressure 68 mm[Hg] 68 mm[Hg] eCW1 ([facility]) Body height [in_i] eCW1 ([facility]) Body mass index (BMI) [Ratio] 26.30 kg/m2 26.30 kg/m2 eCW1 ([facility]) Heart rate 64 /min 64 /min eCW1 ([facility]) Respiratory rate 18 /min 18 /min eCW1 ([facility]) Body temperature 97.9 [degF] 97.9 [degF] eCW1 ( [facility]) Body temperature 97.3 [degF] 97.3 [degF] MEDENT ([facility]) Body temperature 97.0 [degF] 97.0 [degF] [facility] ([facility]) Body temperature 97.2 [degF] 97.2 [degF] [facility] ([facility]) Body temperature 97.2 [degF] 97.2 [degF] MED[facility] ([facility]) Systolic blood pressure 130 mm[Hg] 130 mm[Hg] M EDENT ([facility]) Diastolic blood pressure 72 mm[Hg] 72 mm[Hg] [facility] ([facility]) Heart rate 76 /min 76 /min MED[facility] ([facility]) Body height 68 [in_i] 68 [in_i] MED[facility] ([facility]) 5'8" Body weight 169.00 [lb_av] 169.00 [lb_av] MEDEN T ([facility]) Body mass index (BMI) [Ratio] 25.7 kg/m2 25.7 k g/m2 [facility] ([facility]) Body temperature 97.3 [degF] 97.3 [degF] MED[facility] ([facility]) Body weight 171.00 [lb_av] 171.00 [lb_av] MEDEN T ([facility]) Systolic blood pressure 122 mm[Hg] 122 mm[Hg] EDENT ([facility]) Diastolic blood pressure 66 mm[Hg] 66 mm[Hg] [facility] ([facility]) Heart rate 64 /min 64 /min MED[facility] ([facility]) Body height 68 [in_i] 68 [in_i] MED[facility] ([facility]) 5'8" Body mass index (BMI) [Ratio] 26.0 kg/m2 26.0 k g/m2 [facility] ([facility]) Body weight 164.00 [lb_av] 164.00 [lb_av] MEDEN T ([facility]) Body weight 74.390 kg 74.390 kg MED[facility] ([facility]) Body height 68 [in_i] 68 [in_i] MED[facility] ([facility]) 5'8" Body mass index (BMI) [Ratio] 24.9 kg/m2 24.9 k g/m2 [facility] ([facility]) Body surface area Derived from formula 1.88 m2 1.88 m2 MED[facility] ([facility]) Systolic blood pressure 120 mm[Hg] 120 mm[Hg] EDENT ([facility]) Diastolic blood pressure 70 mm[Hg] 70 mm[Hg] MED[facility] ([facility]) Heart rate 87 /min 87 /min MEDENT ([facility]) Body temperature 97.0 [degF] 97.0 [degF] [facility] ([facility]) Oxygen saturation in Arterial blood by Pulse oximetry 97 % 97 % [facility] ([facility]) Body temperature 96.8 [degF] 96.8 [degF] [facility] ([facility]) ID Date Data Source [id number] 06/28/2020 10:15:13 AM EDT [facility] Name Value Range Interpretation Code Description Data Source(s) WEIGHT RECORDED 171.00 pounds 171.00 pounds [facility] Height 68 Inches 068 Inches [facility] WEIGHT RECORDED 170.00 pounds 170.00 pounds [facility] Height 68 Inches 068 Inches [facility] ID Date Data Source [id number] 06/09/2020 09:34:44 AM EDT [facility] Name Value Range Interpretation Code Description Data Source(s) WEIGHT RECORDED 172.00 pounds 172.00 pounds [facility] Height 68 Inches 068 Inches [facility] WEIGHT RECORDED 168.70 pounds 168.70 pounds [facility] Height 68 Inches 068 Inches [facility] WEIGHT RECORDED 164.00 pounds 164.00 pounds [facility] Height 68 Inches 068 Inches [facility] ID Date Data Source [id number] 05/12/2020 10:04:12 AM EST [facility] Name Value Range Interpretation Code Description Data Source(s) WEIGHT RECORDED 168.00 pounds 168.00 pounds [facility] Height 68 Inches 068 Inches [facility]
[2021-03-07 01:27] LABS: MAGNESIUM LEVEL 2.4 MG/DL (1.8-2.4)
--- NOTE | 2021-03-07 01:28 | REPVR ---
PROCEDURE INFORMATION: Exam: US Duplex Left Lower Extremity Veins, Limited Exam date and time: 03/07/2021 1:16 AM Age: 70 years old Clinical indication: Edema, localized; Lower extremity, left; Prior surgery; Surgery date: Post-operative (0-2 days); Surgery type: Total knee replacement on Sunday03/04/21; Additional info: R/O dvt TECHNIQUE: Imaging protocol: Real-time Duplex ultrasound of the Left Lower Extremity with 2-D conklin scale, color Doppler flow and spectral waveform analysis with image documentation. Limited exam focused on the left lower extremity veins. COMPARISON: US BILAT LOWER EXTREM ARTERIAL 02/11/2018 6:39 AM FINDINGS: Left deep veins: Common femoral, femoral, proximal profunda femoral veins are patent without thrombus. Normal Doppler waveforms. Normal compressibility and/or augmentation response. There is incompletely occlusive thrombus within the left popliteal vein which does not extend into the femoral vein Left superficial veins: Saphenofemoral junction is patent without thrombus. Soft tissues: No abnormal focal fluid collection. IMPRESSION: Focal nonocclusive popliteal vein thrombosis without extension into the left femoral vein. Electronically signed by: Kristopher Pierce On 03/07/2021 01:28:09 AM
[2021-03-07 01:38] LABS: ERYTHROCYTE SEDIMENTATION RATE 31 mm/hr (0-20)
[2021-03-07 06:00] LABS: BASO % 0.1 % (0.0-1.0); HEMATOCRIT 31.2 % (42.0-52.0); HEMOGLOBIN 10.7 g/dl (13.5-17.5); LYMPH # 0.5 10^3/uL (1.5-5.0); LYMPH % 4.6 % (24.0-44.0); MEAN CORPUSCULAR HEMOGLOBIN 31.2 pg (27.0-33.0); MEAN CORPUSCULAR HGB CONC 34.3 g/dl (32.0-36.5); MONO # 0.5 10^3/uL (0.0-0.8); MONO % 5.3 % (2.0-8.0); NEUTROPHILS # 8.9 10^3/uL (1.5-8.5); NEUTROPHILS % 89.7 % (36.0-66.0); PLATELET COUNT, AUTOMATED 186 10^3/uL (150-450); RED BLOOD COUNT 3.43 10^6/uL (4.30-6.10); WHITE BLOOD COUNT 9.9 10^3/uL (4.0-10.0)
[2021-03-07 06:16] LABS: ALBUMIN 2.7 GM/DL (3.2-5.2); ALT/SGPT 30 U/L (12-78); BILIRUBIN,TOTAL 0.8 MG/DL (0.2-1.0); BLOOD UREA NITROGEN 10 MG/DL (7-18); CALCIUM LEVEL 8.4 MG/DL (8.8-10.2); CARBON DIOXIDE LEVEL 27 MEQ/L (21-32); CHLORIDE LEVEL 103 MEQ/L (98-107); CREATININE FOR GFR 0.88 MG/DL (0.70-1.30); GLOMERULAR FILTRATION RATE > 60.0 (>42); GLUCOSE, FASTING 137 MG/DL (70-100); MAGNESIUM LEVEL 2.3 MG/DL (1.8-2.4); POTASSIUM SERUM 4.6 MEQ/L (3.5-5.1); SODIUM LEVEL 136 MEQ/L (136-145); TOTAL PROTEIN 5.8 GM/DL (6.4-8.2)
[2021-03-07] MEDS: PIPERACILLIN/TAZOBACTAM SOD 4.5 GM in D5W MINI-BAG PLUS 50 ML IV SCH ×4 (06:50→23:40)
[2021-03-07 08:30] VITALS: BP 115/58
--- NOTE | 2021-03-07 08:52 | REP ---
INDICATION: Assess stenosis TECHNIQUE: Carotid ultrasonography was performed bilaterally FINDINGS: Right: CCA systolic: 89.4 centimeters/second CCA diastolic: 14.9 centimeters/second ICA systolic: 104.0 centimeters/second ICA diastolic: 23.3 centimeters/second ICA CCA ratio: 1.16 Left: CCA systolic: 98.9 centimeters/second CCA diastolic: 15.1 centimeters/second ICA systolic: 125.0 centimeters/second ICA diastolic: 41.8 centimeters/second ICA CCA ratio: 1.26 Vertebral artery: Right: Antegrade flow left: Antegrade flow A subtle degree of echogenic material is seen along the carotid arterial martinez. IMPRESSION: According to the SRU criteria there is 50-69% stenosis of the left internal carotid artery. There is less than 50% stenosis of the right internal carotid artery. <Electronically signed by Jaxson Rucker > 03/07/21 [id number]
[2021-03-07] MEDS: OMEPRAZOLE 20 MG CAP PO SCH (09:12)
[2021-03-07] MEDS: TAMSULOSIN 0.4 MG CAP PO SCH (09:12)
[2021-03-07] MEDS: GABAPENTIN 300 MG CAP PO SCH ×2 (09:12→22:11)
[2021-03-07] MEDS: DOCUSATE SODIUM 100MG CAPSULE PO SCH (09:12)
[2021-03-07 11:32] LABS: CORTISOL AM 18.7 UG/DL (4.3-22.4)
[2021-03-07 12:00] VITALS: BP 104/51
[2021-03-07] MEDS ORDERED: VANCOMYCIN HCL IV SCH (13:35)
[2021-03-07] MEDS ORDERED: FLUID PLACE HOLDER IV SCH (13:35)
[2021-03-07] MEDS ORDERED: VANCOMYCIN HCL 750 MG, VIAL MATE ADAPTER 1 EACH in NS 250 ML IV ONE ×2 (15:00→16:00)
[2021-03-07 16:00] VITALS: BP_SYST 123; BP_SYST 126; BP_SYST 129; BP_DIAS 55; BP_DIAS 57; BP_DIAS 60
--- NOTE | 2021-03-07 16:50 | IPNPDOC ---
Date Seen The patient was seen on 03/07/21. Progress Note SUBJECTIVE: Patient is a 70-year-old male who was admitted after experiencing a syncopal episode during a bowel movement at home. He subsequently experienced 2 more syncopal episodes during bowel movements in the ER. Subsequent CT scans showed intralobar right lower lobe segmental pulmonary embolus bibasilar atelectasis concerning for right basilar pneumonia. Patient believes he may have had 1 more syncopal episode last night while in bed. Recalls. Blurry vision but was unable to remember a time spent several minutes he believes he experienced a similar event several years ago. He denies excessive straining with recent but does endorse history of chronic constipation for which he is on a stool softener. He had a total left knee replacement done last week for which he took hydrocodone for the first time on Sunday. He thinks he took that medication prior to the first syncopal episode. He was also taking iron pills which could account for the black stool that was observed after the syncopal episodes. Patient changes in his breathing after or shortness of breath and syncopal events. He also denies chest pain with breathing. Straining with urination, or dysuria. OBJECTIVE PHYSICAL EXAMINATION: VITAL SIGNS: Please see below GENERAL: 70-year-old male, lying in recliner next to bed, no acute distress CARDIOVASCULAR: Regular rate and rhythm RESPIRATORY: CTA bilaterally ABDOMINAL: Normoactive bowel sounds, tender to palpation in left lower quadrant EXTREMITIES: Left knee incision site appears noninfected, does appear swollen compared to right, endorses tender to palpation in the lower thigh and upper lower extremity NEUROLOGICAL: No gross deficits appreciated PSYCHOLOGICAL: Alert and oriented x3 LABORATORY DATA, IMAGING STUDIES, MICROBIOLOGY: Please see below. DVT prophylaxis ordered?: On heparin ASSESSMENT AND PLAN: This is a 70-year-old male who presented to the ED after syncopal episode during bowel movement. Had 2 subsequent syncopal episodes of bowel movements while in the ER that were accompanied by bradycardia down to 25 bpm. PROBLEMS: Syncope with transient bradycardia 2/2 possible vasovagal phenomenon vs PE? (no R heart strain) - s/p 3 syncopal episodes in ER, all following straining on bedside commode. 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 cardiac enzymes negative x 2 - Holding baclofen and methocarbamol for side effects of bradycardia - Magnesium normal - admit to PCU. Telemetry monitoring - 2D echo ordered Pulmonary embolism (Inter lobar and right lower lobe) - no acute SOB. Is now on room air - possibly related to recent knee replacement 02/28/21 - states he was compliant with prophylactic ASA - RLE venous duplex to r/o DVT - positive for nonocclusive popliteal vein thrombosis without extension into L femoral vein - started on heparin ggt in ER, will continue -Can be switched over to Eliquis 10 mg twice daily for 7 days of 5 mg twice daily after that. This is most likely provoked DVT and PE after surgery. Enteritis - seen on CT abdomen - possible related to fecal impaction 2/ ileus? - had large BM in ER - started on empiric zosyn - to f/u cultures - procal within normal limits Questionable R basilar pneumonia - no leukocytosis, no fever - CT scan reviewed above - ordered procal, ESR, CRP - c/w zosyn Arthritis - 02/28/21 knee replacement - patient uses copious amounts of NSAIDs - advised to diminish use Neuropathy - c/w gabapentin GERD - c/w omeprazole BPH? - c/w Flomax #. Gram-positive cocci in clusters seen on blood culture -Started on recommendation -Nephrology 2 sets of blood cultures reordered to ensure results are correct Dispo: admit to PCU. DC pending clinical improvement. Admission expected to span > 2 midnights. VS, I&O, 24H, Fishbone Vital Signs/I&O Vital Signs Date Time Temp Pulse Resp B/P (MAP) Pulse Ox O2 Delivery O2 Flow Rate FiO2 03/07/21 12:00 99.1 71 18 104/51 (68) 97 Room Air 03/06/21 19:51 2.0 Laboratory Data 24H LABS Laboratory Tests 2 03/06/21 17:36: Procalcitonin 0.18, Coronavirus (COVID-19)(PCR) NEGATIVE, Influenza Type A (RT- PCR) NEGATIVE, Influenza Type B (RT-PCR) NEGATIVE, Respiratory Syncytial Virus (PCR) NEGATIVE 03/06/21 17:49: Immature Granulocyte % (Auto) 0.6, Neutrophils (%) (Auto) 79.5H, Lymphocytes (%) (Auto) 10.7L, Monocytes (%) (Auto) 6.4, Eosinophils (%) (Auto) 2.4, Basophils (%) (Auto) 0.4, Neutrophils # (Auto) 5.6, Lymphocytes # (Auto) 0.8L, Monocytes # (Auto) 0.5, Eosinophils # (Auto) 0.2, Basophils # (Auto) 0.0, Nucleated Red Blood Cells % (auto) 0.0, Prothrombin Time 15.3H, Prothromb Time International Ratio 1.17, Activated Partial Thromboplast Time 33.6, Anion Gap 6L, Glomerular Filtration Rate > 60.0, Lactic Acid Level 1.2, Calcium Level 9.0, Magnesium Level 2.4, Total Bilirubin 0.8, Direct Bilirubin 0.3H, Aspartate Amino Transf (AST/SGOT) 51H, Alanine Aminotransferase (ALT/SGPT) 36, Alkaline Phosphatase 55, C-Reactive Protein, Quantitative 12.80H, Total Protein 6.3L, Albumin 3.2, Albumin/Globulin Ratio 1.0, Thyroid Stimulating Hormone (TSH) 0.572, Ethyl Alcohol Level < 0.003 03/06/21 18:07: POC Troponin I (Misc) 0.00 03/06/21 21:06: Immature Granulocyte % (Auto) 0.4, Neutrophils (%) (Auto) 92.4H, Lymphocytes (%) (Auto) 4.4L, Monocytes (%) (Auto) 2.4, Eosinophils (%) (Auto) 0.2, Basophils (%) (Auto) 0.2, Neutrophils # (Auto) 5.1, Lymphocytes # (Auto) 0.2L, Monocytes # (Auto) 0.1, Eosinophils # (Auto) 0.0, Basophils # (Auto) 0.0, Nucleated Red Blood Cells % (auto) 0.0, Erythrocyte Sedimentation Rate 31H, Total Creatine Kinase 621H, Creatine Kinase MB 3.8H, Creatine Kinase MB Relative Index 0.61, Troponin I High Sensitivity 5.0 03/07/21 05:16: Immature Granulocyte % (Auto) 0.3, Neutrophils (%) (Auto) 89.7H, Lymphocytes (%) (Auto) 4.6L, Monocytes (%) (Auto) 5.3, Eosinophils (%) (Auto) 0.0, Basophils (%) (Auto) 0.1, Neutrophils # (Auto) 8.9H, Lymphocytes # (Auto) 0.5L, Monocytes # (Auto) 0.5, Eosinophils # (Auto) 0.0, Basophils # (Auto) 0.0, Nucleated Red Blood Cells % (auto) 0.0, Activated Partial Thromboplast Time 60.8H, Anion Gap 6L, Glomerular Filtration Rate > 60.0, Calcium Level 8.4L, Magnesium Level 2.3, Total Bilirubin 0.8, Aspartate Amino Transf (AST/SGOT) 35, Alanine Aminotransferase (ALT/SGPT) 30, Alkaline Phosphatase 59, Total Protein 5.8L, Albumin 2.7L, Albumin/Globulin Ratio 0.9, Cortisol AM Sample 18.7 CBC/BMP Laboratory Tests 03/06/21 17:49 03/06/21 21:06 03/07/21 05:16 Microbiology Microbiology 03/06/21 Blood Culture, Received Pending 03/06/21 Blood Culture - Preliminary, Resulted GME ATTESTATION GME ATTESTATION My faculty preceptor for this patient encounter was physically present during the encounter and was fully available. All aspects of the patient interview, examination, medical decision making process, and medical care plan development were reviewed and approved by the faculty preceptor. The faculty preceptor is aware and concurs with the plan as stated in the body of this note and will attest to such by his/her cosignature. ATTENDING NOTE I, Graham Arellano DO, have independently examined this patient and performed my own physical exam, as well as reviewed the documentation and edited where necess guillermina. I have discussed in detail with the resident the findings and plan of treatment as documented by the resident and edited their note. I agree with their findings and treatment plan and have edited their documentation. I will continue to follow the patient during this hospital stay. Parish Bhatt DO Mar 07, 2021 16:50 GRAHAM ARELLANO DO Mar 07, 2021 18:42
[2021-03-07] MEDS: ACETAMINOPHEN TAB 650MG DOSE (2X325MG) PO PRN (18:12)
[2021-03-07 20:00] VITALS: BP 108/55
[2021-03-07] MEDS: NORCO, ANEXSIA 5/325MG TABLET (HYDROcodone/ACETAMINOPHEN) PO PRN (22:11)
[2021-03-08] VITALS: BP 92/48
[2021-03-08 04:00] VITALS: BP 100/57
[2021-03-08] MEDS: VANCOMYCIN HCL 1,000 MG, VIAL MATE ADAPTER 1 EACH in NS 250 ML IV SCH ×2 (04:00→15:00)
[2021-03-08] MEDS: PIPERACILLIN/TAZOBACTAM SOD 4.5 GM in D5W MINI-BAG PLUS 50 ML IV SCH (06:05)
[2021-03-08 06:25] LABS: BASO % 0.4 % (0.0-1.0); EOS # 0.3 10^3/uL (0.0-0.5); EOS % 4.6 % (0.0-3.0); HEMATOCRIT 25.3 % (42.0-52.0); HEMOGLOBIN 8.8 g/dl (13.5-17.5); LYMPH # 0.9 10^3/uL (1.5-5.0); LYMPH % 13.4 % (24.0-44.0); MEAN CORPUSCULAR HEMOGLOBIN 31.9 pg (27.0-33.0); MEAN CORPUSCULAR HGB CONC 34.8 g/dl (32.0-36.5); MEAN CORPUSCULAR VOLUME 91.7 fl (80.0-96.0); MONO # 0.6 10^3/uL (0.0-0.8); MONO % 8.5 % (2.0-8.0); NEUTROPHILS # 4.9 10^3/uL (1.5-8.5); NEUTROPHILS % 72.5 % (36.0-66.0); PLATELET COUNT, AUTOMATED 175 10^3/uL (150-450); RED BLOOD COUNT 2.76 10^6/uL (4.30-6.10); WHITE BLOOD COUNT 6.8 10^3/uL (4.0-10.0)
[2021-03-08 06:57] LABS: ALBUMIN 2.1 GM/DL (3.2-5.2); ALT/SGPT 25 U/L (12-78); BILIRUBIN,TOTAL 0.6 MG/DL (0.2-1.0); BLOOD UREA NITROGEN 12 MG/DL (7-18); CALCIUM LEVEL 7.8 MG/DL (8.8-10.2); CARBON DIOXIDE LEVEL 28 MEQ/L (21-32); CHLORIDE LEVEL 105 MEQ/L (98-107); CREATININE FOR GFR 0.96 MG/DL (0.70-1.30); GLOMERULAR FILTRATION RATE > 60.0 (>42); GLUCOSE, FASTING 106 MG/DL (70-100); SODIUM LEVEL 138 MEQ/L (136-145); TOTAL PROTEIN 5.6 GM/DL (6.4-8.2)
--- NOTE | 2021-03-08 07:06 | ECHO ---
ECHOCARDIOGRAM DATE OF PROCEDURE: 03/07/2021 Age: Gender: M Height: 175 cm Weight: 73 kg REFERRING PHYSICIAN: Lemuel Burton MD INDICATION: Syncope MEASUREMENTS: IVS: 0.8 LV: 4.5 LVPW: 1.2 LA: 3.2 Aorta: 3.9 IVC: 1.1 Mitral E wave velocity is 72; A wave 88 E prime septal: 9.8 E prime lateral: 10.3 FINDINGS: This study is of good technical quality. Underlying sinus rhythm. Left ventricle is normal size. Mild left ventricular hypertrophy is noted. Overall normal left ventricle (LV) systolic function with estimated left ventricular ejection fraction (LVEF) approximately 60% to 65%. I do not appreciate any segmental wall motion abnormality. Right ventricle also has normal size and systolic function. Both atria appear normal. Aortic valve is tricuspid. It is minimally sclerotic and has normal mobility. Mitral, tricuspid and pulmonic valves appear normal. No pericardial effusion is noted. Inferior vena cava is normal size and appropriately collapses with inspiration indicative of normal central venous pressure. Aortic root is mildly dilated at 3.9 cm. Aortic arch and abdominal aorta was poorly visualized but grossly appears normal. Doppler interrogation indicates no aortic stenosis and mild aortic insufficiency. There is also mild mitral, tricuspid and pulmonic insufficiency. Mitral inflow pattern and tissue Doppler imaging of mitral annulus revealed grade 1 diastolic dysfunction. CONCLUSIONS: 1. Study is of good technical quality, underlying sinus rhythm. 2. Normal left ventricular (LV) hypertrophy and preserved left ventricular (LV) systolic function. Grade 1 diastolic dysfunction. 3. Mild aortic, mitral, tricuspid and pulmonic insufficiency. 4. Normal central venous pressure and normal pulmonary artery pressure. 5. Mildly dilated aortic root at 3.9 cm. 6. No findings to provide obvious explanation for syncopal event.
[2021-03-08 08:09] VITALS: BP 102/57
[2021-03-08] MEDS ORDERED: AUGMENTIN 875 MG TAB PO SCH (09:00)
[2021-03-08] MEDS ORDERED: AMOX875T2 PO (09:00)
[2021-03-08] MEDS ORDERED: ELIQ5TAB PO (09:00)
[2021-03-08] MEDS ORDERED: APIXABAN 5 MG TAB (ELIQUIS) PO SCH (09:00)
[2021-03-08] MEDS: GABAPENTIN 300 MG CAP PO SCH ×2 (09:01→20:33)
[2021-03-08] MEDS: OMEPRAZOLE 20 MG CAP PO SCH (09:01)
[2021-03-08] MEDS: DOCUSATE SODIUM 100MG CAPSULE PO SCH (09:01)
[2021-03-08] MEDS: TAMSULOSIN 0.4 MG CAP PO SCH (09:02)
[2021-03-08] MEDS ORDERED: FLUID PLACE HOLDER IV SCH (09:55)
[2021-03-08] MEDS ORDERED: VANCOMYCIN HCL IV SCH (09:55)
[2021-03-08] MEDS: APIXABAN 5 MG TAB (ELIQUIS) PO SCH ×2 (10:00→20:33)
[2021-03-08] MEDS: ACETAMINOPHEN TAB 650MG DOSE (2X325MG) PO PRN ×3 (10:05→22:59)
[2021-03-08 10:54] LABS: HEMATOCRIT 27.9 % (42.0-52.0); HEMOGLOBIN 9.3 g/dl (13.5-17.5)
--- NOTE | 2021-03-08 11:41 | IPNPDOC ---
Date Seen The patient was seen on 03/08/21. Progress Note SUBJECTIVE: Patient is a 70-year-old male with syncopal episode secondary to large bowel movements. Patient reports no more syncopal episodes or near syncopal events overnight. Had a small, loose BM yesterday along with gas, but no BMs like the ones associated with the syncopal events. His orthostatic vitals was within normal. Of note, patient's initial 2 blood cultures taken in the ED came back positive for gram-positive cocci in clusters. Patient had reported that he experienced bacteremia after trigger point procedure in Review of systems: Cardiac: Denies chest pain, tachycardia Respiratory: Denies shortness of breath, cough Gastrointestinal: Denies nausea, vomiting, diarrhea; reports continuing tenderness in left lower quadrant Genitourinary: Denies dysuria, hematuria Neurology: Denies headache, blurry vision OBJECTIVE PHYSICAL EXAMINATION: VITAL SIGNS: Please see below. GENERAL: 70-year-old, male, sitting on edge of bed writing, no acute distress CARDIOVASCULAR: Regular rate and rhythm. RESPIRATORY: CTA bilaterally. ABDOMINAL: Normoactive bowel sounds and tenderness to palpation left lower quadrant only EXTREMITIES: Left knee more swollen than right knee, no warmth or erythema around incision site from knee replacement, mixing picker tender area above and below knee NEUROLOGICAL: No focal deficits appreciated LABORATORY DATA, IMAGING STUDIES, MICROBIOLOGY: Please see below. Echocardiogram: 1. Study is of good technical quality, underlying sinus rhythm. 2. Normal left ventricular (LV) hypertrophy and preserved left ventricular (LV) systolic function. Grade 1 diastolic dysfunction. 3. Mild aortic, mitral, tricuspid and pulmonic insufficiency. 4. Normal central venous pressure and normal pulmonary artery pressure. 5. Mildly dilated aortic root at 3.9 cm. 6. No findings to provide obvious explanation for syncopal event. DVT prophylaxis ordered?: Heparin ASSESSMENT AND PLAN: This is a 70-year-old male with syncopal episode secondary to passage of large bowel movements, pulmonary embolism, enteritis, basilar pneumonia. PROBLEMS: s/p Syncope with transient bradycardia 2/2 possible vasovagal phenomenon vs PE? (no R heart strain) - s/p 3 syncopal episodes in ER, all following straining on bedside commode. 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 cardiac enzymes negative x 2 - Holding baclofen and methocarbamol for side effects of bradycardia - Magnesium normal - c/w Telemetry monitoring - Echo results noted above - c/w PT / OT; cleared for DC Home Pulmonary embolism (Inter lobar and right lower lobe) / LLE DVT - likely 2/2 recent surgery - no acute SOB. Is now on room air - likely related to recent knee replacement 02/28/21 - states he was compliant with prophylactic ASA - LLE venous duplex to r/o DVT - positive for nonocclusive popliteal vein thrombosis without extension into L femoral vein - Heparin drip was transitioned to Eliquis Gram-positive cocci in clusters seen on blood culture (seen in 2 of 2 cultures) - etiology unclear - Clinically patient has not experience any fevers or chills - He has reported that in the past in March/April, he was treated for bacteremia at [facility] - Blood cultures 03/06: Gram positive cocci in clusters - Blood cultures 03/07: Pending - c/w Vancomycin and Zosyn (Day #2) - ID has been consulted; appreciate their input Enteritis - possible related to fecal impaction 2/2 ileus? - seen on CT abdomen - had large BM in ER - to f/u cultures - procal within normal limits - c/w zosyn Questionable R basilar pneumonia - no leukocytosis, no fever - CT scan reviewed above - ordered procal, ESR, CRP - c/w zosyn Arthritis - 02/28/21 knee replacement - patient uses copious amounts of NSAIDs - c/w PT and OT Neuropathy - c/w gabapentin GERD - c/w omeprazole BPH? - c/w Flomax Disposition: - Awaiting clinical improvement - Awaiting ID input VS, I&O, 24H, Fishbone Vital Signs/I&O Vital Signs Date Time Temp Pulse Resp B/P (MAP) Pulse Ox O2 Delivery O2 Flow Rate FiO2 03/08/21 08:09 97.4 75 18 102/57 (72) 98 Room Air 03/06/21 19:51 2.0 I&O- Last 24 Hours up to 6 AM 03/08/21 06:00 Intake Total 2128.5 ml Output Total 625 ml Balance 1503.5 ml Laboratory Data 24H LABS Laboratory Tests 2 03/07/21 17:29: Activated Partial Thromboplast Time 67.7H 03/07/21 21:41: Activated Partial Thromboplast Time 75.1H 03/08/21 06:07: Activated Partial Thromboplast Time 76.4H, Immature Granulocyte % (Auto) 0.6, Neutrophils (%) (Auto) 72.5H, Lymphocytes (%) (Auto) 13.4L, Monocytes (%) (Auto) 8.5H, Eosinophils (%) (Auto) 4.6H, Basophils (%) (Auto) 0.4, Neutrophils # (Auto) 4.9, Lymphocytes # (Auto) 0.9L, Monocytes # (Auto) 0.6, Eosinophils # (Auto) 0.3, Basophils # (Auto) 0.0, Nucleated Red Blood Cells % (auto) 0.0, Anion Gap 5L, Glomerular Filtration Rate > 60.0, Calcium Level 7.8L, Total Eduar irubin 0.6, Aspartate Amino Transf (AST/SGOT) 25, Alanine Aminotransferase (ALT/SGPT) 25, Alkaline Phosphatase 51, Total Protein 5.6L, Albumin 2.1#L, Albumin/Globulin Ratio 0.6 03/08/21 10:29: C-Reactive Protein, Quantitative 15.10H CBC/BMP Laboratory Tests 03/08/21 06:07 03/08/21 10:29 Microbiology Microbiology 03/07/21 Blood Culture, Received Pending 03/07/21 Blood Culture, Received Pending 03/07/21 Gastrointestinal Tract Panel (PCR) - Final, Complete 03/06/21 Blood Culture - Preliminary, Resulted 03/06/21 Blood Culture - Preliminary, Resulted GME ATTESTATION GME ATTESTATION My faculty preceptor for this patient encounter was physically present during the encounter and was fully available. All aspects of the patient interview, examination, medical decision making process, and medical care plan development were reviewed and approved by the faculty preceptor. The faculty preceptor is aware and concurs with the plan as stated in the body of this note and will attest to such by his/her cosignature. ATTENDING NOTE I, Lian Gr, have independently examined this patient and performed my own physical exam, as well as reviewed the documentation and edited where necessary with the resident. For medical students we have performed the physical exam together and discussed medical decision making and I have verified the history. I have discussed in detail with the resident / student the findings and plan of treatment as documented by the resident / student and edited their note. I agree with their findings and treatment plan and have edited their documentation. I will continue to follow the patient during this hospital stay. Parish Bhatt DO Mar 08, 2021 11:41 LIAN GR MD Mar 08, 2021 13:18
[2021-03-08] MEDS ORDERED: PIPERACILLIN/TAZOBACTAM SOD 4.5 GM in D5W MINI-BAG PLUS 50 ML IV SCH (12:00)
[2021-03-08 12:23] VITALS: BP 102/59
[2021-03-08] MEDS ORDERED: MIRALAX *UNIT DOSE* 17GM PACKET PO PRN (13:10)
[2021-03-08] MEDS ORDERED: SENOKOT S TAB PO PRN (13:10)
[2021-03-08 16:02] VITALS: BP 131/64
[2021-03-08 20:00] VITALS: BP 105/53
[2021-03-09] VITALS: BP 101/55
[2021-03-09] MEDS: NORCO, ANEXSIA 5/325MG TABLET (HYDROcodone/ACETAMINOPHEN) PO PRN ×2 (00:33→09:23)
[2021-03-09] MEDS: VANCOMYCIN HCL 1,000 MG, VIAL MATE ADAPTER 1 EACH in NS 250 ML IV SCH (03:27)
[2021-03-09 04:00] VITALS: BP 115/61
[2021-03-09] MEDS: ACETAMINOPHEN TAB 650MG DOSE (2X325MG) PO PRN (04:29)
[2021-03-09 05:52] LABS: BASO % 0.6 % (0.0-1.0); EOS # 0.3 10^3/uL (0.0-0.5); HEMATOCRIT 26.3 % (42.0-52.0); HEMOGLOBIN 8.8 g/dl (13.5-17.5); LYMPH # 0.9 10^3/uL (1.5-5.0); LYMPH % 16.3 % (24.0-44.0); MEAN CORPUSCULAR HEMOGLOBIN 30.7 pg (27.0-33.0); MEAN CORPUSCULAR HGB CONC 33.5 g/dl (32.0-36.5); MEAN CORPUSCULAR VOLUME 91.6 fl (80.0-96.0); MONO # 0.5 10^3/uL (0.0-0.8); NEUTROPHILS # 3.6 10^3/uL (1.5-8.5); NEUTROPHILS % 67.9 % (36.0-66.0); PLATELET COUNT, AUTOMATED 215 10^3/uL (150-450); RED BLOOD COUNT 2.87 10^6/uL (4.30-6.10); WHITE BLOOD COUNT 5.3 10^3/uL (4.0-10.0)
[2021-03-09 06:14] LABS: BLOOD UREA NITROGEN 9 MG/DL (7-18); CALCIUM LEVEL 8.3 MG/DL (8.8-10.2); CARBON DIOXIDE LEVEL 27 MEQ/L (21-32); CHLORIDE LEVEL 106 MEQ/L (98-107); CREATININE FOR GFR 0.81 MG/DL (0.70-1.30); GLOMERULAR FILTRATION RATE > 60.0 (>42); GLUCOSE, FASTING 97 MG/DL (70-100); MAGNESIUM LEVEL 2.1 MG/DL (1.8-2.4); POTASSIUM SERUM 4.1 MEQ/L (3.5-5.1); SODIUM LEVEL 137 MEQ/L (136-145)
[2021-03-09 08:00] VITALS: BP 108/63
[2021-03-09] MEDS: APIXABAN 5 MG TAB (ELIQUIS) PO SCH (09:22)
[2021-03-09] MEDS: TAMSULOSIN 0.4 MG CAP PO SCH (09:22)
[2021-03-09] MEDS: GABAPENTIN 300 MG CAP PO SCH (09:23)
[2021-03-09] MEDS: OMEPRAZOLE 20 MG CAP PO SCH (09:23)
[2021-03-09] MEDS ORDERED: ceFAZolin SOD 2 GM in IV 1 EA IV SCH (11:00)
[2021-03-09] MEDS ORDERED: LIDOCAINE 1% MDV 20ML VIAL As Ordered ONE (11:14)
--- NOTE | 2021-03-09 11:50 | DS.PDOC ---
Discharge Summary General Date of Admission Mar 06, 2021 at 23:45 Date of Discharge Mar 09, 2021 Attending Physician: LIAN HANDY MD Discharge Summary PROCEDURES PERFORMED DURING STAY: [None] ADMITTING DIAGNOSES: Syncope with transient bradycardia secondary to possible vasovagal phenomenon versus PE Pulmonary embolism Enteritis Questionable right basilar pneumonia Arthritis Neuropathy GERD BPH Excessive NSAID use DISCHARGE DIAGNOSES: Syncope with transient bradycardia secondary to possible vasovagal phenomenon versus PE Pulmonary embolism Enteritis Questionable right basilar pneumonia Staph aureus bacteremia Arthritis Neuropathy GERD BPH Excessive NSAID use COMPLICATIONS/CHIEF COMPLAINT: Pulmonary Embolism,Syncope. HISTORY OF PRESENT ILLNESS: 30-year-old male with history of arthri tis, status post left knee total replacement on 02/28/2021, SBO secondary to adhesions, neuropathy, presented to the ER on 03/06/2021 after syncopal episode at home while attempting to have a bowel movement. Denies chest pain, palpitations, headaches or dizziness at that time. Upon arrival to the ED, suffered 2 additional syncopal episodes while straining on bedpan. CT abdomen showed enteritis with mechanical bowel obstruction. CT of chest was performed due to syncope and showed interlobar and right lower lobe segmental pulmonary embolus without right heart strain and bibasilar atelectasis questionable for right basilar pneumonia. PE could be secondary to the left total knee replacement on 02/28/2021. Patient also recalls taking hydrocodone/acetaminophen on Sunday for pain. 3rd episode of syncope was experiencing his heart rate dropped down to 25 but increased to 75 after passing a large amount of stool in the bedpan. Dr. Keane was consulted who believes bradycardia was response to syncope from vasovagal event. HOSPITAL COURSE: 03/06/2021: Patient presented to the ED after experiencing a syncopal episode at home. Subsequently experienced 3 more episodes of syncope while in the ED associated with passage of large amounts of stool. Became bradycardic during one of them but recovered after passing stool. Was started on Zosyn for treatment of possible enteritis and questionable pneumonia and blood cultures were also drawn. 03/07/2021: Patient may have had 1 more single episode overnight. He endorses history of chronic constipation and takes stool softeners regularly. Left LE venous duplex was positive for nonocclusive popliteal vein thrombus and was started on heparin. Began Zosyn day 2, pro-Saravanan was WNL. Gram-positive cocci in clusters were seen on initial blood cultures. Blood cultures were redrawn to ensure accuracy. Started on vancomycin. 03/08/2021: Patient reported no more syncopal events overnight. Had loose bowel movement during the day but none associated with single events. Orthostatic vital signs within normal limits. Echocardiogram revealed no obvious explanation for syncopal events. Vancomycin day 2 and Zosyn day 3. ID consult was placed. Heparin discontinued and started on Eliquis 10mg. 03/09/2021: Patient reported no more syncopal episodes. Denies chest pain, shortness of breath, abdominal pain, nausea, vomiting, diarrhea, dysuria, dizziness. Final blood culture results 1 from 03/06/2020 resulted in staph aureus bacteremia. 2 more blood cultures have subsequently been drawn. Discussed with ID about treatment plan. He will have a PICC line placed so that antibiotics can be given via home infusion of Cefazolin. He will be discharged on cefazolin 2 g IV every 8 hours and outpatient follow up with ID and ortho pedic surgery within 7 days. DISCHARGE MEDICATIONS: Please see below. ALLERGIES: Please see below. PHYSICAL EXAMINATION ON DISCHARGE: VITAL SIGNS: Please see below. GENERAL: 70-year-old male, lying in bed, no acute distress CARDIOVASCULAR EXAMINATION: Regular rate and rhythm, no murmurs, rubs, no gallops RESPIRATORY EXAMINATION: CTA bilaterally ABDOMINAL EXAMINATION: Normoactive bowel sounds and tender to palpation left lower quadrant likely attributable to enteritis EXTREMITIES: Left lower extremity appears to be less swollen than previous days, however bruising seems to have increased which likely can be attributed to being on anticoagulation. Significant hematoma on back of leg and a smaller one on the medial side of patient's knee. LABORATORY DATA: Please see below. IMAGING: Abdomen KUB (03/06/21): Fusion hardware throughout the thoracolumbar spine. Unremarkable bowel gas pattern. No evidence of obstipation. CXR (03/06/21): Mildly enlarged heart platelike atelectasis versus linear scarring left base.. Cephalization of the pulmonary vasculature. Fusion hardware in the lower thoracic spine. CT head wo contrast (03/06/21): No acute or concerning focal intracranial abnormality. CT abdo pelvis w IV contrast (03/06/21): Appearance of small bowel and colon suggests inflammatory or infectious enteritis without mechanical bowel obstruction. Small volume of dependent pelvic free fluid with no fluid collection or pneumoperitoneum to indicate perforated bowel CTA chest (03/06/21): 1. Inter lobar and right lower lobe segmental pulmonary arterial emboli. No evidence of right heart strain. 2. Basilar atelectasis and question of possible but not conclusive posterior right basilar pneumonia. 3. Mildly ectatic ascending aorta with no significant atherosclerotic change and no acute complication L leg duplex (03/07/21): Focal nonocclusive popliteal vein thrombosis without extension into the left femoral vein. Carotid artery duplex (03/07/2021): According to the SRU criteria there is 50-69% stenosis of the left internal carotid artery. There is less than 50% stenosis of the right internal carotid artery. PROGNOSIS: Stable ACTIVITY: As tolerated and per recommendations from your orthopedic surgeon DIET: As tolerated DISPOSITION: Home with infusion services DISCHARGE INSTRUCTIONS AND ITEMS TO FOLLOW-UP IN OUTPATIENT: 1. Continue Eliquis 10 mg twice daily for the next 5 days. On 03/15/2020 begin Eliquis 5 mg twice daily. 2. Be available for infusion services to come to home to administer cefazolin 3. Continue docusate and MiraLAX 4. Avoid excessive straining with bowel movements 5. Follow-up with orthopedist in follow-up his guidance on appropriate rehab 6. If symptoms return, please return to ED DISCHARGE CONDITION: [Stable]. TIME SPENT ON DISCHARGE: 35 minutes. Vital Signs/I&Os Vital Signs Date Time Temp Pulse Resp B/P (MAP) Pulse Ox O2 Delivery O2 Flow Rate FiO2 03/09/21 11:29 98.4 73 18 96 Room Air 03/09/21 08:00 108/63 (78) 03/06/21 19:51 2.0 I&O- Last 24 Hours up to 6 AM 03/09/21 06:00 Intake Total 990 ml Output Total 0 ml Balance 990 ml Laboratory Data Labs 24H Laboratory Tests 2 03/08/21 14:02: Vancomycin Level Trough 11.7 03/09/21 05:22: Immature Granulocyte % (Auto) 0.2, Neutrophils (%) (Auto) 67.9H, Lymphocytes (%) (Auto) 16.3L, Monocytes (%) (Auto) 9.0H, Eosinophils (%) (Auto) 6.0H, Basophils (%) (Auto) 0.6, Neutrophils # (Auto) 3.6, Lymphocytes # (Auto) 0.9L, Monocytes # (Auto) 0.5, Eosinophils # (Auto) 0.3, Basophils # (Auto) 0.0, Nucleated Red Blood Cells % (auto) 0.0, Anion Gap 4L, Glomerular Filtration Rate > 60.0, Calcium Level 8.3L, Magnesium Level 2.1 CBC/BMP Laboratory Tests 03/09/21 05:22 Microbiology Microbiology 03/09/21 Blood Culture, Received Pending 03/09/21 Blood Culture, Received Pending 03/07/21 Blood Culture - Preliminary, Resulted No growth after 24 hours . All specim... 03/07/21 Blood Culture - Preliminary, Resulted No growth after 24 hours . All specim... 03/07/21 Gastrointestinal Tract Panel (PCR) - Final, Complete 03/06/21 Blood Culture - Preliminary, Resulted 03/06/21 Blood Culture - Final, Complete Staphylococcus Aureus Discharge Medications Scheduled Apixaban (Eliquis) 5 Mg Tablet, 5 MG PO ASDIRECTED 10mg po BID until 03/15, then 5mg po bid to start on 03/15 there after C/Sourcherry/Celery/Grape Seed (Tart Suh Capsule) 1 Each Capsule, 1 CAP PO DAILY, (Reported) Calcium Carbonate/Vitamin D3 (Calcium 600+D Softgel) 1 Each Capsule, 1 CAP PO DAILY, (Reported) Celecoxib (Celecoxib) 200 Mg Capsule, 200 MG PO BID, (Reported) BEGIN MORNING OF03/04/21 FOR 2 WEEKS, TAKE WITH FOOD; 14 Days Docusate Sodium (Stool Softener) 100 Mg Capsule, 100 MG PO DAILY, (Reported) Gabapentin (Gabapentin) 300 Mg Capsule, 300 MG PO BID, (Reported) Glucosamine/Chondr Fry A Sod (Cidaflex Tablet) 1 Each Tablet, 1 TAB PO DAILY, (Reported) Ketorolac Tromethamine (Ketorolac Tromethamine) 10 Mg Tablet, 10 MG PO TID, (Reported) BEGIN 03/04/21 X 3 DAYS Lactobacillus Combo No.11 (Probiotic) 1 Each Cap.sprink, 1 CAP PO DAILY, (Reported) Multivitamin (Multivitamin) 1 Each Tablet, 1 EACH PO DAILY, (Reported) Naproxen (Naproxen) 500 Mg Tablet, 500 MG PO BID, (Reported) [place]-3 Fatty Acids/Fish Oil (Fish Oil 1,000 mg Capsule) 1 Each Capsule, 1,000 MG PO DAILY, (Reported) Omeprazole (Omeprazole) 20 Mg Capsule.dr, 20 MG PO DAILY, (Reported) Sennosides (Senna) 8.6 Mg Tablet, 1 TAB PO DAILY, (Reported) Tamsulosin HCl (Flomax) 0.4 Mg Capsule, 0.4 MG PO DAILY, (Reported) Scheduled PRN Acetaminophen (8 Hour) 650 Mg Tablet.er, 650 MG PO TID PRN for MODERATE PAIN, (Reported) Hydrocodone/Acetaminophen (Hydrocodone-Acetamin 5-325 mg) 1 Each Tablet, 1 TAB PO Q4-6HP PRN for SEVERE PAIN, (Reported) Polyethylene Glycol 3350 (Miralax) 17 Gm Powd.pack, 1 PKT PO BID PRN for CONSTIPATION Sennosides/Docusate Sodium (Senna Plus Tablet) 1 Each Tablet, 2 TAB PO BIDP PRN for CONSTIPATION Allergies Coded Allergies: No Known Allergies (Verified , 11/24/19) GME ATTESTATION GME ATTESTATION My faculty preceptor for this patient encounter was physically present during the encounter and was fully available. All aspects of the patient interview, examination, medical decision making process, and medical care plan development were reviewed and approved by the faculty preceptor. The faculty preceptor is aware and concurs with the plan as stated in the body of this note and will attest to such by his/her cosignature. ATTENDING NOTE I, Lian Handy, have independently examined this patient and performed my own physical exam, as well as reviewed the documentation and edited where necessary with the resident. For medical students we have performed the physical exam together and discussed medical decision making and I have verified the history. I have discussed in detail with the resident / student the findings and plan of treatment as documented by the resident / student and edited their note. I agree with their findings and treatment plan and have edited their documentation. I will continue to follow the patient during this hospital stay. Parish Bhatt DO Mar 09, 2021 11:49 LIAN HANDY MD Mar 09, 2021 15:08
[2021-03-09 12:45] VITALS: BP 116/58
[2021-03-09] MEDS ORDERED: SODIUM CHLORIDE 0.9% INJ 10 ML SYR IV PRN (13:00)
[2021-03-09] MEDS ORDERED: ELIQ5TAB PO (14:34)
[2021-03-09] MEDS ORDERED: MIRA1POW3 PO (14:35)
[2021-03-09] MEDS ORDERED: SENN-52 PO (14:35)
[2021-03-09] MEDS ORDERED: SODIUM CHLORIDE 0.9% INJ 10 ML SYR IV SCH (18:00)
--- NOTE | 2021-03-09 18:00 | REP ---
INDICATION: FPC antibiotics. COMPARISON: None. TECHNIQUE: The procedure was performed under the direct supervision of Dr. Coleman. The risks and benefits of the procedure were explained to the patient and informed consent was obtained. The right basilic vein was localized using ultrasound guidance. The skin was prepped and draped in a sterile fashion. 1 mL of 1% lidocaine was used as a local anesthetic. Using ultrasound guidance the basilic vein was cannulated and a 0.018 guidewire was inserted and advanced to the SVC using fluoroscopic guidance, and last image hold technology. The needle was removed and a 5.5 Cymraes dilator and peel-away sheath was inserted over the guide wire. A 5.5 Cymraes dual lumen catheter was cut to length of 43 cm. The dilator was removed and the catheter was inserted over the guide wire with the tip ending in the SVC. The peel-away sheath was removed and the catheter was flushed with heparinized saline as per Hospital protocol. The catheter was affixed to the skin and a sterile dressing was applied. Estimated blood loss: Less than 1 mL The patient tolerated the procedure well and there were no immediate complications. 0.9 minutes of fluoro time was utilized for this procedure. FINDINGS: None IMPRESSION: PICC line insertion right basilic vein with the tip ending in the SVC. <Electronically signed by Cam Barcenas > 03/09/21 1611 <Electronically signed by Ankur Wyatt > 03/09/21 [id number]
--- NOTE | 2021-03-09 23:50 | ECGEPIP ---
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
--- NOTE | 2021-03-11 09:53 | CR ---
CONSULTATION DATE: 03/09/2021 REASON FOR CONSULTATION: Asked to consult by Dr. Handy for evaluation of gram-positive cluster and blood cultures in a patient admitted with syncope. HISTORY OF PRESENT ILLNESS: Aashish is a 70-year-old gentleman who had a left total knee arthroplasty done in [place], 24 hour hospitalization, who presented to [facility] on 03/06/2021 after he had a syncopal episode while attempting to have a bowel movement. The patient states that he was constipated, had not had a bowel movement for about four days. He was complaining of lightheadedness and fainted while trying to have a bowel movement. He denied any chest pain or palpitations. No headache or dizziness. He had two more episodes of syncope in the emergency room while using the bedpan. He denied any cough or shortness of breath. He had a CT angiogram which showed internal blur and right lower lobe segmental pulmonary embolism without evidence of right heart strain and left leg deep venous thrombosis (DVT). The patient was seen in consultation by Dr. Keane, as he had bradycardia down to 25 that spontaneously resolved. It was felt to be related to vasovagal syncope. The patient was started on Eliquis. On admission, he received intravenous (IV) Zosyn times 48 hours, started on 03/06/2021 for a questionable pneumonia on chest CT. On 03/07/2021, blood cultures were positive times two. IV vancomycin was added. A gastrointestinal (GI) panel was obtained, which was negative. Patient did not have any fevers. He felt much better today and was hoping to be discharged home, but due to the positive blood cultures, his discharge was held. PAST MEDICAL HISTORY: 1. Osteoarthritis of knees and back. 2. Neuropathy from multiple back injuries and degenerative disc disease. 3. Small bowel obstruction status post lysis of adhesions. PAST SURGICAL HISTORY: 1. Discectomy and back stabilization with multiple rods, April 2017. 2. Right total knee arthroplasty, June 2017. 3. Carpal tunnel release. 4. Left thumb trigger finger release. 5. Appendectomy. 6. Tonsillectomy. 7. Abdominal surgery for lysis of adhesions. 8. Hemorrhoidectomy. 9. Left total knee arthroplasty, 02/28/2021. SOCIAL HISTORY: He lives with his partner. 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 Denies smoking, alcohol or drug use. FAMILY HISTORY: Father and mother both , father with an myocardial infarction (OK), mother with breast cancer. ALLERGIES: No known drug allergies. MEDICATIONS: - Zosyn 4.5 grams IV every 6 hours - vancomycin 1 gram IV every 12 hours - apixaban 10 mg by mouth twice a day - tamsulosin 0.4 mg by mouth daily - omeprazole 20 mg by mouth daily - gabapentin 300 mg by mouth twice a day - hydrocodone one tablet by mouth every 4 hours as needed - Senokot two tablets by mouth twice a day as needed LABORATORY DATA: White count on admission was 5.5 on 03/06/2021, today it is 6.8, hemoglobin 8.8, hematocrit 25.3, platelets 172, 72% neutrophils, 30% lymphocytes. Sodium 138, potassium 4, chloride 105, bicarbonate 28, BUN 12, creatinine 0.96, glucose 106, calcium 7.8. AST 25, ALT 25, alkaline phosphatase 51. C-reactive protein (CRP) 15.1. Total protein 5.6, albumin 2.1. Vancomycin trough 11.7. Alcohol level less than 0. 03. SARS-CoV-2, influenza A and B and respiratory Syncytial Virus (RSV) negative. Blood cultures two sets were positive on 03/06/2021, one drawn on 1749, the other on 1751, two minutes apart. GI panel was negative. Repeat blood cultures within 24 hours were negative times two sets and blood cultures on 03/09/2021 were negative. IMAGING DATA: Chest x-ray: Large platelike atelectasis versus linear scarring of the left base, fusion in the lower spine. CT abdomen and pelvis shows small bowel and colon suggestive of infectious enteritis without mechanical bowel obstruction. No fluid or pneumoperitoneum. CT angiogram done 03/06/2021, interlobar and right lower lobe segmental pulmonary emboli with no right heart strain. Atelectasis with no conclusive evidence of right basilar pneumonia. Vascular ultrasound: Focal, nonocclusive popliteal vein thrombosis without evidence of extension into the left femoral vein. PHYSICAL EXAMINATION: VITAL SIGNS: Temperature 98.5, pulse 76, respirations 18, blood pressure 101/55, oxygen saturation 94% on room air. HEART: Normal. S1, S2. No murmurs, rubs or gallops. LUNGS: Clear to auscultation. No wheezes, rales or rhonchi. ABDOMEN: Soft, nontender. No hepatosplenomegaly. BACK: Large scar from thoracic all the way to the lumbar area, well healed. No tenderness along the lumbar spine. No costovertebral angle (CVA) tenderness. EXTREMITIES: Right leg with a total knee arthroplasty and a patellar effusion superior to that which is chronic, nontender, soft. Patient states it is chronic since his surgery, as he had a fall. Left leg has incision with sutures in place. Left leg is swollen, slightly tender along the incision site. Range of motion normal. No evidence of surgical site infection. No purulence or redness. NECK: Supple. No jugular venous distention (JVD) or bruits. HEENT: Oropharynx is clear. IMPRESSION: This is a 70-year-old gentleman with no cardiac history, who presented after six days post left total knee arthroplasty with a syncopal episode, left leg deep venous thrombosis (DVT) and a pulmonary embolism. The patient's syncopal episode was felt to be related to a vasovagal event after straining to have a bowel movement, as he was constipated. He was also found to have positive blood cultures. On 03/09/2021, blood cultures have been found to be Staphylococcus aureus. Although patient does not seem to have any sign of infection, due to the fact that patient has hardware in his back, a brand new left total knee arthroplasty, a right total knee arthroplasty, it would be on the safe side to treat him with IV antibiotics. I would not pursue a transesophageal echocardiogram. His VIRSTA score is zero. The patient has nosocomial bacteremia, as he was in the hospital less than six days ago. He had sterile blood cultures at 24 hours. He has no permanent cardiac device, no signs of endocarditis and no fever. His C-reactive protein (CRP) is less than 19, all factors that make endocarditis very unlikely. He may have had a transient bacteremia after his syncopal episode, probably from skin source. PLAN: Peripherally inserted central catheter (PICC) line insertion to be scheduled. Discontinue IV Zosyn. Patient does not have pneumonia. Switch IV vancomycin to IV cefazolin 2 grams every 8 hours. Treat for two weeks from negative blood cultures, which [facility]21 [facility]
== END 2021-03-09 17:35 | disposition home or self-care (01) | DRG 175 ==
LOC: M ED 17:05 → EDBD 17:05 → M ED INP 23:45 → UNDOADMIN 23:45 → ENRESERV 03-07 07:52 → M PCU 03-07 08:02
PROVIDERS: ADMIT Family Medicine; ATTEND Internal Medicine
PROC: 02HV33Z Insertion of Infusion Device into Superior Vena Cava, Percutaneous Approach (ICD-10-PCS; principal; 2021-03-09 11:30)
DX: I26.99 Other pulmonary embolism without acute cor pulmonale (principal); J18.9 Pneumonia, unspecified organism; I82.432 Acute embolism and thrombosis of left popliteal vein; R78.81 Bacteremia; K52.9 Noninfective gastroenteritis and colitis, unspecified; R55 Syncope and collapse; K21.9 Gastro-esophageal reflux disease without esophagitis; N40.0 Benign prostatic hyperplasia without lower urinary tract symptoms; G62.9 Polyneuropathy, unspecified; M19.90 Unspecified osteoarthritis, unspecified site; B95.61 Methicillin susceptible Staphylococcus aureus infection as the cause of diseases classified elsewhere; Z96.652 Presence of left artificial knee joint; Z79.899 Other long term (current) drug therapy

== ENCOUNTER → 2021-03-14 | Outpatient (REF) | payer MEDICARE, BC ==
[~2021-03-14] MED LIST changes: +AMOX875T2 PO; +BACL1TAB9 PO; +CELE1CAP9 PO; +ELIQ5TAB PO; +FLOM0.4C39 PO; +HYDR-3713 PO; +KETO10TAB PO; +MIRA1POW3 PO; +MULT-90 PO; +SENN-52 PO
[2021-03-14 14:23] LABS: HEMATOCRIT 27.6 % (42.0-52.0); HEMOGLOBIN 9.3 g/dl (13.5-17.5); MEAN CORPUSCULAR HEMOGLOBIN 31.2 pg (27.0-33.0); MEAN CORPUSCULAR HGB CONC 33.7 g/dl (32.0-36.5); MEAN CORPUSCULAR VOLUME 92.6 fl (80.0-96.0); PLATELET COUNT, AUTOMATED 297 10^3/uL (150-450); RED BLOOD COUNT 2.98 10^6/uL (4.30-6.10); WHITE BLOOD COUNT 7.5 10^3/uL (4.0-10.0)
[2021-03-14 14:38] LABS: C REACTIVE PROTEIN QUANTITATIV 2.42 MG/DL (0.00-0.30)
[2021-03-14 15:19] LABS: ERYTHROCYTE SEDIMENTATION RATE 60 mm/hr (0-20)
[2021-03-15 15:24] LABS: BLOOD UREA NITROGEN 13 MG/DL (7-18); CALCIUM LEVEL 8.5 MG/DL (8.8-10.2); CARBON DIOXIDE LEVEL 28 MEQ/L (21-32); CHLORIDE LEVEL 101 MEQ/L (98-107); CREATININE FOR GFR 0.86 MG/DL (0.70-1.30); GLOMERULAR FILTRATION RATE > 60.0 (>42); GLUCOSE, FASTING 102 MG/DL (70-100); POTASSIUM SERUM 4.3 MEQ/L (3.5-5.1); SODIUM LEVEL 134 MEQ/L (136-145); VANCOMYCIN LEVEL TROUGH < 0.8 UG/ML (10.0-20.0)
== END ==
LOC: M SHH 14:00
PROVIDERS: ATTEND Internal Medicine Nephrology
DX: R78.81 Bacteremia (principal); B95.61 Methicillin susceptible Staphylococcus aureus infection as the cause of diseases classified elsewhere

== ENCOUNTER → 2021-03-22 | Outpatient (REF) | payer MEDICARE, BC ==
[~2021-03-22] MED LIST changes: +OMEP-173 PO; -OMEP-218 PO
[2021-03-22 12:12] LABS: EOS # 0.2 10^3/uL (0.0-0.5); EOS % 5.5 % (0.0-3.0); HEMATOCRIT 30.2 % (42.0-52.0); HEMOGLOBIN 10.1 g/dl (13.5-17.5); LYMPH # 0.7 10^3/uL (1.5-5.0); LYMPH % 15.4 % (24.0-44.0); MEAN CORPUSCULAR HEMOGLOBIN 31.2 pg (27.0-33.0); MEAN CORPUSCULAR HGB CONC 33.4 g/dl (32.0-36.5); MEAN CORPUSCULAR VOLUME 93.2 fl (80.0-96.0); MONO # 0.3 10^3/uL (0.0-0.8); MONO % 8.1 % (2.0-8.0); NEUTROPHILS # 2.9 10^3/uL (1.5-8.5); NEUTROPHILS % 69.8 % (36.0-66.0); PLATELET COUNT, AUTOMATED 305 10^3/uL (150-450); RED BLOOD COUNT 3.24 10^6/uL (4.30-6.10); WHITE BLOOD COUNT 4.2 10^3/uL (4.0-10.0)
[2021-03-22 12:32] LABS: ERYTHROCYTE SEDIMENTATION RATE 41 mm/hr (0-20)
== END ==
LOC: M SHH 11:52
PROVIDERS: ATTEND Internal Medicine Infectious Disease
DX: A49.01 Methicillin susceptible Staphylococcus aureus infection, unspecified site (principal)

== ENCOUNTER → 2021-04-04 | Outpatient (CLI) | payer MEDICARE ==
[~2021-04-04] MED LIST changes: -OMEP-173 PO; +OMEP-218 PO
[2021-04-04 14:18] LABS: BASO # 0.1 10^3/uL (0.0-0.2); BASO % 1.1 % (0.0-1.0); EOS # 0.3 10^3/uL (0.0-0.5); EOS % 7.7 % (0.0-3.0); HEMATOCRIT 35.4 % (42.0-52.0); HEMOGLOBIN 11.6 g/dl (13.5-17.5); LYMPH # 0.9 10^3/uL (1.5-5.0); MEAN CORPUSCULAR HEMOGLOBIN 30.9 pg (27.0-33.0); MEAN CORPUSCULAR HGB CONC 32.8 g/dl (32.0-36.5); MEAN CORPUSCULAR VOLUME 94.4 fl (80.0-96.0); MONO # 0.4 10^3/uL (0.0-0.8); MONO % 9.5 % (2.0-8.0); NEUTROPHILS # 2.7 10^3/uL (1.5-8.5); NEUTROPHILS % 61.5 % (36.0-66.0); PLATELET COUNT, AUTOMATED 230 10^3/uL (150-450); RED BLOOD COUNT 3.75 10^6/uL (4.30-6.10); WHITE BLOOD COUNT 4.4 10^3/uL (4.0-10.0)
[2021-04-04 15:27] LABS: ERYTHROCYTE SEDIMENTATION RATE 15 mm/hr (0-20)
== END ==
LOC: M PLALAB 10:18
PROVIDERS: ATTEND Internal Medicine Infectious Disease
DX: A41.01 Sepsis due to Methicillin susceptible Staphylococcus aureus (principal)

== ENCOUNTER → 2021-08-12 | Outpatient (CLI) | payer MEDICARE ==
[~2021-08-12] MED LIST changes: +OMEP-173 PO; -OMEP-218 PO
== END ==
LOC: M RAD 08:21
PROVIDERS: ATTEND Orthopaedic Surgery
DX: M51.34 Other intervertebral disc degeneration, thoracic region (principal); M54.50 Low back pain, unspecified; Z98.1 Arthrodesis status

== ENCOUNTER → 2021-09-16 | Outpatient (CLI) | payer MEDICARE | LOC: M RAD 09:45 | PROVIDERS: ATTEND Physician Assistant | DX: S63.613A Unspecified sprain of left middle finger, initial encounter (principal) ==

== ENCOUNTER → 2021-11-16 | Outpatient (REF) | payer MEDICARE, BC | LOC: M SFHCDERM 17:34 | PROVIDERS: ATTEND Physician Assistant | DX: C44.310 Basal cell carcinoma of skin of unspecified parts of face (principal) ==

== ENCOUNTER → 2022-02-01 | Outpatient (CLI) | payer MEDICARE, BC | LOC: M PLALAB 10:22 | PROVIDERS: ATTEND Nurse Practitioner Adult Health | DX: R06.02 Shortness of breath (principal) ==

== ENCOUNTER → 2022-02-24 | Outpatient (REF) | payer MEDICARE, BC | LOC: M LAB REF 17:03 | PROVIDERS: ATTEND Internal Medicine | DX: N52.9 Male erectile dysfunction, unspecified (principal) ==

== ENCOUNTER → 2022-04-03 | Outpatient (CLI) | payer MEDICARE, BC | LOC: M SLEEP 20:00 | PROVIDERS: ATTEND Nurse Practitioner Adult Health | DX: G47.33 Obstructive sleep apnea (adult) (pediatric) (principal) ==

== ENCOUNTER → 2022-05-17 | Outpatient (CLI) | payer MEDICARE, BC | LOC: M CARPUL 10:16 | PROVIDERS: ATTEND Internal Medicine | DX: R06.00 Dyspnea, unspecified (principal) ==

== ENCOUNTER → 2022-10-17 | Outpatient (REF) | payer MEDICARE, BC | LOC: M LAB REF 16:25 | PROVIDERS: ATTEND Nurse Practitioner Family | DX: M25.50 Pain in unspecified joint (principal) ==

== ENCOUNTER → 2022-10-24 | Outpatient (REF) | payer MEDICARE, BC | LOC: M LAB REF 16:22 | PROVIDERS: ATTEND Nurse Practitioner Family | DX: M10.9 Gout, unspecified (principal) ==

== ENCOUNTER → 2022-11-08 | Outpatient (REF) | payer MEDICARE, BC ==
[2022-11-08 17:07] LABS: APPEARANCE, URINE CLEAR (CLEAR); BACTERIA, URINE AUTO NEGATIVE (NEGATIVE); BILIRUBIN, URINE AUTO NEGATIVE (NEGATIVE); BLOOD, URINE BLOOD NEGATIVE (NEGATIVE); COLOR, URINE YELLOW (YELLOW); GLUCOSE, URINE (UA) AUTO NEGATIVE (NEGATIVE); KETONE, URINE AUTO NEGATIVE (NEGATIVE); LEUKOCYTE ESTERASE, URINE AUTO NEGATIVE (NEGATIVE); MUCUS, URINE SMALL (NEGATIVE); NITRITE, URINE AUTO NEGATIVE (NEGATIVE); PROTEIN, URINE AUTO NEGATIVE (NEGATIVE); RBC, URINE AUTO 0 /HPF (0-3); SPECIFIC GRAVITY URINE AUTO 1.017 (1.002-1.035); SQUAMOUS EPITHELIAL CELL UR AU 0 /HPF (0-6); UROBILINOGEN, URINE AUTO 0.2 mg/dL (0.0-2.0); WBC, URINE AUTO 0 /HPF (0-3)
== END ==
LOC: M LAB REF 16:23
PROVIDERS: ATTEND Nurse Practitioner Family
DX: M10.9 Gout, unspecified (principal); M15.9 Polyosteoarthritis, unspecified; N17.9 Acute kidney failure, unspecified

== ENCOUNTER → 2023-03-21 | Outpatient (REF) | payer MEDICARE, BC ==
[~2023-03-21] MED LIST changes: +CELE0.09 PO; -CELE1CAP9 PO
== END ==
LOC: M LAB REF 16:36
PROVIDERS: ATTEND Internal Medicine
DX: G90.09 Other idiopathic peripheral autonomic neuropathy (principal)

== ENCOUNTER → 2023-08-24 | Outpatient (REF) | payer MEDICARE, BC, OTHER ==
[~2023-08-24] MED LIST changes: -DOCU-153 PO; -MIRA1POW3 PO; +MIRA33506 PO; +STOO100C30 PO
== END ==
LOC: M LAB REF 13:20
PROVIDERS: ATTEND Nurse Practitioner Family
DX: R06.02 Shortness of breath (principal)

== ENCOUNTER → 2023-10-31 | Outpatient (CLI) | payer MEDICARE ==
[~2023-10-31] MED LIST changes: +ISOVUE-370 76% 100ML VIAL As Ordered ONE
== END ==
LOC: M RAD 09:07
PROVIDERS: ATTEND Nurse Practitioner Family
DX: R91.1 Solitary pulmonary nodule (principal); K76.89 Other specified diseases of liver; R06.00 Dyspnea, unspecified
CPT/HCPCS: 71275; Q9967

== ENCOUNTER → 2023-11-30 | Outpatient (CLI) | payer MEDICARE ==
[~2023-11-30] MED LIST changes: -ISOVUE-370 76% 100ML VIAL As Ordered ONE
== END ==
LOC: M WUC 10:41
PROVIDERS: ATTEND Nurse Practitioner Family
DX: M25.511 Pain in right shoulder (principal); S46.011S Strain of muscle(s) and tendon(s) of the rotator cuff of right shoulder, sequela

== ENCOUNTER 2024-02-26 08:54 | Inpatient (IN) | payer MEDICARE ==
[~2024-02-26] VITALS: Ht 172.7 cm; Wt 77.0 kg
[~2024-02-26 08:54] MED LIST changes: +GABA-1172 PO; -GABA-282 PO
[2024-02-26] MEDS ORDERED: OXYC1TAB23 (09:17)
[2024-02-26 09:58] LABS: BASO % 0.2 % (0.0-1.0); EOS # 0.2 10^3/uL (0.0-0.5); EOS % 1.8 % (0.0-3.0); HEMATOCRIT 32.1 % (42.0-52.0); HEMOGLOBIN 10.9 g/dl (13.5-17.5); LYMPH # 1.4 10^3/uL (1.5-5.0); LYMPH % 16.7 % (24.0-44.0); MEAN CORPUSCULAR HEMOGLOBIN 31.7 pg (27.0-33.0); MEAN CORPUSCULAR VOLUME 93.3 fl (80.0-96.0); MONO % 11.3 % (2.0-8.0); NEUTROPHILS # 5.9 10^3/uL (1.5-8.5); NEUTROPHILS % 69.5 % (36.0-66.0); PLATELET COUNT, AUTOMATED 169 10^3/uL (150-450); RED BLOOD COUNT 3.44 10^6/uL (4.30-6.10); WHITE BLOOD COUNT 8.4 10^3/uL (4.0-10.0)
[2024-02-26 10:10] LABS: INR 1.16; PARTIAL THROMBOPLASTIN TIME 29.6 SECONDS (24.8-34.2); PROTHROMBIN TIME 15.1 SECONDS (12.5-14.5)
[2024-02-26 10:22] LABS: BLOOD UREA NITROGEN 18 MG/DL (9-23); CALCIUM LEVEL 8.8 MG/DL (8.3-10.6); CARBON DIOXIDE LEVEL 25 MMOL/L (20-31); CHLORIDE LEVEL 100 MMOL/L (98-107); CREATININE FOR GFR 0.82 MG/DL (0.70-1.30); GLOMERULAR FILTRATION RATE > 60.0 (>42); GLUCOSE, FASTING 128 MG/DL (74-106); MAGNESIUM LEVEL 1.8 MG/DL (1.8-2.4); POTASSIUM SERUM 4.7 MMOL/L (3.5-5.1); SODIUM LEVEL 131 MMOL/L (136-145)
[2024-02-26] MEDS: KETOROLAC 30 MG/ML 1ML VIAL IV ONE (10:29)
[2024-02-26] MEDS ORDERED: ISOVUE-370 76% 100ML VIAL As Ordered ONE (12:22)
[2024-02-26] MEDS ORDERED: FISH100015 PO (12:35)
[2024-02-26] MEDS ORDERED: OXYC1TAB23 PO (12:39)
[2024-02-26] MEDS ORDERED: ONDA-83 PO (12:39)
[2024-02-26] MEDS ORDERED: DULO30CA9 PO (12:39)
[2024-02-26] MEDS ORDERED: BENZ200C70 PO (12:42)
[2024-02-26] MEDS ORDERED: MAGN400T2 PO (12:42)
[2024-02-26] MEDS ORDERED: AMOX875T PO (12:42)
[2024-02-26] MEDS ORDERED: ACET650T15 PO (12:44)
[2024-02-26] MEDS ORDERED: ACET-683 PO (12:45)
[2024-02-26] MEDS ORDERED: HOME MED LIST COMPLETE! XX SCH (12:45)
[2024-02-26 15:12] VITALS: BP 111/58; TEMP 98.1; O2SAT 93
[2024-02-26] MEDS: KETOROLAC 30 MG/ML 1ML VIAL IV SCH (17:29)
[2024-02-26] MEDS: MAGNESIUM OXIDE 400MG TAB (MAG-OX) PO SCH (17:34)
[2024-02-26] MEDS ORDERED: diphenhydrAMINE 25MG CAP PO PRN (17:50)
[2024-02-26] MEDS: CEPACOL LOZENGE PO PRN (18:47)
[2024-02-26 20:00] VITALS: BP 112/54; TEMP 100.4; O2SAT 93
[2024-02-26] MEDS: ACETAMINOPHEN 650MG ER TAB (TYLENOL ARTHRITIS) PO SCH (20:47)
[2024-02-26] MEDS: GABAPENTIN 300 MG CAP PO SCH (20:47)
[2024-02-26] MEDS: SENNA 8.6 MG TAB (SENOKOT) PO SCH (20:47)
[2024-02-26] MEDS: AMOXICILLIN 875 MG TAB PO SCH (20:47)
[2024-02-26] MEDS: DOCUSATE SODIUM 100MG CAPSULE PO SCH (20:47)
[2024-02-26] MEDS: guaiFENesin ER TABLET 600 MG TAB PO SCH (20:47)
[2024-02-26 23:00] VITALS: TEMP 100.1
[2024-02-27] VITALS: BP 104/55; TEMP 98.2; O2SAT 90
[2024-02-27] MEDS: ALBUTEROL SULFATE 2.5MG/0.5ML INH NEB SOLN NEB PRN (00:36)
[2024-02-27 04:30] VITALS: BP 114/66; TEMP 97.8; O2SAT 92
[2024-02-27 05:08] LABS: BASO % 0.5 % (0.0-1.0); EOS # 0.2 10^3/uL (0.0-0.5); EOS % 2.6 % (0.0-3.0); HEMOGLOBIN 11.4 g/dl (13.5-17.5); LYMPH # 1.1 10^3/uL (1.5-5.0); LYMPH % 14.2 % (24.0-44.0); MEAN CORPUSCULAR HEMOGLOBIN 31.8 pg (27.0-33.0); MEAN CORPUSCULAR HGB CONC 33.5 g/dl (32.0-36.5); MEAN CORPUSCULAR VOLUME 94.7 fl (80.0-96.0); MONO # 0.8 10^3/uL (0.0-0.8); MONO % 9.9 % (2.0-8.0); NEUTROPHILS # 5.5 10^3/uL (1.5-8.5); NEUTROPHILS % 72.4 % (36.0-66.0); PLATELET COUNT, AUTOMATED 166 10^3/uL (150-450); RED BLOOD COUNT 3.59 10^6/uL (4.30-6.10); WHITE BLOOD COUNT 7.7 10^3/uL (4.0-10.0)
[2024-02-27 05:36] LABS: BLOOD UREA NITROGEN 14 MG/DL (9-23); CALCIUM LEVEL 8.6 MG/DL (8.3-10.6); CARBON DIOXIDE LEVEL 28 MMOL/L (20-31); CHLORIDE LEVEL 99 MMOL/L (98-107); CREATININE FOR GFR 0.97 MG/DL (0.70-1.30); GLOMERULAR FILTRATION RATE > 60.0 (>42); GLUCOSE, FASTING 110 MG/DL (74-106); POTASSIUM SERUM 4.5 MMOL/L (3.5-5.1); SODIUM LEVEL 131 MMOL/L (136-145)
[2024-02-27 07:44] VITALS: BP 111/69; TEMP 98.4; O2SAT 93
[2024-02-27] MEDS: TAMSULOSIN 0.4 MG CAP PO SCH (09:00)
[2024-02-27] MEDS ORDERED: MUCI600T31 PO (11:14)
[2024-02-27] MEDS ORDERED: BENZ1LOZ9 PO (11:14)
[2024-02-27] MEDS ORDERED: IBUP-1022 PO (11:17)
== END 2024-02-27 13:49 | disposition hospice, home (50) | DRG 310 ==
LOC: M ED 08:54 → EDBD 08:54 → M ED INP 13:54 → M PCU 14:59
PROVIDERS: ADMIT Internal Medicine Nephrology; ATTEND Internal Medicine Nephrology
DX: R00.1 Bradycardia, unspecified (principal); I95.9 Hypotension, unspecified; R55 Syncope and collapse; G62.9 Polyneuropathy, unspecified; B34.8 Other viral infections of unspecified site; G47.33 Obstructive sleep apnea (adult) (pediatric); N40.0 Benign prostatic hyperplasia without lower urinary tract symptoms; Z79.899 Other long term (current) drug therapy; M19.90 Unspecified osteoarthritis, unspecified site; K59.00 Constipation, unspecified; Z86.718 Personal history of other venous thrombosis and embolism; Z86.711 Personal history of pulmonary embolism; Z96.653 Presence of artificial knee joint, bilateral

== ENCOUNTER → 2024-02-27 | Outpatient (CLI) | payer MEDICARE ==
[~2024-02-27] MED LIST changes: +ACET-683 PO; +ACET650T15 PO; +AMOX875T PO; +BENZ1LOZ9 PO; +BENZ200C70 PO; +DULO30CA9 PO; +FISH100015 PO; +IBUP-1022 PO; +MAGN400T2 PO; +MUCI600T31 PO; +ONDA-83 PO; +OXYC1TAB23; +OXYC1TAB23 PO
== END ==
LOC: M EKG 14:09
PROVIDERS: ATTEND Internal Medicine Nephrology
DX: R00.0 Tachycardia, unspecified (principal)

== ENCOUNTER → 2024-05-15 | Outpatient (CLI) | payer MEDICARE | LOC: M PLAIMG 11:57 | PROVIDERS: ATTEND Internal Medicine | DX: R91.1 Solitary pulmonary nodule (principal) ==

== ENCOUNTER 2025-03-16 15:09 | Observation (INO) | payer MEDICARE ==
[~2025-03-16] VITALS: Ht 172.7 cm; Wt 77.0 kg
[~2025-03-16 15:09] MED LIST changes: -GNP250TA9 PO; -TAMS1CAP17 PO
[2025-03-16 15:45] LABS: BASO # 0.0 10^3/uL (0.0-0.2); BASO % 0.7 % (0.0-1.0); EOS # 0.4 10^3/uL (0.0-0.5); EOS % 6.2 % (0.0-3.0); LYMPH # 1.0 10^3/uL (1.5-5.0); LYMPH % 16.3 % (24.0-44.0); MONO # 0.5 10^3/uL (0.0-0.8); MONO % 9.1 % (2.0-8.0); NEUTROPHILS # 3.9 10^3/uL (1.5-8.5); NEUTROPHILS % 67.5 % (36.0-66.0); PLATELET COUNT, AUTOMATED 222 10^3/uL (150-450)
[2025-03-16 16:01] LABS: ALT/SGPT 14.0 U/L (7.0-40); AST/SGOT 21.0 U/L (<34); C REACTIVE PROTEIN QUANTITATIV 4.56 MG/DL (<1.0); CALCIUM LEVEL 9.5 MG/DL (8.3-10.6); CARBON DIOXIDE LEVEL 30.0 MMOL/L (20-31); CHLORIDE LEVEL 102.0 MMOL/L (98-107); CREATININE FOR GFR 0.89 MG/DL (0.70-1.30); GLOMERULAR FILTRATION RATE 89.4 (>42); POTASSIUM SERUM 5.3 MMOL/L (3.5-5.1); SODIUM LEVEL 138.0 MMOL/L (136-145)
[2025-03-16 16:26] LABS: D-DIMER QUANT 11.93 ug/mL (<0.5); INR 1.04
[2025-03-16] MEDS ORDERED: GNP250TA9 PO (18:20)
[2025-03-16] MEDS ORDERED: TAMS1CAP17 PO (18:20)
[2025-03-16] MEDS ORDERED: HOME MED LIST COMPLETE! XX SCH (18:25)
[2025-03-16 19:36] LABS: CK-MB VALUE MASS 2.5 NG/ML (<3.6)
[2025-03-16 19:38] LABS: CPK CREATINE PHOSPHOKINASE 86.0 U/L (46-171); MB/CK RELATIVE INDEX 2.9 (< OR =4)
[2025-03-16] MEDS: ENOXAPARIN 100 MG/1 ML SYRINGE (J1650 PER 10MG) SC ONE (21:16)
[2025-03-16 22:06] LABS: CREATININE FOR GFR 0.83 MG/DL (0.70-1.30); GLOMERULAR FILTRATION RATE > 90.0 (>42)
[2025-03-17] MEDS: ACETAMINOPHEN *IV* 1,000 MG in IV 1 EA IV ONE (04:00)
[2025-03-17] MEDS: ENOXAPARIN 80 MG/0.8 ML SYRINGE (J1650 PER 10MG) SC SCH (10:14)
[2025-03-17] MEDS ORDERED: ELIQ5TAB PO (14:47)
[2025-03-17 15:32] VITALS: BP 119/62; TEMP 98.2; O2SAT 98
== END 2025-03-17 14:53 | disposition home or self-care (01) ==
LOC: M ED 15:09 → M ED INP 22:05
PROVIDERS: ADMIT Student in an Organized Health Care Education/Training Program; ATTEND Student in an Organized Health Care Education/Training Program
DX: I82.431 Acute embolism and thrombosis of right popliteal vein (principal); I26.94 Multiple subsegmental thrombotic pulmonary emboli without acute cor pulmonale; G47.33 Obstructive sleep apnea (adult) (pediatric); N40.0 Benign prostatic hyperplasia without lower urinary tract symptoms; G62.9 Polyneuropathy, unspecified; M19.90 Unspecified osteoarthritis, unspecified site; K59.09 Other constipation; Z96.653 Presence of artificial knee joint, bilateral; Z90.49 Acquired absence of other specified parts of digestive tract; Z79.899 Other long term (current) drug therapy; Z88.5 Allergy status to narcotic agent
CPT/HCPCS: 71275; 80048; 80076; 82550; 82553; 82565; 84484; 85025; 85379; 85610; 85652; 85730; 86140; 93005; 93306; 96365; 96372; 99284; G0378; J0134; J1650

== ENCOUNTER → 2025-03-16 | Outpatient (CLI) | payer MEDICARE ==
[~2025-03-16] MED LIST changes: +ACET-1515 PO; -ACET650T15 PO; -FISH100015 PO; +FISH100019 PO; -FLOM0.4C39 PO; +GNP250TA9 PO; -IBUP-1022 PO; +IBUP600T42 PO; +TAMS-18 PO; +TAMS1CAP17 PO
== END ==
LOC: M RAD 13:33
PROVIDERS: ATTEND Physician Assistant
DX: R22.41 Localized swelling, mass and lump, right lower limb (principal)